=== PATIENT | male | born 2000 | race Caucasian/White ===

== ENCOUNTER 2024-02-08 17:18 | Emergency (ER) | payer OTHER, SELFPAY ==
[2024-02-08 17:24] VITALS: BP 93/47; PULSE 52; RESP 16; TEMP 36.3; O2SAT 98; BMI 22.2
--- NOTE | 2024-02-08 17:28 | ED_ITS ---
HPI - General Adult General Chief complaint: Laceration/Wound Stated complaint: cut on head Time Seen by Provider: 02/08/24 17:19 History of Present Illness HPI narrative: Patient has small bleeding laceration on crown of scalp. He reports standing up and cutting it on a bin at work around 12:30. Did rinse out area at this time. No LOC 23-year-old man presenting to the emergency department after sustaining a cut to his head. He stood up in a doorway of a grain bin and cut it. He is not having any neck or back pain. There was no loss of conscious. He has not been nauseated. Laceration at the top of the head. Did bleed. Related Data Home Medications ?Medication ?Instructions ?Recorded ?Confirmed dextroamphetamine-amphetamine 20 20 mg PO BID 01/02/24 01/02/24 mg tablet (Adderall) dextroamphetamine-amphetamine 5 mg 5 mg PO BID 01/02/24 01/02/24 tablet (Adderall) Allergies Allergy/AdvReac Type Severity Reaction Status Date / Time maria esther Allergy Severe Sinus Uncoded 01/02/24 15:46 issues. Review of Systems Status of ROS: Reports: 6 or more systems reviewed and unremarkable except as noted in History and below [facility] Medical History Asthma ?J45.909 - Unspecified asthma, uncomplicated (ICD-10) Pilonidal cyst ?L05.91 - Pilonidal cyst without abscess (ICD-10) Social History What is your current living situation?: I presently have a place to live Problems where you live: no known problems In the past 12 months, utilities in danger of being shut off: no In past 12 months, lack of transportation kept you from medical appts, meetings, work, or getting things needed for daily living: no In the past 12 mos, have been you worried that your food would run out before you had money to buy more?: never true In the past 12 mos, the food you bought just didn't last and you didn't have money to buy more?: never true How often does anyone, including family, friends and others, physically hurt you : never How often does anyone, including family, friends and others, insult or talk down to you: never How often does anyone, including family, friends and others, threaten you with harm: never How often does anyone, including family, friends and others, scream or curse at you: never Little interest or pleasure in doing things: not at all Feeling down, depressed, or hopeless: more than half the days Exam Narrative: Exam Narrative: Quiet. NAD. Says little. Neck is supple nontender. Back nontender. Cranial nerves 2-12 intact. No Lowery sign. Top of the scalp is a 2 cm laceration. Full dermal. Bleeds a little bit with manipulation. No cranial defect appreciated. Const: Vital Signs, click to edit/add: Vital Signs - 24 hr 02/08/24 17:24 Temperature 97.4 F L Pulse Rate [Pulse Oximeter] 52 L Respiratory Rate 16 Blood Pressure [Ri ght Upper Arm] 93/47 L Pulse Oximetry 98 Oxygen Delivery Me thod Room Air Documenting provider has reviewed patient's vital signs: yes Course Vital Signs Vital signs: Initial Vital Signs Temperature 97.4 F L 02/08/24 17:24 Temperature Source Temporal Artery Scan 02/08/24 17:24 Pulse Rate 52 L 02/08/24 17:24 Respiratory Rate 16 02/08/24 17:24 Blood Pressure 93/47 L 02/08/24 17:24 Blood Pressure Mean 62 L 02/08/24 17:24 Pulse Oximetry 98 02/08/24 17:24 Oxygen Delivery Method Room Air 02/08/24 17:24 Vital Signs Temperature 97.4 F L 02/08/24 17:24 Pulse Rate 52 L 02/08/24 17:24 Respiratory Rate 16 02/08/24 17:24 Blood Pressure 93/47 L 02/08/24 17:24 Pulse Oximetry 98 02/08/24 17:24 Oxygen Delivery Method Room Air 02/08/24 17:24 Temperature 97.4 F L 02/08/24 17:24 Pulse Rate 52 L 02/08/24 17:24 Respiratory Rate 16 02/08/24 17:24 Blood Pressure 93/47 L 02/08/24 17:24 Pulse Oximetry 98 02/08/24 17:24 Oxygen Delivery Method Room Air 02/08/24 17:24 Medical Decision Making MDM Narrative Medical decision making narrative: Discussed methods of treatment. I would suture or staple just to have less trouble. No other evidence of injury apparent He would prefer richie as quick I think. Return to cleansed with Shur-Clens solution. Place richie with good wound approximation and controlled bleeding. Tolerated well. See patient discharge plan for further discussion Medical Records Medical records reviewed: Yes I reviewed the patient's medical records Discharge Plan Discharge Clinical Impression: Laceration of scalp, Closed head injury Patient Disposition: Home w/ Parent or Adult Condition: Improved Additional Instructions: richie out in 6-7 days. ok to get wet but try not to soak while richie are in. Watch for spreading redness after 2 days accompanied by heat, swelling, marked increase in pain, purulent drainage. Signs or symptoms of a concussion might be nausea or headache upon exertion which can also be an indication to back off that level of activity and reassess in a week.? Concussion can also be represented by smoldering nausea or smoldering headache, difficulty with concentration, mood lability, general somnolence, sense of persistent fog or dizziness/lightheadedness.? If these symptoms are becoming apparent and continuing beyond 7-10 days, be re-evaluated for further recommendations. Prescriptions: No Action dextroamphetamine-amphetamine [Adderall] 20 mg tablet 20 mg PO BID Rx Instructions: administer doses at least 4-6 hours apart dextroamphetamine-amphetamine [Adderall] 5 mg tablet 5 mg PO BID Rx Instructions: administer doses at least 4-6 hours apart Follow Up/Referrals: Grayson Bee MD [Primary Care Provider] - Stand Alone Forms: [employer] Info Instructions
== END 2024-02-08 18:14 | disposition home or self-care (01) ==
PROVIDERS: Emergency Provider Family Medicine; PCP Family Medicine
DX: S01.01XA Laceration without foreign body of scalp, initial encounter (principal); S09.90XA Unspecified injury of head, initial encounter; W22.8XXA Striking against or struck by other objects, initial encounter
CPT/HCPCS: 12001; 99283; 99284

== ENCOUNTER 2024-10-08 14:56 | Emergency (ER) | payer OTHER, SELFPAY ==
--- OUTSIDE RECORDS SUMMARY | 2024-10-08 14:58 | XMS_ITS | Clinical Summary ---
Author Organization [employer] [facility] Address [address] [place] [address] Care Team Providers Care Manager Emergency Department Name Role Phone Pcp, No Primary Care Provider Unavailabl e Allergies No known active allergies Medications dextroamphetamin e-amphetamine (ADDERALL) 20 mg tablet Take 20 mg by mouth. 3 Active dextroamphetamin e-amphetamine (ADDERALL) 5 mg tablet Take 5 mg by mouth. 3 Active ibuprofen (IBU-200 ORAL) Take by mouth. Active menthol-zinc oxide topical (Calmoseptine) ointmentIndicati ons:Skin irritation Apply topically to affected area(s) each time if needed for Irritation. 70 g 3 Active omeprazole 20 mg tabletIndication s:Gastritis, presence of bleeding unspecified, unspecified chronicity, unspecified gastritis type Take 1 Tablet (20 mg) by mouth once daily before a meal. 60 Tablet 5 Active clarithromycin 500 mg tabletIndication s:H. pylori infection Take 1 Tablet (500 mg) by mouth two times daily for 14 days. 28 Tablet 5 10/17/19 25 Active amoxicillin 500 mg tabletIndication s:H. pylori infection Take 2 Tablets (1,000 mg) by mouth two times daily for 14 days. 56 Tablet 5 10/17/19 25 Active Active Problems No known active problems Encounters Date Type Department Care Team Description 10/04/2024 Telephone [facility] [place] [address] [place] [address] Aye Browning NP Results 10/03/2024 1:30 PM CDT Orders Only [facility] [address] [place] [address] Lab, Farm Lab 10/02/2024 7:30 PM CDT Office Visit [facility] [place] [address] [place] [phone] Jessica Connors MD Abdominal Pain 10/02/2024 Travel from Last 3 Months Social History Tobacco Use Types Packs/Day Years Used Date Smoking Tobacco: Former Cigarettes Smokeless Tobacco: Never Tobacco Cessation:Counseling Given: Not Answered Social Connections Answer Date Recorded Do you often feel lonely or isolated from those around you? 0 10/02/2024 Financial Resource Strain Answer Date R ecorded Difficulty of Paying Living Expenses 3 10/02/2024 Difficulty of Paying Living Expenses Not on file 10/02/2024 Food Insecurity Answer Date Recorded Do you worry your food will run out before you are able to buy more? 1 10/02/2024 Transportation Needs Answer Date Record ed Does lack of transportation keep you from medica l appointments? 1 10/02/2024 Does lack of transportation keep you from work, meetings or getting things that you need? 1 10/02/2024 Housing Stability Answer Date Recorded What is your housing situation today? 1 10/02/2024 Utilities Answer Date Recorded Do you have trouble paying f or utilities (for example, heat, electricity, water, phone)? 1 10/02/2024 Sex and Gender Information Value Date Recorded Sex Assigned at Not on file Legal Sex Male 11:45 AM CDT Gender Identity Not on file Sexual Orientation Not on file Obstetrics History Last Filed Vital Signs Vital Sign Reading Time Taken Comments Blood Pressure 119/67 10/02/2024 7:28 PM CDT Pulse 66 10/02/2024 7:28 PM CDT Temperature 36.7 C (98.1 F) 10/02/2024 7:28 PM CDT Respiratory Rate 20 10/02/2024 7:28 PM CDT Oxygen Saturation 99% 10/02/2024 7:28 PM CDT Inhaled Oxygen Concentration - - Weight 72.6 kg (160 lb) 10/02/2024 7:28 PM CDT Height 177.8 cm (5' 10) 10/02/2024 7:28 PM CDT Body Mass Index 22.96 10/02/2024 7:28 PM CDT Plan of Treatment Health Maintenance Due Date Last Done Comments Tdap 2013 Depression screening for age 12+ 2014 HIV for age 15-65 2017 HPV series for age 9-26 (1 - Male 3-dose series) 2017 Hepatitis C screening for age 18-79 2020 Tetanus booster 2022 COVID-19 vaccine series ( - season) 2024 05/19/2022, 06/25/2021, 10/28/2020, Additional history exists Influenza Vaccine (Season Ended) 2025 BMI (ht and wt on same day) for age 18+ 10/02/2025 10/02/2024 Pneumococcal series for age 6-49 Aged Out No longer eligible based on patient's age to complete this topic Procedures Procedure Name Priority Date/Time Associated Diagnosis Comments H PYLORI ANTIGEN,STOOL Routine 10/03/2024 1:47 PM CDT Gastritis, presence of bleeding unspecified, unspecified chronicity, unspecified gastritis type from Last 3 Months Results * H PYLORI ANTIGEN,STOOL (10/03/2024 1:47 PM CDT) HELICOBACTER PYLORI AG, EIA, STOOL SEE NOTE [facility] Comment: HELICOBACTER PYLORI AG, EIA, STOOL Micro Number: [id number] Test Status: Final Specimen Source: Stool/feces Specimen Quality: Adequate H.pylori Ag: Not Detected Antimicrobials, proton pump inhibitors, and bismuth preparations inhibit H. pylori and ingestion up to two weeks prior to testing may cause false negative results. If clinically indicated the test should be repeated on a new specimen obtained two weeks after discontinuing treatment. Reference Range: Not Detected Stool STOOL SPECIMEN / Unknown 10/03/2024 1:47 PM CDT 10/03/2024 1:48 PM CDT us Jessica Connors MD MICROBIOLOGY Final Result [facility] [address] [place] [address], [facility] [address] [place] [address] from Last 3 Months Insurance [facility] Care Teams Manager Emergency Department Relationship Specialty Start Date End Date Pcp, No . PCP - General 04/08/23
--- OUTSIDE RECORDS SUMMARY | 2024-10-08 14:58 | XMS_ITS | Clinical Summary ---
Author Organization [facility] Address [address] [place] [address] Care Team Providers Care Principal Software Engineer Name Role Phone No Ref-Primary, Physician Primary Care Provider Marlene Foster PA-C Unavailable Allergies No known active allergies Medications amphetamine-dex troamphetamine (ADDERALL) 5 MG tablet Take 5 mg by mouth 2 times daily 3 Active amphetamine-dex troamphetamine (ADDERALL) 20 MG tablet Take 20 mg by mouth 2 times daily 3 Active oxyCODONE (ROXICODONE) 5 MG tabletIndicatio ns:Pilonidal sinus Take 1 tablet (5 mg) by mouth every 4 hours as needed for moderate to severe pain 6 tablet 4 Active Additional Information Patient not taking.Reported on 10/04/2024 omeprazole 20 MG tablet Take 20 mg by mouth. 5 Active sucralfate (CARAFATE) 1 GM tablet Take 1 tablet (1 g) by mouth 4 times daily for 14 days. 56 tablet 5 10/19/19 25 Active ondansetron (ZOFRAN ODT) 4 MG ODT tab Take 1 tablet (4 mg) by mouth every 8 hours as needed for nausea or vomiting. 10 tablet 5 10/10/19 25 Active Active Problems No known active problems Encounters Date Type Department Care Team Description 10/06/2024 3:24 PM CDT - 10/06/2024 6:22 PM CDT [facility] Emergency Dept [address] [place] [address] Piper Alvarez MD Acute gastritis without hemorrhage, unspecified gastritis type; Abdominal pain, epigastric Discharge Disposition: Home or Self Care 10/06/2024 Travel 10/04/2024 3:32 PM CDT - 10/04/2024 5:37 PM CDT Emergency [facility] Emergency Dept [address] [place] [address] Jony Melo MD Epigastric pain; Hepatomegaly Discharge Disposition: Home or Self Care 10/04/2024 3:00 PM CDT Office Visit [facility] [address] [place] [address] Shima Valdivia APRN CNP Epigastric pain (Primary Dx); RUQ abdominal pain; LUQ abdominal pain 10/04/2024 Travel from Last 3 Months Social History Tobacco Use Types Packs/Day Years Used Date Smoking Tobacco: Never Smokeless Tobacco: Current Tobacco Cessation:Ready to Q uit: Not Asked; Counseling Given: Not Answered Comments:Current vaper Alcohol Use Standard Drinks/Week Comments [...] on file 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 Gender Identity Not on file Sexual Orientation Not on file Travel History Travel Start Travel End [place] 09/01/2024 09/08/2024 [place] 09/01/2024 09/07/2024 Last Filed Vital Signs Vital Sign Reading [...] Mass Index 22.71 10/06/2024 3:20 PM CDT Plan of Treatment Upcoming Encounters Date Type Department Care Team (Late st Contact Info) Description 11/07/2024 7:00 AM CDT Office Visit [facility] [place] [address] [facility] 4th [place] [address] Jony Melo MD [facility] [address] [place], [place] [address] Marlene Foster PA-C [address] [place] [address] Health Maintenance Due Date Last Done Comments ADVANCE CARE PLANNING 2002 ANNUAL REVIEW OF HM ORDERS 2002 YEARLY PREVENTIVE VISIT 2005 HIV SCREENING 2017 HEPATITIS C SCREENING 2020 COVID-19 Vaccine ( season) 2024 05/19/2022, 06/25/2021, 10/28/2020, Additional history exists INFLUENZA VACCINE (#1) 2024 , 05/18/2022, 07/01/2021, Additional history exists DTAP/TDAP/TD IMMUNIZATION (7 - Td or Tdap) 09/13/2024 09/13/2014, 09/21/2007, 12/23/2003, Additional history exists ZOSTER IMMUNIZATION (1 of 2) 2052 Pneumococcal Vaccine: Pediatrics (0 to 5 Years) and At-Risk Patients (6 to 49 Years) Aged Out 03/25/2003, 01/22/2003, 2002 No longer eligible based on patient's age to complete this topic HEPATITIS B IMMUNIZATION Completed 003, 01/22/2003, 2002 MENINGITIS IMMUNIZATION Completed 02/02/2019, 09/13 HPV IMMUNIZATION Completed 07/01/2021, 02/2019, 01/20/2018 MENINGITIS B IMMUNIZATION Completed 07/01/2021, 08/2019 PHQ-2 (once per calendar year) Completed 10/04/2024 Procedures Procedure Name Priority Date/Time Associated Diagnosis Comments ROUTINE UA WITH MICROSCOPIC REFLEX TO CULTURE STAT 10/06/2024 5:[address] ABDOMEN PELVIS W CONTRAST STAT 10/06/2024 5:00 PM CDT CBC WITH PLATELETS & DIFFERENTIAL STAT 10/06/2024 3:44 PM CDT EXTRA RED TOP TUBE STAT 10/06/2024 3: 44 PM CDT EXTRA BLUE TOP TUBE STAT 10/06/2024 3 :44 PM CDT CBC WITH PLATELETS AND DIFFERENTIAL STAT 10/06/2024 3:44 PM CDT LIPASE STAT 10/06/2024 3:44 PM CDT EXTRA TUBE STAT 10/06/2024 3:44 PM CDT COMPREHENSIVE METABOLIC PANEL STAT 10/06/2024 3:44 PM CDT US ABDOMEN LIMITED STAT 10/04/2024 4: 33 PM CDT CBC WITH PLATELETS & DIFFERENTIAL STAT 10/04/2024 3:27 PM CDT CBC WITH PLATELETS AND DIFFERENTIAL STAT 10/04/2024 3:27 PM CDT EXTRA RED TOP TUBE STAT 10/04/2024 3: 27 PM CDT EXTRA BLUE TOP TUBE STAT 10/04/2024 3 :27 PM CDT LIPASE STAT 10/04/2024 3:27 PM CDT COMPREHENSIVE METABOLIC PANEL STAT 10/04/2024 3:27 PM CDT EXTRA TUBE STAT 10/04/2024 3:27 PM CDT from Last 3 Months Results * (ABNORMAL) UA with Microscopic reflex to Culture (10/06/2024 5:24 PM CDT) Color Urine Light Yellow Colorless, Straw, Light Yellow, Yellow 10/06/2024 6:15 PM CDT [facility] Appearance Urine Clear Clear 10/07/19 6:15 PM CDT [facility] Glucose Urine Negative Negative mg/dL 10/06/2024 6:15 PM CDT [facility] Bilirubin Urine Negative Negative 6:15 PM CDT [facility] Ketones Urine Negative Negative mg/dL 10/06/2024 6:15 PM CDT [facility] Specific Agness Urine 1.010 1.003 - 1.035 BOB 10/06/2024 6:15 PM CDT [facility] Blood Urine Negative Negative 10/06/2024 6:15 PM CDT [facility] pH Urine 6.5 5.0 - 7.0 10/06/2024 6:15 PM CDT [facility] Protein Albumin Urine 20(A) Negative mg/dL [...] LAB - URINE ORDERABLES Final Res ult [facility] Lab [address] Lab (1st floor, no room number) [place] [address] * CT Abdomen Pelvis w [...] EXAM: CT ABDOMEN PELVIS W CONTRAST LOCATION: [facility] DATE: 10/06/2024 INDICATION: severe abd pain COMPARISON: [...] EXAM: CT ABDOMEN PELVIS W CONTRAST LOCATION: [facility] DATE: 10/06/2024 INDICATION: severe abd pain COMPARISON: [...] Red Top Tube (10/06/2024 3:44 PM CDT) Only the most recent of2 resultswithin the time period is included. Hold Specimen [facility] 10/06/2024 5:01 PM CDT LABORATORY Blood VENOUS LINE / Unknown Venipuncture / Unknown 10/06/2024 3:44 PM CDT 10/06/2024 3:52 PM CDT Piper Alvarez MD LAB - BLOOD ORDERABLES Final Res ult [facility] Care Lab [address] [facility] Lab (1st floor, no room number) [place] [id number] [place] [address] * Extra Blue Top Tube (10/06/2024 3:44 PM CDT) Only the most recent of2 resultswithin the time period is included. Hold Specimen [facility] 10/06/2024 5:01 PM CDT [facility] Blood VENOUS LINE / Unknown Venipuncture / Unknown 10/06/2024 3:44 PM CDT 10/06/2024 3:53 PM CDT Piper Alvarez MD LAB - BLOOD ORDERABLES Final Res ult Performing Organization Address City/[facility]/ZIP Co de Phone Number [facility] Lab [address] [facility] Lab (1st floor, no room number) [place] [phone] * CBC with platelets and differential (10/06/2024 3:44 PM CDT) Only the most recent of2 resultswithin the time period is included. WBC Count 9.8 4.0 - 11.0 10e3/uL [...] LAB - BLOOD ORDERABLES Final Res ult [facility] [address] Lab (1st floor, no room number) [place] [id number] * Lipase (10/06/2024 3:44 PM CDT) Only the most recent of2 resultswithin the time period is included. Lipase 26 13 - 60 U/L 10/06/2024 4:22 PM CDT LABORATORY Blood BLOOD SPECIMEN / Unknown Venipuncture / Unknown 10/06/2024 3:44 PM CDT 10/06/2024 3:53 PM CDT us Piper Alvarez MD LAB - BLOOD ORDERABLES Final Res ult LABORATORY [facility] Lab [address] Lab (1st floor, no room number) [address] [place] [address] * (ABNORMAL) Comprehensive metabolic panel (10/06/2024 3:44 PM CDT) Only the most recent of2 resultswithin the time period is included. Sodium 138 135 - 145 mmol/L 10/06/2024 4:22 PM CDT LABORATORY Potassium 3.8 3.4 - 5.3 mmol/L 10/06/2024 4:22 PM CDT LABORATORY Carbon Dioxide (CO2) 26 22 - 29 mmol/L 10/06/2024 4:22 PM CDT LABORATORY Anion Gap 13 7 - 15 mmol/L 10/06/2024 4:22 PM CDT LABORATORY Urea Nitrogen 10.7 6.0 - 20.0 mg/dL 10/06/2024 4:22 PM CDT LABORATORY Creatinine 0.69 0.67 - 1.17 mg/dL 10/06/2024 4:22 PM CDT LABORATORY GFR Estimate >90 >60 mL/min/1.7 3m2 10/06/2024 4:22 PM CDT LABORATORY Comment:eGFR calculated us2020 CKD-EPI equation. Calcium 9.3 8.8 - 10.4 mg/dL 10/06/2024 4:22 PM CDT LABORATORY Chloride 99 98 - 107 mmol/L 10/06/2024 4:22 PM CDT LABORATORY Glucose 117(H) 70 - 99 mg/dL 10/06/2024 4:22 PM CDT LABORATORY Alkaline Phosphatase 100 40 - 150 U/L 10/06/2024 4:22 PM CDT LABORATORY AST 35 0 - 45 U/L 10/06/2024 4:22 PM CDT [facility] ALT 58 0 - 70 U/L 10/06/2024 4:22 PM CDT [facility] Protein Total 7.7 6.4 - 8.3 g/dL 10/06/2024 4:22 PM CDT [facility] Albumin 4.4 3.5 - 5.2 g/dL 10/06/2024 4:22 PM CDT LABORATORY Bilirubin Total 0.7 <=1.2 mg/dL 10/06/2024 4:22 PM CDT LABORATORY Blood BLOOD SPECIMEN / Unknown Venipuncture / Unknown 10/06/2024 3:44 PM CDT 10/06/2024 3:53 PM CDT us Piper Alvarez MD LAB - BLOOD ORDERABLES Final Res ult [facility] [address] Lab (1st floor, no room number) [place] [address] * US Abdomen Limited (10/04/2024 4:33 PM CDT) Anatomical Region Laterality Modality Abdomen/Pelvis Ultrasound 10/04/2024 4:33 PM CDT Impressions 10/04/2024 4:49 PM CDT IMPRESSION: 1. Mild hepatomegaly. Narrative 10/04/2024 4:49 PM CDT EXAM: US ABDOMEN LIMITED LOCATION: [facility] DATE: 10/04/2024 INDICATION: upper abdominal pain [...] - 10/04/2024 EXAM: US ABDOMEN LIMITED LOCATION: [facility] DATE: 10/04/2024 INDICATION: upper abdominal pain [...] normal. No ascites. IMPRESSION: 1. Mild hepatomegaly. Jony Melo MD [facility] ORDERABLES Final Resul t from Last 3 Months Insurance [employer] Care Teams Principal Software Engineer Relationship Specialty Start Date End Date No Ref-Primary, Physician PCP - General 10/04/24 Marlene Foster PA-C [address] [place] [address] Physician Dental Technologist Physician Dental Technologist - Medical 10/08/24
--- OUTSIDE RECORDS SUMMARY | 2024-10-08 14:59 | XMS_ITS | Encounter Summary ---
Author Organization [facility] Address [address] [place] [address]. 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 Gender Identity Not on file Sexual Orientation Not on file Travel History Travel Start Travel End [place] 09/01/2024 09/08/2024 [place] 09/01/2024 09/07/2024 documented as of this encounter Plan of Treatment Upcoming Encounters Date Type Department Care Team ( st Contact Info) Description 11/07/2024 7:00 AM CDT Office Visit [facility] [address] 4th [place] [phone] Jony Melo MD [facility] [address] [place], [place] [phone] Marlene Foster PA-C [address] [place], [place] [phone] documented as of this encounter Visit Diagnoses Not on filedocumented in this encounter Care Teams Warehouse Manager Relationship Specialty Start Date End Date No Ref-Primary, Physician PCP - General 10/04/24 documented as of this encounter
--- OUTSIDE RECORDS SUMMARY | 2024-10-08 14:59 | XMS_ITS | Encounter Summary ---
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 Help a little bit. Rates pain 03/06 or 04/05 ER F/U 10/04/2024 2:17 PM Additional Questions Roomed by Yeti Accompanied by Self HPI ED/UC Followup: Facility: [facility] Date of visit: 10/02/2024 Reason [...] documented in this encounter Plan of Treatment Upcoming Encounters Date Type Department Care Team (Late st Contact Info) Description 11/07/2024 7:00 AM CDT Office Visit [facility] [address] 4th [place] [address] Jony Melo MD [facility] [address] [place], [place] [phone] Marlene Foster PA-C [address] [place] [address] documented as of this encounter Visit Diagnoses Diagnosis Epigastric pain- Primary Abdominal pain, epigastric RUQ abdominal pain Abdominal pain, right upper quadrant LUQ abdominal pain Abdominal pain, left upper quadrant documented in this encounter Care Teams Blow Moulding Machine Operator Relationship Specialty Start Date End Date No Ref-Primary, Physician PCP - General 10/04/24 documented as of this encounter
--- OUTSIDE RECORDS SUMMARY | 2024-10-08 14:59 | XMS_ITS | Encounter Summary ---
Author Organization [facility] Address [address] [place] [address]. 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 Gender Identity Not on file Sexual Orientation Not on file Travel History Travel Start Travel End [place] 09/01/2024 09/08/2024 [place] 09/01/2024 09/07/2024 documented as of this encounter Plan of Treatment Upcoming Encounters Date Type Department Care Team ( st Contact Info) Description 11/07/2024 7:00 AM CDT Office Visit [facility] [address] 4th [place] [phone] Jony Melo MD [facility] [address] [place], [place] [address] Marlene Foster PA-C [address] [place], [place] [phone] documented as of this encounter Visit Diagnoses Not on filedocumented in this encounter Care Teams Medical Device Relationship Specialty Start Date End Date No Ref-Primary, Physician PCP - General 10/04/24 documented as of this encounter
--- OUTSIDE RECORDS SUMMARY | 2024-10-08 14:59 | XMS_ITS | Encounter Summary ---
Author Organization [place] Address [address] [place] [address] Care Team Providers Care Lime Supervisor Name Role Phone No Ref-Primary, Physician Primary Care Provider Reason for Referral * Consultation (Urgent) - Pending Review Specialty Diagnoses / Procedures Referred By Contkatarina t Referred To Contact Gastroenterology Diagnoses Epigastric pain Jony Melo MD [facility] [address] [place] [address] Phone: tel: fax: Referral ID Status Reason Start Date Expiration Date V isits Requested Visits Authorized [id number] Pending Review 10/04/2024 10/04/2025 1 1 Question Answer Reason for Referral: General GI Patient Scheduling Instructions: [facility] will call you to coordinate your care as prescribed by the provider. If you don t hear from a dairy supplies sales representative within 2 business days, please call . Comments Please be aware that coverage of these services is subject to the terms and limitations of your health insurance plan. Call member services at your health plan with any benefit or coverage questions. [facility] will call you to coordinate your care as prescribed by the provider. If you don t hear from a dairy supplies sales representative within 2 business days, please call . Reason for Visit * Reason Comments Abdominal Pain Encounter Details Date Type Department Care Team (Late st Contact Info) Description 10/04/2024 3:32 PM CDT - 10/04/2024 5:37 PM CDT Emergency [facility] Emergency Dept [address] [place] [address] Jony Melo MD [facility] [address] [facility] 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 09/01/2024 09/08/2024 [facility] 09/01/2024 09/07/2024 documented as of this [...] through Care Everywhere. * Peptic Ulcer Disease ([place]) documented in this encounter Medications at Time of Discharge sucralfate (CARAFATE) 1 GM tablet Take 1 tablet (1 g) by mouth 4 times daily for 14 days. 56 tablet 10/04/2024 10/18/2024 amphetamine-dext roamphetamine (ADDERALL) 20 MG tablet Take [...] moderate to severe pain 6 tablet 09/13/2023 documented as of this encounter ED Notes [...] History Past Surgical History: Procedure Laterality Date CYSTECTOMY PILONIDAL N/A 09/13/2023 Procedure: lay open cleft infection; Surgeon: Diann Damian MD; Location: [facility] OR EXAM UNDER ANESTHESIA RECTUM N/A 09/13/2023 Procedure: [...] 1,000 mg (1,000 mg Oral $Given 10/04/24 1613) alum & mag hydroxide-simethicone (MAALOX) suspension 15 mL (15 mLs Oral $Given 10/04/24 790) Procedures Procedures Discussion of Management None ED Course Additional Documentation None Medical Decision Making / Diagnosis [facility] Diagnoses: None MIPS None MDM Gretel Alaniz [...] ICD-10-CM 1. Epigastric pain R10.13 Adult GI Making Machine Catcher Referral - Consult Only 2. Hepatomegaly R16.0 Discharge Medications Discharge Medication List as of 10/04/2024 5:34 PM START taking these medications Details sucralfate (CARAFATE) 1 GM tablet Take 1 tablet (1 g) by mouth 4 times daily for 14 days., Disp-56 tablet, R-0, E-Prescribe Jony Melo MD 10/04/24 1965 * Shima Bolivar RN - 10/04/2024 3:10 [...] medical conditions, only takes adderall. [place] . documented in this encounter Plan of Treatment Upcoming Encounters Date Type Department Care Team (Late st Contact Info) Description 11/07/2024 7:00 AM CDT Office Visit [facility] Gastroenterology Clinic [address] 4th [place] [address] Jony Melo MD [facility] [address] [place], [place] [phone] Marlene Foster PA-C [address] [place], [place] [phone] Scheduled Referrals Name Type Priority Associated Diagnoses Orde r Schedule Adult GI Making Machine Catcher Referral - Consult Only Referral Urgent: 3-5 [...] PM CDT EXAM: US ABDOMEN LIMITED LOCATION: [facility] DATE: 10/04/2024 INDICATION: upper abdominal pain COMPARISON: [...] - 10/04/2024 EXAM: US ABDOMEN LIMITED LOCATION: [facility] DATE: 10/04/2024 INDICATION: upper abdominal pain COMPARISON: [...] 1. Mild hepatomegaly. us Jony Melo MD [facility] [place] ORDERABLES Final Resul t * CBC [...] MD LAB - BLOOD ORDERABLES Final Result [facility] Lab [address] Lab (1st floor, no room number) [place] [address] * Extra Red Top Tube (10/04/2024 3:27 PM CDT) Hold Specimen [facility] 10/04/2024 4:47 PM CDT [facility] LABORATORY Blood STRUCTURE OF RIGHT UPPER LIMB / Unknown Venipuncture / Unknown 10/04/2024 3:27 PM CDT 10/04/2024 3:39 PM CDT Jony Melo MD LAB - BLOOD ORDERABLES Final Result Performing Organization Address City/[facility]/ZIP Co de Phone Number [facility] Lab [address] Lab (1st floor, no room number) [place] [address] * Extra Blue Top Tube (10/04/2024 3:27 PM CDT) Hold Specimen [facility] 10/04/2024 4:47 PM CDT [facility] Blood STRUCTURE OF RIGHT UPPER LIMB / Unknown Venipuncture / Unknown 10/04/2024 3:27 PM CDT 10/04/2024 3:39 PM CDT Jony Melo MD LAB - BLOOD ORDERABLES Final Result [facility] Acute Care Lab [address] Lab (1st floor, no room number) [place] [address] * Lipase (10/04/2024 3:27 PM CDT) Lipase 24 13 - 60 U/L 10/04/2024 4:03 PM CDT LABORATORY Blood STRUCTURE OF RIGHT UPPER LIMB / Unknown Venipuncture / Unknown 10/04/2024 3:27 PM CDT 10/04/2024 3:39 PM CDT us Jony Melo MD LAB - BLOOD ORDERABLES Final Result LABORATORY [facility] Acute Care Lab [address] Lab (1st floor, no room number) [place] [address] * Comprehensive metabolic panel (10/04/2024 3:27 PM CDT) Sodium 139 135 - 145 mmol/L 10/04/2024 4:03 PM CDT LABORATORY Potassium 4.0 3.4 - 5.3 mmol/L 10/04/2024 4:03 PM CDT LABORATORY Carbon Dioxide (CO2) 27 22 - 29 mmol/L 10/04/2024 4:03 PM CDT LABORATORY Anion Gap 11 7 - 15 mmol/L 10/04/2024 4:03 PM CDT LABORATORY Urea Nitrogen 12.5 6.0 - 20.0 mg/dL 10/04/2024 4:03 PM CDT LABORATORY Creatinine 0.84 0.67 - 1.17 mg/dL 10/04/2024 4:03 PM CDT LABORATORY GFR Estimate >90 >60 mL/min/1.7 3m2 10/04/2024 4:03 PM CDT LABORATORY Comment:eGFR calculated 2020 CKD-EPI equation. Calcium 9.4 8.8 - 10.4 mg/dL 10/04/2024 4:03 PM CDT LABORATORY Chloride 101 98 - 107 mmol/L 10/04/2024 4:03 PM CDT LABORATORY Glucose 92 70 - 99 mg/dL 10/04/2024 4:03 PM CDT LABORATORY Alkaline Phosphatase 81 40 - 150 U/L 10/04/2024 4:03 PM CDT LABORATORY AST 34 0 - 45 U/L 10/04/2024 4:03 PM CDT LABORATORY ALT 57 0 - 70 U/L 10/04/2024 4:03 PM CDT [facility] Protein Total 7.7 6.4 - 8.3 g/dL 10/04/2024 4:03 PM CDT [facility] Albumin 4.6 3.5 - 5.2 g/dL 10/04/2024 4:03 PM CDT LABORATORY Bilirubin Total 0.5 <=1.2 mg/dL 10/04/2024 4:03 PM CDT LABORATORY Blood STRUCTURE OF RIGHT UPPER LIMB / Unknown Venipuncture / Unknown 10/04/2024 3:27 PM CDT 10/04/2024 3:39 PM CDT us Jony Melo MD LAB - BLOOD ORDERABLES Final Result LABORATORY [facility] Acute Care Lab [address] [facility] Lab (1st floor, no room number) [place] [address] documented in this encounter Visit Diagnoses Diagnosis [...] RN) documented in this encounter Care Teams Lime Supervisor Relationship Specialty Start Date End Date No Ref-Primary, Physician PCP - General 10/04/24 documented as of this encounter
--- OUTSIDE RECORDS SUMMARY | 2024-10-08 14:59 | XMS_ITS | Encounter Summary ---
Author Organization [place] Address [address] [place] [address] Care Team Providers Care Nut Orchardist Name Role Phone No Ref-Primary, Physician Primary Care Provider Reason for Visit * Reason Comments Abdominal Pain Encounter Details Date Type Department Care Team (Late st Contact Info) Description 10/06/2024 3:24 PM CDT - 10/06/2024 6:22 PM CDT Emergency [facility] Emergency Dept [address] [place] [address] [phone] Piper Alvarez MD [facility] [address] [place], [place] [phone] Acute gastritis without hemorrhage, unspecified gastritis type; [...] on file 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 [place] diet after that No greasy or fatty foods, no acidic foods, no caffeine, no alcohol See your doctor in next 3-4 days for recheck Maalox or mylanta before eating to coat your stomach Return if worsening symptoms or black stool or black vomit * Attachments The following attachments cannot be sent through Care Everywhere. * Acid-Reducing Medicines: General Info ([place]) * Gastritis ([place]) * Clear Liquid Diet: General Info ([place]) documented in this encounter [...] tablet Take 20 mg by mouth. 10/02/2024 ondansetron (ZOFRAN ODT) 4 MG ODT tab Take 1 tablet (4 mg) by mouth every 8 hours as needed for nausea or vomiting. 10 tablet 10/06/2024 10/09/2024 oxyCODONE (ROXICODONE) 5 MG tabletIndication s:Pilonidal sinus [...] Of note, mother endorses recent travel to [facility] and sister has been having nausea and [...] Bilirubin Urine Negative Ketones Urine Negative Specific [place] Urine 1.010 Blood Urine Negative pH Urine [...] ED Course ED Course as of 10/06/24 181 Sat Oct 06, 2024 1528 I obtained history and examined the patient as noted above. 175 I rechecked and updated the patient. Drinking water. States GI medication helped. 1808 We discussed plan for discharge and the patient is comfortable with this. Additional Documentation None Medical Decision Making / Diagnosis [facility] Diagnoses: None MIPS None MDM Gretel Alaniz [...] nausea or vomiting. Scribe Disclosure: I, Shine Myron, am serving as a scribe at 3:25 [...] hurts when he eats. Recent travel to [place] in early August documented in this encounter Plan of Treatment Upcoming Encounters Date Type Department Care Team (Late st Contact Info) Description 11/07/2024 7:00 AM CDT Office Visit [facility] Gastroenterology Clinic [place] [address] [facility] [address] 4th [place] [phone] Jony Melo MD [facility] [address] [place], [place] [address] Marlene Foster PA-C [address] [place] [address] documented as of this encounter Procedures Procedure [...] 10/06/2024 6:15 PM CDT [facility] LABORATORY Specific [place] Urine 1.010 1.003 - 1.035 BOB 10/06/2024 [...] LAB - URINE ORDERABLES Final Res ult LABORATORY [facility] Acute Care Lab [address] Lab (1st floor, no room number) [place] [address], [facility] * CT Abdomen Pelvis w Contrast (10/06/2024 [...] EXAM: CT ABDOMEN PELVIS W CONTRAST LOCATION: [facility] DATE: 10/06/2024 INDICATION: severe abd pain COMPARISON: [...] EXAM: CT ABDOMEN PELVIS W CONTRAST LOCATION: [facility] DATE: 10/06/2024 INDICATION: severe abd pain COMPARISON: [...] Tube (10/06/2024 3:44 PM CDT) Hold Specimen [facility] 10/06/2024 5:01 PM CDT LABORATORY Blood VENOUS LINE / Unknown Venipuncture / Unknown 10/06/2024 3:44 PM CDT 10/06/2024 3:52 PM CDT Piper Alvarez MD LAB - BLOOD ORDERABLES Final Res ult [facility] Acute Care Lab [address] Lab (1st floor, no room number) [place] [address], [facility] * Extra Blue Top Tube (10/06/2024 3:44 PM CDT) Hold Specimen [facility] 10/06/2024 5:01 PM CDT LABORATORY Blood VENOUS LINE / Unknown Venipuncture / Unknown 10/06/2024 3:44 PM CDT 10/06/2024 3:53 PM CDT us Piper Alvarez MD LAB - BLOOD ORDERABLES Final Res ult [facility] LABORATORY [facility] Acute Care Lab [address] Lab (1st floor, no room number) [place] [address], [facility] * CBC with platelets and differential (10/06/2024 3:44 PM CDT) [facility] WBC Count 9.8 4.0 - 11.0 10e3/uL [...] LAB - BLOOD ORDERABLES Final Res ult [facility] Lab [address] Lab (1st floor, no room number) [address] * Lipase (10/06/2024 3:44 PM CDT) Pathologist [facility] Lipase 26 13 - 60 U/L 10/06/2024 4:22 PM CDT LABORATORY Blood BLOOD SPECIMEN / Unknown Venipuncture / Unknown 10/06/2024 3:44 PM CDT 10/06/2024 3:53 PM CDT Piper Alvarez MD LAB - BLOOD ORDERABLES Final Res ult [facility] Lab [address] Lab (1st floor, no room number) [address] * (ABNORMAL) Comprehensive metabolic panel (10/06/2024 3:44 PM CDT) Pathologist [facility] Sodium 138 135 - 145 mmol/L 10/06/2024 [...] 4:22 PM CDT [facility] LAB[facility]ATORY Comment:eGFR calculated usin 2020 CKD-EPI equation. Calcium 9.3 8.8 - 10.4 mg/dL 10/06/2024 4:22 PM CDT [facility] LAB[facility] Chloride 99 98 - 107 mmol/L 10/06/2024 4:22 PM CDT [facility] LAB[facility] Glucose 117(H) 70 - 99 mg/dL 10/06/2024 4:22 PM CDT [facility] LAB[facility] Alkaline Phosphatase 100 40 - 150 U/L 10/06/2024 4:22 PM CDT [facility] AST 35 0 - 45 U/L 10/06/2024 4:22 PM CDT [facility] ALT 58 0 - 70 U/L 10/06/2024 4:22 PM CDT [facility] Protein Total 7.7 6.4 - 8.3 g/dL 10/06/2024 4:22 PM CDT [facility] Albumin 4.4 3.5 - 5.2 g/dL 10/06/2024 4:22 PM CDT [facility] LAB[facility] Bilirubin Total 0.7 <=1.2 mg/dL 10/06/2024 4:22 PM CDT [facility] LAB[facility] Blood BLOOD SPECIMEN / Unknown Venipuncture / Unknown 10/06/2024 3:44 PM CDT 10/06/2024 3:53 PM CDT Piper Alvarez MD LAB - BLOOD ORDERABLES Final Res ult [facility] Acute Care Lab [address] [facility] Lab (1st floor, no room number) [place] [address], [facility] documented in this encounter Visit Diagnoses [...] analgesic side effects. Hold while on IV WATER PLUMBER or with regular IV opioid dosing. sodium [...] analgesic side effects. Hold while on IV WATER PLUMBER or with regular IV opioid dosing. documented in this encounter Care Teams Nut Orchardist Relationship Specialty Start Date End Date No Ref-Primary, Physician PCP - General 10/04/24 documented as of this encounter
[2024-10-08 15:10] VITALS: BP 153/88; PULSE 85; RESP 18; TEMP 37.9; O2SAT 98; BMI 23.0
--- NOTE | 2024-10-08 16:06 | CRLHL7_ITS ---
For Patients: As a result of the Century Cures Act, medical imaging exams and procedure reports are released immediately into your electronic medical record. You may view this report before your referring provider. If you have questions, please contact your health care provider. INDICATION: Abdominal pain. TECHNIQUE: Multiplanar CT examination of the abdomen and pelvis was performed after the administration of 79 mL Isovue 370 intravenous contrast. COMPARISON: None. FINDINGS: Lower chest: No focal consolidation. Normal heart size. No pleural effusions or pneumothorax. Subsegmental and dependent atelectasis. 7 mm solid pulmonary nodule in the left lower lobe (2:14). Liver: Unremarkable. Gallbladder: Unremarkable. Biliary: Unremarkable. Pancreas: Within normal limits. Spleen: Unremarkable. Adrenal glands: Unremarkable. Renal/ureters/bladder: Normal in size and symmetrically enhancing. No obstructive uropathy. No hydronephrosis or obstructive urinary calculi. No suspicious renal masses. The ureters appear unremarkable. The bladder is within normal limits. Pelvis: Unremarkable prostate. Gastrointestinal: Moderate long segment of circumferential mural wall thickening involving the nondistended, fluid-filled loops of jejunum in the left upper quadrant. No bowel obstruction normal appendix. No significant colonic diverticulosis. Mild colonic stool burden. Vasculature: No aortic aneurysm. The portal vein remains patent. Lymph nodes: No pathologic lymphadenopathy by size criteria. There are several prominent small bowel mesenteric lymph nodes, likely reactive. Peritoneum: No free fluid or pneumoperitoneum. No drainable fluid collections. Abdominal wall/soft tissues: Unremarkable. Bones: No acute osseous abnormalities. IMPRESSION: 1. Moderate wall thickening involving a long segment of small bowel in the left upper quadrant, suggestive of a nonspecific infectious versus inflammatory enteritis. No bowel obstruction. 2. 7 mm solid pulmonary nodule in the left lower lobe, possibly infectious or inflammatory in etiology. Consider short interval follow-up CT chest in 3 months to assess stability or resolution. Please note that all CT scans at this facility use dose modulation, iterative reconstruction, and/or weight-based dosing when appropriate to reduce radiation dose to as low as reasonably achievable. Dictated by Segundo Bonilla MD @ 10/08/2024 5:11:14 PM (Electronically Signed)
--- OUTSIDE RECORDS SUMMARY | 2024-10-08 16:15 | XMS_ITS | Encounter Summary ---
Author Organization [place] Address [address] [place] [address]. 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 Gender Identity Not on file Sexual Orientation Not on file Travel History Travel Start Travel End [place] 09/01/2024 09/08/2024 [place] 09/01/2024 09/07/2024 documented as of this encounter Plan of Treatment Upcoming Encounters Date Type Department Care Team ( st Contact Info) Description 11/07/2024 7:00 AM CDT Office Visit [facility] Gastro[facility]ology Clinic [address] 4th [place] [phone] Jony Melo MD [facility] [address] [place], [place] [address] Marlene Foster PA-C [address] [place], [place] [phone] documented as of this encounter Visit Diagnoses Not on filedocumented in this encounter Care Teams Level Vial Grinder Relationship Specialty Start Date End Date No Ref-Primary, Physician PCP - General 10/04/24 documented as of this encounter
--- OUTSIDE RECORDS SUMMARY | 2024-10-08 16:15 | XMS_ITS | Encounter Summary ---
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 Gastroenterology Clinic [address] 4th [place] [address] Jony Melo MD [facility] [address] [place], [place] [address] Marlene Foster PA-C [address] [place] [address] documented as of this encounter Visit Diagnoses Diagnosis Epigastric pain- Primary Abdominal pain, epigastric RUQ abdominal pain Abdominal pain, right upper quadrant LUQ abdominal pain Abdominal pain, left upper quadrant documented in this encounter Care Teams Sample Selector Relationship Specialty Start Date End Date No Ref-Primary, Physician PCP - General 10/04/24 documented as of this encounter
--- OUTSIDE RECORDS SUMMARY | 2024-10-08 16:15 | XMS_ITS | Encounter Summary ---
Author Organization [place] Address [address] [place] [address] Care Team Providers Care Corrosion Control Specialist Name Role Phone No Ref-Primary, Physician Primary Care Provider Reason for Visit * Reason Comments Abdominal Pain Encounter Details Date Type Department Care Team (Late st Contact Info) Description 10/06/2024 3:24 PM CDT - 10/06/2024 6:22 PM CDT Emergency [facility] Emergency Dept [address] [place] [phone] Piper Alvarez MD [facility] [address] [place], [place] [phone] Acute gastritis without hemorrhage, unspecified gastritis type; [...] on file 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 [place] diet after that No greasy or fatty foods, no acidic foods, no caffeine, no alcohol See your doctor in next 3-4 days for recheck Maalox or mylanta before eating to coat your stomach Return if worsening symptoms or black stool or black vomit * Attachments The following attachments cannot be sent through Care Everywhere. * Acid-Reducing Medicines: General Info (Equatorial [place]) * Gastritis ([place]) * Clear Liquid Diet: General Info ([place]) documented in this encounter Medications at [...] Of note, mother endorses recent travel to [facility] and sister has been having [...] Bilirubin Urine Negative Ketones Urine Negative Specific [place] Urine 1.010 Blood Urine Negative pH Urine [...] Documentation None Medical Decision Making / Diagnosis [facility] Diagnoses: None MIPS None MDM Gretel [...] Description 11/07/2024 7:00 AM CDT Office Visit [facility] [place] [address] 4th [place] [phone] Jony Melo MD [facility] [address] [place], [place] [phone] Marlene Foster PA-C [address] [place] [address] documented as of this encounter [...] 10/06/2024 6:15 PM CDT RH LABORATORY Specific [place] Urine 1.010 1.003 - 1.035 BOB 10/06/2024 [...] - URINE ORDERABLES Final Res ult LABORATORY [facility] Acute Care Lab [address] Lab (1st floor, no room number) [place] [address], [facility] * CT Abdomen Pelvis w Contrast (10/06/2024 [...] EXAM: CT ABDOMEN PELVIS W CONTRAST LOCATION: [facility] DATE: 10/06/2024 INDICATION: severe abd pain [...] EXAM: CT ABDOMEN PELVIS W CONTRAST LOCATION: [facility] DATE: 10/06/2024 INDICATION: severe abd pain [...] Tube (10/06/2024 3:44 PM CDT) Hold Specimen [facility] 10/06/2024 5:01 PM CDT LABORATORY Blood VENOUS LINE / Unknown Venipuncture / Unknown 10/06/2024 3:44 PM CDT 10/06/2024 3:52 PM CDT Piper Alvarez MD LAB - BLOOD ORDERABLES Final Res ult [facility] Acute Care Lab [address] Lab (1st floor, no room number) [place] [address], [facility] * Extra Blue Top Tube (10/06/2024 3:44 PM CDT) Hold Specimen [facility] 10/06/2024 5:01 PM CDT LABORATORY Blood VENOUS LINE / Unknown Venipuncture / Unknown 10/06/2024 3:44 PM CDT 10/06/2024 3:53 PM CDT us Piper Alvarez MD LAB - BLOOD ORDERABLES Final Res ult RH LABORATORY [facility] Acute Care Lab [address] Lab (1st floor, no room number) [place] [address], [facility] * CBC with platelets and differential (10/06/2024 3:44 PM CDT) [facility] WBC Count 9.8 4.0 - 11.0 [...] LAB - BLOOD ORDERABLES Final Res ult [facility] Lab [address] Lab (1st floor, no room number) [address] * Lipase (10/06/2024 3:44 PM CDT) Pathologist [facility] Lipase 26 13 - 60 U/L 10/06/2024 4:22 PM CDT LABORATORY Blood BLOOD SPECIMEN / Unknown Venipuncture / Unknown 10/06/2024 3:44 PM CDT 10/06/2024 3:53 PM CDT Piper Alvarez MD LAB - BLOOD ORDERABLES Final Res ult [facility] Lab [address] Lab (1st floor, no room number) [address] * (ABNORMAL) Comprehensive metabolic panel (10/06/2024 3:44 PM CDT) Pathologist [facility] Sodium 138 135 - 145 mmol/L 10/06/2024 [...] LAB - BLOOD ORDERABLES Final Res ult [facility] Acute Care Lab [address] [facility] Lab (1st floor, no room number) [place] [address], [facility] documented in this encounter Visit Diagnoses Diagnosis [...] analgesic side effects. Hold while on IV TRAILER TANK TRUCK DRIVER or with regular IV opioid dosing. sodium [...] analgesic side effects. Hold while on IV TRAILER TANK TRUCK DRIVER or with regular IV opioid dosing. documented in this encounter Care Teams Corrosion Control Specialist Relationship Specialty Start Date End Date No Ref-Primary, Physician PCP - General 10/04/24 documented as of this encounter
--- OUTSIDE RECORDS SUMMARY | 2024-10-08 16:15 | XMS_ITS | Encounter Summary ---
Author Organization [place] Address [address] [place] [address] Care Team Providers Care Engraver Optical Frames Name Role Phone No Ref-Primary, Physician Primary Care Provider Reason for Referral * Consultation (Urgent) - Pending Review Specialty Diagnoses / Procedures Referred By Contkatarina t Referred To Contact Gastroenterology Diagnoses Epigastric pain Jony Melo MD [facility] [address] [place] [address] Phone: tel: fax: Referral ID Status Reason Start Date Expiration Date V isits Requested Visits Authorized [id number] Pending Review 10/04/2024 10/04/2025 1 1 Question Answer Reason for Referral: General GI Patient Scheduling Instructions: [facility] will call you to coordinate your care as prescribed by the provider. If you don t hear from a patient accounting representative within 2 business days, please call . Comments Please be aware that coverage of these services is subject to the terms and limitations of your health insurance plan. Call member services at your health plan with any benefit or coverage questions. [facility] will call you to coordinate your care as prescribed by the provider. If you don t hear from a patient accounting representative within 2 business days, please call . 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 * Peptic Ulcer Disease (Citizen Of [place]) documented in this encounter Medications at Time [...] 15 mL (15 mLs Oral $Given 10/04/24 050) Procedures Procedures Discussion of Management None ED Course Additional Documentation None Medical Decision Making / Diagnosis [facility] Diagnoses: None MIPS None MDM Gretel [...] ICD-10-CM 1. Epigastric pain R10.13 Adult GI Director Of Pupil Personnel Program Referral - Consult Only 2. Hepatomegaly R16.0 Discharge Medications Discharge Medication List as of 10/04/2024 5:34 PM START taking these medications Details sucralfate (CARAFATE) 1 GM tablet Take 1 tablet (1 g) by mouth 4 times daily for 14 days., Disp-56 tablet, R-0, E-Prescribe Jony Melo MD 10/04/24 1186 * Shima Bolivar RN - 10/04/2024 3:10 [...] medical conditions, only takes adderall. [place] documented in this encounter Plan of Treatment Upcoming Encounters Date Type Department Care Team (Late st Contact Info) Description 11/07/2024 7:00 AM CDT Office Visit [facility] [address] 4th [place] [address] Jony Melo MD [facility] [address] [place], [place] [address] Marlene Foster PA-C [address] [place], [place] [phone] Scheduled Referrals Name Type Priority Associated Diagnoses Orde r Schedule Adult GI Director Of Pupil Personnel Program Referral - Consult Only Referral Urgent: 3-5 [...] PM CDT EXAM: US ABDOMEN LIMITED LOCATION: [facility] DATE: 10/04/2024 INDICATION: upper abdominal pain COMPARISON: [...] - 10/04/2024 EXAM: US ABDOMEN LIMITED LOCATION: [facility] DATE: 10/04/2024 INDICATION: upper abdominal pain COMPARISON: [...] 1. Mild hepatomegaly. us Jony Melo MD [facility] [place] ORDERABLES Final Resul t * CBC [...] MD LAB - BLOOD ORDERABLES Final Result [facility] Lab [address] Lab (1st floor, no room number) [place] [address] * Extra Red Top Tube (10/04/2024 3:27 PM CDT) Hold Specimen [facility] 10/04/2024 4:47 PM CDT RH LABORATORY Blood STRUCTURE OF RIGHT UPPER LIMB / Unknown Venipuncture / Unknown 10/04/2024 3:27 PM CDT 10/04/2024 3:39 PM CDT Jony Melo MD LAB - BLOOD ORDERABLES Final Result Performing Organization Address City/[facility]/ZIP Co de Phone Number [facility] Lab [address] Lab (1st floor, no room number) [place] [address] * Extra Blue Top Tube (10/04/2024 3:27 PM CDT) Hold Specimen [facility] 10/04/2024 4:47 PM CDT RH LABORATORY Blood STRUCTURE OF RIGHT UPPER LIMB / Unknown Venipuncture / Unknown 10/04/2024 3:27 PM CDT 10/04/2024 3:39 PM CDT Jony Melo MD LAB - BLOOD ORDERABLES Final Result [facility] Acute Care Lab [address] Lab (1st floor, no room number) [place] [address] * Lipase (10/04/2024 3:27 PM CDT) Lipase 24 13 - 60 U/L 10/04/2024 4:03 PM CDT LABORATORY Blood STRUCTURE OF RIGHT UPPER LIMB / Unknown Venipuncture / Unknown 10/04/2024 3:27 PM CDT 10/04/2024 3:39 PM CDT us Jony Melo MD LAB - BLOOD ORDERABLES Final Result LABORATORY [facility] Acute Care Lab [address] Lab (1st floor, no room number) [place] [address] * Comprehensive metabolic panel (10/04/2024 [...] LAB - BLOOD ORDERABLES Final Result LABORATORY [facility] Acute Care Lab [address] [facility] Lab (1st floor, no room number) [place] [address] documented in this encounter Visit [...] RN) documented in this encounter Care Teams Engraver Optical Frames Relationship Specialty Start Date End Date No Ref-Primary, Physician PCP - General 10/04/24 documented as of this encounter
--- OUTSIDE RECORDS SUMMARY | 2024-10-08 16:15 | XMS_ITS | Clinical Summary ---
Author Organization [place] Address [address] [place] [address] Care Team Providers Care Therapeutic Program Worker Name Role Phone No Ref-Primary, Physician Primary [...] PM CDT - 10/06/2024 6:22 PM CDT [facility] Emergency Dept [address] [place] [address] Piper Alvarez MD Acute gastritis without hemorrhage, unspecified gastritis type; Abdominal pain, epigastric Discharge Disposition: Home or Self Care 10/06/2024 Travel 10/04/2024 3:32 PM CDT - 10/04/2024 5:37 PM CDT Emergency [facility] Emergency Dept [address] [place] [address] Jony Melo MD Epigastric pain; Hepatomegaly Discharge Disposition: Home or Self Care 10/04/2024 3:00 PM CDT Office Visit [facility] [address] [place] [address] Shima Valdivia APRN CNP Epigastric pain (Primary [...] on file 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 Gender Identity Not on file Sexual Orientation [...] Description 11/07/2024 7:00 AM CDT Office Visit [facility] Gastroenterology Clinic [place] [address] [facility] [address] 4th [place] [address] Jony Melo MD [facility] [address] [place], [place] [phone] Marlene Foster PA-C [address] [place] [address] Health Maintenance Due Date Last [...] 10/06/2024 6:15 PM CDT RH LABORATORY Specific [place] Urine 1.010 1.003 - 1.035 BOB 10/06/2024 [...] LAB - URINE ORDERABLES Final Res ult [facility] Acute Care Lab [address] Lab (1st floor, no room number) [place] [address] * CT Abdomen Pelvis w Contrast [...] EXAM: CT ABDOMEN PELVIS W CONTRAST LOCATION: [facility] DATE: 10/06/2024 INDICATION: severe abd pain COMPARISON: [...] EXAM: CT ABDOMEN PELVIS W CONTRAST LOCATION: [facility] DATE: 10/06/2024 INDICATION: severe abd pain COMPARISON: [...] the time period is included. Hold Specimen [facility] 10/06/2024 5:01 PM CDT LABORATORY Blood VENOUS LINE / Unknown Venipuncture / Unknown 10/06/2024 3:44 PM CDT 10/06/2024 3:52 PM CDT Piper Alvarez MD LAB - BLOOD ORDERABLES Final Res ult [facility] Care Lab [address] [place] Lab (1st floor, no room number) [place] [phone] [place] [address] * Extra Blue Top Tube (10/06/2024 3:44 PM CDT) Only the most recent of2 resultswithin the time period is included. Hold Specimen [facility] 10/06/2024 5:01 PM CDT RH LABORATORY Blood VENOUS LINE / Unknown Venipuncture / Unknown 10/06/2024 3:44 PM CDT 10/06/2024 3:53 PM CDT Piper Alvarez MD LAB - BLOOD ORDERABLES Final Res ult Performing Organization Address City/[facility]/ZIP Co de Phone Number [facility] Lab [address] [facility] Lab (1st floor, no room number) [place] [phone] * CBC with platelets and differential [...] CDT 10/06/2024 3:53 PM CDT us Piper Alvaerz MD LAB - BLOOD ORDERABLES Final Res ult RH LABORATORY [facility] Acute Care Lab [address] Lab (1st floor, no room number) [place] [phone] * Lipase (10/06/2024 3:44 PM CDT) Only the most recent of2 resultswithin the time period is included. Lipase 26 13 - 60 U/L 10/06/2024 4:22 PM CDT LABORATORY Blood BLOOD SPECIMEN / Unknown Venipuncture / Unknown 10/06/2024 3:44 PM CDT 10/06/2024 3:53 PM CDT us Piper Alvarez MD LAB - BLOOD ORDERABLES Final Res ult LABORATORY [facility] Acute Care Lab [address] Lab (1st floor, no room number) [address] [place] [address] * (ABNORMAL) Comprehensive metabolic panel (10/06/2024 3:44 [...] LAB - BLOOD ORDERABLES Final Res ult [facility] Acute Care Lab [address] Lab (1st floor, no room number) [place] [address] * US Abdomen Limited (10/04/2024 4:33 PM CDT) Anatomical Region Laterality Modality Abdomen/Pelvis Ultrasound 10/04/2024 4:33 PM CDT Impressions 10/04/2024 4:49 PM CDT IMPRESSION: 1. Mild hepatomegaly. Narrative 10/04/2024 4:49 PM CDT EXAM: US ABDOMEN LIMITED LOCATION: [facility] DATE: 10/04/2024 INDICATION: upper abdominal pain COMPARISON: [...] - 10/04/2024 EXAM: US ABDOMEN LIMITED LOCATION: [facility] DATE: 10/04/2024 INDICATION: upper abdominal pain COMPARISON: [...] IMPRESSION: 1. Mild hepatomegaly. Jony Melo MD [facility] ORDERABLES Final Resul t from Last 3 Months Insurance [employer] Care Teams Therapeutic Program Worker Relationship Specialty Start Date End Date No Ref-Primary, Physician PCP - General 10/04/24 Marlene Foster PA-C [address] [place] [address] Physician Physically Impaired Teacher Physician Physically Impaired Teacher - Medical 10/08/24
--- OUTSIDE RECORDS SUMMARY | 2024-10-08 16:15 | XMS_ITS | Encounter Summary ---
Author Organization [place] Address [address] [place] [address]. 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 Gender Identity Not on file Sexual Orientation Not on file Travel History Travel Start Travel End [place] 09/01/2024 09/08/2024 [place] 09/01/2024 09/07/2024 documented as of this encounter Plan of Treatment Upcoming Encounters Date Type Department Care Team ( st Contact Info) Description 11/07/2024 7:00 AM CDT Office Visit [facility] Gastroenterology Clinic [address] 4th [place] [phone] Jony Melo MD [facility] [address] [place], [place] [address] Marlene Foster PA-C [address] [place], [place] [phone] documented as of this encounter Visit Diagnoses Not on filedocumented in this encounter Care Teams Middle School Director Relationship Specialty Start Date End Date No Ref-Primary, Physician PCP - General 10/04/24 documented as of this encounter
--- OUTSIDE RECORDS SUMMARY | 2024-10-08 16:15 | XMS_ITS | Clinical Summary ---
Author Organization [employer] [facility] Address [address] [place] [address] Care Team Providers Care Para Operator Name Role Phone Pcp, No Primary Care [...] Type Department Care Team Description 10/04/2024 Telephone [facility] [address] [place] [address] Aye Browning NP Results 10/03/2024 1:30 PM CDT Orders Only [facility] [address] [place] [address] Lab, Farm Lab 10/02/2024 7:30 PM CDT Office Visit [facility] [address] [place] [phone] Jessica Connors MD Abdominal Pain 10/02/2024 Travel [...] [employer], EIA, STOOL SEE NOTE [employer] [facility] Comment: [employer], EIA, STOOL Micro Number: [id number] Test Status: Final Specimen Source: Stool/feces Specimen [...] us Jessica Connors MD MICROBIOLOGY Final Result [employer] [facility] [address] [place] [address], [facility] [address] [place] [address] from Last 3 Months Insurance [facility] Care Teams Para Operator Relationship Specialty Start Date End Date Pcp, No . PCP - General 04/08/23
[2024-10-08] MEDS: MORPHINE 4 MG/ML INJ IVP (16:27)
[2024-10-08] MEDS: METOCLOPRAMIDE HCL 5 MG/ML INJ 10 MG IVP (16:27)
[2024-10-08] MEDS: GI COCKTAIL (VISC LIDO/ANTACID) 30 ML PO (16:41)
[2024-10-08 16:54] LABS: Lactate* 1.2 mmol/L (0.5-1.9)
[2024-10-08 16:59] LABS: Basophils Percent Auto 0.2 % (0.0-3.0); Eosinophils Percent Auto 0.2 % (0.0-7.0); Hematocrit 46.2 % (37.0-53.0); Hemoglobin* 15.9 gm/dL (13.5-17.5); Immature Granulocytes Pct Auto 0.1 %; Mean Corpuscular HGB Conc 34 gm/dL (32-36); Mean Corpuscular Hemoglobin 29 pg (26-34); Mean Corpuscular Volume 85 fL (80-100); Monocytes Percent Auto 10.4 % (0.0-11.0); Neutrophils Percent Auto 80.1 % (42.0-72.0); Platelet Count* 383 K/uL (140-440); RDW Coefficient of Variation % 11.7 % (11.5-15.5); Red Blood Count 5.41 m/uL (4.30-5.90); White Blood Count* 12.16 K/uL (4.50-11.00)
[2024-10-08 17:02] LABS: Slide Review Reflex No
--- NOTE | 2024-10-08 17:23 | ED.ABDPAIN ---
HPI - Abdominal Pain General Date Seen: 10/08/24 Chief Complaint: Abdominal Pain Stated Complaint: Severe Abdominal Pain Time Seen by Provider: 10/08/24 15:18 Source: patient Mode of arrival: ambulatory Limitations: no limitations History of Present Illness HPI narrative: Patient is a 24-year-old male presenting to the emergency department for epigastric pain. He states the pain has been going on for the past week and he has seen Urgent Care, the clinic and 2 ED visits. These were all through [facility]. Has had ultrasound, lab test, CT scan in the belief is that this is a peptic ulcer. States symptoms seem to be getting gradually worse. He states most mornings he is able to tolerate the pain after Tylenol for few hours and then pain gets worse again. Today states Tylenol did not seem to help at all any could not even sit up to eat the Jell-O. Has not had any fevers or chills but does feel like the pain is going up into his chest. Has had nausea and been using Zofran with minimal improvement in his symptoms. Is currently on multiple antacids and sucralfate with minimal improvement. Has been trying to get in with a GI referral but cannot get endoscopy for 12 days. Is concerned because symptoms seem to be worsening. Denies constipation, diarrhea, headache, vision changes, weakness, numbness. Does state the pain sometimes makes him lightheaded. Denies any shortness of breath. Related Data Home Medications ?Medication ?Instructions ?Recorded ?Confirmed omeprazole 20 mg tablet,delayed 20 mg PO DAILY 10/08/24 10/08/24 release ondansetron 4 mg disintegrating 4 mg PO Q8H PRN 10/08/24 10/08/24 tablet sucralfate 1 gram tablet 1 g PO QID 10/08/24 10/08/24 Previous Rx's ?Medication ?Instructions ?Recorded metoclopramide HCl 10 mg tablet 10 mg PO Q6H PRN nausea and 10/08/24 vomiting #20 tabs oxycodone 5 mg tablet 5 mg PO Q6H PRN pain #12 tabs 10/08/24 Allergies Allergy/AdvReac Type Severity Reaction Status Date / Time maria esther Allergy Severe Sinus Uncoded 10/08/24 16:43 issues. Review of Systems Status of ROS Reports: 10 or more systems reviewed and unremarkable except as noted in History and below [facility] Medical History Asthma ?J45.909 - Unspecified asthma, uncomplicated (ICD-10) Surgical History Pilonidal cyst ?L05.91 - Pilonidal cyst without abscess (ICD-10) Family History Mother Asthma Thyroid disease Maternal Grandmother Diabetes Heart disease High blood pressure High cholesterol Paternal Grandfather Heart disease Maternal Grandfather High blood pressure High cholesterol Social History What is your current living situation?: I presently have a place to live Problems where you live: no known problems In the past 12 months, utilities in danger of being shut off: no In past 12 months, lack of transportation kept you from medical appts, meetings, work, or getting things needed for daily living: no In the past 12 mos, have been you worried that your food would run out before you had money to buy more?: never true In the past 12 mos, the food you bought just didn't last and you didn't have money to buy more?: never true How often does anyone, including family, friends and others, physically hurt you: never How often does anyone, including family, friends and others, insult or talk down to you: never How often does anyone, including family, friends and others, threaten you with harm: never How often does anyone, including family, friends and others, scream or curse at you: never Exam Narrative: Exam Narrative: Const: Well-nourished, Well-developed, in moderate distress Eyes: PERRL, no conjunctival injection, and symmetrical lids HENT: Atraumatic external nose and ears. Moist mucous membranes. Neck: Symmetric, trachea midline, No thyromegaly. CVS: RRR, No murmurs or gallops. Peripheral pulses 2+ and equal in all extremities RESP: Unlabored respiratory effort. Clear to auscultation bilaterally. GI: Epigastric tenderness and some mild RUQ tenderness, rest of abdomen is nontender. Nondistended, No rebound or guarding. MSK:Extremities w/o deformity, Normal Active ROM Skin: Warm, Dry. No rashes or lesions. Neuro: Normal Muscle tone, No focal neurological deficits. Psych: Awake, Alert, & Oriented x3. Appropriate mood and affect. Const: Vital Signs, click to edit/add: Vital Signs - 24 hr 10/08/24 15:10 Temperature 100.3 F H Pulse Rate [Right Pulse Oximeter] 85 Respiratory Rate 18 Blood Pressure [Ri ght Upper Arm] 153/88 H Pulse Oximetry 98 Oxygen Delivery Me thod Room Air Course Vital Signs Vital signs: Initial Vital Signs Temperature 100.3 F H 10/08/24 15:10 Temperature Source Temporal Artery Scan 10/08/24 15:10 Pulse Rate 85 10/08/24 15:10 Pulse Rhythm Regular 10/08/24 15:10 Pulse Strength 3+ Normal 10/08/24 15:10 Respiratory Rate 18 10/08/24 15:10 Blood Pressure 153/88 H 10/08/24 15:10 Blood Pressure Mean 109 H 10/08/24 15:10 Blood Pressure Position Sitting 10/08/24 15:10 Pulse Oximetry 98 10/08/24 15:10 Oxygen Delivery Method Room Air 10/08/24 15:10 Vital Signs Temperature 100.3 F H 10/08/24 15:10 Pulse Rate 85 10/08/24 15:10 Respiratory Rate 18 10/08/24 15:10 Blood Pressure 153/88 H 10/08/24 15:10 Pulse Oximetry 98 10/08/24 15:10 Oxygen Delivery Method Room Air 10/08/24 15:10 Temperature 100.3 F H 10/08/24 15:10 Pulse Rate 85 10/08/24 15:10 Respiratory Rate 18 10/08/24 15:10 Blood Pressure 153/88 H 10/08/24 15:10 Pulse Oximetry 98 10/08/24 15:10 Oxygen Delivery Method Room Air 10/08/24 15:10 Medications Administered Medications: Discontinued Medications Generic Name Dose Route Start Last Admin Trade Name Freq PRN Reason Stop Dose Admin Lidocaine/Aluminum/Magnesium/Simeth 30 ml 10/08/24 16:07 10/08/24 16:41 Gi Cocktail (Visc Lido/Antacid) 30 Ml PO 10/08/24 16:08 30 ml ONCE ONE Administration Metoclopramide HCl 10 mg 10/08/24 16:07 04/14/25 16:27 Metoclopramide Hcl 5 Mg/Ml Inj IVP 10/08/24 16:08 10 mg ONCE ONE Administration Morphine Sulfate 4 mg 10/08/24 16:07 10/08/24 16:27 Morphine 4 Mg/Ml Inj IVP 10/08/24 16:08 4 mg ONCE ONE Administration MDM - Abdominal Pain MDM Narrative Medical decision making narrative: Patient is a 24-year-old male presenting to the emergency department for abdominal pain. Differential includes peptic ulcer, gastroenteritis, gallbladder and liver disease, pancreatitis. Based on location appendicitis diverticulitis along with UTI seem less likely. He did to step CT scan 2 days ago I spoke to family about the repeated radiation and how it is unlikely to show any new abnormalities in 2 days but with his worsening pain there is some concern he could have a perforation. Does not appear peritonitic though. At this time the comfortable doing the CT scan. Also given some morphine for pain and a GI cocktail. Reglan given for nausea. CBC, CMP, lipase, lactate all ordered. The pain does seem to be going up into his chest was likely reflux related and he states he feels like reflux but I will do an EKG and troponin also. EKG and troponin shows no concerning abnormalities. Rest of his lab work shows no concerning findings. He does have a very mildly elevated white blood cell count 12.16 but does not meet any other SIRS criteria. Lactate within normal limits. Urinalysis shows no signs of UTI. Viral swab negative. He was feeling better for a little while after the medications but is starting of pain again but does not appear as uncomfortable. CT scan reviewed by myself and the radiologist shows some moderate wall thickening involving a log single the small bowel in left upper quadrant this is suggestive of a nonspecific infectious versus inflammatory enteritis. More of his pain is in his the epigastric and right upper quadrant so this seems unlikely to be causing his symptoms. There is also a 7 mm solid pulmonary nodule in the left lower lobe. Recommended follow-up CT chest in 3 months to assess stability. This time I believe he is safe for discharge. He does have endoscopy scheduled through [facility] at 13:30 tomorrow. Will prescribe him Reglan and oxycodone for pain management until then. He is agreeable to this plan. Lab Data Labs: Lab Results 10/08/24 10/08/24 10/08/24 Range/Units 16:06 16:45 17:35 WBC 12.16 H (4.50-11.00) K/uL RBC 5.41 (4.30-5.90) m/uL Hgb 15.9 (13.5-17.5) gm/dL Hct 46.2 (37.0-53.0) % MCV 85 (80-100) fL MCH 29 (26-34) pg MCHC 34 (32-36) gm/dL RDW Coeff of Mallory 11.7 (11.5-15.5) % Plt Count 383 (140-440) K/uL Neut % (Auto) 80.1 H (42.0-72.0) % Lymph % (Auto) 9.0 L (20-44) % Josephine % (Auto) 10.4 (0.0-11.0) % Eos % (Auto) 0.2 (0.0-7.0) % Baso % (Auto) 0.2 (0.0-3.0) % Neut # (Auto) 9.70 H (1.7-7.0) K/uL Lymph # (Auto) 1.10 (0.90-2.90) K/uL Josephine # (Auto) 1.30 H (0.00-0.90) K/UL Eos # (Auto) 0.00 (0.00-0.50) K/uL Baso # (Auto) 0.00 (0.00-0.30) K/uL Abs Immat Gran (auto) 0.00 (0.00-0.30) K/uL Imm/Tot Granulo (auto) 0.1 % Sodium 136 (135-149) mmol/L Potassium 3.9 (3.6-5.1) mmol/L Chloride 100 (96-114) mmol/L Carbon Dioxide 25 (20-32) mmol/L Anion Gap 11 (7-15) mEq/L BUN 13 (5-24) mg/dL Creatinine 0.7 (0.5-1.5) mg/dL Estimated Creat Clear 169.92 Estimated GFR 134 ml/min Glucose 106 (60-115) mg/dL Lactate 1.2 (0.5-1.9) mmol/L Calcium 9.4 (8.4-10.6) mg/dL Total Bilirubin 0.8 (0.1-1.5) mg/dL AST 35 (12-35) U/L ALT 44 (4-50) U/L Alkaline Phosphatase 112 (40-150) U/L Total Protein 7.8 (6.0-8.3) g/dL Albumin 4.4 (3.3-5.0) g/dL Lipase 66 (23-300) U/L Urine Color (Yellow) Urine Appearance (Clear) Urine pH (5.0-8.5) Ur Specific [place] (1.000-1.030) Urine Protein (Negative) Urine Glucose (UA) (Negative) Urine Ketones (Negative) Urine Blood (Negative) Urine Nitrite (Negative) Urine Bilirubin (Negative) Urine Urobilinogen (0.2-1.0) Ur Leukocyte Esterase (Negative) Urine RBC (0-2) Urine WBC (0-5) Ur Squamous Epith Cells (None-Few) Urine Bacteria (None) SARS-CoV-2 (PCR) Negative SARS-CoV-2 (Negative) Influenza Type A (PCR) Negative PCR FLU A (Negative) Influenza Type B (PCR) Negative PCR FLU B (Negative) RSV (PCR) Negative PCR RSV (Negative) POC Troponin I 0.00 L (0.01-0.04) ng/ml 10/08/24 Range/Units 17:39 WBC (4.50-11.00) K/uL RBC (4.30-5.90) m/uL Hgb (13.5-17.5) gm/dL Hct (37.0-53.0) % MCV (80-100) fL MCH (26-34) pg MCHC (32-36) gm/dL RDW Coeff of Mallory (11.5-15.5) % Plt Count (140-440) K/uL Neut % (Auto) (42.0-72.0) % Lymph % (Auto) (20-44) % Josephine % (Auto) (0.0-11.0) % Eos % (Auto) (0.0-7.0) % Baso % (Auto) (0.0-3.0) % Neut # (Auto) (1.7-7.0) K/uL Lymph # (Auto) (0.90-2.90) K/uL Josephine # (Auto) (0.00-0.90) K/UL Eos # (Auto) (0.00-0.50) K/uL Baso # (Auto) (0.00-0.30) K/uL Abs Immat Gran (auto) (0.00-0.30) K/uL Imm/Tot Granulo (auto) % Sodium (135-149) mmol/L Potassium (3.6-5.1) mmol/L Chloride (96-114) mmol/L Carbon Dioxide (20-32) mmol/L Anion Gap (7-15) mEq/L BUN (5-24) mg/dL Creatinine (0.5-1.5) mg/dL Estimated Creat Clear Estimated GFR ml/min Glucose (60-115) mg/dL Lactate (0.5-1.9) mmol/L Calcium (8.4-10.6) mg/dL Total Bilirubin (0.1-1.5) mg/dL AST (12-35) U/L ALT (4-50) U/L Alkaline Phosphatase (40-150) U/L Total Protein (6.0-8.3) g/dL Albumin (3.3-5.0) g/dL Lipase (23-300) U/L Urine Color Yellow (Yellow) Urine Appearance Clear (Clear) Urine pH 6.5 (5.0-8.5) Ur Specific [place] 1.010 (1.000-1.030) Urine Protein Negative (Negative) Urine Glucose (UA) Negative (Negative) Urine Ketones 2+ A (Negative) Urine Blood Trace-intact A (Negative) Urine Nitrite Negative (Negative) Urine Bilirubin Negative (Negative) Urine Urobilinogen 4.0 A (0.2-1.0) Ur Leukocyte Esterase Negative (Negative) Urine RBC 0-2 (0-2) Urine WBC 0-2 (0-5) Ur Squamous Epith Cells None (None-Few) Urine Bacteria None (None) SARS-CoV-2 (PCR) (Negative) Influenza Type A (PCR) (Negative) Influenza Type B (PCR) (Negative) RSV (PCR) (Negative) POC Troponin I (0.01-0.04) ng/ml Imaging Data CT scan abdomen pelvis: Attestation: I have reviewed the pertinent imaging results. Radiologist's impression: 1. Moderate wall thickening involving a long segment of small bowel in the left upper quadrant, suggestive of a nonspecific infectious versus inflammatory enteritis. No bowel obstruction. 2. 7 mm solid pulmonary nodule in the left lower lobe, possibly infectious or inflammatory in etiology. Consider short interval follow-up CT chest in 3 months to assess stability or resolution. Please note that all CT scans at this facility use dose modulation, iterative reconstruction, and/or weight-based dosing when appropriate to reduce radiation dose to as low as reasonably achievable. Dictated by Segundo Bonilla MD @ 10/08/2024 5:11:14 PM ECG Data Attestation: I personally reviewed and interpreted this ECG as follows: Prior ECG tracings: not available for review Interpretation: Normal sinus rhythm with a rate 68 beats per minute, normal intervals, normal axis, no ST or T-wave abnormalities Discharge Plan Discharge Clinical Impression: Abdominal pain Qualifiers: Abdominal location: epigastric Qualified Code(s): R10.13 - Epigastric pain Patient Disposition: Home, Self-Care Condition: Stable Instructions: Abdominal Pain (ED) Additional Instructions: You have a colonoscopy scheduled here in [place] tomorrow October 09 at 1:30 pm. Continue your home antacid medicine but also take the Reglan in oxycodone for nausea and vomiting respectively. Stop taking the Zofran for the time being. Return to emergency department for new or worsening symptoms. Prescriptions: New metoclopramide HCl 10 mg tablet 10 mg PO Q6H PRN (Reason: nausea and vomiting) Qty: 20 0RF oxycodone 5 mg tablet 5 mg PO Q6H PRN (Reason: pain) Qty: 12 0RF No Action sucralfate 1 gram tablet 1 g PO QID ondansetron 4 mg tablet,disintegrating 4 mg PO Q8H PRN omeprazole 20 mg tablet,delayed release (DR/EC) 20 mg PO DAILY Follow Up/Referrals: Grayson Bee MD [Primary Care Provider] - Stand Alone Forms: [employer] Info Instructions
[2024-10-08 17:30] LABS: Albumin* 4.4 g/dL (3.3-5.0); Chloride* 100 mmol/L (96-114); Potassium* 3.9 mmol/L (3.6-5.1); Sodium* 136 mmol/L (135-149)
[2024-10-08 17:51] LABS: Appearance Urine Clear (Clear); Bilirubin Urine Negative (Negative); Blood Urine Trace-intact (Negative); Color Urine Yellow (Yellow); Glucose Urine Negative (Negative); Ketones Urine 2+ (Negative); Leukocyte Esterase Urine Negative (Negative); Nitrite Urine Negative (Negative); Protein Urine Negative (Negative); pH Urine 6.5 (5.0-8.5)
[2024-10-08 17:58] LABS: RBC Urine 0-2 (0-2); WBC Urine 0-2 (0-5)
[2024-10-08 18:00] VITALS: BP 124/79; PULSE 79; RESP 18; O2SAT 96
[2024-10-08 18:19] LABS: Blood Urea Nitrogen* 13 mg/dL (5-24); Creatinine* 0.7 mg/dL (0.5-1.5); Est. Creatinine Clearance* 169.92; Estimated Glomerular Filt Rate 134 ml/min
[2024-10-08 18:20] LABS: Alanine Aminotransferase* 44 U/L (4-50); Alkaline Phosphatase* 112 U/L (40-150); Anion Gap 11 mEq/L (7-15); Aspartate Amino Transferase* 35 U/L (12-35); Bilirubin Total* 0.8 mg/dL (0.1-1.5); Calcium* 9.4 mg/dL (8.4-10.6); Carbon Dioxide* 25 mmol/L (20-32); Glucose* 106 mg/dL (60-115); Lipase* 66 U/L (23-300); Total Protein* 7.8 g/dL (6.0-8.3)
[2024-10-08 18:23] LABS: PCR FLU A Negative PCR FLU A (Negative); PCR FLU B Negative PCR FLU B (Negative); PCR RSV Negative PCR RSV (Negative); SARS PCR* Negative SARS-CoV-2 (Negative)
== END 2024-10-08 18:48 | disposition home or self-care (01) ==
PROVIDERS: Emergency Provider Student in an Organized Health Care Education/Training Program; PCP Family Medicine
DX: R10.9 Unspecified abdominal pain (principal)
CPT/HCPCS: 36415; 74177; 80053; 81001; 83605; 83690; 84484; 85025; 87631; 93005; 96374; 96375; 99284; 99285; A9270; J2270; J2765; Q9967

== ENCOUNTER 2024-10-09 10:27 | Outpatient (CLI) | payer OTHER, SELFPAY ==
--- NOTE | 2024-10-09 12:49 | P.ANES_ITS ---
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
--- NOTE | 2024-10-09 12:49 | W.ANESCHARGE ---
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
== END 2024-10-09 10:28 | disposition home or self-care (01) ==
LOC: OP CLINIC 10:28
PROVIDERS: PCP Family Medicine; Visit Provider Surgery
DX: R10.13 Epigastric pain (principal); K31.89 Other diseases of stomach and duodenum
CPT/HCPCS: 00731; 43239; 88305; J2704; J3490

== ENCOUNTER 2024-10-10 11:46 | Outpatient (CLI) | payer OTHER, SELFPAY ==
--- NOTE | 2024-10-10 12:15 | CRLHL7_ITS ---
For Patients: As a result of the Century Cures Act, medical imaging exams and procedure reports are released immediately into your electronic medical record. You may view this report before your referring provider. If you have questions, please contact your health care provider. Technique: Double-contrast upper GI performed after the uneventful administration of thin barium. Fluoroscopy time 2.4 minutes. Indication: Epigastric pain Comparison: CT 10/08/2024 Findings: Swallowing mechanism: Normal. Esophageal motility: Normal. Gastroesophageal reflux: None. Hernia: None. Esophagus, stomach and duodenal bulb mucosa: Normal mucosa. No stricture or mass. Small bowel: No mechanical obstruction. Wall thickening of jejunal loops noted in the left upper quadrant. Impression: Jejunitis. Remainder unremarkable. Dictated by Juan Lepe MD @ 10/15/2024 4:09:10 PM (Electronically Signed)
== END 2024-10-10 11:47 | disposition home or self-care (01) ==
LOC: RAD 11:46
PROVIDERS: PCP Family Medicine; Visit Provider Surgery
DX: R10.13 Epigastric pain (principal)
CPT/HCPCS: 74246; 74248

== ENCOUNTER 2024-10-12 10:00 | Outpatient (CLI) | payer OTHER, SELFPAY | END 2024-10-12 10:01 | disposition home or self-care (01) | LOC: NFLDREF 10-16 17:50 | PROVIDERS: PCP Family Medicine; Referring Provider Family Medicine; Visit Provider Family Medicine | DX: R10.13 Epigastric pain (principal) | CPT/HCPCS: 87045; 87046; 87427 ==

== ENCOUNTER 2024-11-15 06:46 | Emergency (ER) | payer OTHER, SELFPAY ==
--- OUTSIDE RECORDS SUMMARY | 2024-10-04 15:00 | XMS_ITS | Encounter Summary ---
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 Tender Name Role Phone No Ref-Primary, Physician Primary Care Provider Reason for Visit * Reason Comments ER F/U Encounter Details Date Type Department Care Team (Late st Contact Info) Description 10/04/2024 3:00 PM CDT Office Visit [place] [id number] [place] [address] Shima Valdivia APRN [employer] [address] [place] [address] Epigastric pain (Primary Dx); RUQ abdominal pain; LUQ abdominal pain Social History Tobacco Use Types Packs/Day Years Used Date Smoking Tobacco: Never Smokeless Tobacco: Current Comments:Current vaper Alcohol Use Standard Drinks/Week Comments Not Currently 0 (1 standard drink = 0.6 oz pur e alcohol) PHQ-2 Answer Date Recorded PHQ-2 Score 0 10/04/2024 Adolescent Education Answer Date Record ed Getting School Help Needed Not on file 06/14 Interpersonal Safety Answer Date Record ed Do you feel physically and e motionally safe where you currently live? Yes 10/04/2024 Within the past 12 months, h ave you been hit, slapped, kicked or otherwise physically hurt by someone? No 10/04/2024 Within the past 12 months, h ave you been humiliated or emotionally abused in other ways by your partner or ex-partner? 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 Gender Identity Not on file Sexual Orientation Not on file documented as of this encounter Last Filed Vital Signs Vital Sign Reading Time Taken Comments Blood Pressure 124/72 10/04/2024 2:25 PM CDT Pulse 85 10/04/2024 2:25 PM CDT Temperature 36.3 C (97.4 F) 10/04/2024 2:25 PM CDT Respiratory Rate 16 10/04/2024 2:25 PM CDT Oxygen Saturation 98% 10/04/2024 2:25 PM CDT Inhaled Oxygen Concentration - - Weight 72.2 kg (159 lb 1.6 oz) 10/04/2024 2:25 P M CDT Height 177.8 cm (5' 10) 10/04/2024 2:25 PM CDT Body Mass Index 22.83 10/04/2024 2:25 PM CDT documented in this encounter Patient Instructions * Patient Instructions* Shima Valdivia APRN CNP - 10/04/2024 3:00 PM CDT [address] in [place], [place] [address] documented in this encounter Progress Notes * Shima Valdivia APRN CNP - 10/04/2024 3:00 PM CDT Assessment & Plan Epigastric pain 03/06-04/05 worsening abdominal pain. Cannot rule out coleocystitis or pancreatitis or gallstones. With the serve pain, recommend going to the ER. Patient agrees with the plan. RUQ abdominal pain Please see above LUQ abdominal pain Please see above MED REC REQUIRED Post Medication Reconciliation Status: discharge medications reconciled, continue medications without change Subjective Gretel is a 24 year old, presenting for the following health issues: Patient is here today for a complaint of left upper abdominal pain. He said last night it was so bad it was hard for him to breathe. Work: [employer]- nothing unusual. Workout: no injury with that. The pain: feels like a horse kicked him right in the left upper quadrant Not a big drinker. Once a year maybe. Drug: none Bowel movements: normal. No nausea or vomiting. No diarrhea Tylenol- took it at 6 am this AM. Help a little bit. Rates pain 10 or 04/05 ER F/U 10/04/2024 2:17 PM Additional Questions Roomed by Leroy Accompanied by Self HPI ED/UC Followup: Facility: [facility] Date of visit: 10/02/2024 Reason for visit: Abdominal Pain Current Status: worsening Review of Systems Constitutional, HEENT, cardiovascular, pulmonary, gi and gu systems are negative, except as otherwise noted. Objective BP 124/72 (BP Location: Right arm, Patient Position: Sitting, Cuff Size: Adult Large) Pulse 85 Temp 97.4 ??F (36.3 ??C) (Tympanic) Resp 16 Ht 1.778 m (5' 10) Wt 72.2 kg (159 lb 1.6 oz) SpO2 98% BMI 22.83 kg/m?? Body mass index is 22.83 kg/m??. Physical Exam GENERAL: alert and no distress NECK: no adenopathy, no asymmetry, masses, or scars RESP: lungs clear to auscultation - no rales, rhonchi or wheezes CV: regular rate and rhythm, normal S1 S2, no S3 or S4, no murmur, click or rub, no peripheral edema ABDOMEN: soft, nontender, without hepatosplenomegaly or masses and tenderness epigastric, RUQ, and LUQ MS: no gross musculoskeletal defects noted, no edema Signed Electronically by: Shima Valdivia APRN CNP documented in this encounter Plan of Treatment Not on file documented as of this encounter Visit Diagnoses Diagnosis Epigastric pain- Primary Abdominal pain, epigastric RUQ abdominal pain Abdominal pain, right upper quadrant LUQ abdominal pain Abdominal pain, left upper quadrant documented in this encounter Care Teams Spray Machine Tender Relationship Specialty Start Date End Date No Ref-Primary, Physician PCP - General 10/04/24 documented as of this encounter
--- OUTSIDE RECORDS SUMMARY | 2024-10-04 15:32 | XMS_ITS | Encounter Summary ---
Author Organization [facility] Address [address] [place] [id number] Care Team Providers Care Sales Administration Specialist Name Role Phone No Ref-Primary, Physician Primary Care Provider Reason for Referral * Consultation (Urgent) - Pending Review Specialty Diagnoses / Procedures Referred By Contkatarina t Referred To Contact Gastroenterology Diagnoses Epigastric pain Jony Melo MD [facility] [address] [place] [address] Phone: tel: fax: Referral ID Status Reason Start Date Expiration Date V isits Requested Visits Authorized [id number] Pending Review 10/04/2024 10/04/2025 1 1 Question Answer Reason for Referral: General GI Patient Scheduling Instructions: [facility] will call you to coordinate your care as prescribed by the provider. If you don t hear from a outbound telemarketing representative within 2 business days, please call . Comments Please be aware that coverage of these services is subject to the terms and limitations of your health insurance plan. Call member services at your health plan with any benefit or coverage questions. [facility] will call you to coordinate your care as prescribed by the provider. If you don t hear from a outbound telemarketing representative within 2 business days, please call . 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 Gender Identity Not on file Sexual Orientation Not on file documented as of this encounter Last Filed Vital Signs Vital Sign Reading Time Taken Comments Blood Pressure 135/76 10/04/2024 3:12 PM CDT Pulse 78 10/04/2024 3:12 PM CDT Temperature 36.7 C (98 F) 10/04/2024 3:12 PM CDT Respiratory Rate 18 10/04/2024 3:12 PM CDT Oxygen Saturation 98% 10/04/2024 3:12 PM CDT Inhaled Oxygen Concentration - - Weight - - Height 180.3 cm (5' 11) 10/04/2024 3:09 PM CDT Body Mass Index - - documented in this encounter Discharge Instructions * Discharge Instructions* Jony Melo MD - 10/04/2024 5:19 PM CDT Return for fevers, worsening pain or new concerns. Avoid alcohol, advil, aleve or spicy/high protein/fatty foods while you are still having symptoms. Take the omeprazole and carafate as prescribed. You should do the stool test and follow up with gastroenterology. * Attachments The following attachments cannot be sent through Care Everywhere. * Peptic Ulcer Disease (Liberian) documented in this encounter Medications at Time of Discharge amphetamine-dext roamphetamine (ADDERALL) 20 MG tablet Take 20 mg by mouth 2 times daily 12/20/2022 amphetamine-dext roamphetamine (ADDERALL) 5 MG tablet Take 5 mg by mouth 2 times daily 12/20/2022 omeprazole 20 MG tablet Take 20 mg by mouth. 10/02/2024 oxyCODONE (ROXICODONE) 5 MG tabletIndication s:Pilonidal sinus Take 1 tablet (5 mg) by mouth every 4 hours as needed for moderate to severe pain 6 tablet 09/13/2023 sucralfate (CARAFATE) 1 GM tablet Take 1 tablet (1 g) by mouth 4 times daily for 14 days. 56 tablet 10/04/2024 10/18/2024 documented as of this encounter ED Notes * Jony Melo MD - 10/04/2024 4:04 PM CDT Emergency Department Note History of Present Illness Chief Complaint Abdominal Pain HPI Gretel Alaniz is a 24 year old male who presents with a few days of epigastric pain that is constant, worse with eating (but ya gotta eat) and not associated with N/V/D or fever. No prior abdominal surgeries. No etoh or NSAID use. APAP helped slightly this AM. UC prescribed omeprazole 20mgBID and ordered an unspecified stool sample. Pt thinks it was for H pylori. Independent Historian None Review of External Notes UC visit from today Past Medical History Medical History and Problem List History reviewed. No pertinent past medical history. Medications sucralfate (CARAFATE) 1 GM tablet amphetamine-dextroamphetamine (ADDERALL) 20 MG tablet amphetamine-dextroamphetamine (ADDERALL) 5 MG tablet omeprazole 20 MG tablet oxyCODONE (ROXICODONE) 5 MG tablet Surgical History Past Surgical History: Procedure Laterality Date ??? CYSTECTOMY PILONIDAL N/A 09/13/2023 Procedure: lay open cleft infection; Surgeon: Diann Damian MD; Location: [facility] OR ??? EXAM UNDER ANESTHESIA RECTUM N/A 09/13/2023 Procedure: Exam under anesthesia in the open a pilonidal tract; Surgeon: Diann Damian MD; Location: [facility] OR Physical Exam Patient Vitals for the past 24 hrs: BP Temp Temp src Pulse Resp SpO2 Height 10/04/24 1512 135/76 98 ??F (36.7 ??C) Temporal 78 18 98 % -- 10/04/24 1509 -- -- -- -- -- -- 1.803 m (5' 11) Physical Exam VS: Reviewed per above HENT: Mucous membranes moist EYES: sclera anicteric CV: Rate as noted, regular rhythm. RESP: Effort normal. Breath sounds are normal bilaterally. GI: mild epigastric tenderness without rebound/guarding, not distended. NEURO: Alert, moving all extremities MSK: No deformity of the extremities SKIN: Warm and dry Diagnostics Lab Results Labs Ordered and Resulted from Time of ED Arrival to Time of ED Departure COMPREHENSIVE METABOLIC PANEL - Normal Result Value Sodium 139 Potassium 4.0 Carbon Dioxide (CO2) 27 Anion Gap 11 Urea Nitrogen 12.5 Creatinine 0.84 GFR Estimate >90 Calcium 9.4 Chloride 101 Glucose 92 Alkaline Phosphatase 81 AST 34 ALT 57 Protein Total 7.7 Albumin 4.6 Bilirubin Total 0.5 LIPASE - Normal Lipase 24 CBC WITH PLATELETS AND DIFFERENTIAL WBC Count 8.1 RBC Count 5.16 Hemoglobin 14.9 Hematocrit 44.7 MCV 87 MCH 28.9 MCHC 33.3 RDW 12.1 Platelet Count 282 % Neutrophils 69 % Lymphocytes 19 % Monocytes 11 % Eosinophils 1 % Basophils 1 % Immature Granulocytes 0 NRBCs per 100 WBC 0 Absolute Neutrophils 5.6 Absolute Lymphocytes 1.5 Absolute Monocytes 0.9 Absolute Eosinophils 0.1 Absolute Basophils 0.0 Absolute Immature Granulocytes 0.0 Absolute NRBCs 0.0 Imaging US Abdomen Limited Final Result IMPRESSION: 1. Mild hepatomegaly. ED Course Medications Administered Medications acetaminophen (TYLENOL) tablet 1,000 mg (1,000 mg Oral $Given 10/04/24 3820) alum & mag hydroxide-simethicone (MAALOX) suspension 15 mL (15 mLs Oral $Given 10/04/24 1953) Procedures Procedures Discussion of Management None ED Course Additional Documentation None Medical Decision Making / Diagnosis [facility] Diagnoses: None MIPS None [facility] Gretel Alaniz is a 24 year old male who presents to the ER with epigastric tenderness over the past few days. Vital signs reassuring. Abdominal exam with minimal epigastric tenderness. No rebound or guarding. Low suspicion for sinister or surgical intra-abdominal pathology. Labs are reassuring as well without evidence of pancreatitis or hepatitis or obstructive LFT pattern or concerning leukocytosis. Right upper quadrant ultrasound negative for biliary pathology aside from mild hepatomegaly. Higher suspicion for peptic ulcer disease or gastritis. Plan to continue PPI, add Carafate, follow-up with gastroenterology. Return precautions discussed prior to discharge. Disposition The patient was discharged. Diagnosis ICD-10-CM 1. 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 Hepatomegaly R16.0 Discharge Medications Discharge Medication List as of 10/04/2024 5:34 PM START taking these medications Details sucralfate (CARAFATE) 1 GM tablet Take 1 tablet (1 g) by mouth 4 times daily for 14 days., Disp-56 tablet, R-0, E-Prescribe Jony Melo MD 10/04/24 2188 * Shima Bolivar RN - 10/04/2024 3:10 PM CDT Pt. Presents to ED for epigastric pain that started about 3 days ago. Sent here from PCP for imaging. Seen at on Tuesday where he gave a stool sample and was prescribed omeprazole which he reportsdid not help his symptoms. Reports tylenol helps some of his pain. Denies nausea, vomiting, diarrhea, constipation. Reports his pain worsens after he eats but reports he is able to keep food and drink down. Denies fevers. Denies surgical hx, medical conditions, only takes adderall. [place] . documented in this encounter Plan of Treatment Scheduled Referrals Name Type Priority Associated Diagnoses Orde r Schedule Adult GI Janitor Caretaker Referral - Consult Only Referral Urgent: 3-5 Days Epigastric pain Expected: 10/04/2024 (Approximate), Expires: 10/04/2025 documented as of this encounter Procedures Procedure Name Priority Date/Time Associated Diagnosis Comments US ABDOMEN LIMITED STAT 10/04/2024 4: 33 PM CDT EXTRA TUBE STAT 10/04/2024 3:27 PM CDT EXTRA RED TOP TUBE STAT 10/04/2024 3: 27 PM CDT EXTRA BLUE TOP TUBE STAT 10/04/2024 3 :27 PM CDT CBC WITH PLATELETS AND DIFFERENTIAL STAT 10/04/2024 3:27 PM CDT CBC WITH PLATELETS & DIFFERENTIAL STAT 10/04/2024 3:27 PM CDT LIPASE STAT 10/04/2024 3:27 PM CDT COMPREHENSIVE METABOLIC PANEL STAT 10/04/2024 3:27 PM CDT documented in this encounter Results * US Abdomen Limited (10/04/2024 4:33 PM CDT) Anatomical Region Laterality Modality Abdomen/Pelvis Ultrasound 10/04/2024 4:33 PM CDT Impressions 10/04/2024 4:49 PM CDT IMPRESSION: 1. Mild hepatomegaly. Narrative 10/04/2024 4:49 PM CDT EXAM: US ABDOMEN LIMITED LOCATION: [facility] DATE: 10/04/2024 INDICATION: upper abdominal pain COMPARISON: None. TECHNIQUE: Limited abdominal ultrasound. FINDINGS: GALLBLADDER: Normal. No gallstones, wall thickening, or pericholecystic fluid. Negative sonographic Bolivar's sign. BILE DUCTS: No biliary dilatation. The common duct measures 4 mm. LIVER: Normal parenchyma with smooth contour. Liver is mildly enlarged measuring 18.1 cm in length. No focal mass. The portal vein is patent with flow in the normal direction. RIGHT KIDNEY: No hydronephrosis. PANCREAS: The visualized portions are normal. No ascites. Procedure Note Marcy Desai MD - 10/04/2024 EXAM: US ABDOMEN LIMITED LOCATION: [facility] DATE: 10/04/2024 INDICATION: upper abdominal pain COMPARISON: None. TECHNIQUE: Limited abdominal ultrasound. FINDINGS: GALLBLADDER: Normal. No gallstones, wall thickening, or pericholecysticfluid. Negative sonographic Bolivar's sign. BILE DUCTS: No biliary dilatation. The common duct measures 4 mm. LIVER: Normal parenchyma with smooth contour. Liver is mildly enlargedmeasuring 18.1 cm in length. No focal mass. The portal vein is patent withflow in the normal direction. RIGHT KIDNEY: No hydronephrosis. PANCREAS: The visualized portions are normal. No ascites. IMPRESSION: 1. Mild hepatomegaly. us Jony Melo [place] [facility] [place] Final Resul t * CBC with platelets and differential (10/04/2024 3:27 PM CDT) WBC Count 8.1 4.0 - 11.0 10e3/uL 10/04/2024 3:41 PM CDT [facility] RBC Count 5.16 4.40 - 5.90 10e6/uL 10/04/2024 3:41 PM CDT [facility] Hemoglobin 14.9 13.3 - 17.7 g/dL 10/04/2024 3:41 PM CDT [facility] Hematocrit 44.7 40.0 - 53.0 % 10/04/2024 3:41 PM CDT [facility] MCV 87 78 - 100 fL 10/04/2024 3:41 PM CDT [facility] MCH 28.9 26.5 - 33.0 pg 10/04/2024 3:41 PM CDT [facility] MCHC 33.3 31.5 - 36.5 g/dL 10/04/2024 3:41 PM CDT [facility] RDW 12.1 10.0 - 15.0 % 10/04/2024 3:41 PM CDT [facility] Platelet Count 282 150 - 450 10e3/uL 10/04/2024 3:41 PM CDT [facility] % Neutrophils 69 % 10/04/2024 3:41 PM CDT [facility] % Lymphocytes 19 % 10/04/2024 3:41 PM CDT [facility] % Monocytes 11 % 10/04/2024 3:41 PM CDT [facility] % Eosinophils 1 % 10/04/2024 3:41 PM CDT [facility] % Basophils 1 % 10/04/2024 3:41 PM CDT [facility] % Immature Granulocytes 0 % 10/04/2024 3:41 PM CDT [facility] NRBCs per 100 WBC 0 <1 /100 025 3:41 PM CDT [facility] Absolute Neutrophils 5.6 1.6 - 8.3 10e3/uL 10/04/2024 3:41 PM CDT [facility] Absolute Lymphocytes 1.5 0.8 - 5.3 10e3/uL 10/04/2024 3:41 PM CDT [facility] Absolute Monocytes 0.9 0.0 - 1.3 10e3/uL 10/04/2024 3:41 PM CDT [facility] Absolute Eosinophils 0.1 0.0 - 0.7 10e3/uL 10/04/2024 3:41 PM CDT [facility] Absolute Basophils 0.0 0.0 - 0.2 10e3/uL 10/04/2024 3:41 PM CDT [facility] Absolute Immature Granulocytes 0.0 <=0.4 10e3/uL 10/04/2024 3:41 PM CDT [facility] Absolute NRBCs 0.0 10e3/uL 10/04/2024 3:41 PM CDT [facility] Blood STRUCTURE OF RIGHT UPPER LIMB / Unknown Venipuncture / Unknown 10/04/2024 3:27 PM CDT 10/04/2024 3:39 PM CDT us Jony Melo MD LAB - BLOOD ORDERABLES Final Result [facility] [address] Lab (1st floor, no room number) [place] [address], [facility] * Extra Red Top Tube (10/04/2024 3:27 PM CDT) Hold Specimen [facility] 10/04/2024 4:47 PM CDT [facility] Blood STRUCTURE OF RIGHT UPPER LIMB / Unknown Venipuncture / Unknown 10/04/2024 3:27 PM CDT 10/04/2024 3:39 PM CDT Jony Melo MD LAB - BLOOD ORDERABLES Final Result [facility] [address] Lab (1st floor, no room number) [place] [address], [facility] * Extra Blue Top Tube (10/04/2024 3:27 PM CDT) Hold Specimen [facility] 10/04/2024 4:47 PM CDT [facility] Blood STRUCTURE OF RIGHT UPPER LIMB / Unknown Venipuncture / Unknown 10/04/2024 3:27 PM CDT 10/04/2024 3:39 PM CDT Jony Melo MD LAB - BLOOD ORDERABLES Final Result Performing Organization Address City/[facility]/ZIP Co de Phone Number [facility] [address] Lab (1st floor, no room number) [place] [address], [facility] * Lipase (10/04/2024 3:27 PM CDT) [facility] Lipase 24 13 - 60 U/L 10/04/2024 4:03 PM CDT [facility] Blood STRUCTURE OF RIGHT UPPER LIMB / Unknown Venipuncture / Unknown 10/04/2024 3:27 PM CDT 10/04/2024 3:39 PM CDT us Jony Melo MD LAB - BLOOD ORDERABLES Final Result [facility] [address] Lab (1st floor, no room number) [place] [address], [facility] * Comprehensive metabolic panel (10/04/2024 3:27 PM CDT) [facility] Signature Sodium 139 135 - 145 mmol/L 10/04/2024 4:03 PM CDT [facility] Potassium 4.0 3.4 - 5.3 mmol/L 10/04/2024 4:03 PM CDT [facility] Carbon Dioxide (CO2) 27 22 - 29 mmol/L 10/04/2024 4:03 PM CDT [facility] Anion Gap 11 7 - 15 mmol/L 10/04/2024 4:03 PM CDT [facility] Urea Nitrogen 12.5 6.0 - 20.0 mg/dL 10/04/2024 4:03 PM CDT [facility] Creatinine 0.84 0.67 - 1.17 mg/dL 10/04/2024 4:03 PM CDT [facility] GFR Estimate >90 >60 mL/min/1.7 3m2 10/04/2024 4:03 PM CDT [facility] Comment:eGFR calculated us2020 CKD-EPI equation. Calcium 9.4 8.8 - 10.4 mg/dL 10/04/2024 4:03 PM CDT [facility] Chloride 101 98 - 107 mmol/L 10/04/2024 4:03 PM CDT [facility] Glucose 92 70 - 99 mg/dL 10/04/2024 4:03 PM CDT [facility] Alkaline Phosphatase 81 40 - 150 U/L 10/04/2024 4:03 PM CDT [facility] AST 34 0 - 45 U/L 10/04/2024 4:03 PM CDT [facility] ALT 57 0 - 70 U/L 10/04/2024 4:03 PM CDT [facility] Protein Total 7.7 6.4 - 8.3 g/dL 10/04/2024 4:03 PM CDT [facility] Albumin 4.6 3.5 - 5.2 g/dL 10/04/2024 4:03 PM CDT [facility] Bilirubin Total 0.5 <=1.2 mg/dL 10/04/2024 4:03 PM CDT [facility] Blood STRUCTURE OF RIGHT UPPER LIMB / Unknown Venipuncture / Unknown 10/04/2024 3:27 PM CDT 10/04/2024 3:39 PM CDT us Jony Melo MD LAB - BLOOD ORDERABLES Final Result [facility] [address] Lab (1st floor, no room number) [place] [address], [facility] documented in this encounter Visit Diagnoses Diagnosis Epigastric pain Abdominal pain, epigastric Hepatomegaly documented in this encounter Administered Medications Inactive Administered Medications - up to 3 most recent administrations Medication Order MAR Action Action Date Dose Rate Site acetaminophen (TYLENOL) tablet 1,000 mg 1,000 mg, Oral, ONCE, On Miguelina 10/04/24 at 1615, For 1 dose, Maximum acetaminophen dose from all sources = 75 mg/kg/day not to exceed 4 gram $Given 10/04/2024 4:13 PM CDT 1,000 mg alum & mag hydroxide-simethicone (MAALOX) suspension 15 mL 15 mL, Oral, ONCE, On Miguelina 10/04/24 at 1615, For 1 dose, Use for 'GI cocktail'. $Given 10/04/2024 4:13 PM CDT 15 mLs documented in this encounter Active and Recently Administered Medications Times are shown in CDT. Scheduled Medication Order 10/02/2024 10/03/2024 10/04/2024 acetaminophen (TYLENOL) tablet 1,000 mg (COMPLETED) 1,000 mg, Oral, ONCE, On Miguelina 10/04/24 at 1615, For 1 dose, Maximum acetaminophen dose from all sources = 75 mg/kg/day not to exceed 4 gram 1613 ($Given - Provi pancho: Delores Stallings RN) alum & mag hydroxide-simethicone (MAALOX) suspension 15 mL (COMPLETED) 15 mL, Oral, ONCE, On Miguelina 10/04/24 at 1615, For 1 dose, Use for 'GI cocktail'. 1613 ($Given - Provi pancho: Delores Stallings RN) documented in this encounter Care Teams Sales Administration Specialist Relationship Specialty Start Date End Date No Ref-Primary, Physician PCP - General 10/04/24 documented as of this encounter
--- OUTSIDE RECORDS SUMMARY | 2024-10-06 15:24 | XMS_ITS | Encounter Summary ---
Author Organization [facility] Address [address] [place] [id number] Care Team Providers Care Acid Washer Operator Name Role Phone No Ref-Primary, Physician Primary Care Provider Reason for Visit * Reason Comments Abdominal Pain Encounter Details Date Type Department Care Team (Late st Contact Info) Description 10/06/2024 3:24 PM CDT - 10/06/2024 6:22 PM CDT Emergency [facility] Emergency Dept [address] [place] [id number] [phone] Piper Alvarez MD [facility] [address] [place], [place] [id number] Acute gastritis without hemorrhage, unspecified gastritis type; Abdominal pain, epigastric Discharge Disposition: Home or Self Care Social [...] on file 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 Gender Identity Not on file Sexual Orientation Not on file documented as of this encounter Last Filed Vital Signs Vital Sign Reading Time Taken Comments Blood Pressure 126/78 10/06/2024 6:21 PM CDT Pulse 68 10/06/2024 6:21 PM CDT Temperature 37.2 C (98.9 F) 10/06/2024 6:21 PM CDT Respiratory Rate 18 10/06/2024 6:21 PM CDT Oxygen Saturation 99% 10/06/2024 6:21 PM CDT Inhaled Oxygen Concentration - - Weight 71.8 kg (158 lb 4.6 oz) 10/06/2024 3:20 P M CDT Height 177.8 cm (5' 10) 10/06/2024 3:20 PM CDT Body Mass Index 22.71 10/06/2024 3:20 PM CDT documented in this encounter Discharge Instructions * Discharge Instructions* Piper Alvarez MD - 10/06/2024 6:08 PM CDT Omeprazole 20mg twice daily Clear liquid diet until symptoms are better. Monette diet after that No greasy or fatty foods, no acidic foods, no caffeine, no alcohol See your doctor in next 3-4 days for recheck Maalox or mylanta before eating to coat your stomach Return if worsening symptoms or black stool or black vomit * Attachments The following attachments cannot be sent through Care Everywhere. * Acid-Reducing Medicines: General Info (Bahraini) * Gastritis (Bahraini) * Clear Liquid Diet: General Info (Bahraini) documented in this encounter Medications at Time [...] moderate to severe pain 6 tablet 09/13/2023 ondansetron (ZOFRAN ODT) 4 MG ODT tab Take 1 tablet (4 mg) by mouth every 8 hours as needed for nausea or vomiting. 10 tablet 10/06/2024 10/09/2024 sucralfate (CARAFATE) 1 GM tablet Take 1 tablet (1 g) by mouth 4 times daily for 14 days. 56 tablet 10/04/2024 10/18/2024 documented as of this encounter ED Notes * Piper Alvarez MD - 10/06/2024 3:25 PM CDT Emergency Department Note History of Present Illness Chief Complaint Abdominal Pain HPI Gretel Alaniz is a 24 year old male who presents for evaluation of abdominal pain. Pain started 5 days ago (10/01/24) and is constant, worsening with eating and drinking. Endorses associated back pain that is due to laying down. No associated nausea, vomiting, or diarrhea. Regular bowel movements and stool when compared to baseline. He states he has been eating potatoes and other vegetables since onset of the pain. Today (10/06/24) he ate a crepe with only egg, flower, and sugar. No known food allergies. He presented to the ED on 10/04/2024 and had an ultrasound and test for H. Pylori, both were negative for any findings. He was given sucralfate and told to stop taking omeprazole. He was also seen at the 10/02/2024. Of note, mother endorses recent travel to [facility] and sister has been having nausea and vomiting. No urinary symptoms. Denies alcohol or recreational drug use. No history of abdominal surgery. Independent Historian Mother as detailed above. Review of External Notes I reviewed the ED provider note from 10/04/2024. Dr. Melo performed an ultrasound and patientwas given Carafate. Past Medical History Medical History and Problem List The patient does not have any pertinent past medical history. Medications Amphetamine-dextroamphetamine Omeprazole Oxycodone Sucralfate Surgical History Cystectomy Pilonidal Physical Exam Patient Vitals for the past 24 hrs: BP Temp Temp src Pulse Resp SpO2 Height Weight 10/06/24 1520 (!) 141/82 99.2 ??F (37.3 ??C) Temporal 78 20 99 % 1.778 m (5' 10) 71.8 kg (158 lb 4.6 oz) Physical Exam Constitutional: Appearance: He is well-developed. HENT: Right Ear: External ear normal. Left Ear: External ear normal. Mouth/Throat: Mouth: Mucous membranes are moist. Pharynx: Oropharynx is clear. No oropharyngeal exudate or posterior oropharyngeal erythema. Eyes: General: No scleral icterus. Conjunctiva/sclera: Conjunctivae normal. Pupils: Pupils are equal, round, and reactive to light. Cardiovascular: Rate and Rhythm: Normal rate and regular rhythm. Heart sounds: Normal heart sounds. No murmur heard. No friction rub. No gallop. Pulmonary: Effort: Pulmonary effort is normal. No respiratory distress. Breath sounds: Normal breath sounds. No wheezing or rales. Abdominal: General: Bowel sounds are normal. There is no distension. Palpations: Abdomen is soft. There is no mass. Tenderness: There is abdominal tenderness. There is no right CVA tenderness or left CVA tenderness. Comments: Epigastric TTP Musculoskeletal: General: Normal range of motion. Right lower leg: No edema. Left lower leg: No edema. Skin: General: Skin is warm and dry. Capillary Refill: Capillary refill takes less than 2 seconds. Findings: No rash. Neurological: Mental Status: He is alert. Diagnostics Lab Results Labs Ordered and Resulted from Time of ED Arrival to Time of ED Departure COMPREHENSIVE METABOLIC PANEL - Abnormal Result Value Sodium 138 Potassium 3.8 Carbon Dioxide (CO2) 26 Anion Gap 13 Urea Nitrogen 10.7 Creatinine 0.69 GFR Estimate >90 Calcium 9.3 Chloride 99 Glucose 117 (*) Alkaline Phosphatase 100 AST 35 ALT 58 Protein Total 7.7 Albumin 4.4 Bilirubin Total 0.7 ROUTINE UA WITH MICROSCOPIC REFLEX TO CULTURE - Abnormal Color Urine Light Yellow Appearance Urine Clear Glucose Urine Negative Bilirubin Urine Negative Ketones Urine Negative Specific Bethune Urine 1.010 Blood Urine Negative pH Urine 6.5 Protein Albumin Urine 20 (*) Urobilinogen Urine Normal Nitrite Urine Negative Leukocyte Esterase Urine Negative Mucus Urine Present (*) RBC Urine 2 WBC Urine 1 Squamous Epithelials Urine <1 LIPASE - Normal Lipase 26 CBC WITH PLATELETS AND DIFFERENTIAL WBC Count 9.8 RBC Count 5.12 Hemoglobin 15.1 Hematocrit 43.3 MCV 85 MCH 29.5 MCHC 34.9 RDW 12.0 Platelet Count 312 % Neutrophils 69 % Lymphocytes 17 % Monocytes 13 % Eosinophils 1 % Basophils 0 % Immature Granulocytes 0 NRBCs per 100 WBC 0 Absolute Neutrophils 6.8 Absolute Lymphocytes 1.6 Absolute Monocytes 1.2 Absolute Eosinophils 0.1 Absolute Basophils 0.0 Absolute Immature Granulocytes 0.0 Absolute NRBCs 0.[address] Abdomen Pelvis w Contrast Final Result IMPRESSION: 1. No acute findings in the abdomen or pelvis. 2. Incidental 0.5 cm left lower lobe pulmonary nodule. Follow-up recommendations below: REFERENCE: Guidelines for Management of Incidental Pulmonary Nodules Detected on CT Images: From the Fleischner Society 2017. Guidelines apply to incidental nodules in patients who are 35 years or older. Guidelines do not apply to lung cancer screening, patients with immunosuppression, or patients withknown primary cancer. SINGLE NODULE Nodule size <6 mm Low-risk patients: No follow-up needed. High-risk patients: Optional follow-up at 12 months. Independent Interpretation None ED Course Medications Administered Medications morphine (PF) injection 4 mg (has no administration in time range) sodium chloride 0.9% BOLUS 1,000 mL (0 mLs Intravenous Stopped 10/06/24 1721) alum & mag hydroxide-simethicone (MAALOX) suspension 15 mL (15 mLs Oral $Given 10/06/24 1549) lidocaine (viscous) (XYLOCAINE) 2 % solution 5 mL (5 mLs Mouth/Throat $Given 10/06/24 1549) famotidine (PEPCID) injection 20 mg (20 mg Intravenous $Given 10/06/24 1550) iopamidol (ISOVUE-370) solution 500 mL (80 mLs Intravenous $Given 10/06/24 1641) sodium chloride (PF) 0.9% PF flush 100 mL (60 mLs Intravenous $Given 10/06/24 1641) Procedures Procedures Discussion of Management None ED Course ED Course as of 10/06/24 1810 Sat Oct 06, 2024 1528 I obtained history and examined the patient as noted above. 175 I rechecked and updated the patient. Drinking water. States GI medication helped. 1808 We discussed plan for discharge and the patient is comfortable with this. Additional Documentation None Medical Decision Making / Diagnosis [facility] Diagnoses: None MIPS None MDM Gretel Alaniz is a 24 year old male who represents for abdominal pain. Patient was sitting earlier and was found to have likely peptic ulcer disease or gastritis. He is on super fate for now. He is not taking omeprazole. CT did not show any acute findings. Labs are reassuring. GI cocktail-given pretty good relief although it did seem to return after it wore off. We discussed dietary changes and starting with clear liquids for now. He is to take twice daily omeprazole along with the superfate. I also recommended Maalox or Mylanta to take before he eats a meal. He is to start slow and do smaller size meals. He is referred to GI already. I have asked him to follow-up with a primary doctor until he can get into see his GI physician. He states that he does not want narcotics therefore I will only recommend Tylenol and the GI medication as discussed. Return precaution provided. Zofranwas also prescribed for nausea at home. Disposition The patient was discharged. Diagnosis ICD-10-CM 1. Acute gastritis without hemorrhage, unspecified gastritis type K29.00 2. Abdominal pain, epigastric R10.13 Discharge Medications New Prescriptions ONDANSETRON (ZOFRAN ODT) 4 MG ODT TAB Take 1 tablet (4 mg) by mouth every 8 hours as needed for nausea or vomiting. Scribe Disclosure: I, Shine Sanches, am serving as a scribe at 3:25 PM on 10/06/2024 to document services personally performed by Piper Alvarez MD based on my observations and the provider's statements to me. Piper Alvarez MD 10/06/242131 * Mary Lindquist, RN - 10/06/2024 3:19 PM CDT Has been having stomach pain for a week, getting increasingly worse. Has been seen at urgent care, primary care, and ED. Denies N/V/D. Hurts less when laying down. Feels like my stomach is falling out hurts when he eats. Recent travel to [facility] in early August documented in this encounter Plan of Treatment Not on file documented as of this encounter Procedures Procedure Name Priority Date/Time Associated Diagnosis Comments ROUTINE UA WITH MICROSCOPIC REFLEX TO CULTURE STAT 10/06/2024 5:[address] ABDOMEN PELVIS W CONTRAST STAT 10/06/2024 5:00 PM CDT EXTRA TUBE STAT 10/06/2024 3:44 PM CDT EXTRA RED TOP TUBE STAT 10/06/2024 3: 44 PM CDT EXTRA BLUE TOP TUBE STAT 10/06/2024 3 :44 PM CDT CBC WITH PLATELETS AND DIFFERENTIAL STAT 10/06/2024 3:44 PM CDT CBC WITH PLATELETS & DIFFERENTIAL STAT 10/06/2024 3:44 PM CDT LIPASE STAT 10/06/2024 3:44 PM CDT COMPREHENSIVE METABOLIC PANEL STAT 10/06/2024 3:44 PM CDT documented in this encounter Results * (ABNORMAL) UA with Microscopic reflex to Culture (10/06/2024 5:24 PM CDT) Color Urine Light Yellow Colorless, Straw, Light Yellow, Yellow 10/06/2024 6:15 PM CDT LABORATORY Appearance Urine Clear Clear 10/07/19 25 6:15 PM CDT LABORATORY Glucose Urine Negative Negative mg/dL 10/06/2024 6:15 PM CDT [facility] Bilirubin Urine Negative Negative 6:15 PM CDT [facility] Ketones Urine Negative Negative mg/dL 10/06/2024 6:15 PM CDT [facility] Specific Bethune Urine 1.010 1.003 - 1.035 BOB 10/06/2024 6:15 PM CDT [facility] Blood Urine Negative Negative 10/06/2024 6:15 PM CDT LABORATORY pH Urine 6.5 5.0 - 7.0 10/06/2024 6:15 PM CDT LABORATORY Protein Albumin Urine 20(A) Negative mg/dL 10/06/2024 6:15 PM CDT [facility] Urobilinogen Urine Normal Normal mg/dL 10/06/2024 6:15 PM CDT [facility] Nitrite Urine Negative Negative 10/06/2024 6:15 PM CDT [facility] Leukocyte Esterase Urine Negative Negative 10/06/2024 6:15 PM CDT [facility] Mucus Urine Present(A) None Seen /LPF 10/06/2024 6:15 PM CDT [facility] RBC Urine 2 <=2 /HPF 10/06/2024 6:15 PM CDT [facility] WBC Urine 1 <=5 /HPF 10/06/2024 6:15 PM CDT [facility] Squamous Epithelials Urine <1 <=1 /HPF 10/06/2024 6:15 PM CDT [facility] Urine MID-STREAM URINE SPECIMEN / Unknown Non-blood Collection / Unknown 10/06/2024 5:24 PM CDT 10/06/2024 5:33 PM CDT Narrative [facility] - 10/06/2024 6:15 PM CDT Urine Culture not indicated us Piper Alvarez MD LAB - URINE ORDERABLES Final Res ult [facility] [address] Lab (1st floor, no room number) [place] [address], [facility] * CT Abdomen Pelvis w Contrast (10/06/2024 5:00 PM CDT) Anatomical Region Laterality Modality Abdomen/Pelvis, SUBRAD CT JOSE DY, UMP CT ABDOMEN PELVIS, RAD CT Computed Tomography 10/06/2024 5:00 PM CDT Impressions 10/06/2024 5:21 PM CDT IMPRESSION: 1. No acute findings in the abdomen or pelvis. 2. Incidental 0.5 cm left lower lobe pulmonary nodule. Follow-up recommendations below: REFERENCE: Guidelines for Management of Incidental Pulmonary Nodules Detected on CT Images: From the Fleischner Society 2017. Guidelines apply to incidental nodules in patients who are 35 years or older. Guidelines do not apply to lung cancer screening, patients with immunosuppression, or patients with known primary cancer. SINGLE NODULE Nodule size <6 mm Low-risk patients: No follow-up needed. High-risk patients: Optional follow-up at 12 months. Narrative 10/06/2024 5:21 PM CDT EXAM: CT ABDOMEN PELVIS W CONTRAST LOCATION: [facility] DATE: 10/06/2024 INDICATION: severe abd pain COMPARISON: None. TECHNIQUE: CT scan of the abdomen and pelvis was performed following injection of IV contrast. Multiplanar reformats were obtained. Dose reduction techniques were used. CONTRAST: 80mL Isovue 370 FINDINGS: LOWER CHEST: 0.5 x 0.5 cm nodule in the left lower lobe (3/10). HEPATOBILIARY: Normal. PANCREAS: Normal. SPLEEN: Normal. ADRENAL GLANDS: Normal. KIDNEYS/BLADDER: No significant mass, stone, or hydronephrosis. The bladder is completely collapsed and suboptimally evaluated. BOWEL: Normal. LYMPH NODES: Normal. VASCULATURE: Normal. PELVIC ORGANS: Normal. MUSCULOSKELETAL: Normal. Procedure Note Anastacio Brar MD - 10/06/2024 EXAM: CT ABDOMEN PELVIS W CONTRAST LOCATION: [facility] DATE: 10/06/2024 INDICATION: severe abd pain COMPARISON: None. TECHNIQUE: CT scan of the abdomen and pelvis was performed followinginjection of IV contrast. Multiplanar reformats were obtained. Dosereduction techniques were used. CONTRAST: 80mL Isovue 370 FINDINGS: LOWER CHEST: 0.5 x 0.5 cm nodule in the left lower lobe (3/10). HEPATOBILIARY: Normal. PANCREAS: Normal. SPLEEN: Normal. ADRENAL GLANDS: Normal. KIDNEYS/BLADDER: No significant mass, stone, or hydronephrosis. Thebladder is completely collapsed and suboptimally evaluated. BOWEL: Normal. LYMPH NODES: Normal. VASCULATURE: Normal. PELVIC ORGANS: Normal. MUSCULOSKELETAL: Normal. IMPRESSION: 1. No acute findings in the abdomen or pelvis. 2. Incidental 0.5 cm left lower lobe pulmonary nodule. Follow-uprecommendations below: REFERENCE: Guidelines for Management of Incidental Pulmonary Nodules Detected on CTImages: From the Fleischner Society 2017. Guidelines apply to incidental nodules in patients who are 35 years orolder. Guidelines do not apply to lung cancer screening, patients withimmunosuppression, or patients with known primary cancer. SINGLE NODULE Nodule size <6 mm Low-risk patients: No follow-up needed. High-risk patients: Optional follow-up at 12 months. Piper Alvarez MD IMG CT ORDERABLES Final Result * Extra Red Top Tube (10/06/2024 3:44 PM CDT) Hold Specimen [facility] 10/06/2024 5:01 PM CDT [facility] Blood VENOUS LINE / Unknown Venipuncture / Unknown 10/06/2024 3:44 PM CDT 10/06/2024 3:52 PM CDT Piper Alvarez MD LAB - BLOOD ORDERABLES Final Res ult [facility] Lab [address] [place] Lab (1st floor, no room number) [address] * Extra Blue Top Tube (10/06/2024 3:44 PM CDT) Hold Specimen [facility] 10/06/2024 5:01 PM CDT [facility] Blood VENOUS LINE / Unknown Venipuncture / Unknown 10/06/2024 3:44 PM CDT 10/06/2024 3:53 PM CDT Piper Alvarez MD LAB - BLOOD ORDERABLES Final Res ult [facility] Lab [address] Lab (1st floor, no room number) [address] * CBC with platelets and differential (10/06/2024 3:44 PM CDT) WBC Count 9.8 4.0 - 11.0 10e3/uL 10/06/2024 3:56 PM CDT [facility] RBC Count 5.12 4.40 - 5.90 10e6/uL 10/06/2024 3:56 PM CDT [facility] Hemoglobin 15.1 13.3 - 17.7 g/dL 10/06/2024 3:56 PM CDT [facility] Hematocrit 43.3 40.0 - 53.0 % 10/06/2024 3:56 PM CDT [facility] MCV 85 78 - 100 fL 10/06/2024 3:56 PM CDT [facility] MCH 29.5 26.5 - 33.0 pg 10/06/2024 3:56 PM CDT [facility] MCHC 34.9 31.5 - 36.5 g/dL 10/06/2024 3:56 PM CDT [facility] RDW 12.0 10.0 - 15.0 % 10/06/2024 3:56 PM CDT [facility] Platelet Count 312 150 - 450 10e3/uL 10/06/2024 3:56 PM CDT [facility] % Neutrophils 69 % 10/06/2024 3:56 PM CDT [facility] % Lymphocytes 17 % 10/06/2024 3:56 PM CDT [facility] % Monocytes 13 % 10/06/2024 3:56 PM CDT [facility] % Eosinophils 1 % 10/06/2024 3:56 PM CDT [facility] % Basophils 0 % 10/06/2024 3:56 PM CDT [facility] % Immature Granulocytes 0 % 10/06/2024 3:56 PM CDT [facility] NRBCs per 100 WBC 0 <1 /100 025 3:56 PM CDT [facility] Absolute Neutrophils 6.8 1.6 - 8.3 10e3/uL 10/06/2024 3:56 PM CDT [facility] Absolute Lymphocytes 1.6 0.8 - 5.3 10e3/uL 10/06/2024 3:56 PM CDT [facility] Absolute Monocytes 1.2 0.0 - 1.3 10e3/uL 10/06/2024 3:56 PM CDT [facility] Absolute Eosinophils 0.1 0.0 - 0.7 10e3/uL 10/06/2024 3:56 PM CDT [facility] Absolute Basophils 0.0 0.0 - 0.2 10e3/uL 10/06/2024 3:56 PM CDT [facility] Absolute Immature Granulocytes 0.0 <=0.4 10e3/uL 10/06/2024 3:56 PM CDT [facility] Absolute NRBCs 0.0 10e3/uL 10/06/2024 3:56 PM CDT [facility] Blood BLOOD SPECIMEN / Unknown Venipuncture / Unknown 10/06/2024 3:44 PM CDT 10/06/2024 3:53 PM CDT Piper Alvarez MD LAB - BLOOD ORDERABLES Final Res ult [facility] [address] Lab (1st floor, no room number) [place] [id number] * Lipase (10/06/2024 3:44 PM CDT) Lipase 26 13 - 60 U/L 10/06/2024 4:22 PM CDT [facility] Blood BLOOD SPECIMEN / Unknown Venipuncture / Unknown 10/06/2024 3:44 PM CDT 10/06/2024 3:53 PM CDT Piper Alvarez MD LAB - BLOOD ORDERABLES Final Res ult Performing Organization Address City/[facility]/ZIP Co de Phone Number LABORATORY [facility] [address] Lab (1st floor, no room number) [place] [phone] * (ABNORMAL) Comprehensive metabolic panel (10/06/2024 3:44 PM CDT) Sodium 138 135 - 145 mmol/L 10/06/2024 4:22 PM CDT [facility] Potassium 3.8 3.4 - 5.3 mmol/L 10/06/2024 4:22 PM CDT [facility] Carbon Dioxide (CO2) 26 22 - 29 mmol/L 10/06/2024 4:22 PM CDT [facility] Anion Gap 13 7 - 15 mmol/L 10/06/2024 4:22 PM CDT [facility] Urea Nitrogen 10.7 6.0 - 20.0 mg/dL 10/06/2024 4:22 PM CDT [facility] Creatinine 0.69 0.67 - 1.17 mg/dL 10/06/2024 4:22 PM CDT [facility] GFR Estimate >90 >60 mL/min/1.7 3m2 10/06/2024 4:22 PM CDT [facility] Comment:eGFR calculated us2020 CKD-EPI equation. Calcium 9.3 8.8 - 10.4 mg/dL 10/06/2024 4:22 PM CDT LABORATORY Chloride 99 98 - 107 mmol/L 10/06/2024 4:22 PM CDT LABORATORY Glucose 117(H) 70 - 99 mg/dL 10/06/2024 4:22 PM CDT LABORATORY Alkaline Phosphatase 100 40 - 150 U/L 10/06/2024 4:22 PM CDT LABORATORY AST 35 0 - 45 U/L 10/06/2024 4:22 PM CDT LABORATORY ALT 58 0 - 70 U/L 10/06/2024 4:22 PM CDT LABORATORY Protein Total 7.7 6.4 - 8.3 g/dL 10/06/2024 4:22 PM CDT LABORATORY Albumin 4.4 3.5 - 5.2 g/dL 10/06/2024 4:22 PM CDT LABORATORY Bilirubin Total 0.7 <=1.2 mg/dL 10/06/2024 4:22 PM CDT LABORATORY Blood BLOOD SPECIMEN / Unknown Venipuncture / Unknown 10/06/2024 3:44 PM CDT 10/06/2024 3:53 PM CDT us Piper Alvarez MD LAB - BLOOD ORDERABLES Final Res ult LABORATORY [facility] Lab [address] Lab (1st floor, no room number) [place] [address], [facility] documented in this encounter Visit Diagnoses Diagnosis Acute gastritis without hemorrhage, unspecified gastritis type Abdominal pain, epigastric documented in this encounter Administered Medications Inactive Administered Medications - up to 3 most recent administrations Medication Order MAR Action Action Date Dose Rate Site alum & mag hydroxide-simethicone (MAALOX) suspension 15 mL 15 mL, Oral, ONCE, On 10/06/24 at 1530, For 1 dose, Use for GI cocktail $Given 10/06/2024 3:49 PM CDT 15 mLs famotidine (PEPCID) injection 20 mg 20 mg, Intravenous, Administer over 2 Minutes, ONCE, On 10/06/24 at 1530, For 1 dose, For ordered IV doses 1-20 mg, give IV Push diluted with 5-10 mL NS over a minimum of 2 minutes. $Given 10/06/2024 3:50 PM CDT 20 mg iopamidol (ISOVUE-370) solution 500 mL 500 mL, Intravenous, ONCE, On 10/06/24 at 1640, For 1 dose $Given 10/06/2024 4:41 PM CDT 80 mLs lidocaine (viscous) (XYLOCAINE) 2 % solution 5 mL 5 mL, Mouth/Throat, ONCE, On 10/06/24 at 1530, For 1 dose $Given 10/06/2024 3:49 PM CDT 5 mLs morphine (PF) injection 4 mg 4 mg, Intravenous, EVERY 15 MIN PRN, moderate pain, severe pain, Starting on 10/06/24 at 1538, For 3 doses, Notify the provider to assess for uncontrolled pain or analgesic side effects. Hold while on IV MACHINIST MECHANIC or with regular IV opioid dosing. sodium chloride (PF) 0.9% PF flush 100 mL 100 mL, Intravenous, ONCE, On 10/06/24 at 1640, For 1 dose $Given 10/06/2024 4:41 PM CDT 60 mLs sodium chloride 0.9% BOLUS 1,000 mL Intravenous, 1,000 mL, ONCE, at 1,000 mL/hr, Administer over 1 Hours, On 10/06/24 at 1530, For 1 dose $New Bag 10/06/2024 4:46 PM CDT 1,000 mLs 1000 mL/hr documented in this encounter Active and Recently Administered Medications Times are shown in CDT. Scheduled Medication Order 10/04/2024 10/05/2024 10/06/2024 alum & mag hydroxide-simethicone (MAALOX) suspension 15 mL (COMPLETED) 15 mL, Oral, ONCE, On 10/06/24 at 1530, For 1 dose, Use for GI cocktail 1549 ($Given - Provi pancho: Maryann Felder RN) famotidine (PEPCID) injection 20 mg (COMPLETED) 20 mg, Intravenous, Administer over 2 Minutes, ONCE, On 10/06/24 at 1530, For 1 dose, For ordered IV doses 1-20 mg, give IV Push diluted with 5-10 mL NS over a minimum of 2 minutes. 1550 ($Given - Provi pancho: Maryann Felder RN) iopamidol (ISOVUE-370) solution 500 mL (COMPLETED) 500 mL, Intravenous, ONCE, On 10/06/24 at 1640, For 1 dose 1641 ($Given - Provi pancho: DAYANARA Alcantar) lidocaine (viscous) (XYLOCAINE) 2 % solution 5 mL (COMPLETED) 5 mL, Mouth/Throat, ONCE, On 10/06/24 at 1530, For 1 dose 1549 ($Given - Provi pancho: Maryann Felder RN) sodium chloride (PF) 0.9% PF flush 100 mL (COMPLETED) 100 mL, Intravenous, ONCE, On 10/06/24 at 1640, For 1 dose 1641 ($Given - Provi pancho: DAYANARA Alcantar) sodium chloride 0.9% BOLUS 1,000 mL (COMPLETED) Intravenous, 1,000 mL, ONCE, at 1,000 mL/hr, Administer over 1 Hours, On 10/06/24 at 1530, For 1 dose 1646 ($New Bag - Pro vider: Nithya Alfaro RN)[id number] (Stopped - Provider: Nithya Alfaro RN) PRN Medication Order 10/04/2024 10/05/2024 10/06/2024 morphine (PF) injection 4 mg 4 mg, Intravenous, EVERY 15 MIN PRN, moderate pain, severe pain, Starting on 10/06/24 at 1538, For 3 doses, Notify the provider to assess for uncontrolled pain or analgesic side effects. Hold while on IV MACHINIST MECHANIC or with regular IV opioid dosing. documented in this encounter Care Teams Acid Washer Operator Relationship Specialty Start Date End Date No Ref-Primary, Physician PCP - General 10/04/24 documented as of this encounter
--- OUTSIDE RECORDS SUMMARY | 2024-10-15 05:42 | XMS_ITS | Encounter Summary ---
Author Organization [facility] Address [address] [place] [id number] Care Team Providers Care Show Worker Name Role Phone None Reported, Pcp Primary Care Provider Unavail able Reason for Visit * Reason Comments Abdominal Pain * Auth/Cert (Routine) Specialty Diagnoses / Procedures Referred By Contac t Referred To Contact Diagnoses Abdominal Pain Procedures OBS Referral ID Status Reason Start Date Expiration Date Visits Re quested Visits Authorized [id number] 1 1 Encounter Details Date Type Department Care Team (Latest Contact Info) Description 10/15/2024 5:42 AM CDT - 10/18/2024 1:16 PM CDT Hospital Encounter [facility], [facility], Third Floor [address] [place] [phone] Fabiano Taylor, PSusanneASusanne-CSusanne [address] [place] [phone] Jett Rojas M.D. [address] [place] [phone] Abdominal Pain (Primary Dx); Leukocytosis; Abnormal C Reactive Protein; Elevated Sedimentation Rate; Abnormal Liver Function Test; Abnormal Pancreatic Enzyme; Thrombocytosis Unspecified; Rash Leg; Myalgia; Arthralgia; Loss Weight Abnormal; Anorexia; Vasculitis Discharge Disposition: Home or Self Care Social History Tobacco Use Types Packs/Day Years Used Date Smoking Tobacco: Never Passive Smoke Exposure: Never Smokeless Tobacco: Never Alcohol Use Standard Drinks/Week Comments Yes 0 (1 standard drink = 0.6 oz pur e alcohol) few times a year [facility] Utilities Answer Date Recorded In the past 12 months has e Contrib, gas, oil, or water company threatened to shut off services in your home? Patient unable to answer 10/15/2024 Humiliation, Afraid, Rape, a nd Kick questionnaire Answer Date Recorded Within the last year, have y ou been afraid of your partner or ex-partner? Patient unable to answer 10/15/2024 Within the last year, have y ou been humiliated or emotionally abused in other ways by your partner or ex-partner? Patient unable to answer 10/15/2024 Within the last year, have y ou been kicked, hit, slapped, or otherwise physically hurt by your partner or ex-partner? Patient unable to answer 10/15/2024 Within the last year, have y ou been raped or forced to have any kind of sexual activity by your partner or ex-partner? Patient unable to answer 10/15/2024 Hunger Vital Sign Answer Date Recorded Within the past 12 months, y ou worried that your food would run out before you got the money to buy more. Patient unable to answer 10/15/2024 Within the past 12 months, t he food you bought just didn't last and you didn't have money to get more. Patient unable to answer 10/15/2024 PRAPARE - Transportation Answer Date Re corded In the past 12 months, has l ack of transportation kept you from medical appointments or from getting medications? Patient unable to answer 10/15/2024 In the past 12 months, has l ack of transportation kept you from meetings, work, or from getting things needed for daily living? Patient unable to answer 10/15/2024 Dental Answer Date Recorded Dental: Regular Dentist Unknown 10/16/19 Housing Stability Answer Date Recorded What is your living situation today? Patient jimena ble to answer 10/15/2024 Sex and Gender Information Value Date Recorded Sex Assigned at Not on file Legal Sex Male 5:37 AM CDT Gender Identity Not on file Sexual Orientation Not on file Occupation Industry Job Start Date Job End Date Not on file Not on file Not on file Not on file Not on file Not on file Not on file Not on file documented as of this encounter Last Filed Vital Signs Vital Sign Reading Time Taken Comments Blood Pressure 108/57 10/18/2024 7:50 AM CDT Pulse 57 10/18/2024 7:50 AM CDT Temperature 36.4 C (97.5 F) 10/18/2024 7:50 AM CDT Respiratory Rate 17 10/18/2024 7:50 AM CDT Oxygen Saturation 98% 10/18/2024 7:50 AM CDT Inhaled Oxygen Concentration - - Weight 67 kg (147 lb 11.3 oz) 10/15/2024 11:51 A M CDT Height 177.8 cm (5' 10) 10/15/2024 12:36 PM CDT Body Mass Index 21.19 10/15/2024 11:51 AM CDT documented in this encounter Discharge Summaries * Susan Camejo M.D. - 10/18/2024 11:31 AM CDT DISCHARGE SUMMARY BRIEF OVERVIEW Hospital: [facility] Discharge Provider: Jett Rojas M.D. Primary Team: [facility] Medicine 1 ([facility]) Primary Care Providers: None Reported, Pcp (General) No address on file Primary Care Provider Phone Number: None Primary Care Provider Fax Number: None Other Providers: Susan Camejo M.D. Admission Date: 10/15/2024 Discharge Date: 10/18/24 PRINCIPAL DIAGNOSIS Abdominal Pain SECONDARY DIAGNOSES Principal Problem: Abdominal Pain Active Problems: Vasculitis Resolved Problems: * No resolved hospital problems. * DISCHARGE DISPOSITION Home or Self Care [1] ACTIVE ISSUES REQUIRING FOLLOW UP You came to the hospital because of abdominal pain, joint pain, and a leg rash. 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 You were started on steroids (Prednisone) for this condition and will follow up in Rheumatology clinic for further management. You were incidentally found to havea narrowing of one of the abdominal blood vessels, the celiac artery, for which you may follow up with your primary care physician for further management. Please see below for details on our recommendations for when you leave the hospital. Medications Changed Started: - Tylenol 650 mg every 6 hours as needed for pain - Start prednisone taper: 60 mg daily ?? 5 days 40 mg daily ?? 5 days 30 mg daily ?? 5 days 25 mg daily ?? 5 days 20 mg daily ?? 5 days 15 mg daily ?? 5 days 10 mg daily ?? 5 days 5 mg daily ?? 5 days - Pantoprazole 40 mg daily while on Prednisone - Sulfamethoxazole-trimethoprim (Bactrim DS) daily while on Prednisone Stopped: - Prilosec - Oxycodone - Sucralfate Primary care physician follow-up items: - Consider workup of median arcuate ligament syndrome including celiac plexus block and celiac artery ultrasonography with inspiration/expiration, along with referral to the MALS pathway at [place] if desired. 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 Rheumatology 01/11/2025 4:20 PM Dior Sanchez M.D. Dermatology For appointment details refer to your Patient Appointment Guide. TEST RESULTS PENDING AT DISCHARGE Pending Labs Order Current Status Bacteria / Marylou Culture, Blood # 2 Preliminary result Bacteria / Marylou Culture, Blood #1 Preliminary result DETAILS OF HOSPITAL STAY REASON FOR ADMISSION Leukocytosis Thrombocytosis Unspecified Arthralgia Myalgia Rash Leg Loss Weight Abnormal Elevated Sedimentation Rate Abnormal Liver Function Test Abnormal Pancreatic Enzyme Abnormal C Reactive Protein Abdominal Pain Anorexia HOSPITAL COURSE Overview Mr. Gretel Ochoa is a 24 y.o. male who presented on 10/15/24 with abdominal pain. Medical comorbidities notable for pilonidal cysts and remote history of asthma in childhood. Prior to Admission He presented with a 2-week history of abdominal pain that was severe in onset and progressively worsened, especially with standing/sitting down and was relieved by lying flat. The pain was constant and was so severe it led to vomiting. The pain was also worse moments after eating and sometimes withliquids but not with the pills. He was seen at urgent care and local ER without any clear explanation, therefore, he came to [place] for a second opinion. He presented to the ED with concerns for abdominal pain, subjective fevers and a 14lb weight loss over the past 2 weeks. ED Course In the ED, he was afebrile and vitals were stable. CBC notable for thrombocytosis to 567, leukocytosis to 14.2 with left shift, ESR elevated to 38, and CRP elevated to 117.9. Creatinine and electrolytes within normal limits. He was found to have elevated LFTs with alkaline phosphatase 280, AST 58, and ALT [address] abd/pelvis 10/15 showed marked narrowing at the origin of the celiac axis with associated soft tissue thickening and splenic infarcts. He received pain medicationswith improvement and PPIs. Dermatology consulted in the ED and a skin biopsy was performed. He was admitted to Medicine for further evaluation. Hospital Course Given the presence of abdominal pain, arthralgias, and petechiae/purpura, there was concern for a systemic vasculitis. Autoimmune and infectious labs negative aside from prior EBV infection. 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 Rheumatology was consulted who recommended pulse dose steroids with IV methylprednisolone for 3 days, which he completed. He had significant improvement in his abdominal pain after starting steroids. He had minimal relief of abdominal pain from oral Dilaudid and Tylenol. CTA abdomen/pelvis was obtained on 10/16 which showed redemonstration of celiac axis stenosis, but no mural thickening or enhancement. Despite absence of obvious vasculitis on imaging, skin biopsy immunofluorescence confirmed IgA vasculitis. After receiving pulse steroids and controlling pain, he was discharged in stable condition for further outpatient management. Regarding celiac axis compression with collateralization on imaging, this represented an incidentalfinding. Vascular surgery consulted and thought there was less concern that median arcuate ligamentcompression was contributing to his pain. He can follow up with his PCP for further workup of median arcuate ligament syndrome including celiac plexus block and celiac artery ultrasonography with inspiration/expiration, along with referral to the MALS pathway at [place] if desired. Disposition The patient was discharged to home on 10/17/24 in stable condition. They should follow up with Rheumatology on 10/30 and Dermatology (TBD). CONSULTS ORDERED DURING THIS ADMISSION IP CONSULT TO DIETITIAN IP CONSULT TO DERMATOLOGY IP CONSULT TO RHEUMATOLOGY IP CONSULT TO RHEUMATOLOGY IP CONSULT TO VASCULAR SURGERY CONDITION AT DISCHARGE good Discharge instructions were provided to the patient and caregiver(s). Total time spent in discharge services today: 30 minutes. Susan Camejo MD PGY-1, Internal Medicine Pager: [phone] documented in this encounter Discharge Instructions * Discharge Instructions* Lia Gillette - 10/15/2024 2:52 PM CDT You were discharged from the [facility] Medicine 1 ([facility]) Service. Please identify this service name if youcall with questions after hospitalization. * Attachments The following attachments cannot be sent through Care Everywhere. * Pantoprazole (By mouth) (Montenegrin) * Prednisone (By mouth) (Montenegrin) * Sulfamethoxazole/Trimethoprim (By mouth) (Montenegrin) documented in this encounter Medications at Time of Discharge pantoprazole (Protonix) 40 mg EC tablet Take 1 tablet (40 mg total) by mouth daily before morning meal. 30 tablet 10/18/2024 12:56 PM CDT 10/18/2024 predniSONE (Deltasone) 10 mg tablet Take 6 tablets (60 mg) by mouth daily for 5 days, THEN 4 tablets (40 mg) daily for 5 days, THEN 3 tablets (30 mg) daily for 5 days, THEN 2.5 tablets (25 mg) daily for 5 days, THEN 2 tablets (20 mg) daily for 5 days, THEN 1.5 tablets (15 mg) daily for 5 days, THEN 1 tablet (10 mg) daily for 5 days, THEN 0.5 tablets (5 mg) daily for 5 days. 103 tablet 10/18/2024 12:56 PM CDT 10/19/2024 sulfamethoxazole-tri methoprim (Bactrim DS) 800-160 mg per tabletIndications:Pr ophylaxis, medical Take 1 tablet by mouth daily Indications: Prophylaxis, medical. 30 tablet 10/18/2024 12:56 PM CDT 10/18/2024 acetaminophen (TylenoL) 325 mg tablet Take 2 tablets (650 mg total) by mouth 4 (four) times a day as needed for pain. 60 tablet 10/18/2024 5 ondansetron ODT (Zofran-ODT) 4 mg disintegrating tablet Dissolve 4 mg in the mouth every 8 (eight) hours as needed for nausea or vomiting. 5 documented as of this encounter Progress Notes * Jett Rojas M.D. - 10/18/2024 1:16 PM CDT RST Medicine 1 ([facility]) Supervisory Progress Note I saw and evaluated Gretel Ochoa on Medicine rounds today and agree with the findings and plan as documented in today's documentation by Dr. 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 We will plan to dismiss him on a steroid taper and he will follow-up in rheumatology Reviewed with patient and his father who is at bedside. Please refer to my resident physician colleague's documentation dated today for additional details about our team's plan of care. * Sacha Vidal M.D. - 10/18/2024 9:00 AM CDT Rheumatology Sign-Off Note Patient: 24-year-old male with a past medical history of pilonidal cyst Date of Admission: 10/15 Chief Complaint: Presented with a 2-week history of abdominal pain and a 2-day history of palpable purpura around the ankles. The patient also reported arthralgias. Imaging and Diagnostics: CT abdomen and pelvis with IV contrast demonstrated marked narrowing at the origin of the celiac axis along with suspected splenic infarcts. CT angiogram of the abdomen and pelvis confirmed focal severe stenosis of the celiac artery origin and evolving splenic infarcts. Punch biopsy showed findings consistent with IgA vasculitis. Consults: Rheumatology was consulted for suspected vasculitic process. Dermatology was also involved. Laboratory Findings: CRP: significantly elevated at 117.9 mg/L Serologies: negative Treatment: Mr. Ochoa received IV Solu-Medrol 100 mg daily for 3 days. He will transition to a prednisone taper as outlined below. Final Rheumatologic Diagnosis: Primary: IgA vasculitis Recommendations for Today: Start prednisone taper: 60 mg daily ?? 5 days 40 mg daily ?? 5 days 30 mg daily ?? 5 days 25 mg daily ?? 5 days 20 mg daily ?? 5 days 15 mg daily ?? 5 days 10 mg daily ?? 5 days 5 mg daily ?? 5 days Continue PCP prophylaxis with Bactrim until prednisone dose is <20 mg/day. Recommendations for Dismissal: Glucocorticoids: Yes Continue prednisone taper as outlined above DMARDs: No Follow-Up Appointments: October 30 at 4:00 p.m. with myself at OP Rheumatology Patient Education: Reviewed adverse effects of glucocorticoids with the patient and/or family members. The case of Mr. Ochoa was discussed with Dr. Alfa Blanchard. Sacha Mccarty Rheumatology Fellow Cosigned by Alfa Blanchard M.D. at 10/18/2024 2:53 PM CDT Associated attestation - Alfa Blanchard M.D. - 10/18/2024 2:53 PM CDT I have seen, discussed, and examined Mr. Gretel Ochoa with the Fellow and reviewed the pertinent history , examination, laboratory parameters, assessment , and plan. I have reviewed the assessment and plan as documented by Dr. Sacha Mccarty and am in agreement. Gretel has improved significantly, and the vasculitic rash is resolving. He is being discharged today on an oral prednisone taper. We discussed risk of relapse, and importance of follow-up in the outpatient Rheumatology Clinic. We answered questions, and we will be glad to see him back in follow-up. * Toña Chin M.D. - 10/17/2024 2:10 PM CDT DERMATOLOGY MISCELLANEOUS NOTE PRIMARY TEAM RST Medicine 1 ([facility]) SUBJECTIVE The patient was not seen. This is a miscellaneous note to communicate biopsy results. OBJECTIVE Skin Biopsy (obtained 10/15/2024): FINAL DIAGNOSIS A. Left lower leg, anterior, Skin punch biopsy: Leukocytoclastic vasculitis A. Left lower anterior leg, Skin punch biopsy, Immunofluorescence: IgG: Negative IgG4: Negative IgM: Discontinuous granular basement membrane zone IgA: Few superficial blood vessels C3: Rare weak superficial blood vessels Fibrinogen: Patchy staining of connective tissue fibers Impression: Consistent with IgA vasculitis (see comment) Comment: The granular deposition of IgA within the plata of superficial dermal vessels is compatible with IgA vasculitis in the appropriate clinical setting. IgA vasculitis may be seen in leukocytoclastic vasculitis associated with Henoch [id number] purpura, inflammatory bowel disease, autoimmune connective tissue disorders (Df7inpl syndrome, rheumatoid arthritis, lupus erythematosus and spondyloarthropathies), malignancy (including lymphoma and multiple myeloma), urticarial vasculitis, or as a reaction to medications (Dirk CM et al. Am J Dermatopathol, 1999; m21(3); 234-240); as well as in the context of a lymphocytic vasculopathy in the setting of a pigmented purpuric dermatosis, Degos disease and lupus panniculitis (Cassandra AN et al. J Cutan Pathol, 2002: 29: 596-601). Rarely granular deposition of IgA within cutaneous vascular plata may be seen in nonlesional skin biopsies of patients with IgA nephropathy, alcohol use disorder, or dermatitis herpetiformis. A final definitive diagnosis should therefore be based on correlation of the direct immunofluorescence findings with the clinical presentation, histopathological findings on examination of sections from formalin-fixed, paraffin-embedded tissue and other diagnostic tests. 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 Leukocytoclastic vasculitis often starts on the ankles/lower extremities and progresses proximally.Therefore, we saw the rash in earlier stages and this rash is clinically consistent with IgA vasculitis. Small bowel thickening noted on imaging can be seen with IgA vasculitis. The etiology of the splenic infarcts is unclear, appreciate primary team workup. Dermatology will follow up on an outpatient setting (order placed) Agree with prednisone taper per Rheumatology. The patient has been discussed with hospital attending, Dior Shipman M.D., who agrees with thisassessment and plan. Thank you for involving us in the patient's care. We will sign off at this point. Please page the Dermatology Service at [phone] with questions. If there are changes to the skin or mucous membranes, please upload pictures for documentation and expediting evaluation. Toña Chin M.D. Dermatology Resident, PGY-3 Cosigned by Dior Sanchez M.D. at 10/17/2024 3:04 PM CDT * Jett Rojas M.D. - 10/17/2024 1:54 PM CDT R[facility] Medicine 1 ([facility]) Supervisory Progress Note I saw and evaluated Gretel Ochoa on Medicine rounds today and agree with the findings and plan as documented in today's documentation by Dr. 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 Surprisingly the CT angiogram showed celiac stenosis but without inflammation and also with the development of collaterals, indicative of some level of chronicity. This is thought to potentially be related to compression by the arcuate ligament and may well end up being a red menchaca coincidentalfinding unrelated to his abdominal pain and other findings. Rheumatology help is much appreciated, and I have reviewed the case in detail with Dr. Blanchard. We are suspecting at this point that this is an atypical presentation of IgA vasculitis (which can certainly cause abdominal pain but does not usually result in splenic infarcts). The initial responseto steroids is very encouraging and we will plan to give the last dose of IV Solu-Medrol tomorrow and then likely discharge on a prednisone taper. Reviewed with patient and his mother who is at bedside. We will give Dilaudid 2 mg q.4 hours PRN for pain and also have IV Dilaudid available for breakthrough Please refer to my resident physician colleague's documentation dated today for additional details about our team's plan of care. I spent 37 minutes face to face and non-face to face caring for the patient today. * Zain Toth M.D., M.P.H. - 10/17/2024 11:20 AM CDT RHEUMATOLOGY PROGRESS NOTE SUBJECTIVE HISTORY OF PRESENT ILLNESS: Gretel Ochoa is a 24-year-old male with a past medical history pilonidal cyst and remote history of asthma during his childhood who is now presenting with a 2 week onset of abdominal pain associated with arthralgias and a rash. The patient reports an epigastric abdominal pain that began about 2 weeks ago. He reports the pain is constant and progressive and now rated at a 10/10. He reports his pain being worse after eating ameal. He reports a 14 lb weight loss and a subjective fever in the past few days. He also reports joint pain and stiffness that has occurred for about 10 days now. His affected joints include bilateral shoulders, elbows, wrists and knees. He reports one day of hip pain. He also reports noticing some swelling in the MCP & PIP joints of the right hand. He also reports muscle pain in his shoulder blades bilateral. He also reports developing an itchy rash described as red bumpy spots on both of his ankles. He denies having a rash anywhere else in the body. He reports subjective fevers, but denies chills, sore throat, shortness of breath, current medication use, recent antibiotic use, alcohol, tobacco or drug use. He denies ever experiencing any similar symptoms in the past. INTERVAL EVENTS: Gretel reports feeling much better today after 2 days of steroids. He denies any arthralgias and currently rates his abdominal pain 2/10. He is able to sit up and get around and walk with no pain. Hereports no progression or worsening of his rash. He denies any new symptoms or concern. OBJECTIVE PHYSICAL EXAMINATION Constitutional General: He is not in acute distress. Appearance: Normal appearance. He is normal weight. He is not ill-appearing or toxic-appearing. HENT Head: Normocephalic and atraumatic. Eyes Conjunctiva/sclera: Conjunctivae normal. Cardiovascular Comments: All Extremities appear well perfused. Pulmonary Effort: Pulmonary effort is normal. No respiratory distress. Abdominal Palpations: Abdomen is soft. Tenderness: There is no abdominal tenderness. There is no guarding or rebound. Musculoskeletal General: No swelling or tenderness. Normal range of motion. Cervical back: Neck supple. Skin General: Skin is warm. Findings: Rash present. Comments: Multiple small scattered violaceous papules in the ankles bilaterally. No visible skin involvement anywhere else. Neurological General: No focal deficit present. Mental Status: He is alert. Mental status is at baseline. Psychiatric Mood and Affect: Mood normal. Behavior: Behavior normal. Thought Content: Thought content normal. RELEVANT DATA Labs (10/15/2024): - WBC: 11.0 - PLT: 558 - ALT: 77 - AST: 45 - AP: 238 10/15/2024: - ESR: 38 - CRP: 117 Serologies: - HANY, RF, CCP, SS-A, SS-B, Vega, REPORT PROGRAMMER, Scl 70, ANCA panel, complement levels, Jessa, and phospholipidantibodies were negative. UA: negative Imaging: - CT abdomen & pelvis (10/15/2024): 1. 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 Appearance is nonspecific. Differential includes short segment dissection although an intraluminal flap is not visualized, IgG4 although no involvement is seen of the aorta, or possibly median arcuate ligament compression however, the classic findingsare not seen on the sagittal imaging. Recommend vascular consultation. 2. Several peripheral irregular hypodensities within the liver are indeterminate but suspicious forsplenic infarcts. - CT Abdomen Pelvis Angiogram (10/16/2024): 1. 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 No mural thickening or enhancement. 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 2. No arterial stenosis or wall thickening in the abdomen and pelvis. 3. Evolving splenic infarct. ASSESSMENT / PLAN Mr. Ochoa is a 24 y.o. male hospitalized on [place] [id number] ([facility]) for abdominal pain, arthralgias, and a rash. # Query IgA vasculitis # Palpable skin purpura in the lower extremities bilaterally # Abdominal pain # Arthralgias # Leukocytosis # Elevated inflammatory markers # Elevated LFTs The patient is a pretty healthy 24-year-old male presenting with a 2 week onset of abdominal pain with later developing arthralgias and palpable purpura in his ankles bilaterally. Even though he has the classic triad of symptoms associated with IgA vasculitis, it is unusual that he 1st developed abdominal pain followed by the rash. We would expect for him to have developed a rash and arthralgias p rior to the abdominal pain. In addition, his purpura distribution is limited to the ankles which ispretty unusual as the classic presentation is in his posterior thighs and buttock area. He does have evidence of leukocytosis and elevated inflammatory markers suggesting a possible autoimmune condition, especially given negative infectious work-up. He tested negative for strep. UA does not show evidence of blood or proteinuria, which is reassuring. In addition, all rheumatological serologies tested including HANY, RF, CCP, SS-A, SS-B, Vega, REPORT PROGRAMMER, Scl 70, ANCA panel, complement levels, Jessa, and phospholipid antibodies were negative. On admission, his CT abdomen and pelvis did not show small-bowel thickening indicative of edema expected with IgA vasculitis. A new CT angio abdomen and pelvis was ordered but did not show any arterial stenosis or wall thickening in the abdomen consistent with vasculitis. The CT did show evidence of a splenic infarcts which may be a very unusual presentation of vasculitis. However, we are not fully sure about the etiology of these splenic infarcts. Another potential etiology might be due to significant stenosis of the celiac trunk given median arcuate ligament compression. However, it seems like the surgery team thinks his abdominal pain may be more related to vasculitis given his improvement on steroids and they will hold any surgical interventions for now and instead follow him up in the outpatient setting. Dermatology has obtained a skin biopsy of the palpable purpura lesions. 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 Immunofluorescence assay results ofthe biopsy are still pending to confirm IgA vasculitis vs NOS vasculitis. In the meanwhile, the patient has responded very well to treatment. Today is day 2 of his 3 day course of IV methylprednisolone. His symptoms have significantly improved as expected for a diagnosis of vasculitis. We will recommend to to finish his 3 day course and we will plan to discharge the patient on a prednisone taper and have him follow-up with the Rheumatology in the outpatient setting. Recommendations: Follow-up immunofluorescence assay results from skin biopsy to confirm type of vasculitis Continue IV methylprednisolone 100 mg daily for 3 days (day 2 of 3 today) - last dose tomorrow Will plan to discharge on a prednisone taper Will be scheduled to follow-up with rheumatology in the outpatient setting Thank you for the consult. We will continue to follow the patient. This patient was staffed with Dr. Blanchard. Zain Diaz M.D., M.P.H. Internal Medicine PGY-1 Service Pager [phone] Cosigned by Alfa Blanchard M.D. at 10/17/2024 12:46 PM CDT Associated attestation - Alfa Blanchard M.D. - 10/17/2024 12:46 PM CDT I have seen, discussed, and examined Mr. Gretel Ochoa with the Resident and reviewed the pertinent history , examination, laboratory parameters, imaging studies, assessment , and plan. I havereviewed the assessment and plan as documented by Dr. Che and am in agreement. * Zoran Blanco - 10/17/2024 11:05 AM CDT T Medicine 1 ([facility]) PROGRESS NOTE SUBJECTIVE HISTORY OF PRESENT ILLNESS Mr. Gretel Ochoa is a 24 y.o. male who presents to the [place] ED for a 2nd opinion regarding his 9/10 abdominal pain present for 2 weeks. He is also receiving management for bilateral lower extremity palpable petechial rash extending from his midfoot to his ankle, bilateral flank pain, bilateral upper and lower extremity arthralgias, generalized myalgia and weight loss of 14 lb in 1 1/2 weeks. The patient has no notable medical comorbidities. INTERVAL EVENTS: When I saw Mr. Ochao this morning, he was sleeping in bed with mild abdominal pain. He reports having no pain yesterday evening, and sleeping comfortable until 5:00 a.m. when he was awoken for vitals. After his vitals were taken, his abdominal pain began again had a moderate intensity. He avoided pain exacerbation using p.r.n. medication. At this time the patient's abdomen was exquisitely tender to palpation, especially in the LUQ. A new papular rash was noted on the patient's chest, which the appearance of acne. When we returned for morning rounds, the patient had received his dose of methylprednisolone, and reported much improved pain. His abdomen was no longer tender to palpation. OBJECTIVE PHYSICAL EXAMINATION General: Alert, interactive, not acutely ill. General: Appetite change with 14 lbs weight loss in 1-1/2 weeks, chills and fever. Skin: Non-blanching purpuric rash in bilateral LE, most severe from midfoot to ankle with some new small petechiae in the mid rodriguez. Eyes: Pupils equal and round. Sclera anicteric. ENT: Hearing grossly intact. Dentition intact. No oral or pharyngeal erythema or lesions noted. Lymph: No cervical or subclavicular adenopathy. Lungs: Clear to auscultation. No wheezes or crackles. Heart: Regular rate and rhythm. No murmurs appreciated. No lower extremity edema. Abdomen: Soft, flat, bowel sounds normoactive, exquisitely tender, nondistended, no palpable massesor organomegaly. Joints: Symmetrical bilateral arthralgia, of upper and lower extremities. No active synovitis. Neuro: Cranial nerves II-XII intact. Strength 5/5 in all extremities. Mental: Mood and affect congruent. Alert and oriented. Attention intact. No evidence of disorganized thinking. Reliable history screw down. Musculoskeletal: diffuse myalgia ASSESSMENT / PLAN Mr. Ochoa is hospitalized on [facility] Medicine 1 ([facility]) for evaluation and management of severe, epigastric abdominal pain for 2 weeks, with positional, and postprandial worsening. Additionally, he presents with pruritic, palpable, nonblanching petechial rash of the ankles bilaterally, bilateral flank pain, bilateral upper and lower extremity arthralgia, generalized myalgia, microscopic hematuria, elevated inflammatory markers, leukocytosis, thrombocytosis, abnormal LFTs, elevated prothrombin time (13.5), and ketonuria on urine dipstick. CT contrast of abdomen and pelvis shows narrowing of the celiac axis with mild soft tissue thickening, and splenic infarcts. The patients symptoms remain inconsistent with a classic presentation for any particular vasculitis. Suspicion is highest for IgA vasculitis given history and physical. 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 Rheumatology workup within normal limits. HANY-hep 2 negative lowering suspicion but not ruling out IgA vasculitis. Skin biopsy IFA, pending. Microbiology results negative. Bacterial blood and urine cultures show no growth to date. EBV VCA, IgG, positive, IgM negative indicating past infection. Cryoglobulin, pending. Beta-2 glycoprotein pending. Repeat CTA abdomen pelvis showed worsening of splenic infarcts, CBC celiac artery stenosis, without inflammation, and collateralization between the celiac axis in thesuperior mesenteric artery. These results are not consistent with a classic presentation of vasculitis. There is the possibility that the patient's celiac artery stenosis is an incidental finding given the patient's responsiveness to treatment with corticosteroids. We will consult with vascular surgery for evaluation of imaging findings. Patient will continue treatment with high-dose steroids inpatient, with transition to prednisone taper in the outpatient setting. We will focus on symptomatic management. Vascular surgery consulted for evaluation of imaging findings. With the patient's condition continues to improve, we will consider discharge by the end of the week. 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 GI pathogen panel, pending Antistreptolysin-O titer, Negative Appreciate Rheumatology recommendations Suspicion remains highest for IgA vasculitis Skin biopsy IFA, pending. Celiac artery stenosis may be an incidental finding. Continue inpatient high dose steroids, with prednisone taper in the outpatient setting. Rheumatology workup Cryoglobulin, Pending Phospholipid antibodies, IgG and IgM, Negative Lupus anticoagulant, Negative Beta 2 glycoprotein 1 antibodies IgG and IgM, Pending Antinuclear antibodies, HEp-2 substrate, IgG, serum, Negative BUILDING COORDINATOR, Negative Proteinase 3 antibodies, IgG, WNL Complement C3, C4, WNL Antibody to extractable nuclear antigen evaluation, WNL Rheumatoid factor next item cyclic citrullinated peptide antibodies, IgG, WNL Consult CV Imaging confirmation of potential median arcuate ligament compression syndrome Appreciate dermatology recommendation Further rheumatologic workup Skin biopsy Positive for leukocytoclastic vasculitis Skin biopsy IFA pending Hepatitis B/C serologies HBs antibody, serum, Negative Hbc total antibodies, serum, Negative HCV ab with reflex to HCV PCR, serum, Negative HBs antigen Scrn, serum, Negative Hepatitis B core IgM antibody, Negative Hepatitis A IgM antibody, serum, Negative HIV 1/2 Ag and ab screen, plasma, Negative Severe/IgG with reflex, EIA, S Pain management Acetaminophen tablet 650 mg PO. q.6 hours, for pain Hydromorphone, 2 mg, PO, q.4 hours, prn, for severe pain Lidocaine patch Triple cream Consider maintenance fluids with D5W if patient remains intolerant of PO intake. Home meds: Ondansetron 4 mg, IV, q.6 hours, prn, for nausea, vomiting VTE prophylaxis: Enoxaparin Code status: Full code Surrogate Decision Maker: Parents, Сергей (father), Nicole (mother) Living Situation Before Admission: On home, with parents, and sister Discharge Plan (equipment, therapy, and facility): TBD, home likely Plan discussed with [facility] Medicine 1 ([facility]) Industrial Robotics Mechanic, Dr. Rojas, who was present during fernandes portions of the evaluation today. Please page the [facility] Medicine 1 ([facility]) service pager at [phone] with any questions. Electronically signed by: Zoran Cheng 10/17/24 11:23 AM CDT Cosigned by Susan Camejo M.D. at 10/17/2024 9:37 PM CDT * Susan Camejo M.D. - 10/17/2024 5:58 AM CDT [facility] Medicine 1 ([facility]) PROGRESS NOTE SUBJECTIVE HISTORY OF PRESENT ILLNESS Mr. Gretel Ochoa is a 24 y.o. male who presented 10/15/24 with abdominal pain. Medical comorbidities notable for pilonidal cysts and remote history of asthma in childhood. INTERVAL EVENTS: NAEO. He was able to eat meals yesterday and reports significantly improved pain after starting pulse steroids. OBJECTIVE PHYSICAL EXAMINATION General: Alert, interactive, not acutely ill. Skin: Palpable, non blanchable petechiae/purpura in bilateral ankles, no other skin rashes Eyes: Pupils equal and round. Sclera anicteric. Lungs: Clear to auscultation. No wheezes or crackles. Heart: Regular rate and rhythm. No murmurs appreciated. No lower extremity edema. Abdomen: No abdominal bruits with expiration, pain to palpation in the upper epigastric region Neuro: Alert, appropriately conversant Mental: Mood and affect congruent. Alert and oriented. Attention intact. No evidence of disorganized thinking. Reliable history screw down. CTA Abd/Pelvis 10/16 IMPRESSION: 1. 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 No mural thickening or enhancement. 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 2. No arterial stenosis or wall thickening in the abdomen and pelvis. 3. Evolving splenic infarct. ASSESSMENT / PLAN Mr. Ochoa is a 24 y.o. male hospitalized on [place] [address] ([facility]) for evaluation and management of a2 week history of abdominal pain, found to have well palpable purpura, elevated inflammatory markers, and celiac axis occlusion on imaging his low concerning for a small to medium vessel vasculitis. We are concerned for a systemic vasculitis causing his presenting abdominal pain, purpura, and elevated inflammatory markers. CTA abdomen and pelvis obtained 10/16 showed concern for median arcuate ligament-associated extrinsic compression with collateralization, which may be an incidental finding for which we are consulting vascular surgery. After speaking with Rheumatology, his abdominal pain may still be related to vasculitis affecting the splenic and mesenteric vessels. His pain has improvedwith high-dose steroids. Pending skin biopsy immunofluorescence for final diagnosis. Autoimmune labs negative. Infectious workup revealed prior EBV infection. If he continues to tolerate PO intake and pain is controlled, then we can plan for discharge tomorrow after the 3rd dose of IV Methylprednisolone. 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 Dilaudid 2 mg q.4 hours PRN, IV Dilaudid 0.2mg q4h PRN, GI cocktail 3 times daily p.r.n., IV Zofran 4 mg q.6 hours p.r.n. - Regular diet as tolerated # Thrombocytosis - Likely reactive VTE Prophylaxis: lovenox. Surrogate Decision Maker: parents. Living Situation Before Admission: home. Discharge Plan (equipment, therapy, and facility): likely home Plan discussed with [facility] Medicine 1 ([facility]) Industrial Robotics Mechanic, Dr. Rojas, who was present during fernandes portions of the evaluation today. Please page the [facility] Medicine 1 ([facility]) service pager at [phone] with any questions. Susan Camejo MD PGY-1, Internal Medicine Pager: [phone] * Jett Rojas M.D. - 10/16/2024 1:41 PM CDT [facility] Medicine 1 ([facility]) Supervisory Progress Note I saw and evaluated Gretel Ochoa on Medicine rounds today and agree with the findings and plan as documented in today's documentation by Dr. Camejo with the following comments: # acute inflammatory process with celiac artery narrowing and inflammation, splenic infarcts and palpable purpura, clinical suspicion for vasculitis, IgA vs PEREZ # elevated liver enzymes, cholestatic pattern Continues to have upper abdominal pain today especially when he eats a small amount and also has anadditional component of superficial abdominal wall muscle pain. Rheumatology help is much appreciated. We have started Solu-Medrol 100 mg per day x3 and we will also get CT angiogram (photon counting as recommended by Dr. Blanchard) period. We will give Dilaudid 2 mg q.4 hours PRN for pain and also have IV Dilaudid available for breakthrough Please refer to my resident physician colleague's documentation dated today for additional details about our team's plan of care. * Zoran Blanco - 10/16/2024 1:23 PM CDT T Medicine 1 ([facility]) PROGRESS NOTE SUBJECTIVE HISTORY OF PRESENT ILLNESS Mr. Gretel Ochoa is a 24 y.o. male who presents to the [place] ED for a 2nd opinion regarding his 9/10 abdominal pain present for 2 weeks. He is also receiving management for bilateral lower extremity palpable petechial rash extending from his midfoot to his ankle, bilateral flank pain, bilateral upper and lower extremity arthralgias, generalized myalgia and weight loss of 14 lb in 1 1/2 weeks. The patient has no notable medical comorbidities. INTERVAL EVENTS: When I saw Mr. Ochoa this morning, I found him in acute pain in his bed. He reported worsening abdominal pain starting at around 2 AM. He had not received PRN pain medication. His had an episode of pain induced emesis. He also endorsed myalgia and arthralgia which kept him largely bed-bound overnight. He endorses amelioration of his pain with a combination of acetaminophen and PO dilaudid but reports quick worsening of pain with either medication when taken alone. His pain increased with solid foods overnight so he resumed liquid diet in the morning, by morning rounds he was tolerating small,bland solid food like cheerios. His bilateral lower extremity petechial rash progressed, with a fewnew petechiae in the mid rodriguez. We talked with the patient OBJECTIVE PHYSICAL EXAMINATION General: Alert, interactive, not acutely ill. General: Appetite change with 14 lbs weight loss in 1-1/2 weeks, chills and fever. Skin: Non-blanching purpuric rash in bilateral LE, most severe from midfoot to ankle with some new small petechiae in the mid rodriguez. Eyes: Pupils equal and round. Sclera anicteric. ENT: Hearing grossly intact. Dentition intact. No oral or pharyngeal erythema or lesions noted. Lymph: No cervical or subclavicular adenopathy. Lungs: Clear to auscultation. No wheezes or crackles. Heart: Regular rate and rhythm. No murmurs appreciated. No lower extremity edema. Abdomen: Soft, flat, bowel sounds normoactive, nontender, nondistended, no palpable masses or organomegaly. Abdomen: abdominal pain, vomiting, severe epigastric tenderness to palpation, no rebound or guarding, no nausea. Patient reports worse pain in RUQ following meals. Joints: No joint deformities or active synovitis noted. Joints: Symmetrical bilateral arthralgia, of upper and lower extremities. Neuro: Cranial nerves II-XII intact. Strength 5/5 in all extremities. Mental: Mood and affect congruent. Alert and oriented. Attention intact. No evidence of disorganized thinking. Reliable history screw down. Musculoskeletal: diffuse myalgia ASSESSMENT / PLAN Mr. Ochoa is hospitalized on [place] [id number] ([facility]) for evaluation and management of severe, epigastric abdominal pain for 2 weeks, with positional, and postprandial worsening. Additionally, he presents with pruritic, palpable, nonblanching petechial rash of the ankles bilaterally, bilateral flank pain, bilateral upper and lower extremity arthralgia, generalized myalgia, microscopic hematuria, elevated inflammatory markers, leukocytosis, thrombocytosis, abnormal LFTs, elevated prothrombin time (13.5), and ketonuria on urine dipstick. CT contrast of abdomen and pelvis shows narrowing of the celiac axis with mild soft tissue thickening, and splenic infarcts. The patients symptoms remain inconsistent with a classic presentation for any particular vasculitis. Suspicion is highest for IgA vasculitis and PEREZ given history and physical. Dermatology obtained askin biopsy and confirmed leukocytoclastic vasculitis which confirms small-vessel vasculitis. Rheumatology workup within normal limits. HANY-hep 2 negative lowering suspicion but not ruling out IgA vasculitis. Microbiology results negative. Bacterial blood and urine cultures show no growth to date. EBV VCA, IgG, positive, IgM negative indicating past infection. Cryoglobulin, pending. Beta-2 glycoprotein pending. Repeat CTA abdomen pelvis ordered. Patient will continue treatment with steroids. We will focus on symptomatic management. We will consider IV maintenance fluids with D5W if patient remains intolerant of PO intake. 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, # Small-vessel vasculitis # Peptic ulcer disease # Bilateral upper and lower extremity arthralgia # Generalized myalgia # Autoimmune disorder # Nonblanching, palpable, petechial rash, bilateral ankle LR, 125 mL/hr, IV, continuous Adult liquid diet, advance as tolerated Trend BUN, Creatinine Troponin labs, WNL ECG 12 lead, WNL CTA, photon sensitive ordered GI pathogen panel, pending Antistreptolysin-O titer, Negative Appreciate Rheumatology recommendations Rheumatology workup Cryoglobulin, Pending Phospholipid antibodies, IgG and IgM, Negative Lupus anticoagulant, Negative Beta 2 glycoprotein 1 antibodies IgG and IgM, Pending Antinuclear antibodies, HEp-2 substrate, IgG, serum, Negative BUILDING COORDINATOR, Negative Proteinase 3 antibodies, IgG, WNL Complement C3, C4, WNL Antibody to extractable nuclear antigen evaluation, WNL Rheumatoid factor next item cyclic citrullinated peptide antibodies, IgG, WNL Consult CV Imaging confirmation of potential median arcuate ligament compression syndrome Appreciate dermatology recommendation Further rheumatologic workup Skin biopsy Positive for leukocytoclastic vasculitis Hepatitis B/C serologies HBs antibody, serum, Negative Hbc total antibodies, serum, Negative HCV ab with reflex to HCV PCR, serum, Negative HBs antigen Scrn, serum, Negative Hepatitis B core IgM antibody, Negative Hepatitis A IgM antibody, serum, Negative HIV 1/2 Ag and ab screen, plasma, Negative Severe/IgG with reflex, EIA, S Pain management Acetaminophen tablet 650 mg PO. q.6 hours, for pain Hydromorphone, 2 mg, PO, q.4 hours, prn, for severe pain Lidocaine patch Triple cream Consider maintenance fluids with D5W if patient remains intolerant of PO intake. Home meds: Ondansetron 4 mg, IV, q.6 hours, prn, for nausea, vomiting VTE prophylaxis: Enoxaparin Code status: Full code Surrogate Decision Maker: Parents, Сергей (father), Nicole (mother) Living Situation Before Admission: On home, with parents, and sister Discharge Plan (equipment, therapy, and facility): TBD, home likely Plan discussed with [facility] Medicine 1 ([facility]) Industrial Robotics Mechanic, Dr. Rojas, who was present during fernandes portions of the evaluation today. Please page the T Medicine 1 ([facility]) service pager at [phone] with any questions. * Jett Christensen PharmDanny, R.Ph., BCPS - 10/16/2024 8:58 AM CDT Pharmacist Progress Note Reason for admission: 24 y.o. male admitted with 2 week hx of abdominal pain with 14 lb weight loss, ankle rash and myalgias PMH: pilonidal cysts and remote history of asthma in childhood. OBJECTIVE Neuro: abdom pain scores 0-9 Resp: RA CV: hemodynamically stable Neph: Estimated Creatinine Clearance: 154.7 mL/min (A) (by C-G formula based on SCr of 0.71 mg/dL (L)). Endo: bg 93 VTE PPX: enoxaparin 40 mg SQ once daily Medication Reconciliation: Held: omeprazole, sucralfate Changed: oxycodone -> hydromorphone prn New: methylprednisolone, lidoderm patch daily, AGK cream ASSESSMENT / PLAN ?Leukocytoclastic vasculitis - Derm & Rheum consults following, work-up ongoing, lesion biopsy results pending, day 1/3 methylprednisolone 1000 mg IV q24hr. Abdominal Pain- likely r/t #1, multimodal approach lidoderm patch daily AGK cream bid acetaminophen 650 mg po q6hr prn mild/moderate pain hydromorphone 2 mg po q4hr prn severe pain (5 doses since admission) bowel regimen: holding due to GI cramping GI cocktail 45 mL tid prn (no use yet) Jett Best Pharm.D., R.Ph., BCPS * Susan Camejo M.D. - 10/16/2024 7:07 AM CDT [facility] ([facility]) PROGRESS NOTE SUBJECTIVE HISTORY OF PRESENT ILLNESS Mr. Gretel Ochoa is a 24 y.o. male who presented 10/15/24 with abdominal pain. Medical comorbidities notable for pilonidal cysts and remote history of asthma in childhood. INTERVAL EVENTS: NAEO. He had significant abdominal pain overnight at became so severe this morning the and resultedin emesis. He denies nausea. He has been able to tolerate small bits of food such as Cheerios. He has not been able to tolerate liquids. OBJECTIVE PHYSICAL EXAMINATION General: Alert, interactive, not acutely ill. Skin: Palpable, non blanchable petechiae/purpura in bilateral ankles, no other skin rashes Eyes: Pupils equal and round. Sclera anicteric. ENT: Hearing grossly intact. Dentition intact. No oral or pharyngeal erythema or lesions noted. Lymph: No cervical or subclavicular adenopathy. Lungs: Clear to auscultation. No wheezes or crackles. Heart: Regular rate and rhythm. No murmurs appreciated. No lower extremity edema. Abdomen: No abdominal bruits, pain to palpation in the upper epigastric region Neuro: Alert, appropriately conversant Mental: Mood and affect congruent. Alert and oriented. Attention intact. No evidence of disorganized thinking. Reliable history screw down. ASSESSMENT / PLAN Mr. Ochoa is a 24 y.o. male hospitalized on [facility] Medicine 1 ([facility]) for evaluation and management of a2 week history of abdominal pain, found to have well palpable purpura, elevated inflammatory markers, and celiac axis occlusion on imaging his low concerning for a small to medium vessel vasculitis.. Given the acute onset abdominal pain and palpable purpura, found to have elevated inflammatory markers and imaging findings of celiac axis narrowing and splenic infarcts, we are concerned for a smallto medium vessel vasculitis. Rheumatology is following for further recommendations. Differential includes IgA vasculitis, however, per Rheumatology, IgA vasculitis will typically present with rash preceding abdominal pain or simultaneous presentation with rash involving the entire lower extremitiesas opposed to bilateral ankles. Polyarteritis nodosa was also discussed, however, these patients are typically ill and have significant hypertension with darker, more necrotic appearing skin lesions.We will start IV methylprednisolone 100 mg daily for 3 days. Autoimmune and infectious labs unremarkable so far. His pain appears to be consistent with vasculitis and mesenteric ischemia pain, in that small amounts of food and liquids can exacerbate his pain. We are hoping steroids will help. We will also treatwith scheduled Tylenol, and as needed oral and IV Dilaudid. We will maintain an adult regular diet and have discussed with the patient that he should only eat what he is able to tolerate. He receivedIV fluids yesterday Dermatology is also following, biopsy results showed leukocytoclastic vasculitis and we will await their recommendations. Lower suspicion for infectious etiology given normal lactate, stable vitals, and absence of infectious symptoms. Blood and urine cultures 10/15 NGTD. PLAN: - IV Methylprednisolone 100mg daily for 3 days - Rheumatology recommendations - Can eat as tolerated -CT angiogram of the abdomen and pelvis today (photon counting CT recommended by Rheumatology is unable to be performed inpatient) # Abdominal pain # Neutrophilia, downtrending # Elevated inflammatory markers # Palpable purpura # Celiac axis narrowing # Elevated LFTs, downtrending # Splenic infarcts - EGD at OSH 10/09/24 - Initial ESR 38, CRP 117, autoimmune labs including HANY hep2 negative, negative infectious workup PLAN: - Rheumatology following - IV Methylprednisolone 100mg for 3 days - Pending CTA abd/pelvis # Pain control - Lidocaine patch, triple cream, Tylenol 650 mg q.6 hours scheduled, p.o. Dilaudid 2 mg q.4 hours PRN, IV Dilaudid 0.2mg q4h PRN, GI cocktail 3 times daily p.r.n., IV Zofran 4 mg q.6 hours p.r.n. - Regular diet as tolerated # Thrombocytosis - Likely reactive VTE Prophylaxis: lovenox. Surrogate Decision Maker: parents. Living Situation Before Admission: home. Discharge Plan (equipment, therapy, and facility): likely home Plan discussed with [facility] 1 ([facility]) Industrial Robotics Mechanic, Dr. Rojas, who was present during fernandes portions of the evaluation today. Please page the [facility] 1 ([facility]) service pager at [phone] with any questions. Susan Camejo MD PGY-1, Internal Medicine Pager: [phone] documented in this encounter H&P Notes * Jett Rojas M.D. - 10/15/2024 5:10 PM CDT [facility] Medicine 1 ([facility]) Admission Supervisory Note I saw and evaluated Gretel Ochoa on admission today, and I agree with the findings and plan as documented in the admission note by Dr. Susan Camejo (and student doctor Yovani MS3) with the following comments: The patient is a 24-year-old man who presents with 2 weeks of upper abdominal pain worse postprandial and 2 days of palpable purpura around the ankles. He has also had myalgia and arthralgia and labsshow markedly elevated inflammatory markers. CT shows splenic infarcts and inflammation around the celiac artery. Creatinine is normal and UA is negative for any hematuria General: Alert generally well-appearing young man JVP: Not elevated Heart: Regular rhythm, rate normal. No murmur, S3, or S4. Abdomen: No bruit. He is tender over the upper abdomen, even in the muscles with positive Carnett, and especially over the spleen. 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 Although HSP could certainly cause abdominal pain and palpable purpura, this would not account for the celiac artery inflammation and associated splenic infarcts. The lack of microscopic hematuria or other renal involvement is a bit unusual but does not exclude the diagnosis. We will check hepatitis B and other serologies and consult rheumatology for further guidance. Suspect that we will need a CT mesenteric angio or other vascular imaging to get better definition on theceliac artery abnormality. The elevated liver enzymes are likely related, especially with celiac artery involvement. Please refer to the aforementioned notes for additional details about our team's plan of care. Reviewed with patient and his mother at bedside I spent 58 minutes face to face and non-face to face caring for the patient today. * Zoran Blanco D - 10/15/2024 1:15 PM CDT [facility] Medicine 1 ([facility]) Admission Note SUBJECTIVE CHIEF COMPLAINT/REASON FOR VISIT Abdominal pain HISTORY OF PRESENT ILLNESS Mr. Gretel Ochoa is a 24 y.o. male who presents with severe abdominal pain. The patient hasno notable medical comorbidities. The patient presents to the [place] ED for a 2nd opinion regarding his 9/10 abdominal pain present for2 weeks. He describes his pain as a stabbing pain in the epigastric region that also affects the right upper and left upper quadrants. The pain came on suddenly and was 9/10 in severity at onset and c ontinued worsening. He does not identify any provoking factors. He also endorses worsening of the pain postprandially, at night, and when he is standing or sitting upright with mild improvement when lying down. Additionally, the patient reports a new bilateral lower extremity palpable petechial rash extending from his midfoot to his ankle that first began on October 13. At onset, the patient describes pruritus at the site of the rash, a subsequent scratching. Since onset, the rash has progressively worsened, and today the patient presents with bilateral, nonblanching purpuric rash of the lower extremities bilaterally. He endorses walking barefoot in his backyard. He also endorses bilateral flank pain, bilateral upper and lower extremity arthralgias, generalized myalgia and weight loss of 14 lb in 1 1/2 weeks. He denies gardenia hematuria, nausea, change in his vision, respiratory symptoms,sinusitis, chest pain, shortness of breath, or cough. The patient has recent travel history to [facility] and [facility] from September 01 to . During his vacation, the patient reports swimming in [place] and in the ocean and eating local foods. The patient's sister, had similar but milder symptoms of abdominal pain and vomiting following vacation to [facility]. She tested positive for Shiga toxin positive E coli and received treatment resulting in symptomatic improvement. On October 10, the patient went to the [facility], [facility] in the [facility], with hisgirlfriend. During this trip the patient endorses exposure to cows, kangaroos, goats, sheep, and bull/alpacas, but no exposure to rodents including rats, mice, or rabbits. The patient's girlfriend reports no illness to date. He saw his primary care provider on October 04. Who recommended they go to the ED locally for further workup. In the ED at that time they ruled out surgical intra-abdominal pathology, found leukocytosis, and increased LFTs, and microscopic hematuria. There were suspicious for peptic ulcer disease or gastritis and began treatment with a PPI, and sucralfate which provided minimal symptomatic improvement. During his repeat ED visit on October 06, they found no acute abdominal findings, so he was given a GI cocktail. The recommended dietary modifications including smaller meals, and addition of Maalox or Mylanta postprandially. He was also given Zofran for nausea. This did not improve his symptoms. Baseline Functional Status and Mobility: Patient is fully independent at baseline performing all ADLs and IADLs. Family history Mother: Autoimmune thyroid disease Grandfather: Autoimmune arthritis Surgical History[1] Social History[2] OBJECTIVE PHYSICAL EXAMINATION General: Alert, interactive, not acutely ill. General: Appetite change with 14 lbs weight loss in 1-1/2 weeks, chills and fever. Skin: No rashes or lesions. Skin: Non-blanching purpuric rash in bilateral feet. Eyes: Pupils equal and round. Sclera anicteric. ENT: Hearing grossly intact. Dentition intact. No oral or pharyngeal erythema or lesions noted. Lymph: No cervical or subclavicular adenopathy. Lungs: Clear to auscultation. No wheezes or crackles. Heart: Regular rate and rhythm. No murmurs appreciated. No lower extremity edema. Abdomen: Soft, flat, bowel sounds normoactive, nontender, nondistended, no palpable masses or organomegaly. Abdomen: abdominal pain, vomiting, minimal epigastric tenderness, no rebound or guarding, no nausea. Joints: No joint deformities or active synovitis noted. Joints: Symmetrical bilateral arthralgia, of upper and lower extremities. Neuro: Cranial nerves II-XII intact. Strength 5/5 in all extremities. Mental: Mood and affect congruent. Alert and oriented. Attention intact. No evidence of disorganized thinking. Reliable history screw down. Musculoskeletal: diffuse myalgia ED Course: Temperature: 37 ??C (10/15/2024 11:51 AM) Pulse Rate: 70 (10/15/2024 11:51 AM) Resp Rate: 16 (10/15/2024 11:51 AM) Blood Pressure: 106/55 (10/15/2024 11:51 AM) SpO2: 96 % (10/15/2024 11:51 AM) Abnormal Labs Reviewed CBC WITH DIFFERENTIAL, B - Abnormal; Notable for the following components: Result Value Platelet Count 567 (*) Leukocytes 14.2 (*) Neutrophils 11.52 (*) Monocytes 1.38 (*) All other components within normal limits BASIC METABOLIC PANEL, S/P - Abnormal; Notable for the following components: Creatinine 0.69 (*) All other components within normal limits HEPATIC FUNCTION PANEL, S - Abnormal; Notable for the following components: Aspartate Aminotransferase (AST), S 58 (*) Alanine Aminotransferase (ALT), S 107 (*) Alkaline Phosphatase, S 280 (*) All other components within normal limits LIPASE, S/P - Abnormal; Notable for the following components: Lipase, S 88 (*) All other components within normal limits C-REACTIVE PROTEIN (CRP), S/P - Abnormal; Notable for the following components: C-Reactive Protein (CRP), S 117.9 (*) All other components within normal limits SEDIMENTATION RATE, B - Abnormal; Notable for the following components: Sedimentation Rate, B 38 (*) All other components within normal limits PROTHROMBIN TIME (PT), P - Abnormal; Notable for the following components: Prothrombin Time, P 13.5 (*) All other components within normal limits DIPSTICK, U - Abnormal; Notable for the following components: Ketone, U 10 (*) All other components within normal limits Interpretation of Outside FL GI Final Result No fluoroscopic abnormality involving the esophagus, stomach, duodenum, jejunum, or ileum is identified. Note is made that this exam is interpreted without the benefit of real-time fluoroscopy. CT Abdomen Pelvis with IV Contrast Final Result 1. 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 Appearance is nonspecific. Differential includes short segment dissection although an intraluminal flap is not visualized, IgG4 although no involvement is seen of the aorta, or possibly median arcuate ligament compression however, the classic findingsare not seen on the sagittal imaging. Recommend vascular consultation. 2. Several peripheral irregular hypodensities within the liver are indeterminate but suspicious forsplenic infarcts. ASSESSMENT / PLAN Mr. Ochoa is hospitalized on [facility] Medicine 1 ([facility]) for evaluation and management of severe, epigastric abdominal pain for 2 weeks, with positional, and postprandial worsening. Additionally, he presents with pruritic, palpable, nonblanching petechial rash of the ankles bilaterally, bilateral flank pain, bilateral upper and lower extremity arthralgia, generalized myalgia, microscopic hematuria, elevated inflammatory markers, leukocytosis, thrombocytosis, abnormal LFTs, elevated prothrombin time (13.5), and ketonuria on urine dipstick. CT contrast of abdomen and pelvis shows narrowing of the celiac axis with mild soft tissue thickening, and splenic infarcts. Of the patient's symptoms began within the last 2 weeks, and had continued worsening. We are considering various etiologies for the patient's abdominal pain including rheumatologic disease, Infectious diseases, and anatomical causes. A differential includes polyarteritis nodosa, Henoch Schonlein purpura, hepatitis, and median arcuate ligament compression syndrome (MAL). The patient's presentation of severe abdominal pain, with left flank pain, microhematuria, narrowing and inflammation of the celiac artery, probable petechial rash of the bilateral lower extremities are consistent with the players nodosa. At this time we can not rule out other vasculitides such as Henoch-Schoenlein purpura given the patient's recent travel history, fever, emesis, and bilateral petechial rash. This would usually present secondary to an infection or drug use but can be idiopathic. The patient has recent travel history and contact with animals puts him at higher risk of infectious diseases, but his symptoms are not usual presentations forrespiratory infections, Strep A infections, Mononucleosis, or Hep B/C viruses which may explain part of his clinical pictures. We also consider anatomical causes like MAL given his symptoms of abdominal pain with postprandial worsening, weight loss, and stenosed celiac artery on CT. This is lower on the differential because it would not explain all of the patients symptoms, so we need to exclude other more probable causes. We will obtain a full rheumatologic workup, and will obtain Hep B/C panels. We will consult with, Rheumatology for recommendations regarding vasculitis work up, with Nutrition for the patients weightloss, with vascular medicine for imaging interpretation suspicious for MAL, with Dermatology for biopsy of the patient's petechial rash. Given that our most likely diagnosis is PEREZ, we will obtain a ECG, and troponins to rule out cardiac involvement and will consider CTA for diagnosis pending Rheumatology Consult. 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, # Small-vessel vasculitis # Peptic ulcer disease # Bilateral upper and lower extremity arthralgia # Generalized myalgia # Autoimmune disorder # Nonblanching, palpable, petechial rash, bilateral ankle LR, 125 mL/hr, IV, continuous Adult liquid diet Trend BUN, Creatinine Troponin labs ECG 12 lead Consider CTA GI pathogen panel, pending Antistreptolysin-O titer Rheumatology consult Rheumatology workup Cryoglobulin Phospholipid antibodies, IgG and IgM Lupus anticoagulant Beta 2 glycoprotein 1 antibodies IgG and IgM Antinuclear antibodies, HEp-2 substrate, IgG, serum BUILDING COORDINATOR Proteinase 3 antibodies, IgG Complement C3, C4 Antibody to extractable nuclear antigen evaluation Rheumatoid factor next item cyclic citrullinated peptide antibodies, IgG and Consult CV Imaging confirmation of potential median arcuate ligament compression syndrome Appreciate dermatology recommendation Further rheumatologic workup Skin biopsy, pending Hepatitis B/C serologies HBs antibody, serum Hbc total antibodies, serum HCV ab with reflex to HCV PCR, serum HBs antigen Scrn, serum Hepatitis B core IgM antibody Hepatitis A IgM antibody, serum HIV 1/2 Ag and ab screen, plasma Severe/IgG with reflex, EIA, S Pain management Acetaminophen tablet 650 mg PO. q.6 hours p.r.n., for pain Hydromorphone, 2 mg, PO, q.4 hours, prn, for severe pain Lidocaine patch Triple cream Home meds: GI-cocktail 45 mL, PO, 3 times daily, prn, for abdominal pain and nausea Ondansetron 4 mg, IBS, q.6 hours, prn, for nausea, vomiting VTE prophylaxis: Enoxaparin Code status: Full code Surrogate Decision Maker: Parents, Сергей (father), Nicole (mother) Living Situation Before Admission: On home, with parents, and sister Discharge Plan (equipment, therapy, and facility): TBD, home likely Plan discussed with [facility] Medicine 1 ([facility]) Industrial Robotics Mechanic, Dr. Rojas, who was present during fernandes portions of the evaluation today. Please page the [facility] Medicine 1 ([facility]) service pager at [phone] with any questions. Zoran Cheng [1] History reviewed. No pertinent surgical history. [2] Social History Socioeconomic History Marital status: Single Tobacco Use Smoking status: Never Passive exposure: Never Smokeless tobacco: Never Vaping Use Vaping status: former use Substance and Sexual Activity Alcohol use: Yes Comment: few times a year Drug use: Not Currently Sexual activity: Defer Cosigned by Susan Camejo M.D. at 10/17/2024 9:37 PM CDT * Susan Camejo M.D. - 10/15/2024 1:14 PM CDT [facility] 1 ([facility]) Admission Note SUBJECTIVE CHIEF COMPLAINT/REASON FOR VISIT Abdominal pain HISTORY OF PRESENT ILLNESS Mr. Gretel Ochoa is a 24 y.o. male who presents with abdominal pain. Medical comorbidities notable for pilonidal cysts and remote history of asthma in childhood. He reports a 2-week history of abdominal pain that was severe in onset and has progressively becomeworse, p.r.n. Dilaudid worse with standing/sitting down and relieved by lying down. The pain is constant and was so severe it led to vomiting. The pain is worse moments after eating and sometimes with liquids but not with the pills. He was seen at urgent care and local ER without any clear explanation, therefore, he came to [place] for a second opinion. He presented to the ED with concerns for abdominal pain, subjective fevers and a 14lb weight loss over the past 2 weeks. In the ED, he was afebrile and vitals were stable. CBC notable for thrombocytosis to 567, leukocytosis to 14.2 with left shift, ESR elevated to 38, and CRP elevated to 117.9. Creatinine and electrolytes within normal limits. He was found to have elevated LFTs with alkaline phosphatase 280, AST 58, and ALT [address] abd/pelvis 10/15. He received pain medications with improvementand PPI. Dermatology consulted in the ED. He was admitted to Medicine for further evaluation. He has a rash that began in his ankle 2 days ago as a few spots that were palpable, itchy, then progressively worsened. He endorses whole body pain that started 2 weeks ago around the onset of abdominal pain, worse in the bilateral shoulders, elbows, and 4th PIPs, knees, and ankles migratory. Also endorses myalgias. Denies sinusitis, dyspnea, cough, sore throat, additional rashes. He reportedly traveled to [facility] from [place] 01-, at which [place]. His sister had abdominal and joint pain after their trip to [facility], found to have positive Shiga toxin. Other family members were not sick. He endorses vaping tobacco but has not used in 2 weeks. Denies alcohol and illicit drug use. He has had 2 female sexual partners in the past. He endorses prior occupational exposure to fungicides. FH: - Mother with autoimmune thyroid disorder - Paternal grandfather with rheumatoid arthritis Baseline Functional Status and Mobility: Independent OBJECTIVE PHYSICAL EXAMINATION General: Alert, interactive, not acutely ill. Skin: Palpable, non blanchable petechiae/purpura in bilateral ankles, no other skin rashes Eyes: Pupils equal and round. Sclera anicteric. ENT: Hearing grossly intact. Dentition intact. No oral or pharyngeal erythema or lesions noted. Lymph: No cervical or subclavicular adenopathy. Lungs: Clear to auscultation. No wheezes or crackles. Heart: Regular rate and rhythm. No murmurs appreciated. No lower extremity edema. Abdomen: No abdominal bruits, pain to palpation in the upper epigastric region Neuro: Alert, appropriately conversant Mental: Mood and affect congruent. Alert and oriented. Attention intact. No evidence of disorganized thinking. Reliable history screw down. ASSESSMENT / PLAN Mr. Ochoa is hospitalized on [facility] 1 ([facility]) for evaluation and management of a 2 week historyof abdominal pain, found to have well palpable purpura, elevated inflammatory markers, and celiac axis occlusion on imaging his low concerning for a small to medium vessel vasculitis. Given the acute onset abdominal pain and palpable purpura, found to have elevated inflammatory markers and imaging findings of celiac axis narrowing and splenic infarcts, we are concerned for a smallto medium vessel vasculitis. We will consult Rheumatology for further recommendations. Dermatology is also following and we will obtain a biopsy. We will obtain further labs to evaluate for autoimmune and infectious causes. Concern for infectious etiology is lower at this time. # Abdominal pain # Elevated inflammatory markers # Palpable purpura # Celiac axis narrowing # Elevated LFTs # Splenic infarcts - EGD at OSH 10/09/24 - Initial ESR 38, CRP 117 PLAN: - Consulted rheumatology - Obtain autoimmune and infectious labs # Pain control - Lidocaine patch, triple cream, Tylenol 650 mg q.6 hours p.r.n., p.o. Dilaudid 2 mg q.4 hours PRN,GI cocktail 3 times daily p.r.n., IV Zofran 4 mg q.6 hours p.r.n. - Full liquid diet, can escalate to solids as tolerated # Thrombocytosis - Likely reactive VTE prophylaxis: enoxaparin Code status: full Surrogate Decision Maker: parents Living Situation Before Admission: home Discharge Plan (equipment, therapy, and facility): likely home Plan discussed with [facility] Medicine 1 ([facility]) Industrial Robotics Mechanic, Dr. Rojas, who was present during fernandes portions of the evaluation today. Please page the [facility] Medicine 1 ([facility]) service pager at [phone] with any questions. Susan Camejo M.D. documented in this encounter Consult Notes * Sacha Vidal M.D. - 10/18/2024 10:06 AM CDTAssociated Order(s): IP CONSULT TO RHEUMATOLOGY Please refer to consult note from 10/15. * Isiah Marshall, KRISTIAN, INDIO - 10/17/2024 12:39 PM CDTAssociated Order(s): IP CONSULT TO DIETITIAN Clinical Nutrition: Initial Assessment Clinical Nutrition was requested to evaluate patient for positive nursing baseline nutrition screenwith a MST score of 2 or greater SUBJECTIVE Mr. Ochoa is a 24 y.o. male admitted for Abdominal Pain Pertinent History: Medical History[1] Surgical History[2] Current Nutrition: Per documentation intake is improving as his abdominal pain is decreasing. Percentage of Meals Eaten for the past 72 hrs: Percent Meals Eaten (%) 10/16/24 1900 100 10/15/24 1936 100 Nutrition Prior to Admission: Per chart review patient experiencing abdominal pain since 10/01. Reported 12 pound weight loss within this time frame. Reported pain was worse after eating and with fluids. He received previous diet education for small frequent meals. Nutrition Education/Counseling: RD will continue to follow and provide education as appropriate. Food Allergies/Intolerances: Allergies[3] OBJECTIVE Current nutrition orders: Dietary Orders (From admission, onward) Start Ordered 10/16/24 0558 Adult Diet Regular (Adult Diet) Diet effective now Question: Diet texture: Answer: Regular 10/16/24 0557 Pertinent Labs: Last 3 results Lab Units 10/16/24 0509 10/15/24 0603 SODIUM P mmol/L -- 136 SODIUM mmol/L 136 -- POTASSIUM mmol/L 4.8 -- POTASSIUM P mmol/L -- 4.1 CHLORIDE P mmol/L -- 99 CHLORIDE mmol/L 100 -- BUN P mg/dL -- 12 BUN mg/dL 10 -- CREATININE mg/dL 0.71* 0.69* CALCIUM P mg/dL -- 9.4 CALCIUM mg/dL 8.7 -- MAGNESIUM mg/dL 1.9 -- Chewing and Swallowing: no documented concerns GI Function:Last BM Date: 10/14/24, , Edema: , , , , , , Integumentary/Wounds: Lines/Drains/Airways None Medications: Current Medications[4] Anthropometrics: Height: 177.8 cm Admission Weight: 68.4 kg (10/15/2024) Current Weight: 67 kg BMI (Calculated): 21.2 kg/m?? Weight change since admission: -1.4 kg Net IO Since Admission: 275 mL [10/17/24 1241] Weight history: Per outside records: 71.8kg 1.5 week ago - 6.7% loss 69.1kg 1 month ago - 3% loss in 1 month Wt Readings from Last 12 Encounters: 10/15/24 67 kg ASSESSMENT / PLAN Nutrition Diagnosis: Inadequate oral intake related to current illness as evidenced by Patient reported decrease prior to admission. Initiated Malnutrition Assessment: Needs further assessment. Estimated Needs: Total Calorie Needs: 2123-6300+ calories/day Method to Estimate Energy Needs: kcal/kg (25-30 kcal/kg) Weight Used for Equation Calculations: 67 kg Total Protein Needs: 67 - 101 grams/day (Method to Estimate Protein Needs (g/kg): 1 - 1.5 gm/kg) Weight Used to Calculate Protein Needs (Kg): 67 kg Nutrition Intervention: Interventions: Increase nutrient intake with small, frequent meals and/or snacks, Medical food supplement, Provide counseling strategies to apply nutrition knowledge, Provide education to increase nutrition knowledge Monitoring/Evaluation: Nutrition parameter to monitor: Meals/Supplement Intake, Weight Status, Pertinent Labs, and Nausea/Vomiting Desired Outcome: Consume adequate nutrition orally. Recommendations: Encourage small frequent meals and snacks as tolerated Due to risk for refeeding syndrome, recommend: Supplement 100 mg thiamine daily for 5-7 days. Supplement with daily multivitamin. Check serum potassium, magnesium, and phosphorus before initiation of nutrition. Recommend check potassium, magnesium, and phosphorus every 12 hours and replace electrolytes as needed. Clinical Nutrition will continue to follow. For questions about patient's nutritional care please contact pager [phone] on weekdays 07:30-16:00 or [phone] on weekends/holidays ([facility]) [phone]. [1] History reviewed. No pertinent past medical history. [2] History reviewed. No pertinent surgical history. [3] No Known Allergies [4] Current Facility-Administered Medications: acetaminophen tablet 650 mg (TylenoL), 650 mg, oral, Q6H, Susan Camejo M.D., 650 mg at 10/17/24 1007 gxhlglnhmylsr-aoilcrhdxo-gcfmzcsg in Lipoderm 2%-5%-5% cream 1 g, 1 g, topical, BID, Susan Camejo M.D., 1 g at 10/17/24 0909 enoxaparin injection 40 mg (Lovenox), 40 mg, subcutaneous, Q24H [facility], Sia Saucedo M.D., 40 mg at 10/17/24 0908 HYDROmorphone (PF) injection 0.2 mg (Dilaudid), 0.2 mg, intravenous, Q4H PRN, Susan Camejo M.D. HYDROmorphone tablet 2 mg (Dilaudid), 2 mg, oral, Q4H PRN, Susan Camejo M.D., 2 mg at 10/17/24 0522 lidocaine 5 % 1 patch (Lidoderm), 1 patch, transdermal, Daily, Susan Camejo M.D., 1 patch at 10/17/24 0909 lidocaine viscous 2 % 15 mL, alum-mag hydroxide-simeth 30 mL suspension, 45 mL, oral, TID PRN, Susan Camejo M.D. methylPREDNISolone sod succinate (PF) injection 100 mg (SOLU-MedroL), 100 mg, intravenous, Q24H, Susan Camejo M.D., 100 mg at 10/17/24 0909 ondansetron (PF) injection 4 mg (Zofran), 4 mg, intravenous, Q6H PRN, Sia Saucedo M.D.,4 mg at 10/16/24 0552 polyethylene glycol powder packet 17 g (Miralax), 17 g, oral, Daily PRN, Sia Saucedo M.D. sodium chloride 0.9 % injection 10 mL, 10 mL, intravenous, PRN, Sia Saucedo M.D. sodium chloride 0.9 % injection 3 mL, 3 mL, intravenous, PRN, Sia Saucedo M.D. sodium chloride 0.9 % injection 3 mL, 3 mL, intravenous, Q12H RAJESH, Sia Saucedo M.D., 3 mL at 10/17/24 0909 * Roger House M.D. - 10/17/2024 9:38 AM CDTAssociated Order(s): IP CONSULT TO VASCULAR SURGERY VASCULAR SURGERY CONSULT NOTE CHIEF COMPLAINT/REASON FOR CONSULT: Abdominal pain, concern for median arcuate ligament syndrome SUBJECTIVE HISTORY OF PRESENT ILLNESS: Mr. Ochoa is a 24-year-old previously healthy man admitted since 10/15 with severe abdominal pain for the past 1-2 weeks in the setting also of new onset bilateral lower extremity purpuric rash, myalgia and arthralgia. 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 Rheumatology was consulted and recommended glucocorticoids. 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 The patient reports that the abdominal pain which caused him to come to hospital is now almost completely resolved after 2 days of steroids. At this point he is tolerating diet and overall has no complaints. Interestingly, upon further questioning he does relate a longstanding history of postprandial abdominal pain. Since childhood, for as long as he can remember, he has suffered from pain after eating, crampy in nature and starting 20-30 minutes after eating. It is typically mild, around 3-4/10 in severity. Spicy foods seem to make the pain worse but otherwise he has difficulty remembering his symptoms exactly. He had assumed that was just how his body worked, and was never bothered enough by the symptoms enough to pursue further workup for it. His mother notes he has always had trouble eating enough and never gained weight well, but the patient reports he can eat just fine and the reason he doesn't gain weight is his physically active lifestyle. CURRENT MEDICATIONS: Current Medications[1] ALLERGIES: No Known Allergies REVIEW OF SYSTEMS: A complete review of systems was performed, all of which were negative except as noted in the HPI. PAST MEDICAL HISTORY: Medical History[2] PAST SURGICAL HISTORY: Surgical History[3] FAMILY HISTORY: Family History[4] SOCIAL HISTORY: Social History[5] OBJECTIVE PHYSICAL EXAMINATION: GENERAL: No acute distress. Resting comfortably at time of exam. RESP: No use of accessory muscles for respiration. No cough. GI: Soft, mildly tender mainly in the upper quadrants, non-distended. Non-peritonitic. EXTREMITIES: Full ROM in all 4 extremities. VASCULAR: Bilateral palpable radial, femoral, DP pulses. IMAGING CTA 10/16/24 demonstrates focal stenosis of the celiac just beyond its origin consistent in morphology with compression by the median arcuate ligament. There is brisk filling of all major celiac branches including the common hepatic, splenic and left gastric arteries. The superior mesenteric and inferior mesenteric arteries are widely patent and there is low concern for bowel ischemia. 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 The patient is fortunately feeling much better with steroids and at this point has no complaints. There is virtually no chance that his median arcuate ligament compression contributed to his current presentation. That said, he does endorse symptoms which sound reminiscent of median arcuate ligament syndrome which have been present since as early in his life as he can remember. It could well be that he has median arcuate ligament syndrome to some extent but it has never bothered him enough to seek care for it. Plan: No urgent vascular surgery intervention Management of vasculitis per rheumatology recommendations Low concern that median arcuate ligament compression of the celiac axis is contributing to current presentation Patient may warrant outpatient workup of median arcuate ligament syndrome including celiac plexus block and celiac artery ultrasonography with inspiration/expiration, on an outpatient basis Patient can follow up with his PCP in the future if [facility] will plan to sign off today but please do not hesitate to reach out if issues should arise. No further follow up or imaging and no medications required from our perspective Patient was discussed with Dr. Higgins, who expressed agreement with the assessment and plan as documented above. Please contact the Dr. Higgins service pager at [phone] with questions or concerns. [1] Current Facility-Administered Medications: acetaminophen tablet 650 mg (TylenoL), 650 mg, oral, Q6H, Susan Camejo M.D., 650 mg at 10/17/24 0514 muvkklopmbujs-orkfbvjnnf-emcklbps in Lipoderm 2%-5%-5% cream 1 g, 1 g, topical, BID, Susan Camejo M.D., 1 g at 10/17/24 0909 enoxaparin injection 40 mg (Lovenox), 40 mg, subcutaneous, Q24H RAJESH, Sia Saucedo M.D., 40 mg at 10/17/24 0908 HYDROmorphone (PF) injection 0.2 mg (Dilaudid), 0.2 mg, intravenous, Q4H PRN, Susan Camejo M.D. HYDROmorphone tablet 2 mg (Dilaudid), 2 mg, oral, Q4H PRN, Susan Camejo M.D., 2 mg at 10/17/24 0522 lidocaine 5 % 1 patch (Lidoderm), 1 patch, transdermal, Daily, Susan Camejo M.D., 1 patch at 10/17/24 0909 lidocaine viscous 2 % 15 mL, alum-mag hydroxide-simeth 30 mL suspension, 45 mL, oral, TID PRN, Susan Camejo M.D. methylPREDNISolone sod succinate (PF) injection 100 mg (SOLU-MedroL), 100 mg, intravenous, Q24H, Susan Camejo M.D., 100 mg at 10/17/24 0909 ondansetron (PF) injection 4 mg (Zofran), 4 mg, intravenous, Q6H PRN, Sia Saucedo M.D.,4 mg at 10/16/24 0552 polyethylene glycol powder packet 17 g (Miralax), 17 g, oral, Daily PRN, Sia Saucedo M.D. sodium chloride 0.9 % injection 10 mL, 10 mL, intravenous, PRNSheryl Ashley D, M.D. sodium chloride 0.9 % injection 3 mL, 3 mL, intravenous, PRNSheryl Ashley D, M.D. sodium chloride 0.9 % injection 3 mL, 3 mL, intravenous, Q12H RAJESHSheryl Ashley D, M.D., 3 mL at 10/17/24 0909 [2] History reviewed. No pertinent past medical history. [3] History reviewed. No pertinent surgical history. [4] No family history on file. [5] Social History Tobacco Use Smoking status: Never Passive exposure: Never Smokeless tobacco: Never Vaping Use Vaping status: former use Substance Use Topics Alcohol use: Yes Comment: few times a year Drug use: Not Currently * Zain Toth M.D., M.P.H. - 10/15/2024 4:17 PM CDTAssociated Order(s): IP CONSULT TO RHEUMATOLOGY REFERRING PROVIDER: [facility] 1 CONSULT QUESTION: Concern for IgA vasculitis/Henoch Schonlein purpura HISTORY OF PRESENT ILLNESS Gretel Ochoa is a 24-year-old male with a past medical history pilonidal cyst and remote history of asthma during his childhood who is now presenting with a 2 week onset of abdominal pain associated with arthralgias and a rash. The patient reports an epigastric abdominal pain that began about 2 weeks ago. He reports the pain is constant and progressive and now rated at a 10/10. He reports his pain being worse after eating ameal. He reports a 14 lb weight loss and a subjective fever in the past few days. He also reports joint pain and stiffness that has occurred for about 10 days now. His affected joints include bilateral shoulders, elbows, wrists and knees. He reports one day of hip pain. He also reports noticing some swelling in the MCP & PIP joints of the right hand. He also reports muscle pain in his shoulder blades bilateral. He also reports developing an itchy rash described as red bumpy spots on both of his ankles. He denies having a rash anywhere else in the body. He reports subjective fevers, but denies chills, sore throat, shortness of breath, current medication use, recent antibiotic use, alcohol, tobacco or drug use. He denies ever experiencing any similar symptoms in the past. RHEUMATOLOGIC MEDICATIONS ACTIVE MEDICATIONS None TRIALED MEDICATIONS None REVIEW OF SYSTEMS Pertinent positives and negatives as documented in the above history of present illness. MEDICAL HISTORY Medical History[1] SURGICAL HISTORY Surgical History[2] FAMILY HISTORY family history is not on file. SOCIAL HISTORY Social History[3] PHYSICAL EXAMINATION Vitals: 10/15/24 1500 BP: 123/67 Pulse: 70 Resp: 16 Temp: 37.1 ??C SpO2: 98% Constitutional General: He is not in acute distress. Appearance: Normal appearance. He is normal weight. He is not ill-appearing or toxic-appearing. HENT Head: Normocephalic and atraumatic. Eyes Conjunctiva/sclera: Conjunctivae normal. Cardiovascular Rate and Rhythm: Normal rate and regular rhythm. Pulses: Normal pulses. Heart sounds: Normal heart sounds. No murmur heard. Pulmonary Effort: Pulmonary effort is normal. No respiratory distress. Breath sounds: Normal breath sounds. Abdominal General: Abdomen is flat. Tenderness: There is generalized abdominal tenderness and tenderness in the epigastric area. There is guarding. There is no rebound. Musculoskeletal Cervical back: Neck supple. Comments: Right elbow with a slight bony tenderness to palpation. Mild limited range of motion in the shoulders bilaterally due to pain. Otherwise, range of motion, strength, and sensation were intact. No evidence of joint effusion or swelling. Skin General: Skin is warm. Comments: Multiple small scattered violaceous papules in the ankles bilaterally. No visible skin involvement anywhere else. Genital and buttock area deferred due to patient actively having abdominal pain. Neurological General: No focal deficit present. Mental Status: He is alert. Mental status is at baseline. Psychiatric Mood and Affect: Mood normal. Behavior: Behavior normal. Thought Content: Thought content normal. RELEVANT DATA Labs (10/15/2024): - WBC: 14.2 - PLT: 567 - ESR: 38 - CRP: 117 - ALT: 107 - AST: 58 - AP: 280 Serologies: pending UA: negative Imaging: - CT abdomen & pelvis (10/15/2024): 1. 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 Appearance is nonspecific. Differential includes short segment dissection although an intraluminal flap is not visualized, IgG4 although no involvement is seen of the aorta, or possibly median arcuate ligament compression however, the classic findingsare not seen on the sagittal imaging. Recommend vascular consultation. 2. Several peripheral irregular hypodensities within the liver are indeterminate but suspicious forsplenic infarcts. ASSESSMENT / PLAN # Query IgA vasculitis # Palpable skin purpura in the lower extremities bilaterally # Abdominal pain # Arthralgias # Leukocytosis # Elevated inflammatory markers # Elevated LFTs The patient is a pretty healthy 24-year-old male presenting with a 2 week onset of abdominal pain with later developing arthralgias and palpable purpura in his ankles bilaterally. Even though he has the classic triad of symptoms associated with IgA vasculitis, it is unusual that he 1st developed abdominal pain followed by the rash. We would expect for him to have developed a rash and arthralgias p rior to the abdominal pain. In addition, his purpura distribution is limited to the ankles which ispretty unusual as the classic presentation is in his posterior thighs and buttock area. He does have evidence of leukocytosis and elevated inflammatory markers suggesting a possible autoimmune condition, but infectious work-up is pending. UA does not show evidence of blood or proteinuria, which is reassuring. Dermatology has obtained a skin biopsy in order to confirm the diagnosis of IgA vasculitis. In the meanwhile we wait for the biopsy results, we will recommend treating with a 3 day course of IV methylprednisolone. In addition, his CT abdomen and pelvis did not show small-bowel thickening indicative of edema expected with IgA vasculitis. We recommend getting a reread or obtaining CT angio abdomen and pelvis forfurther evaluation. The primary team ordered rheumatological serologies and broad infections and hepatitis workup which we agree with and we will follow-up the results for. We recommend consider adding Streptococcus antibodies as this may be a potential trigger for IgA vasculitis. Recommendations: IV methylprednisolone 100 mg daily for 3 days Consider obtaining a reread of CT abdomen and pelvis to assess for small bowel edema or obtain new CT angiogram of abdomen & pelvis Obtain streptococcus antibodies Thank you for the consult. We will continue to follow the patient. This patient was staffed with Dr. Blanchard. Zain Diaz M.D., M.P.H. PGY-1 Internal Medicine Service Pager [phone] [1] History reviewed. No pertinent past medical history. [2] History reviewed. No pertinent surgical history. [3] Social History Tobacco Use Smoking status: Never Passive exposure: Never Smokeless tobacco: Never Vaping Use Vaping status: former use Substance Use Topics Alcohol use: Yes Comment: few times a year Drug use: Not Currently Cosigned by Alfa Blanchard M.D. at 10/15/2024 7:57 PM CDT Associated attestation - Alfa Blanchard M.D. - 10/15/2024 7:57 PM CDT I have seen, discussed, and examined Mr. Gretel Ochoa with the Resident and reviewed the pertinent history , examination, laboratory parameters, imaging studies, assessment , and plan. I havereviewed the assessment and plan as documented by Dr. Yane Diaz and am in agreement. Briefly, we were asked to evaluate Mr. Ochoa by the Medicine service for probable vasculitis. He has had abdominal pain and weight loss, but no gastrointestinal bleeding. Also reports arthralgias, and recent onset of a petechial rash on the lower legs/ankles. No preceding illness or new medication. On examination, he has a petechial/purpuric rash on both lower legs/ankles. Right elbow is tender, no swollen joints. His abdomen is diffusely tender, no bruits. Reviewed his laboratory studies and abdominal CT (question of inflammatory changes along the celiac, and hypodensities in the liver) Vasculitis (likely small-vessel) is certainly high on the differential diagnosis. Clinical presentation is somewhat atypical for IgA vasculitis. Polyarteritis nodosa is on the differential, but the patient has not had other features such as necrotic skin ulcers, testicular pain, mononeuritis multiplex as expected in a medium vessel vasculitis. We have recommended starting glucocorticoids while awaiting results of the skin biopsy. Agree with CT angiogram of the abdomen and pelvis, preferably a photon counting CT to maximize sensitivity for micro aneurysms. Additional details are as documented by Dr. Mikie Diaz * Toña Chin M.D. - 10/15/2024 1:57 PM CDTAssociated Order(s): IP CONSULT TO DERMATOLOGY DERMATOLOGY CONSULT PRIMARY SERVICE: [facility] ([facility]) SUBJECTIVE REASON FOR CONSULT Patient presenting with non-blanching rash, concern for purpura HISTORY OF PRESENT ILLNESS Mr. Ochoa is a 24 y.o. 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 He is currently hospitalized [facility] for abdominal pain. Dermatology is consulted to evaluate a rash on his lower extremity. Per discussion with the patient: Patient notes abdominal pain for the past 2 weeks. He developed a rash on his lower legs/feet over the course of the past 2 days. Review of systems positive for arthralgias. REVIEW OF SYSTEMS 10 point review of systems negative except as per HPI. MEDICATIONS Reviewed Current anti-microbial medications: Current immunosuppressant medications: PAST MEDICAL/SURGICAL HISTORY Reviewed FAMILY HISTORY Reviewed SOCIAL HISTORY Reviewed ALLERGIES No Known Allergies OBJECTIVE VITAL SIGNS Vitals: 10/15/24 1151 BP: 106/55 Pulse: 70 Resp: 16 Temp: 37 ??C SpO2: 96% PHYSICAL EXAMINATION General: Alert and in no acute distress. Skin: Limited examination lower extremities was performed Involving the lower legs/dorsal feet there are scattered erythematous to violaceous papules consistent with leukocytoclastic vasculitis ASSESSMENT / PLAN # Leukocytoclastic vasculitis, bilateral lower extremities #Abdominal Pain Clinical presentation consistent with leukocytoclastic vasculitis. A biopsy was obtained from a newer lesion on the left lower leg as detailed below. It will be sent for dermatopathology and DIF (toevaluate if this is IgA mediated). It is possible that his abdominal pain is in the setting of Henoch-Schoenlein purpura (HSP), which would be consistent with IgA vasculitis vs other systemic vasculit is (given findings on imaging below). Labs: -Urine studies has been unremarkable. -Elevated CRP to 117 and ESR to 38. AST, ALT, alk phos, lipase all elevated. Imaging: -Narrowing of celiac axis with some mild associated soft tissue thickening. Appearance is nonspecific. -Several peripheral irregular hypodensities within the liver indeterminate but suspicious for splenic infarcts Work-up: Please order cryoglobulins, antiphospholipid antibodies, ASO titer, HANY, ANCAs, complement levels, and Hepatitis B/C serologies Can consider ordering coags if concerned for hypercoagulable state given ?splenic infarcts Please continue to trend BUN/Cr Consider rheum workup. Imaging findings above in conjunction with cutaneous findings are concerningfor systemic disease #Rash, Left lower leg (split for H&E and DIF) Biopsy site cares (site: Left lower leg, medial) (10/15/2024) (communicated to patient, patient's nurse, and order placed as courtesy for primary service): Leave pressure bandage on for 24 hours and keep the area dry until 10/16/24 at 3pm. Thereafter, gently clean site with warm soapy water daily, then cover with petroleum jelly and band-aid (or leave open to air, per patient preference). Sutures should be removed between 10/26/2024 - 10/29/2024 by nursing, if inpatient. If dismissed prior to those dates, a suture removal kit can be sent home with the patient on dismissal, or sutures removed by any outpatient provider. If biopsy site begins to bleed, apply firm pressure (without peeking) for 30 minutes. If bleeding continues despite 30 minutes of firm pressure, please page the Dermatology service. PROCEDURE DETAILS Punch biopsy. PROCEDURAL PAUSE Procedural pause conducted to verify: correct patient identity, procedure to be performed, and as applicable, correct side and site, correct patient position, and availability of implants, special equipment, or special requirements. We explained the potential diagnosis and recommended that we obtain a biopsy. The risks and benefits of the procedure were discussed, and the patient consented to these procedures. The anesthesia used was 1% lidocaine with epinephrine 1:100,000. The skin was prepped in a sterile fashion with alcohol. A specimen was excised in a circular fashion through the full thickness of the dermis into the fat using a disposable punch. The skin was approximated with 4-0 nylon skin sutures, to be removed in approximately 10-14 days. Dressing was applied, and wound care instructions were explained. Biopsy results and any further recommendations will be communicated to the patient and primary service. The patient has been discussed with hospital attending, Dior Shipman M.D., who agrees with thisassessment and plan. Thank you for involving us in the patient's care. We will continue to follow. Please page the Dermatology Service at [phone] with questions. Please reserve after hour pages between 10PM - 7AM for emergent consults or urgent ER requests. If there are changes to the skin or mucous membranes, please upload pictures for documentation and expediting evaluation. Toña Chin M.D. Dermatology Resident, PGY-3 Cosigned by Dior Sanchez M.D. at 10/16/2024 2:25 PM CDT Associated attestation - Dior Sanchez M.D. - 10/16/2024 2:25 PM CDT I saw and evaluated the patient, participating in the fernandes elements of the service. I discussed the findings, assessment and plan with the resident/fellow and agree with resident/fellow???s findings and plan as documented in the resident/fellow's note. I was immediately available for the entirety ofthe procedure(s) and present for the fernandes and critical portions. Mr Katty ochoa is a 24 yo male p/w abdominal pain and palpable purpura. 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 Worlk up including ANCA and CT Angiogram pending. 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 Rheum is on board and patient is on Solumedrol. Continues to have abdominal pain. We will continue to follow documented in this encounter Nursing Notes * Maryann Christensen R.N. - 10/17/2024 1:32 AM CDT Shift Goals: Identify possible barriers to meeting goals/advancing plan of care: End of Shift Summary: Problem: PAIN - ADULT Goal: PT VERBALIZES/DEMONSTRATES ADEQUATE COMFORT LEVEL OR BASELINE Outcome: Progressing Problem: KNOWLEDGE DEFICIT Goal: Patient/family/caregiver demonstrates understanding of disease process, treatment plan, medications, and discharge instructions Outcome: Progressing Problem: INFECTION - ADULT Goal: Absence of infection during hospitalization Outcome: Progressing Problem: SKIN/TISSUE INTEGRITY Goal: Skin/Tissue integrity maintained or improved Outcome: Progressing Goal: Oral and Nasal mucous membranes remain intact Outcome: Progressing Problem: SAFETY ADULT Goal: Maintain a safe environment Outcome: Progressing Problem: DISCHARGE PLANNING Goal: Patient discharge needs identified Outcome: Progressing documented in this encounter ED Notes * Fabiano Taylor P.A.-C. - 10/15/2024 7:06 AM CDT Images from the original note were not included. SUBJECTIVE CHIEF COMPLAINT/REASON FOR VISIT Abdominal Pain HISTORY OF PRESENT ILLNESS History provided by: Patient science interpreter needed/used: donnie Catalan Katty is a 24 y.o. male with no pertinent medical history presents today for abdominal pain with the rash. Patient reported that he had developed acute onset of abdominal pain x2 weeks that has becoming progressively worse. Patient has been seen x1 at urgent care and x3 at the local ER with no any findings. Patient had an EGD completed on 10/10/2023 at [facility] which findings was noted for the Z-line was Reglan was found 41 cm from the incisors. Localized moderately erythematous mucosa without bleeding was found in the cardia. Biopsy was taken with a cold forceps for histology. Localized mild erythematous mucosa without bleeding was found in the gastric antrum. Biopsy were taken with a cold forceps for histology. Diffuse moderate relief erythematous mucosa without active bleeding withno stigmata of bleeding was found in the entire duodenum. Biopsy were taken with a cold forceps forhistology. Erythematous duodenopathy. [facility] but results are pending. Patient came to the ED due to worsening abdominal pain, anorexia and 14 lb weight loss within the past 2 weeks Patient complained of abdominal pain located in the upper quadrant bilaterally but greater in the epigastric area, pain is sharp in nature, constant, increased in intensity with standing or sitting upright, nonradiating and rated a 10/10 on pain scale. Patient denies any injury or trauma to his abdomen. Patient complained of nausea and vomiting x2 and rated his nausea a 6/10 on scale. Patient complained of loss of appetite with a 14 lb weight loss. Patient last bowel movement was yesterday which he stated it was solid in nature with no concerns of bleeding or melena. Patient complained of diffuse myalgia and arthralgia. Patient also stated he had fever and chills this week but can not recall what they or temperature. Patient denies any other complaints. Patient denies sore throat, loss oftaste or smell, headache, neck pain, back pain, diarrhea, dizziness, lightheadedness, blurred vision double vision or syncopal episode. Patient last visit REVIEW OF SYSTEMS Constitutional: Positive for appetite change, chills and fever. Negative for activity change, diaphoresis and fatigue. HENT: Negative for congestion, drooling, ear discharge, facial swelling, hearing loss, mouth sores,nosebleeds, sinus pressure, sore throat, trouble swallowing and voice change. Eyes: Negative for photophobia, pain and visual disturbance. Respiratory: Negative for cough, hemoptysis, chest tightness, shortness of breath, wheezing and stridor. Cardiovascular: Negative for chest pain and palpitations. Gastrointestinal: Positive for abdominal pain, nausea and vomiting. Negative for anal bleeding, constipation, diarrhea and hematemesis. Genitourinary: Negative for inability to urinate, discharge, dysuria, flank pain, frequency, genital sores, hematuria, penile pain, scrotal swelling, testicular pain and urgency. Musculoskeletal: Positive for arthralgias and myalgias. Negative for back pain, gait problem, jointswelling, neck pain, neck stiffness and extremity pain. Skin: Positive for rash. Negative for color change, itching, lesions, pallor and wound. Neurological: Negative for dizziness, seizures, syncope, light-headedness, headaches and loss of balance. Psychiatric/Behavioral: Negative for agitation, behavioral problems, confusion, hallucinations, self-injury, substance abuse and suicidal ideas. The patient is not nervous/anxious. All other systems reviewed and are negative. OBJECTIVE Initial Vitals Temperature 10/15/24 0600 36.6 ??C Pulse Rate 10/15/24 0545 76 Heart Rate -- Resp -- Blood Pressure 10/15/24 0545 134/86 SpO2 10/15/24 0545 96 % Pain Score -- PHYSICAL EXAMINATION Constitutional: Nursing note reviewed. Vital signs are normal. He appears not listless and not lethargic. He appears not cachectic. He is active and cooperative. He is easily aroused. Non-toxic appearance. He does not have a sickly appearance. He does not appear ill. No distress. HENT: Head: Normocephalic and atraumatic. No signs of injury. There is normal jaw occlusion. Right Ear: Hearing, tympanic membrane, external ear and ear canal normal. Left Ear: Hearing, tympanic membrane, external ear and ear canal normal. Nose: Nose normal. No nasal discharge. Mouth/Throat: Oropharynx is clear and moist. Mucous membranes are moist. No tonsillar exudate. Dental: Good dentition. No obvious dental caries Eyes: Conjunctivae, EOM and lids are normal. Pupils are equal, round, and reactive to light. Right eye exhibits no discharge. Left eye exhibits no discharge. Pupils are equal. Periorbital area normal appearing. Neck: Trachea normal and phonation normal. Neck supple. No JVD present. No Brudzinski's sign and noKernig's sign noted. No thyroid mass and no thyroid tenderness present. Cardiovascular: Normal rate, regular rhythm, S1 normal, S2 normal, normal heart sounds, intact distal pulses, normal pulses and normal peripheral perfusion. Exam reveals no gallop, no S3, no S4, no distant heart sounds, no friction rub, no decreased pulses and no clicks. Pulses are palpable. Pulsesare no weak pulses. No murmur heard. Pulses: Dorsalis pedis pulses are 2+ on the right side, and 2+ on the left side. Posterior tibial pulses are 2+ on the right side, and 2+ on the left side. Radial pulses are 2+ on the right side, and 2+ on the left side. Capillary refill: takes less than 3 secondsEdema: no edema noted Pulmonary/Chest: Effort normal and breath sounds normal. There is normal air entry. No accessory muscle usage or stridor. No tachypnea. No respiratory distress. Expiration is no prolonged expiration.Air movement is not decreased. He has no decreased breath sounds. He has no wheezes. He has no rhonchi. He has no rales. He exhibits no retraction. Abdominal: Soft and abdomen not firm. Normal appearance, bowel sounds are normal and non-distended.exhibits no distension, no ascites, no pulsatile midline mass, no mass, no Watters-Paz's sign and no Anthony's sign. There is abdominal tenderness in the right upper quadrant, epigastric area and leftupper quadrant. There is no rigidity, no rebound, no guarding, no CVA tenderness, no tenderness at McBurney's point, negative Bolivar's sign, no Sloughhouse sign and no Rovsing's sign. No hernia. Musculoskeletal: General: No tenderness, deformity or edema. Normal range of motion. Cervical back: Normal, full passive range of motion without pain, normal range of motion and neck supple. Thoracic back: Normal. Lumbar back: Normal. Right upper leg: Normal. Left upper leg: Normal. Right lower leg: Normal. Left lower leg: Normal. Lymphadenopathy: He has no cervical adenopathy. Neurological: Alert, oriented to person, place, and time and easily aroused. He has normal sensation, normal strength and cranial nerves II through XII intact. He is not disoriented and responsive. No cranial nerve deficit. Normal speech. He exhibits normal muscle tone. Coordination and gait normal. Skin: Skin is warm, dry, intact and normal color. No bruising, no lesion, no petechiae, no rash, noabscess, no ulceration and no blister noted. He is not diaphoretic. No cyanosis. Nails show no clubbing. Psychiatric: He has a normal mood and affect. Speech pattern is normal and behavior is normal. Judgment and thought content normal. Cognition and memory are normal. Today in the ED: Patient imaging of progression of rash initially started on Tuesday ASSESSMENT/PLAN IMPRESSION AND PLAN This is a 24-year-old male presents to the emergency department for evaluation of abdominal pain and a rash. Patient is nontoxic appearing, hemodynamically stable. Patient is afebrile. Patient has had several ED visits for the same. I am concerned about the rash, it appears to be petechial however it is raised, and consistent with likely vasculitis. Other differential diagnoses considered a thrombocytopenia, viral illness, intra-abdominal pathology among others. Will obtain screening labs including inflammatory markers, CT abdomen and pelvis. Plan to discussedthe case with dermatology for recommendations regarding rash Disposition pending ED course and and reassessment. I anticipate admission I personally reviewed the lab result(s) and my interpretation is documented in ED Course. I reviewed the radiology report(s) and personally reviewed the radiology image(s). Case reviewed with other health healthcare recruiter, including Admitting Provider. CPR: No CPR performed. ED Course as of 10/15/24 0930 TueOct 15, 2024 0623 CBC with Differential, Blood(!): Hemoglobin 16.3 Hematocrit 46.4 Erythrocytes 5.53 MCV 83.9 RBC Distrib Width 12.0 Platelet Count 567(!) Leukocytes 14.2(!) Neutrophils 11.52(!) Lymphocytes 1.19 Monocytes 1.38(!) Eosinophils 0.06 Basophils 0.04 Remarkable for leukocytosis with left shift and thrombocytosis which appears to be new when compared to previous outpatient labs. 0708 Lipase(!): Lipase, S 88(!) Remarkable for elevated lipase however value is not greater than 3 x a value 0708 Hepatic Function Panel(!): Bilirubin, Total, S 0.4 Bilirubin, Direct, S <0.2 Aspartate Aminotransferase (AST), S 58(!) Alkaline Phosphatase, S 280(!) Albumin, S 3.7 Protein, Total, S 6.7 Remarkable for elevated LFTs which is new 0743 CRP (C-Reactive Protein)(!): C-Reactive Protein (CRP), S 117.9(!) Remarkable for elevated C-reactive protein which appears to be new 0755 Spoke with dermatology in regards to the rash noted on the lower extremities. 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 She recommend getting urinalysis, protein creatinine ratio and ASO. Once admitted they required ada accommodation consultant dermatology so they can do a biopsy of the rash. 0805 Sedimentation Rate(!): Sedimentation Rate, B 38(!) Remarkable for elevated sed rate which appears to be new. Final Diagnoses: as of 10/15/24 0930 Abdominal Pain Leukocytosis Abnormal C Reactive Protein Elevated Sedimentation Rate Abnormal Liver Function Test Abnormal Pancreatic Enzyme Thrombocytosis Unspecified Rash Leg Myalgia Arthralgia Loss Weight Abnormal Anorexia Fabiano Taylor P.A.-C. 10/18/242208 * Lynda Simon R.N. - 10/15/2024 6:01 AM CDT Patient is coming in this morning with his dad after experiencing abdominal pain since 10/01. He is describing it as being in the midepigastric area and moving down the left side of his abdomen. He wasseen at 3 different hospitals prior to this one where they did an endoscopy, took biopsies, CTs andwas suggested that he receives an MRI and to go to [facility]. He has no history of any abdominal surgeries, no history of SBOs. His intake has been good and is having normal bowel movements. He is endorsing a 12 lb weight loss since this started. His sister has also been sick with the same symptoms but less pain and was diagnosed with a Shiga toxin in her stool. He provided a stool sample at another hospital on 10/12 with no results yet at this time. Lynda Simon RSusanneN. 10/15/24 0608 documented in this encounter Miscellaneous Notes * Hospital Course - Susan Camejo M.D. - 10/17/2024 11:35 AM CDT Overview Mr. Gretel Ochoa is a 24 y.o. male who presented on 10/15/24 with abdominal pain. Medical comorbidities notable for pilonidal cysts and remote history of asthma in childhood. Prior to Admission He presented with a 2-week history of abdominal pain that was severe in onset and progressively worsened, especially with standing/sitting down and was relieved by lying flat. The pain was constant and was so severe it led to vomiting. The pain was also worse moments after eating and sometimes withliquids but not with the pills. He was seen at urgent care and local ER without any clear explanation, therefore, he came to [place] for a second opinion. He presented to the ED with concerns for abdominal pain, subjective fevers and a 14lb weight loss over the past 2 weeks. ED Course In the ED, he was afebrile and vitals were stable. CBC notable for thrombocytosis to 567, leukocytosis to 14.2 with left shift, ESR elevated to 38, and CRP elevated to 117.9. Creatinine and electrolytes within normal limits. He was found to have elevated LFTs with alkaline phosphatase 280, AST 58, and ALT [address] abd/pelvis 10/15 showed marked narrowing at the origin of the celiac axis with associated soft tissue thickening and splenic infarcts. He received pain medicationswith improvement and PPIs. Dermatology consulted in the ED and a skin biopsy was performed. He was admitted to Medicine for further evaluation. Hospital Course Given the presence of abdominal pain, arthralgias, and petechiae/purpura, there was concern for a systemic vasculitis. Autoimmune and infectious labs negative aside from prior EBV infection. 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 Rheumatology was consulted who recommended pulse dose steroids with IV methylprednisolone for 3 days, which he completed. He had significant improvement in his abdominal pain after starting steroids. He had minimal relief of abdominal pain from oral Dilaudid and Tylenol. CTA abdomen/pelvis was obtained on 10/16 which showed redemonstration of celiac axis stenosis, but no mural thickening or enhancement. Despite absence of obvious vasculitis on imaging, skin biopsy immunofluorescence confirmed IgA vasculitis. After receiving pulse steroids and controlling pain, he was discharged in stable condition for further outpatient management. Regarding celiac axis compression with collateralization on imaging, this represented an incidentalfinding. Vascular surgery consulted and thought there was less concern that median arcuate ligamentcompression was contributing to his pain. He can follow up with his PCP for further workup of median arcuate ligament syndrome including celiac plexus block and celiac artery ultrasonography with inspiration/expiration, along with referral to the MALS pathway at [place] if desired. Disposition The patient was discharged to home on 10/17/24 in stable condition. They should follow up with Rheumatology on 10/30 and Dermatology (TBD). documented in this encounter Plan of Treatment Upcoming Encounters Date Type Department Care Team (Late st Contact Info) Description 11/16/2024 11:00 AM CDT Office Visit Department of Dermatology in [place], [place] [address] [place] [phone] Reece Ross M.D. [address] [place] [phone] 11/30/2024 4:00 PM CDT Appointment Department of Laboratory Medicine in [address] [phone] Sacha Vidal M.D. [address] [place] [phone] 11/30/2024 4:10 PM CDT Appointment Department of Laboratory Medicine in [address] [phone] Sacha Vidal M.D. [address] [place] [phone] 01/04/2025 4:00 PM CDT Appointment Department of Laboratory Medicine in [address] [phone] Sacha Vidal M.D. [address] [place] [phone] 01/04/2025 4:10 PM CDT Appointment Department of Laboratory Medicine in [address] [phone] Sacha Vidal M.D. [address] [place] [phone] 02/01/2025 4:00 PM CDT Appointment Department of Laboratory Medicine in [address] [phone] Sacha Vidal M.D. [address] [place] [phone] 02/01/2025 4:10 PM CDT Appointment Department of Laboratory Medicine in [address] [phone] Sacha Vidal M.D. [address] [place] [phone] 03/01/2025 3:40 PM CDT Appointment Department of Laboratory Medicine in [address] [phone] Sacha Vidal M.D. [address] [place] [phone] 03/01/2025 3:50 PM CDT Appointment Department of Laboratory Medicine in [address] [phone] Sacha Vidal M.D. [address] [place] [phone] 04/05/2025 4:00 PM CDT Appointment Department of Laboratory Medicine in [address] [phone] Sacha Vidal M.D. [address] [place] [phone] 04/05/2025 4:10 PM CDT Appointment Department of Laboratory Medicine in [address] [phone] Sacha Vidal M.D. [address] [place] [phone] documented as of this encounter Procedures Procedure Name Priority Date/Time Associated Diagnosis Comments CBC WITHOUT DIFFERENTIAL, B Routine 10/18/2024 7:41 AM CDT BASIC METABOLIC PANEL, S/P Routine 10/18/2024 7:41 AM CDT CBC WITHOUT DIFFERENTIAL, B Routine 10/17/2024 9:27 AM CDT COMPREHENSIVE METABOLIC PANEL, S/P Routine 10/17/2024 9:[address] ABDOMEN PELVIS ANGIOGRAM WITH IV CONTRAST RAD - Routine (most inpatients and all outpatients) 10/16/2024 6:07 PM CDT ANTISTREP-O TITER, S STAT 10/16/2024 5:09 AM CDT CBC WITH DIFFERENTIAL, B Routine 10/16/2024 5:09 AM CDT MAGNESIUM, S Routine 10/16/2024 5:09 AM CDT COMPREHENSIVE METABOLIC PANEL, S/P Routine 10/16/2024 5:09 AM CDT ECG Routine 10/15/2024 4:50 PM CDT SYPHILIS IGG W/ REFLEX, EIA, S Timed 10/15/2024 3:53 PM CDT HBS ANTIGEN SCRN, S Timed 10/15/2024 3 :53 PM CDT HIV-1/-2 AG AND AB SCREEN, PLASMA Timed 10/15/2024 3:53 PM CDT ANTINUCLEAR AB, HEP-2, SUBSTRATE, S Timed 10/15/2024 3:53 PM CDT PROTEINASE 3 ABS, IGG, S Timed 10/15/2024 3:53 PM CDT BETA-2 GLYCOPROTEIN 1 ABS, IGG AND IGM, S Timed 10/15/2024 3:53 PM CDT AB TO EXTRACTABLE NUCLEAR AG EVAL, S Timed 10/15/2024 3:53 PM CDT HCV AB W/REFLEX TO HCV PCR, S Timed 10/15/2024 3:53 PM CDT CYCLIC CITRULLINATED PEPTIDE ABS, IGG, S Timed 10/15/2024 3:53 PM CDT HEPATITIS A IGM AB Timed 10/15/2024 3: 53 PM CDT CRYOGLOBULIN, S Timed 10/15/2024 3:53 PM CDT HEP B CORE AB, IGM Timed 10/15/2024 3: 53 PM CDT HBC TOTAL AB, SERUM Timed 10/15/2024 3 :53 PM CDT LUPUS ANTICOAGULANT PROFILE Timed 10/15/2024 3:53 PM CDT HBS ANTIBODY, SERUM Timed 10/15/2024 3 :53 PM CDT PHOSPHOLIPID (CARDIOLIPIN) ABS, IGG AND IGM, S Timed 10/15/2024 3:53 PM CDT CYTOPLASMIC NEUTROPHIL ABS, S Timed 10/15/2024 3:53 PM CDT RHEUMATOID FACTOR, S/P Timed 3:53 PM CDT COMPL C3, S Timed 10/15/2024 3:53 PM CDT COMPLEMENT C4, S Timed 10/15/2024 3:53 PM CDT CUTANEOUS DIRECT IFA, BIOPSY Routine 10/15/2024 1:56 PM CDT DERMATOPATHOLOGY Routine 10/15/2024 1:56 PM CDT BACTERIA / MARYLOU CULTURE, BLOOD STAT 10/15/2024 9:34 AM CDT EBV AB PROFILE STAT 10/15/2024 9:24 AM CDT INFECTIOUS MONONUCLEOSIS, RAPID TEST, S/B STAT 10/15/2024 9:24 AM CDT BACTERIA / MARYLOU CULTURE, BLOOD STAT 10/15/2024 9:24 AM CDT ACTIVATED PARTIAL THROMBOPLASTIN TIME (APTT), P STAT 10/15/2024 9:24 AM CDT PROTHROMBIN TIME (PT), P STAT 10/15/2024 9:24 AM CDT TROPONIN T, 5TH GEN, P Routine 9:24 AM CDT LACTATE DEHYDROGENASE (LD), S STAT 10/15/2024 9:24 AM CDT DIPSTICK, U STAT 10/15/2024 9:08 AM CDT MICROSCOPIC MANUAL STAT 10/15/2024 9: 08 AM CDT BACTERIAL CULTURE, AEROBIC + SUSC, URINE STAT 10/15/2024 9:08 AM CDT PH, U STAT 10/15/2024 9:08 AM CDT PROTEIN/CREATININE RATIO, RANDOM, URINE STAT 10/15/2024 9:08 AM CDT OSMOLALITY, U STAT 10/15/2024 9:08 AM CDT URINALYSIS WITH MICROSCOPIC STAT 10/15/2024 9:08 AM CDT INTERPRETATION OF OUTSIDE FL GI RAD - Semiurgent (Fast; most ED patients; some inpatients) 10/15/2024 8:[address] ABDOMEN PELVIS WITH IV CONTRAST RAD - Semiurgent (Fast; most ED patients; some inpatients) 10/15/2024 8:01 AM CDT LACTATE, B STAT 10/15/2024 6:03 AM CDT HEPATIC FUNCTION PANEL, S STAT 10/15/2024 6:03 AM CDT CBC WITH DIFFERENTIAL, B STAT 10/15/2024 6:03 AM CDT C-REACTIVE PROTEIN (CRP), S/P STAT 10/15/2024 6:03 AM CDT LIPASE, S/P STAT 10/15/2024 6:03 AM CDT BASIC METABOLIC PANEL, S/P STAT 10/15/2024 6:03 AM CDT SEDIMENTATION RATE, B STAT 10/15/2024 6:02 AM CDT documented in this encounter Results * (ABNORMAL) Basic Metabolic Panel (10/18/2024 7:41 AM CDT) Pathologist [facility] Potassium, S 4.7 3.6 - 5.2 mmol/L 10/18/2024 10:29 AM CDT DTL Sodium, S 141 135 - 145 mmol/L 10/18/2024 10:46 AM CDT DTL Chloride, S 106 98 - 107 mmol/L 10/18/2024 10:29 AM CDT DTL Bicarbonate, S 25 22 - 29 mmol/L 10/18/2024 8:40 AM CDT DTL Anion Gap 10 7 - 15 10/18/2024 10:46 AM CDT DTL BUN (Blood Urea Nitrogen), S 12 8 - 24 mg/dL 10/18/2024 8:40 AM CDT DTL Creatinine 0.64(L) 0.74 - 1.35 mg/dL 10/18/2024 8:40 AM CDT DTL Estimated GFR (eGFR) >90 >=60 mL/min/BSA 10/18/2024 8:40 AM CDT DTL Comment: Estimated GFR calculated using the 2020 CKD_EPI creatinine equation. Calcium, Total, S 8.8 8.6 - 10.0 mg/dL 10/18/2024 8:40 AM CDT DTL Glucose, S 85 70 - 140 mg/dL 10/18/2024 8:40 AM CDT DTL Blood (Blood, Venous) 10/18/2024 7:41 AM CDT 10/18/2024 8:20 AM CDT us Susan Camejo M.D. LAB BLOOD ADD-ON Final Result [facility] [address] [place] [address], [facility] [address] [place] [address] * (ABNORMAL) CBC without Differential (10/18/2024 7:41 AM CDT) Hemoglobin 13.2 13.2 - 16.6 g/dL 10/18/2024 8:27 AM CDT DTL Hematocrit 39.3 38.3 - 48.6 % 10/18/2024 8:27 AM CDT DTL Erythrocytes 4.53 4.35 - 5.65 x10(12)/L 10/18/2024 8:27 AM CDT DTL MCV 86.8 78.2 - 97.9 fL 10/18/2024 8:27 AM CDT DTL RBC Distrib Width 12.2 11.8 - 14.5 % 10/18/2024 8:27 AM CDT DTL Platelet Count 556(H) 135 - 317 x10(9)/L 10/18/2024 8:27 AM CDT DTL Leukocytes 11.2(H) 3.4 - 9.6 x10(9)/L 10/18/2024 8:27 AM CDT DTL Blood (Blood, Venous) 10/18/2024 7:41 AM CDT 10/18/2024 8:07 AM CDT Susan Camejo M.D. LAB BLOOD ADD-ON Final Result [address] [address], [facility] [address] [address] * (ABNORMAL) Comprehensive Metabolic Panel (10/17/2024 9:27 AM CDT) Potassium, S 4.6 3.6 - 5.2 mmol/L 10/17/2024 12:49 PM CDT DTL Sodium, S 139 135 - 145 mmol/L 10/17/2024 12:49 PM CDT DTL Chloride, S 101 98 - 107 mmol/L 10/17/2024 12:49 PM CDT DTL Bicarbonate, S 24 22 - 29 mmol/L 10/17/2024 12:49 PM CDT DTL Anion Gap 14 7 - 15 10/17/2024 12:49 PM CDT DTL BUN (Blood Urea Nitrogen), S 12 8 - 24 mg/dL 10/17/2024 12:49 PM CDT DTL Creatinine 0.64(L) 0.74 - 1.35 mg/dL 10/17/2024 12:49 PM CDT DTL Estimated GFR (eGFR) >90 >=60 mL/min/BS A 10/17/2024 12:49 PM CDT DTL Comment: Estimated GFR calculated using the 2020 CKD_EPI creatinine equation. Calcium, Total, S 8.7 8.6 - 10.0 mg/dL 10/17/2024 12:49 PM CDT DTL Glucose, S 111 70 - 140 mg/dL 10/17/2024 12:49 PM CDT DTL Protein, Total, S 6.0(L) 6.3 - 7.9 g/dL 10/17/2024 12:49 PM CDT DTL Albumin, S 3.3(L) 3.5 - 5.0 g/dL 10/17/2024 12:49 PM CDT DTL Aspartate Aminotransferase (AST), S 35 8 - 48 U/L 10/17/2024 12:49 PM CDT DTL Alkaline Phosphatase, S 212(H) 40 - 129 U/L 10/17/2024 12:49 PM CDT DTL Alanine Aminotransferase (ALT), S 70(H) 7 - 55 U/L 10/17/2024 12:49 PM CDT DTL Bilirubin, Total, S 0.2 0.0 - 1.2 mg/dL 10/17/2024 12:49 PM CDT DTL Blood (Blood, Venous) 10/17/2024 9:27 AM CDT 10/17/2024 10:26 AM CDT us Susan Camejo M.D. LAB BLOOD ADD-ON Final Result [facility] [address] [place] [address], [facility] DTL [facility] [address] [place] [address] * (ABNORMAL) CBC without Differential (10/17/2024 9:27 AM CDT) Hemoglobin 13.4 13.2 - 16.6 g/dL 10/17/2024 10:46 AM CDT DTL Hematocrit 39.5 38.3 - 48.6 % 10/17/2024 10:46 AM CDT DTL Erythrocytes 4.64 4.35 - 5.65 x10(12)/L 10/17/2024 10:46 AM CDT DTL MCV 85.1 78.2 - 97.9 fL 10/17/2024 10:46 AM CDT DTL RBC Distrib Width 11.9 11.8 - 14.5 % 10/17/2024 10:46 AM CDT DTL Platelet Count 558(H) 135 - 317 x10(9)/L 10/17/2024 10:46 AM CDT DTL Leukocytes 11.0(H) 3.4 - 9.6 x10(9)/L 10/17/2024 10:46 AM CDT DTL Blood (Blood, Venous) 10/17/2024 9:27 AM CDT 10/17/2024 10:08 AM CDT Susan Camejo M.D. LAB BLOOD ADD-ON Final Result [facility] [address] [place] [address], [facility] [address] [place] [address] * CT Abdomen Pelvis Angiogram with IV Contrast (10/16/2024 6:07 PM CDT) Anatomical Region Laterality Modality Abdomen, Pelvis, Cardiovascu lar RST LOS, Abdominal ARZ LOS, Vascular Interventional ARZ LOS, Abdominal FLA LOS, Vascular Interventional FLA LOS, Procedural, Vascular Interventional NWWI LOS N/A Computed Tomography, Compute d Tomography 10/16/2024 5:59 PM CDT Impressions 10/16/2024 7:30 PM CDT 1. 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 No mural thickening or enhancement. 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 2. No arterial stenosis or wall thickening in the abdomen and pelvis. 3. Evolving splenic infarct. Narrative 10/16/2024 7:30 PM CDT EXAM: CT ABDOMEN PELVIS ANGIOGRAM WITH IV CONTRAST Including 3D image post-processing with or without AI assistance. COMPARISON: CT abdomen and pelvis 10/15/2024 FINDINGS: VASCULAR FINDINGS: ABDOMINAL AORTA: Normal caliber abdominal aorta. No aortic wall thickening or stenosis. RENAL ARTERIES: 3 right renal arteries and 2 left renal arteries are widely patent without stenosis or wall thickening. VISCERAL ARTERIES: Celiac artery: Redemonstration of severe stenosis at the origin without mural thickening or enhancement. The level of narrowing is typical for extrinsic compression from the median arcuate ligament given inspiratory phase of imaging. Typical celiac axis branching anatomy with wide patency of the splenic artery, left gastric artery, and common hepatic artery. Hypertrophy of the gastroduodenal artery and pancreaticoduodenal duodenal arteries consistent with collateralization from the SMA to the celiac territory. Superior mesenteric artery: Widely patent without stenosis or wall thickening. Inferior mesenteric artery: Widely patent without stenosis or wall thickening. ILIAC ARTERIES: The bilateral iliac arteries are widely patent without stenosis or wall thickening. ADDITIONAL FINDINGS: Similar appearance of the splenic infarcts. Enteric contrast in the distal colon and rectum. Minimal bibasilar atelectasis. Procedure Note Lucian Farah M.D. - 10/16/2024 EXAM: CT ABDOMEN PELVIS ANGIOGRAM WITH IV CONTRAST Including 3D image post-processing with or without AI assistance. COMPARISON: CT abdomen and pelvis 10/15/2024 FINDINGS: VASCULAR FINDINGS: ABDOMINAL AORTA: Normal caliber abdominal aorta. No aortic wall thickeningor stenosis. RENAL ARTERIES: 3 right renal arteries and 2 left renal arteries are widely patent withoutstenosis or wall thickening. VISCERAL ARTERIES: Celiac artery: Redemonstration of severe stenosis at the origin withoutmural thickening or enhancement. The level of narrowing is typical forextrinsic compression from the median arcuate ligament given inspiratoryphase of imaging. Typical celiac axis branching anatomy with wide patency of the splenic artery, left gastricartery, and common hepatic artery. Hypertrophy of the gastroduodenalartery and pancreaticoduodenal duodenal arteries consistent withcollateralization from the SMA to the celiac territory. Superior mesenteric artery: Widely patent without stenosis or wallthickening. Inferior mesenteric artery: Widely patent without stenosis or wallthickening. ILIAC ARTERIES: The bilateral iliac arteries are widely patent without stenosis or wallthickening. ADDITIONAL FINDINGS: Similar appearance of the splenic infarcts. Enteric contrast in the distalcolon and rectum. Minimal bibasilar atelectasis. IMPRESSION: 1. Redemonstration of focal severe stenosis of the celiac artery originwith with discrete stenosis. No mural thickening or enhancement. Givenhistory phase of imaging, findings are consistent with median arcuateligament associated extrinsic compression with collateralization to the celiac axis territory from theSMA. 2. No arterial stenosis or wall thickening in the abdomen and pelvis. 3. Evolving splenic infarct. Susan Camejo M.D. IMG CT PROCEDURES Final Result * Magnesium (10/16/2024 5:09 AM CDT) Pathologist [facility] Magnesium, S 1.9 1.7 - 2.3 mg/dL 10/16/2024 6:48 AM CDT DTL Blood (Blood, Venous) 10/16/2024 5:09 AM CDT 10/16/2024 5:47 AM CDT Sia Saucedo M.D. LAB BLOOD ADD[place] [address], [facility] [place] [address] * (ABNORMAL) Comprehensive Metabolic Panel (10/16/2024 5:09 AM CDT) Pathologist [facility] Potassium, S 4.8 3.6 - 5.2 mmol/L 10/16/2024 6:42 AM CDT DTL Sodium, S 136 135 - 145 mmol/L 10/16/2024 6:42 AM CDT DTL Chloride, S 100 98 - 107 mmol/L 10/16/2024 6:42 AM CDT DTL Bicarbonate, S 25 22 - 29 mmol/L 10/16/2024 6:42 AM CDT DTL Anion Gap 11 7 - 15 10/16/2024 6:42 AM CDT DTL BUN (Blood Urea Nitrogen), S 10 8 - 24 mg/dL 10/16/2024 6:42 AM CDT DTL Creatinine 0.71(L) 0.74 - 1.35 mg/dL 10/16/2024 6:42 AM CDT DTL Estimated GFR (eGFR) >90 >=60 mL/min/BS A 10/16/2024 6:42 AM CDT DTL Comment: Estimated GFR calculated using the 2020 CKD_EPI creatinine equation. Calcium, Total, S 8.7 8.6 - 10.0 mg/dL 10/16/2024 6:42 AM CDT DTL Glucose, S 93 70 - 140 mg/dL 10/16/2024 6:42 AM CDT DTL Protein, Total, S 5.7(L) 6.3 - 7.9 g/dL 10/16/2024 6:42 AM CDT DTL Albumin, S 3.2(L) 3.5 - 5.0 g/dL 10/16/2024 6:42 AM CDT DTL Aspartate Aminotransferase (AST), S 45 8 - 48 U/L 10/16/2024 6:42 AM CDT DTL Alkaline Phosphatase, S 238(H) 40 - 129 U/L 10/16/2024 6:42 AM CDT DTL Alanine Aminotransferase (ALT), S 77(H) 7 - 55 U/L 10/16/2024 6:42 AM CDT DTL Bilirubin, Total, S 0.4 0.0 - 1.2 mg/dL 10/16/2024 6:42 AM CDT DTL Blood (Blood, Venous) 10/16/2024 5:09 AM CDT 10/16/2024 5:47 AM CDT us Sai Saucedo M.D. LAB BLOOD ADD-ON Hilda novoa Result [facility] [address] [place] [address], [facility] [address] [place] [address] * (ABNORMAL) CBC with Differential, Blood (10/16/2024 5:09 AM CDT) Hemoglobin 13.5 13.2 - 16.6 g/dL 10/16/2024 5:39 AM CDT DTL Hematocrit 40.7 38.3 - 48.6 % 10/16/2024 5:39 AM CDT DTL Erythrocytes 4.74 4.35 - 5.65 x10(12)/L 10/16/2024 5:39 AM CDT DTL MCV 85.9 78.2 - 97.9 fL 10/16/2024 5:39 AM CDT DTL RBC Distrib Width 11.7(L) 11.8 - 14.5 % 10/16/2024 5:39 AM CDT DTL Platelet Count 528(H) 135 - 317 x10(9)/L 10/16/2024 5:39 AM CDT DTL Leukocytes 10.7(H) 3.4 - 9.6 x10(9)/L 10/16/2024 5:39 AM CDT DTL Neutrophils 7.66(H) 1.56 - 6.45 x10(9)/L 10/16/2024 5:39 AM CDT DHPM Lymphocytes 1.73 0.95 - 3.07 x10(9)/L 10/16/2024 5:39 AM CDT DTL Monocytes 1.13(H) 0.26 - 0.81 x10(9)/L 10/16/2024 5:39 AM CDT DTL Eosinophils 0.11 0.03 - 0.48 x10(9)/L 10/16/2024 5:39 AM CDT DTL Basophils 0.06 0.01 - 0.08 x10(9)/L 10/16/2024 5:39 AM CDT DTL Blood (Blood, Venous) 10/16/2024 5:09 AM CDT 10/16/2024 5:31 AM CDT Sia Saucedo M.D. LAB BLOOD ADD-ON Hilda l Result [facility] [address] [place] [address], [facility] [address] [place] [address] [facility] [address] [place] [address] * Antistrep-O Titer (10/16/2024 5:09 AM CDT) [facility] Antistrep-O Titer, S 47 0 - 530 IU/mL 10/16/2024 10:33 AM CDT [facility] Blood (Blood, Venous) 10/16/2024 5:09 AM CDT 10/16/2024 9:08 AM CDT us Fabiano Taylor P.A.-C. LAB BLOOD ADD-ON Final R esult [facility] [address] [place] [address] [facility] [address] [place] [address] * ECG 12 Lead (10/15/2024 4:50 PM CDT) [facility] Ventricular Rate ECG/Min 71 BPM MUSE UT Interval 168 ms MUSE QRSD Interval 100 ms MUSE QT Interval 392 ms MUSE QTC Interval 425 ms MUSE P Mayflower 56 degrees MUSE R Mayflower 57 degrees MUSE T Wave Mayflower 22 degrees MUSE 10/15/2024 4:50 PM CDT 10/15/2024 4:55 PM CDT Impressions MUSE - 10/15/2024 4:55 PM CDT Normal sinus rhythm Normal ECG No previous ECGs available Reviewed by CIARA Nicholson Narrative Procedure Note Dorian Nolen M.D. - 10/15/2024 IMPRESSION: Normal sinus rhythm Normal ECG No previous ECGs available Reviewed by CIARA Nicholson us Susan Camejo M.D. ECG ORDERABLES Final Result MUSE NA * Cyclic Citrullinated Peptide Antibodies, IgG (10/15/2024 3:53 PM CDT) Cyclic Citrullinated Peptide Ab, S <15.6 <20.0 (Negative) U 10/16/2024 1:46 PM CDT [facility] Comment: Interpretation: Antibodies to CCP not detected. If clinical symptoms are strongly indicative for rheumatoid arthritis, suggest testing for Rheumatoid Factor, S (RHUT) and, if positive, Rheumatoid Factor Panel, S (RFPN), which includes differentiation of rheumatoid factor IgM and IgA isotypes. Blood (Blood, Venous) 10/15/2024 3:53 PM CDT 10/16/2024 6:49 AM CDT Susan Camejo M.D. LAB BLOOD ADD-ON Final Result Performing Organization Address City/[facility]/ZIP Co de Phone Number [facility] [address] [place] [address] [facility] [address] [place] [address] * Rheumatoid Factor (10/15/2024 3:53 PM CDT) Pathologist [facility] Rheumatoid Factor, S <15 <15 IU/mL 10/15/2024 8:04 PM CDT [facility] Blood (Blood, Venous) 10/15/2024 3:53 PM CDT 10/15/2024 7:33 PM CDT Susan Camejo M.D. LAB BLOOD ADD-ON Final Result Performing Organization Address City/[facility]/ZIP Co de Phone Number [facility] [address] [place] [address] [place] [address] [place] [address] * Antibody to Extractable Nuclear Antigen Evaluation (10/15/2024 3:53 PM CDT) Pathologist [facility] SS-A/Ro Ab, IgG, S <0.2 <1.0 (Negative) U 10/16/2024 11:25 AM CDT [facility] SS-B/La Ab, IgG, S <0.2 <1.0 (Negative) U 10/16/2024 11:25 AM CDT SDS Sm Ab, IgG, S <0.2 <1.0 (Negative) U 10/16/2024 11:25 AM CDT [facility] REPORT PROGRAMMER Ab, IgG, S <0.2 <1.0 (Negative) U 10/16/2024 11:25 AM CDT [facility] Scl 70 Ab, IgG, S <0.2 <1.0 (Negative) U 10/16/2024 11:25 AM CDT [facility] Jessa 1 Ab, IgG, S <0.2 <1.0 (Negative) U 10/16/2024 11:25 AM CDT [facility] Blood (Blood, Venous) 10/15/2024 3:53 PM CDT 10/16/2024 6:51 AM CDT Susan Camejo M.D. LAB BLOOD ADD-ON Final Result Performing Organization Address [facility] Co de Phone Number [facility] [address] [place] [address] [facility] [address] [place] [address] [place] [address] * Syphilis IgG w/ Reflex, EIA, S (RST/FLA) (10/15/2024 3:53 PM CDT) [facility] Syphilis IgG w/ Reflex, EIA, S Nonreactive Nonreactive 10/16/2024 6:48 PM CDT [facility] Comment: No serologic evidence of infection with T. pallidum (syphilis). Repeat testing may be considered in patients with suspected acute or primary syphilis in 2-4 weeks. For additional information on interpretation of the syphilis reverse algorithm and results, see: [email or web address] Blood (Blood, Venous) 10/15/2024 3:53 PM CDT 10/15/2024 7:56 PM CDT us Susan Camejo M.D. LAB MICROBIOLOGY - BLOOD ORDERA BLES Final Result Performing Organization Address [facility]/ZIP Co de Phone Number [facility] [address] [place] [address] [facility] [address] [place] [address] * HIV-1/-2 Ag and Ab Screen, Plasma (10/15/2024 3:53 PM CDT) Pathologist [facility] HIV-1/-2 Ag and Ab Screen, P Negative Negative 10/16/2024 8:44 AM CDT [facility] Comment: Negative result does not rule out HIV infection. If exposure to HIV infection occurred <14 days ago, contact the laboratory to request addition of HIV-1/HIV-2 RNA detection, Plasma (HIP12). Blood (Blood, Venous) 10/15/2024 3:53 PM CDT 10/16/2024 7:26 AM CDT Susan Camejo M.D. LAB MICROBIOLOGY - BLOOD ORDERA BLES Final Result Performing Organization Address City/[facility]/ZIP Co de Phone Number [facility] [address] [place] [address] [facility] [address] [place] [address] * Hepatitis A IgM Ab, Serum (10/15/2024 3:53 PM CDT) [facility] Hepatitis A IgM Ab, S Negative Negative 10/16/2024 9:03 AM CDT [facility] Comment: This result does not exclude the possibility of recent exposure to hepatitis A virus. Antibody level during early infection stage may be below the limit of detection of the assay. Consumption of high-dose biotin supplement within 12 hours of blood collection for this test can cause false-negative results. Blood (Blood, Peripheral Draw) 10/15/2024 3:53 PM CDT 10/16/2024 7:26 AM CDT us Susan Camejo M.D. LAB MICROBIOLOGY - BLOOD ORDERA BLES Final Result [facility] [address] [place] [address] [facility] [address] [place] [address] * Hepatitis B Core IgM Ab (10/15/2024 3:53 PM CDT) [facility] HBc IgM Ab, S Negative Negative 10/16/2024 9:03 AM CDT [facility] Comment: Consumption of high-dose biotin supplement within 12 hours of blood collection for this test can cause false-negative results. Blood (Blood, Peripheral Draw) 10/15/2024 3:53 PM CDT 10/16/2024 7:26 AM CDT Susan Camejo M.D. LAB MICROBIOLOGY - BLOOD ORDERA BLES Final Result Performing Organization Address City/[facility]/ZIP Co de Phone Number [facility] [address] [place] [address] [facility] [address] [place] [address] * HBs Antigen Scrn, Serum (10/15/2024 3:53 PM CDT) [facility] HBs Antigen Scrn, S Negative Negative 10/16/2024 9:03 AM CDT [facility] Blood (Blood, Peripheral Draw) 10/15/2024 3:53 PM CDT 10/16/2024 7:26 AM CDT Susan Camejo M.D. LAB MICROBIOLOGY - BLOOD ORDERA BLES Final Result Performing Organization Address City/[facility]/ZIP Co de Phone Number [facility] [address] [place] [address] [facility] [address] [place] [address] * HCV Ab w/Reflex to HCV PCR, Serum (10/15/2024 3:53 PM CDT) Pathologist [facility] HCV Ab, S Negative Negative 10/16/2024 8:48 AM CDT [facility] Comment: Consumption of high-dose biotin supplement within 12 hours of blood collection for this test can cause false-negative results. Blood (Blood, Peripheral Draw) 10/15/2024 3:53 PM CDT 10/16/2024 7:26 AM CDT us Susan Camejo M.D. LAB MICROBIOLOGY - BLOOD ORDERA BLES Final Result Performing Organization Address City/[facility]/ZIP Co de Phone Number [facility] [address] [place] [address] [facility] [address] [place] [address] * HBc Total Ab, Serum (10/15/2024 3:53 PM CDT) HBc Total Ab, S Negative Negative 10/16/2024 9:03 AM CDT [facility] Blood (Blood, Peripheral Draw) 10/15/2024 3:53 PM CDT 10/16/2024 7:26 AM CDT Susan Camejo M.D. LAB MICROBIOLOGY - BLOOD ORDERA BLES Final Result Performing Organization Address [facility] Co de Phone Number [facility] [address] [place] [address] [facility] [address] [place] [address] * HBs Antibody, Serum (10/15/2024 3:53 PM CDT) Pathologist [facility] HBs Antibody, S Negative 8:48 AM CDT [facility] Comment: Patient is NOT immune to HBV infection. Consumption of high-dose biotin supplement within 12 hours of blood collection for this test can cause false-negative results. ----REFERENCE VALUE---- Unvaccinated: Negative Vaccinated: Positive HBs Antibody, Quantitative, S <3.5 mIU/mL 10/16/2024 8:48 AM CDT [facility] Comment: ----REFERENCE VALUE---- Unvaccinated: <8.5 mIU/mL Vaccinated: >=11.5 mIU/mL Blood (Blood, Peripheral Draw) 10/15/2024 3:53 PM CDT 10/16/2024 7:26 AM CDT Susan Camejo M.D. LAB MICROBIOLOGY - BLOOD ORDERA BLES Final Result Performing Organization Address City/[facility]/ZIP Co de Phone Number [facility] [address] [place] [address] [facility] [address] [place] [address] * Complement C4 (10/15/2024 3:53 PM CDT) Complement C4, S 40 14 - 40 mg/dL 10/16/2024 1:56 PM CDT [facility] Blood (Blood, Venous) 10/15/2024 3:53 PM CDT 10/16/2024 6:29 AM CDT Susan Camejo M.D. LAB BLOOD ADD-ON Final Result [facility] [address] [place] [address] [facility] [address] [place] [address] * Complement C3 (10/15/2024 3:53 PM CDT) [facility] Complement C3, S 152 75 - 175 mg/dL 10/16/2024 1:56 PM CDT [facility] Blood (Blood, Venous) 10/15/2024 3:53 PM CDT 10/16/2024 6:29 AM CDT Susan Camejo M.D. LAB BLOOD ADD-ON Final Result [facility] [address] [place] [address] [facility] [address] [place] [address] * Proteinase 3 Antibodies, IgG (10/15/2024 3:53 PM CDT) Pathologist [facility] Proteinase 3 Ab (PR3), S <0.2 <0.4 (Negative) U 10/16/2024 11:25 AM CDT [facility] Blood (Blood, Venous) 10/15/2024 3:53 PM CDT 10/16/2024 6:51 AM CDT Susan Nell M.D. LAB BLOOD ADD-ON Final Result Performing Organization Address [facility] Co de Phone Number [facility] [address] [place] [address] [facility] [address] [place] [address] * Cytoplasmic Neutrophil Antibodies (10/15/2024 3:53 PM CDT) c-ANCA Negative Negative 10/16/2024 9:57 AM CDT [facility] Perinuclear (P-ANCA) Negative Negative 10/16/2024 9:57 AM CDT [facility] Comment: Negative for cANCA and pANCA patterns by immunofluorescence. ----ADDITIONAL INFORMATION---- This test was developed and its performance characteristics determined by [facility] in a manner consistent with CLIA requirements. This test has not been cleared or approved by the U.S. Food and Drug Administration. Blood (Blood, Venous) 10/15/2024 3:53 PM CDT 10/16/2024 6:51 AM CDT Susan Camejo M.D. LAB BLOOD ADD-ON Final Result Performing Organization Address [facility] Co de Phone Number [facility] [address] [place] [address] [facility] [address] [place] [address] [place] [address] * Antinuclear Antibodies, HEp-2 Substrate, IgG, Serum (10/15/2024 3:53 PM CDT) Antinuclear Ab, HEp-2 Substrate, S <1:80 (Negative ) <1:80 (Negativ e) 10/15/2024 8:53 PM CDT [facility] Comment: ----ADDITIONAL INFORMATION---- Method: Immunofluorescence using HEp-2 cellular substrate. Blood (Blood, Venous) 10/15/2024 3:53 PM CDT 10/15/2024 6:00 PM CDT Susan Camejo M.D. LAB BLOOD ADD-ON Final Result Performing Organization Address [facility] Co de Phone Number [facility] [address] [place] [address] [facility] [address] [place] [address] * Beta-2 Glycoprotein 1 Antibodies, IgG and IgM (10/15/2024 3:53 PM CDT) [facility] Beta 2 GP1 Ab IgG, S <9.4 <15.0 (Negative) SGU 10/16/2024 9:08 PM CDT [facility] Beta 2 GP1 Ab IgM, S <9.4 <15.0 (Negative) U 10/16/2024 9:08 PM CDT [facility] Blood (Blood, Venous) 10/15/2024 3:53 PM CDT 10/16/2024 6:49 AM CDT us Susan Camejo M.D. LAB BLOOD ADD-ON Final Result [facility] [address] [address] [facility] [address] [place] [address] * (ABNORMAL) Lupus Anticoag Prof (10/15/2024 3:53 PM CDT) [facility] Lupus Anticoagulant Tech Interp SEE COMMENT 10/16/2024 10:31 AM CDT DTL Comment: No evidence of a lupus anticoagulant based on results of Prothrombin Time (PT), Activated Partial Thromboplastin Time (APTT), and Dilute Russells Viper Venom Time (DRVVT). NOTE: Interpretation not reviewed by physician. Prothrombin Time (PT), P 13.1(H) 9.4 - 12.5 sec 10/16/2024 10:31 AM CDT DTL INR 1.2 0.9 - 1.1 10/16/2024 10:31 AM CDT DTL Comment: ----ADDITIONAL INFORMATION---- Standard intensity warfarin therapeutic range: 2.0 to 3.0 High intensity warfarin therapeutic range: 2.5 to 3.5 Activated Partial Thrombopl Time, P 33 25 - 37 sec 10/16/2024 9:51 AM CDT DTL DRVVT Screen Ratio 0.90 <1.20 ratio 10/16/2024 9:49 AM CDT DTL Blood (Blood, Venous) 10/15/2024 3:53 PM CDT 10/16/2024 7:19 AM CDT Narrative [facility] - 10/16/2024 10:31 AM CDT Specimen Information: Specimen ID: [id number] Specimen Type: Blood Specimen Collection Start Date: 10/15/2024 3:53 PM Specimen Received Date: 10/16/2024 7:19 AM Specimen ID: [id number] Specimen Type: Blood Specimen Collection Start Date: 10/15/2024 3:53 PM Specimen Received Date: 10/16/2024 7:19 AM Specimen ID: [id number] Specimen Type: Blood Specimen Collection Start Date: 10/15/2024 3:53 PM Specimen Received Date: 10/16/2024 7:19 AM Specimen ID: [id number] Specimen Type: Blood Specimen Collection Start Date: 10/15/2024 3:53 PM Specimen Received Date: 10/16/2024 7:19 AM us Susan Camejo M.D. LAB BLOOD NON ADD-ON Final Resu lt [facility] [address] [place] [address], [facility] [address] [place] [address] * Phospholipid (Cardiolipin) Antibodies, IgG and IgM (10/15/2024 3:53 PM CDT) Phospholipid Ab IgM, S <9.4 <15.0 (Negative) MPL 10/16/2024 12:15 PM CDT [facility] Phospholipid Ab IgG, S <9.4 <15.0 (Negative) GPL 10/16/2024 3:53 PM CDT [facility] Blood (Blood, Venous) 10/15/2024 3:53 PM CDT 10/16/2024 6:49 AM CDT us Susan Camejo M.D. LAB BLOOD ADD-ON Final Result Performing Organization Address City/[facility]/ZIP Co de Phone Number [facility] [address] [place] [address] [facility] [address] [place] [address] * Cryoglobulin (10/15/2024 3:53 PM CDT) Cryoglobulin , S Negative. This test is negative at 24 hours. All samples are held and reviewed again at 7 days. If delayed precipitation occurs after 7 days, Immunofixation will be performed and an additional report will follow. Negative %ppt 10/17/2024 2:01 PM CDT [facility] Blood (Blood, Venous) 10/15/2024 3:53 PM CDT 10/16/2024 7:10 AM CDT Susan Camejo M.D. LAB BLOOD NON ADD-ON Final Resu lt Performing Organization Address [facility] Co de Phone Number [facility] [address] [place] [address] [facility] [address] [place] [address] [place] [address] * Cutaneous Direct IFA, Biopsy (10/15/2024 1:56 PM CDT) Pathologist [facility] Report electronically signed by Frandy Salcedo M.D. 10/17/2024 1:30 PM CDT PDR 10/17/2024 1:30 PM CDT PDRM Interpretation A. Left lower anterior leg, Skin punch biopsy, Immunofluorescence: IgG: Negative IgG4: Negative IgM: Discontinuous granular basement membrane zone IgA: Few superficial blood vessels C3: Rare weak superficial blood vessels Fibrinogen: Patchy staining of connective tissue fibers Impression: Consistent with IgA vasculitis (see comment) Comment: The granular deposition of IgA within the plata of superficial dermal vessels is compatible with IgA vasculitis in the appropriate clinical setting. IgA vasculitis may be seen in leukocytoclastic vasculitis associated with Henoch Luu3deonh purpura, inflammatory bowel disease, autoimmune connective tissue disorders ([id number] syndrome, rheumatoid arthritis, lupus erythematosus and spondyloarthropathie s), malignancy (including lymphoma and multiple myeloma), urticarial vasculitis, or as a reaction to medications (Dirk CM et al. Am J Dermatopathol, 1999; m21(3); 234-240); as well as in the context of a lymphocytic vasculopathy in the setting of a pigmented purpuric dermatosis, Degos disease and lupus panniculitis (Cassandra CLANCY et al. J Cutan Pathol, 2002: 29: 596-601). Rarely granular deposition of IgA within cutaneous vascular plata may be seen in nonlesional skin biopsies of patients with IgA nephropathy, alcohol use disorder, or dermatitis herpetiformis. A final definitive diagnosis should therefore be based on correlation of the direct immunofluorescence findings with the clinical presentation, histopathological findings on examination of sections from formalin-fixed, paraffin-embedded tissue and other diagnostic tests. 10/17/2024 1:30 PM CDT PDRM Comment: ----ADDITIONAL INFORMATION---- This test was developed using an analyte specific reagent. Its performance characteristics were determined by [facility] in a manner consistent with CLIA requirements. This test has not been cleared or approved by the U.S. Food and Drug Administration. Skin 10/15/2024 1:56 PM CDT 10/15/2024 3:31 PM CDT Toña Chin M.D. LAB PATH DERM ORDERABLES Fi nal Result Performing Organization Address City/State/[facility] Co de Phone Number [id number] [place] [address] * Dermatopathology (10/15/2024 1:56 PM CDT) 10/16/2024 11:11 AM CDT PDRM Report electronically signed by Marjan Rust M.D. 10/16/2024 11:11 AM CDT PDRM Gross Description Received in formalin labeled with patient's name, medical record number, and left lower leg, anterior is a 0.5 x 0.3 cm pale eid, portionof a skin punch biopsy excised to a depth of 0.2 cm. Is a 0.2 x 0.2 cm eid-red, smooth, erythromatous lesion with irregular bordersadjacent to the previously cut edge. The specimen is submitted en toto in cassette A1. Grossed by LMB. 10/16/2024 11:11 AM CDT PDRM Interpretation FINAL DIAGNOSIS A. Left lower leg, anterior, Skin punch biopsy: Leukocytoclastic vasculitis COMMENT Clinical notes and clinical photos were reviewed. Digital imaging was used in the diagnostic assessment of this case. 10/16/2024 11:11 AM CDT PDRM Skin 10/15/2024 1:56 PM CDT 10/15/2024 3:40 PM CDT Toña Chin M.D. LAB PATH DERM ORDERABLES Fi nal Result Performing Organization Address [facility]/ZIP Co de Phone Number [address] [place] [address] * Bacteria / Marylou Culture, Blood # 2 (10/15/2024 9:34 AM CDT) Pathologist [facility] Bacteria/Tiki da Culture, Blood No growth after 5 days of incubation. 10/20/2024 11:02 AM CDT DT Blood (Blood, Peripheral Draw) 10/15/2024 9:34 AM CDT 10/15/2024 10:31 AM CDT Comment:Specimen Source Site : Blood us Fabiano Taylor P.A.-C. LAB MICROBIOLOGY - GENER AL ORDERABLES Final Result Performing Organization Address [facility] Co de Phone Number [address] [address] * Troponin T, 5th Generation (10/15/2024 9:24 AM CDT) Pathologist [facility] Troponin T, 5th gen <6 <=15 ng/L 10/15/2024 5:20 PM CDT DTL Blood (Blood, Venous) 10/15/2024 9:24 AM CDT 10/15/2024 4:19 PM CDT Susan Camejo M.D. LAB BLOOD ADD-ON Final Result Performing Organization Address [facility] de Phone Number [facility] [address] [place] [address], [facility] [address] [place] [address] * (ABNORMAL) EBV Ab Profile (10/15/2024 9:24 AM CDT) Pathologist [facility] EBV VCA IgM, S Negative Negative 10/16/2024 12:54 PM CDT [facility] EBV VCA IgG, S Positive(A) Negative 12:31 PM CDT [facility] EBV NA IgG, S Negative Negative 10/16/2024 12:31 PM CDT [facility] Interpretation SEE COMMENT 12:54 PM CDT [facility] Comment: Results suggest recent EBV infection. The detection of only anti-VCA IgG should be interpreted with caution in immunocompromised patients, as this population may demonstrate diminishing or undetectable levels of anti-EBNA IgG antibodies. ----ADDITIONAL INFORMATION---- Over 90% of the adult population will have been infected with EBV sometime in the past and therefore, will be positive for IgG against the viral capsid antigen (VCA) and the EBV Nuclear Antigen (EBNA). Antibodies to EBNA develop 6-8 weeks after primary infection and remain present for life. Presence of IgM against VCA indicates recent infection with EBV. Blood (Blood, Venous) 10/15/2024 9:24 AM CDT 10/15/2024 12:20 PM CDT us Fabiano Taylor P.A.-C. LAB MICROBIOLOGY - BLOOD ORDERABLES Final Result Performing Organization Address [facility]/ZIP Co de Phone Number [facility] [address] [place] [address] [facility] [address] [place] [address] * Infectious Mononucleosis, Rapid Test (10/15/2024 9:24 AM CDT) Pathologist [facility] Infectious [place] Test, S Negative Negative 10/15/2024 3:28 PM CDT [facility] Blood (Blood, Venous) 10/15/2024 9:24 AM CDT 10/15/2024 12:02 PM CDT Fabiano Taylor P.A.-C. LAB MICROBIOLOGY - BLOOD ORDERABLES Final Result Performing Organization Address City/[facility] Co de Phone Number [facility] [address] [place] [address] [facility] [address] [place] [address] * APTT (Activated Partial Thromboplastin Time) (10/15/2024 9:24 AM CDT) Pathologist [facility] Activated Partial Thrombopl Time, P 30 25 - 37 sec 10/15/2024 9:54 AM CDT [facility] Blood (Blood, Venous) 10/15/2024 9:24 AM CDT 10/15/2024 9:44 AM CDT us Fabiano Taylor P.A.-C. LAB BLOOD ADD-ON Final R esult Performing Organization Address [facility] Co de Phone Number [facility] [address] [place] [address], [facility] [address] [place] [address] * (ABNORMAL) Prothrombin Time (PT) (10/15/2024 9:24 AM CDT) Pathologist [facility] Prothrombin Time, P 13.5(H) 9.4 - 12.5 sec 10/15/2024 9:51 AM CDT [facility] 1.2 0.9 - 1.1 10/15/2024 9:51 AM CDT [facility] Comment: ----ADDITIONAL INFORMATION---- Standard intensity warfarin therapeutic range: 2.0 to 3.0 High intensity warfarin therapeutic range: 2.5 to 3.5 Blood (Blood, Venous) 10/15/2024 9:24 AM CDT 10/15/2024 9:44 AM CDT us Fabiano Taylor P.A.-C. LAB BLOOD ADD-ON Final R esult Performing Organization Address City/[facility]/ZIP Co de Phone Number [facility] [address] [place] [address], [facility] [address] [place] [address] * Bacteria / Marylou Culture, Blood #1 (10/15/2024 9:24 AM CDT) [facility] Bacteria/Tiki da Culture, Blood No growth after 5 days of incubation. 10/20/2024 10:50 AM CDT DT Blood (Blood, Peripheral Draw) 10/15/2024 9:24 AM CDT 10/15/2024 10:32 AM CDT Comment:Specimen Source Site : Blood us Fabiano Taylor P.A.-C. LAB MICROBIOLOGY - GENER AL ORDERABLES Final Result Performing Organization Address [facility] Co de Phone Number [facility] [address] [place] [address] * LD (Lactate Dehydrogenase) (10/15/2024 9:24 AM CDT) [facility] LD 148 122 - 222 U/L 10/15/2024 10:52 AM CDT DTL Blood (Blood, Venous) 10/15/2024 9:24 AM CDT 10/15/2024 10:24 AM CDT us Fabiano Taylor P.A.-C. LAB BLOOD NON ADD-ON Fin al Result Performing Organization Address City/[facility]/ZIP Co de Phone Number [facility] [address] [place] [address], [facility] [address] [place] [address] * Microscopic Manual (10/15/2024 9:08 AM CDT) Microscopy Normal 10/15/2024 10:28 AM CDT DTL RBC <3 <3 /hpf 10/15/2024 10:28 AM CDT DTL WBC None Seen /hpf 10/15/2024 10:28 AM CDT DTL Comment: ----REFERENCE VALUE---- <4 (Males) <11 (Females) Urine 10/15/2024 9:08 AM CDT 10/15/2024 9:45 AM CDT Fabiano Taylor P.A.-C. LAB URINE ORDERABLES Fin al Result Performing Organization Address City/[facility]/ZIP Co de Phone Number [address] [place] [address] * pH, Urine (10/15/2024 9:08 AM CDT) pH, U 6.2 4.5 - 8.0 10/15/2024 9:4 5 AM CDT DTL Urine 10/15/2024 9:08 AM CDT 10/15/2024 9:26 AM CDT Fabiano HartC. LAB URINE ORDERABLES Fin al Result Performing Organization Address City/[facility]/ZIP Co de Phone Number [facility] [address] [place] [address] * (ABNORMAL) Dipstick, Urine (10/15/2024 9:08 AM CDT) Hemoglobin, QL, U Negative Negative 10/15/2024 9:45 AM CDT DTL Leukocyte Esterase, U Negative Negative 10/15/2024 9:45 AM CDT DTL Nitrite, U Negative Negative 10/15/2024 9:45 AM CDT DTL Ketone, U 10(A) Negative mg/dL 10/15/2024 9:45 AM CDT DTL Glucose, U Negative Negative mg/dL 10/15/2024 9:45 AM CDT DTL Urine 10/15/2024 9:08 AM CDT 10/15/2024 9:26 AM CDT us Fabiano Taylor P.A.-C. LAB URINE ORDERABLES Fin al Result Performing Organization Address City/[facility]/ZIP Co de Phone Number [facility] [address] [place] [address], [facility] [address] [place] [address] * Osmolality, Urine (10/15/2024 9:08 AM CDT) Osmolality, U 627 150 - 1150 mOsm/kg 10/15/2024 9:45 AM CDT DTL Urine 10/15/2024 9:08 AM CDT 10/15/2024 9:26 AM CDT us Fabiano Taylor P.A.-C. LAB URINE ORDERABLES Fin al Result Performing Organization Address [facility] Co de Phone Number [facility] [address] [place] [address], [facility] [address] [place] [address] * Protein/Creatinine Ratio, Random, Urine (10/15/2024 9:08 AM CDT) Protein, Total, Random, U 7 mg/dL 10/15/2024 10:30 AM CDT DTL Creatinine, Random, U 55 16 - 326 mg/dL 10/15/2024 10:30 AM CDT DTL Protein/Creatin ine Ratio 0.13 <0.18 mg/mg 10/15/2024 10:30 AM CDT DTL Urine (Urine, Midstream) 10/15/2024 9:08 AM CDT 10/15/2024 9:26 AM CDT us Fabiano Taylor P.A.-C. LAB URINE ORDERABLES Fin al Result Performing Organization Address [facility] Co de Phone Number [facility] [address] [place] [address], [facility] [address] [place] [address] * Bacterial Culture, Aerobic + Susceptibility, Urine (10/15/2024 9:08 AM CDT) Urine Culture Organism present <10,000 cfu/mL, susceptibilities not performed per laboratory criteria. 10/16/2024 4:31 AM CDT DTL Urine (Urine, Midstream) 10/15/2024 9:08 AM CDT 10/15/2024 10:13 AM CDT Comment:Specimen Source Site : Urine Fabiano Taylor P.A.-C. LAB MICROBIOLOGY - GENER AL ORDERABLES Final Result Performing Organization Address [facility] Co de Phone Number [facility] [address] [place] [address], [facility] [address] [place] [address] * Urinalysis, with Microscopic: Urine, Midstream (10/15/2024 9:08 AM CDT) Source Urine, Urine, Midstream 10/15/2024 9:26 AM CDT DTL Color, U Yellow 10/15/2024 9:26 AM CDT DTL Clarity, U Clear 10/15/2024 9:26 AM CDT DTL Protein, U 7 <26 mg/dL 10/15/2024 10:30 AM CDT DTL Protein/Osmol ality 0.11 <0.42 ratio 10/15/2024 10:30 AM CDT DTL Predicted 24 HR Protein, U 117 <229 mg/24 h 10/15/2024 10:30 AM CDT DTL Predicted Range 37-367 mg/24 h 10/15/2024 10:30 AM CDT DTL Urine (Urine, Midstream) 10/15/2024 9:08 AM CDT 10/15/2024 9:26 AM CDT Fabiano Taylor P.A.-C. LAB URINE ORDERABLES Fin al Result [facility] [address] [place] [address], [facility] [address] [place] [address] * Interpretation of Outside FL GI (10/15/2024 8:53 AM CDT) Anatomical Region Laterality Modality Abdominal RST LOS, Abdominal ARZ LOS, Abdominal FLA LOS, Abdomen, Other N/A Digital Radiography Impressions 10/15/2024 2:27 PM CDT No fluoroscopic abnormality involving the esophagus, stomach, duodenum, jejunum, or ileum is identified. Note is made that this exam is interpreted without the benefit of real-time fluoroscopy. Narrative 10/15/2024 2:27 PM CDT EXAM: INTERPRETATION OF OUTSIDE FL GI Outside fluoroscopic upper GI with small bowel follow-through study performed 10/10/2024. 163 images in 13 series are submitted for review. FINDINGS: Exam is interpreted without the benefit of real-time fluoroscopy or the outside radiologist's report. No esophageal abnormality is identified. No abnormality seen involving the stomach or duodenum. No abnormal dilation of the small bowel. No small bowel abnormality is identified. Procedure Note Freddy Medellin M.D., Ph.D. - 10/15/2024 EXAM: INTERPRETATION OF OUTSIDE FL GI Outside fluoroscopic upper GI with small bowel follow-through studyperformed 10/10/2024. 163 images in 13 series are submitted for review. FINDINGS: Exam is interpreted without the benefit of real-time fluoroscopyor the outside radiologist's report. No esophageal abnormality is identified. No abnormality seen involving thestomach or duodenum. No abnormal dilation of the small bowel. No smallbowel abnormality is identified. IMPRESSION: No fluoroscopic abnormality involving the esophagus, stomach, duodenum,jejunum, or ileum is identified. Note is made that this exam isinterpreted without the benefit of real-time fluoroscopy. Fabiano Taylor P.A.-C. IMG FLUOROSCOPY PROCEDUR ES Final Result * CT Abdomen Pelvis with IV Contrast (10/15/2024 8:01 AM CDT) Anatomical Region Laterality Modality Abdomen, Pelvis, Abdominal R ST LOS, Abdominal ARZ LOS, Abdominal FLA LOS N/A Computed Tomograp hy, Computed Tomography 10/15/2024 7:59 AM CDT Impressions 10/15/2024 8:16 AM CDT 1. 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 Appearance is nonspecific. Differential includes short segment dissection although an intraluminal flap is not visualized, IgG4 although no involvement is seen of the aorta, or possibly median arcuate ligament compression however, the classic findings are not seen on the sagittal imaging. Recommend vascular consultation. 2. Several peripheral irregular hypodensities within the liver are indeterminate but suspicious for splenic infarcts. Narrative 10/15/2024 8:16 AM CDT EXAM: CT ABDOMEN PELVIS WITH IV CONTRAST COMPARISON: None available FINDINGS: There is marked narrowing at the origin of the celiac axis as (series 3 image 43 and series 5 image 73) with some mild associated soft tissue thickening. No specific intraluminal flap is visualized. Several peripheral irregular hypodensities within the liver are suspicious for splenic infarcts. The splenic artery and splenic vein are patent. No evidence of infarct involving the other solid organs. Abdomen and pelvis otherwise negative. Procedure Note Jael Kyle M.D. - 10/15/2024 EXAM: CT ABDOMEN PELVIS WITH IV CONTRAST COMPARISON: None available FINDINGS: There is marked narrowing at the origin of the celiac axis as(series 3 image 43 and series 5 image 73) with some mild associated softtissue thickening. No specific intraluminal flap is visualized. Several peripheral irregular hypodensities within the liver are suspiciousfor splenic infarcts. The splenic artery and splenic vein are patent. No evidence of infarct involving the other solid organs. Abdomen andpelvis otherwise negative. IMPRESSION: 1. Marked narrowing at the origin of the celiac axis with some mildassociated soft tissue thickening. Appearance is nonspecific. Differentialincludes short segment dissection although an intraluminal flap is notvisualized, IgG4 although no involvement is seen of the aorta, or possibly median arcuate ligament compressionhowever, the classic findings are not seen on the sagittal imaging.Recommend vascular consultation. 2. Several peripheral irregular hypodensities within the liver areindeterminate but suspicious for splenic infarcts. Fabiano Taylor P.A.-C. IMG CT PROCEDURES Final Result * (ABNORMAL) CRP (C-Reactive Protein) (10/15/2024 6:03 AM CDT) Pathologist [facility] C-Reactive Protein (CRP), S 117.9(H) <5.0 mg/L 10/15/2024 7:43 AM CDT DTL Blood (Blood, Venous) 10/15/2024 6:03 AM CDT 10/15/2024 7:24 AM CDT Michael Wells P.A.-C. LAB BLOOD ADD-ON Final Re sult Performing Organization Address City/[facility]/ZIP Co de Phone Number [facility] [address] DTL [facility] [address] [place] [address] * Lactate, B (10/15/2024 6:03 AM CDT) [facility] Lactate, B 0.9 0.5 - 2.2 mmol/L 10/15/2024 6:23 AM CDT [facility] Blood (Blood, Venous) 10/15/2024 6:03 AM CDT 10/15/2024 6:21 AM CDT Martir Deleon APRN, C.N.P. LAB BLOOD NON ADD -ON Final Result [facility] [address] STMA [facility] [address] [place] [address] * (ABNORMAL) Lipase (10/15/2024 6:03 AM CDT) Lipase, S 88(H) 13 - 60 U/L 10/15/2024 7: 08 AM CDT DTL Blood (Blood, Venous) 10/15/2024 6:03 AM CDT 10/15/2024 6:50 AM CDT Martir Deleon APRN, C.N.P. LAB BLOOD ADD-ON Final Result Performing Organization Address City/State/[facility] Co de Phone Number [facility] [address] [place] [address], [facility] DTL [facility] [address] [place] [address] * (ABNORMAL) Hepatic Function Panel (10/15/2024 6:03 AM CDT) Bilirubin, Total, S 0.4 0.0 - 1.2 mg/dL 10/15/2024 7:08 AM CDT DTL Bilirubin, Direct, S <0.2 0.0 - 0.3 mg/dL 10/15/2024 7:08 AM CDT DTL Aspartate Aminotransferase (AST), S 58(H) 8 - 48 U/L 10/15/2024 7:08 AM CDT DTL Alanine Aminotransferase (ALT), S 107(H) 7 - 55 U/L 10/15/2024 11:16 AM CDT DTL Alkaline Phosphatase, S 280(H) 40 - 129 U/L 10/15/2024 7:08 AM CDT DTL Albumin, S 3.7 3.5 - 5.0 g/dL 10/15/2024 7:08 AM CDT DTL Protein, Total, S 6.7 6.3 - 7.9 g/dL 10/15/2024 7:08 AM CDT DTL Blood (Blood, Venous) 10/15/2024 6:03 AM CDT 10/15/2024 6:50 AM CDT Martir Deleon APRN, C.N.P. LAB BLOOD ADD-ON Final Result [facility] [address] [place] [address], [facility] DTL [facility] [address] [place] [address] * (ABNORMAL) Basic Metabolic Panel (10/15/2024 6:03 AM CDT) Potassium, P 4.1 3.6 - 5.2 mmol/L 10/15/2024 6:41 AM CDT ST[facility] Sodium, P 136 135 - 145 mmol/L 10/15/2024 6:41 AM CDT STMA Chloride, P 99 98 - 107 mmol/L 10/15/2024 6:41 AM CDT STMA Bicarbonate, P 23 22 - 29 mmol/L 10/15/2024 6:41 AM CDT STMA Anion Gap, P 14 7 - 15 10/15/2024 6:41 AM CDT [facility] BUN (Blood Urea Nitrogen), P 12 8 - 24 mg/dL 10/15/2024 6:41 AM CDT ST[facility] Creatinine 0.69(L) 0.74 - 1.35 mg/dL 10/15/2024 6:41 AM CDT [facility] Estimated GFR (eGFR) >90 >=60 mL/min/BSA 10/15/2024 6:41 AM CDT STMA Comment: Estimated GFR calculated using the 2020 CKD_EPI creatinine equation. Calcium, Total, P 9.4 8.6 - 10.0 mg/dL 10/15/2024 6:41 AM CDT STMA Glucose, P 113 70 - 140 mg/dL 10/15/2024 6:41 AM CDT [facility] Blood (Blood, Venous) 10/15/2024 6:03 AM CDT 10/15/2024 6:21 AM CDT us Martir Deleon APRN, C.N.P. LAB BLOOD ADD-ON Final Result [facility] [address] [place] [address], [place] STMA [facility] [address] [place] [address] * (ABNORMAL) CBC with Differential, Blood (10/15/2024 6:03 AM CDT) [facility] Hemoglobin 16.3 13.2 - 16.6 g/dL 10/15/2024 6:23 AM CDT [facility] Hematocrit 46.4 38.3 - 48.6 % 10/15/2024 6:23 AM CDT [facility] Erythrocytes 5.53 4.35 - 5.65 x10(12)/L 10/15/2024 6:23 AM CDT [facility] MCV 83.9 78.2 - 97.9 fL 10/15/2024 6:23 AM CDT [facility] RBC Distrib Width 12.0 11.8 - 14.5 % 10/15/2024 6:23 AM CDT [facility] Platelet Count 567(H) 135 - 317 x10(9)/L 10/15/2024 6:23 AM CDT [facility] Leukocytes 14.2(H) 3.4 - 9.6 x10(9)/L 10/15/2024 6:23 AM CDT [facility] Neutrophils 11.52(H) 1.56 - 6.45 x10(9)/L 10/15/2024 6:23 AM CDT [facility] Lymphocytes 1.19 0.95 - 3.07 x10(9)/L 10/15/2024 6:23 AM CDT [facility] Monocytes 1.38(H) 0.26 - 0.81 x10(9)/L 10/15/2024 6:23 AM CDT [facility] Eosinophils 0.06 0.03 - 0.48 x10(9)/L 10/15/2024 6:23 AM CDT [facility] Basophils 0.04 0.01 - 0.08 x10(9)/L 10/15/2024 6:23 AM CDT [facility] Blood (Blood, Venous) 10/15/2024 6:03 AM CDT 10/15/2024 6:21 AM CDT us Martir Deleon APRN, C.N.P. LAB BLOOD ADD-ON Final Result [facility] [address] [place] [address], [facility] STMA [facility] [address] [place] [address] DHPM [facility] [address] [place] [address] * (ABNORMAL) Sedimentation Rate (10/15/2024 6:02 AM CDT) Sedimentation Rate, B 38(H) 2 - 12 mm/h 10/15/2024 8:05 AM CDT DTL Blood (Blood, Venous) 10/15/2024 6:02 AM CDT 10/15/2024 7:22 AM CDT Michael Wells P.A.-C. LAB BLOOD ADD-ON Final Re sult [address] [address], [facility] DTL [facility] [address] [place] [address] documented in this encounter Visit Diagnoses Diagnosis Abdominal Pain- Primary Abdominal Pain Leukocytosis Abnormal C Reactive Protein Elevated Sedimentation Rate Abnormal Liver Function Test Abnormal Pancreatic Enzyme Thrombocytosis Unspecified Rash Leg Myalgia Arthralgia Loss Weight Abnormal Anorexia Vasculitis Vasculitis documented in this encounter Admitting Diagnoses Diagnosis Abdominal Pain documented in this encounter Administered Medications Inactive Administered Medications - up to 3 most recent administrations Medication Order MAR Action Action Date Dose Rate Site acetaminophen tablet 650 mg (TylenoL) 650 mg, oral, Every 6 hours PRN, mild pain or score 1-3 of 10, moderate pain or score 4-6 of 10, Starting on 10/15/24 at 1535 Given 10/16/2024 10:38 AM CDT 650 mg Given 10/15/2024 4:45 PM CDT 650 mg acetaminophen tablet 650 mg (TylenoL) 650 mg, oral, Every 6 hours, First dose (after last modification) on Tu10/16/24 at 1630 Given 10/17/2024 10:20 PM CDT 650 mg Given 10/17/2024 4:49 PM CDT 650 mg Given 10/17/2024 10:07 AM CDT 650 mg lufndnwsrbycl-iyuqocmlkj-yyoviajc in Lipoderm 2%-5%-5% cream 1 g 1 g, topical, 2 times daily, First dose on Tue10/15/24 at 1600, Apply to abdomen Given 10/17/2024 10:20 PM CDT 1 g Given 10/17/2024 9:09 AM CDT 1 g Given 10/16/2024 9:53 PM CDT 1 g enoxaparin injection 40 mg (Lovenox) 40 mg, subcutaneous, Every 24 hours scheduled, First dose on Tue10/15/24 at 1315 Given 10/17/2024 9:08 AM CDT 40 mg Left Upper Arm (Back ) Given 10/16/2024 9:21 AM CDT 40 mg Le ft Upper Arm (Back) Given 10/15/2024 2:37 PM CDT 40 mg Le ft Lower Abdomen famotidine tablet 20 mg (Pepcid) 20 mg, oral, Once, On Tue10/15/24 at 0900, For 1 dose, Drug Monitoring Program: Pharmacist to adjust medication dosing based on indication and drug clearance factors. Given 10/15/2024 9:20 AM CDT 20 mg fentaNYL injection 75 mcg (Sublimaze) 75 mcg, intravenous, Once, On Tue10/15/24 at 0706, For 1 dose Given 10/15/2024 7:32 AM CDT 75 mcg HYDROmorphone (PF) injection 0.2 mg (Dilaudid) 0.2 mg, intravenous, Every 4 hours PRN, severe pain or score 7-10 of 10, Starting on Tue10/16/24 at 1157 HYDROmorphone tablet 2 mg (Dilaudid) 2 mg, oral, Every 4 hours PRN, severe pain or score 7-10 of 10, Starting on Tue10/15/24 at 1648, Does patient have renal impairment, frailty, or advanced age (avoid morphine) and unable to take oxycodone? No, Did the patient fail other oral opioids during hospitalization? Yes, Does the patient have documented allergies to oxycodone and/or morphine? No, Is the patient on hydromorphone chronically for pain? No Given 10/16/2024 10:38 AM CDT 2 mg Given 10/16/2024 5:54 AM CDT 2 mg Given 10/16/2024 1:40 AM CDT 2 mg HYDROmorphone tablet 2 mg (Dilaudid) 2 mg, oral, Every 4 hours PRN, severe pain or score 7-10 of 10, moderate pain or score 4-6 of 10, Starting on Tue10/16/24 at 1152, Does patient have renal impairment, frailty, or advanced age (avoid morphine) and unable to take oxycodone? No, Did the patient fail other oral opioids during hospitalization? Yes, Does the patient have documented allergies to oxycodone and/or morphine? No, Is the patient on hydromorphone chronically for pain? No Given 10/17/2024 5:22 AM CDT 2 mg iohexoL 300 mg iodine/mL solution 1-200 mL (Omnipaque) 1-200 mL, intravenous, Once in imaging, contrast, Starting on Tue10/15/24 at 0752, For 1 dose, Imaging Protocol Orders, Dose per [facility] Medication Guidelines Given 10/15/2024 7:54 AM CDT 140 mL iopromide 370 mg iodine/mL injection 1-162 mL (Ultravist) 1-162 mL, intravenous, Once in imaging, contrast, Starting on Tue10/16/24 at 1746, For 1 dose, Imaging Protocol Orders, Dose per [facility] Medication Guidelines Given 10/16/2024 5:47 PM CDT 100 mL ketorolac injection 15 mg (ToradoL) 15 mg, intravenous, Once, On Tue10/15/24 at 0900, For 1 dose, Adult IV push rate: Over 15 seconds. Peds IV push rate: Over 1 minute. Doses > 15 mg IV/IM are discouraged due to lack of additional analgesic benefit. Given 10/15/2024 9:22 AM CDT 15 mg Lactated Ringers Fixed Rate 125 mL/hr, intravenous, Continuous, Starting on Tue10/15/24 at 0907 New Bag 10/16/2024 1:40 AM CDT 125 mL/hr 125 mL/hr New Bag 10/15/2024 9:14 AM CDT 125 mL/hr 125 mL/hr lidocaine 5 % 1 patch (Lidoderm) 1 patch, transdermal, Administer over 12 Hours, Daily, First dose on Tue10/15/24 at 1600, Apply to abdomen for pain Apply to intact skin for a maximum of 12 hours in a 24-hour period. Medication Applied 10/17/2024 9:09 AM CDT 1 patch Left Upper Abdomen Medication Applied 10/16/2024 9:21 AM CDT 1 patch Right Lower Abdomen Medication Applied 10/15/2024 4:45 PM CDT 1 patch Left Lower Abdomen lidocaine viscous 2 % 15 mL, alum-mag hydroxide-simeth 30 mL suspension 45 mL, oral, 3 times daily PRN, For abdominal pain and nausea, Starting on Tue10/15/24 at 1626, Mix ingredients prior to administration methylPREDNISolone sod succinate (PF) injection 100 mg (SOLU-MedroL) 100 mg, intravenous, Every 24 hours, First dose on Tue10/16/24 at 0900, For 3 doses, Activate vial to a final concentration of 62.5 mg/mL Given 10/18/2024 8:37 AM CDT 100 mg Given 10/17/2024 9:09 AM CDT 100 mg Given 10/16/2024 9:21 AM CDT 100 mg metoclopramide injection 10 mg (Reglan) 10 mg, intravenous, Once, On Tue10/15/24 at 0706, For 1 dose Given 10/15/2024 7:30 AM CDT 10 mg NaCl 0.9 % bolus 1,000 mL 1,000 mL, intravenous, at 1,000 mL/hr, Administer over 1 Hours, Once, On Tue10/15/24 at 0714, For 1 dose New Bag 10/15/2024 7:39 AM CDT 1,000 mL 1000 mL/hr ondansetron (PF) injection 4 mg (Zofran) 4 mg, intravenous, Every 6 hours PRN, nausea, vomiting, Starting on Tue10/15/24 at 1251 Given 10/16/2024 5:52 AM CDT [address] tablet 40 mg (Protonix) 40 mg, oral, Once, On Tue10/15/24 at 0900, For 1 dose, pantoprazole 40 mg oral once was interchanged for omeprazole 20 or 40 mg oral once Swallow whole. Do NOT crush, chew, or split tablet. Given 10/15/2024 9:20 AM CDT [address] tablet 40 mg (Protonix) 40 mg, oral, Daily before morning meal, First dose on Tue10/18/24 at 0700, Swallow whole. Do NOT crush, chew, or split tablet. Given 10/18/2024 6:49 AM CDT 40 mg predniSONE tablet 10 mg (Deltasone) 10 mg, oral, Daily, First dose on Tue11/18/24 at 0900, For 5 days predniSONE tablet 15 mg (Deltasone) 15 mg, oral, Daily, First dose on Tue11/13/24 at 0900, For 5 days predniSONE tablet 20 mg (Deltasone) 20 mg, oral, Daily, First dose on Tue11/08/24 at 0900, For 5 days predniSONE tablet 25 mg (Deltasone) 25 mg, oral, Daily, First dose on Tue11/03/24 at 0900, For 5 days predniSONE tablet 30 mg (Deltasone) 30 mg, oral, Daily, First dose on Tue10/29/24 at 0900, For 5 days predniSONE tablet 40 mg (Deltasone) 40 mg, oral, Daily, First dose on Tue10/24/24 at 0900, For 5 days predniSONE tablet 5 mg (Deltasone) 5 mg, oral, Daily, First dose on Tue11/23/24 at 0900, For 5 days predniSONE tablet 60 mg (Deltasone) 60 mg, oral, Daily, First dose on Tue10/19/24 at 0900, For 5 days sodium chloride (PF) 0.9 % injection 1-100 mL 1-100 mL, intravenous, Once, On Tue10/15/24 at 0753, For 1 dose, Imaging Protocol Orders, Dose per [facility] Medication Guidelines Given 10/15/2024 7:54 AM CDT 48 mL sodium chloride (PF) 0.9 % injection 1-100 mL 1-100 mL, intravenous, Once, On Tue10/16/24 at 1815, For 1 dose, Imaging Protocol Orders, Dose per [facility]iant Medication Guidelines Given 10/16/2024 5:47 PM CDT 50 mL sodium chloride 0.9 % injection 3 mL 3 mL, intravenous, Every 12 hours scheduled, First dose on Tue10/15/24 at 2100, Peripheral Intravenous Catheter and Rapid Infusion Catheter, when no infusion to maintain patency Given 10/18/2024 8:38 AM CDT 3 mL Given 10/17/2024 9:09 AM CDT 3 mL Given 10/16/2024 9:53 PM CDT 3 mL sulfamethoxazole-trimethoprim 800-160 mg per tablet 1 tablet (Bactrim DS) 1 tablet, oral, Daily, First dose on Tue10/18/24 at 0900, Drug Monitoring Program: Pharmacist to adjust medication dosing based on indication and drug clearance factors., Indications: Prophylaxis, medicalIndications:Prophylaxis, medical Given 10/18/2024 8:37 AM CDT 1 ta blet documented in this encounter Active and Recently Administered Medications Times are shown in CDT. Scheduled Medication Order 10/16/2024 10/17/2024 10/18/2024 acetaminophen tablet 650 mg (TylenoL) 650 mg, oral, Every 6 hours, First dose (after last modification) on Tue10/16/24 at 1630 1617 (Given - Provider: Jessa Boyer RAndi)2152 (Given - Provider: Julissa Valdez RSusanneNSusanne) 0514 (Given - Provider: Maryann Christensen R.N.)1007 (Given - Provider: Melody Park R.N.)1649 (Given - Provider: Melody Park R.N.)2220 (Given - Provider: Maryann Christensen R.N.) 0511 (Not Given - Provider: Maryann Christensen R.N. - Reason: Patient/family refused)1051 (Not Given - Provider: Marvin Majano RSusanneNSusanne - Reason: Patient/family refused) amitriptyline-gabapenti n-ketamine in Lipoderm 2%-5%-5% cream 1 g 1 g, topical, 2 times daily, First dose on Tue10/15/24 at 1600, Apply to abdomen 0921 (Given - Provider: Jessa Boyer RAndi)2153 (Given - Provider: Julissa Valdez RSusanneNSusanne) 0909 (Given - Provider: Melody Park R.N.)2220 (Given - Provider: Maryann Christensen R.N.) 0839 (Not Given - Provider: Josefa Larson - Reason: Patient/family refused) enoxaparin injection 40 mg (Lovenox) 40 mg, subcutaneous, Every 24 hours scheduled, First dose on Tue10/15/24 at 1315 0921 (Given - Provider: Jessa Boyer R.N.) 0908 (Given - Provider: Melody Park R.N.) 0838 (Not Given - Provider: Josefa Larson - Reason: Patient/family refused) lidocaine 5 % 1 patch (Lidoderm) 1 patch, transdermal, Administer over 12 Hours, Daily, First dose on Tue10/15/24 at 1600, Apply to abdomen for pain Apply to intact skin for a maximum of 12 hours in a 24-hour period. 0410 (Medication Removed - Provider: Rupinder Sanders R.N.)0921 (Medication Applied - Provider: Jessa Boyer R.N.)2219 (Medication Removed - Provider: Julissa Valdez R.N.) 0909 (Medication Applied - Provider: Melody Park R.N.)2224 (Medication Removed - Provider: Maryann Christensen R.N.) 0839 (Return to Cabinet - Provider: Josefa Larson) methylPREDNISolone sod succinate (PF) injection 100 mg (SOLU-MedroL) (COMPLETED) 100 mg, intravenous, Every 24 hours, First dose on Tue10/16/24 at 0900, For 3 doses, Activate vial to a final concentration of 62.5 mg/mL 0921 (Given - Provider: Jessa Boyer R.N.) 09 (Given - Provider: Melody Park R.N.) 0837 (Given - Provider: Josefa Larson) pantoprazole DR tablet 40 mg (Protonix) 40 mg, oral, Daily before morning meal, First dose on Tue10/18/24 at 0700, Swallow whole. Do NOT crush, chew, or split tablet. 0649 (Given - Provid er: Maryann Christensen R.N.) predniSONE tablet 10 mg (Deltasone)(Linked Group 1) 10 mg, oral, Daily, First dose on Tue11/18/24 at 0900, For 5 days predniSONE tablet 15 mg (Deltasone)(Linked Group 1) 15 mg, oral, Daily, First dose on Tue11/13/24 at 0900, For 5 days predniSONE tablet 20 mg (Deltasone)(Linked Group 1) 20 mg, oral, Daily, First dose on Miguelina 11/08/24 at 0900, For 5 days predniSONE tablet 25 mg (Deltasone)(Linked Group 1) 25 mg, oral, Daily, First dose on Tue11/03/24 at 0900, For 5 days predniSONE tablet 30 mg (Deltasone)(Linked Group 1) 30 mg, oral, Daily, First dose on 10/29/24 at 0900, For 5 days predniSONE tablet 40 mg (Deltasone)(Linked Group 1) 40 mg, oral, Daily, First dose on Tue10/24/24 at 0900, For 5 days predniSONE tablet 5 mg (Deltasone)(Linked Group 1) 5 mg, oral, Daily, First dose on Tue11/23/24 at 0900, For 5 days predniSONE tablet 60 mg (Deltasone)(Linked Group 1) 60 mg, oral, Daily, First dose on Tue10/19/24 at 0900, For 5 days sodium chloride (PF) 0.9 % injection 1-100 mL (COMPLETED) 1-100 mL, intravenous, Once, On Tue10/16/24 at 1815, For 1 dose, Imaging Protocol Orders, Dose per [place] Medication Guidelines 1747 (Given - Provider: Eneida Riley, R.N.) sodium chloride 0.9 % injection 3 mL 3 mL, intravenous, Every 12 hours scheduled, First dose on Tue10/15/24 at 2100, Peripheral Intravenous Catheter and Rapid Infusion Catheter, when no infusion to maintain patency 0922 (Given - Provider: Jessa Boyer R.N.)2153 (Given - Provider: Julissa Valdez, R.N.) 0909 (Given - Provider: Melody Park R.N.)2227 (Canceled Entry - Provider: Maryann Christensen R.N.) 0838 (Given - Provider: Josefa Larson) sulfamethoxazole-trimet hoprim 800-160 mg per tablet 1 tablet (Bactrim DS) 1 tablet, oral, Daily, First dose on Tue10/18/24 at 0900, Drug Monitoring Program: Pharmacist to adjust medication dosing based on indication and drug clearance factors., Indications: Prophylaxis, medical 0837 (Given - Provid er: Josefa Larson) Continuous Medication Order 10/16/2024 10/17/2024 10/18/2024 Lactated Ringers Fixed Rate (CANCELED) 125 mL/hr, intravenous, Continuous, Starting on Tue10/15/24 at 0907 0140 (New Bag - Provider: Rupinder Sanders R.N.)0528 (Stopped - Provider: Rupinder Sanders R.N.) PRN Medication Order 10/16/2024 10/17/2024 10/18/2024 acetaminophen tablet 650 mg (TylenoL) (CANCELED) 650 mg, oral, Every 6 hours PRN, mild pain or score 1-3 of 10, moderate pain or score 4-6 of 10, Starting on Tue10/15/24 at 1535 1038 (Given - Provider: Jessa Boyer R.N.) HYDROmorphone (PF) injection 0.2 mg (Dilaudid) 0.2 mg, intravenous, Every 4 hours PRN, severe pain or score 7-10 of 10, Starting on Tue10/16/24 at 1157 HYDROmorphone tablet 2 mg (Dilaudid) (CANCELED) 2 mg, oral, Every 4 hours PRN, severe pain or score 7-10 of 10, Starting on Tue10/15/24 at 1648, Does patient have renal impairment, frailty, or advanced age (avoid morphine) and unable to take oxycodone? No, Did the patient fail other oral opioids during hospitalization? Yes, Does the patient have documented allergies to oxycodone and/or morphine? No, Is the patient on hydromorphone chronically for pain? No 0140 (Given - Provider: Rupinder Sanders R.N.)0554 (Given - Provider: Rupinder Sanders R.N.)1038 (Given - Provider: Jessa Boyer R.N.) HYDROmorphone tablet 2 mg (Dilaudid) 2 mg, oral, Every 4 hours PRN, severe pain or score 7-10 of 10, moderate pain or score 4-6 of 10, Starting on Tue10/16/24 at 1152, Does patient have renal impairment, frailty, or advanced age (avoid morphine) and unable to take oxycodone? No, Did the patient fail other oral opioids during hospitalization? Yes, Does the patient have documented allergies to oxycodone and/or morphine? No, Is the patient on hydromorphone chronically for pain? No 1631 (Return to Cabinet - Provider: Melody Park RSusanneN.) 0522 (Given - Provider: Maryann Christensen RSusanneN.) iopromide 370 mg iodine/mL injection 1-162 mL (Ultravist) (COMPLETED) 1-162 mL, intravenous, Once in imaging, contrast, Starting on Tue10/16/24 at 1746, For 1 dose, Imaging Protocol Orders, Dose per [facility] Medication Guidelines 1747 (Given - Provider: Eneida Riley RSusanneN.) lidocaine viscous 2 % 15 mL, alum-mag hydroxide-simeth 30 mL suspension 45 mL, oral, 3 times daily PRN, For abdominal pain and nausea, Starting on Tue10/15/24 at 1626, Mix ingredients prior to administration ondansetron (PF) injection 4 mg (Zofran) 4 mg, intravenous, Every 6 hours PRN, nausea, vomiting, Starting on Tue10/15/24 at 1251 0552 (Given - Provider: Rupinder Sanders RSusanneNSusanne) polyethylene glycol powder packet 17 g (Miralax) 17 g, oral, Daily PRN, constipation, Starting on Tue10/15/24 at 1250, Ordered sequence of administration: polyethylene glycol, then bisacodyl until BM achieved. Avoid mixing with starch-based thickened liquids. sodium chloride 0.9 % injection 10 mL 10 mL, intravenous, As needed, line care, Starting on Tue10/15/24 at 1250, Peripheral Intravenous Catheter and Rapid Infusion Catheter, prior to blood sampling, post blood transfusion or post blood sampling sodium chloride 0.9 % injection 3 mL 3 mL, intravenous, As needed, line care, Starting on Tue10/15/24 at 1250, Prior to and following infusion and between multiple consecutive infusions: sodium chloride 0.9 % injection Linked Groups Order Group 1: predniSONE tablet 60 mg (Deltasone)Jump to med 60 mg, oral, Daily, First dose on Tue10/19/24 at 0900, For 5 days Followed by predniSONE tablet 40 mg (Deltasone)Jump to med 40 mg, oral, Daily, First dose on Tue10/24/24 at 0900, For 5 days Followed by predniSONE tablet 30 mg (Deltasone)Jump to med 30 mg, oral, Daily, First dose on 10/29/24 at 0900, For 5 days Followed by predniSONE tablet 25 mg (Deltasone)Jump to med 25 mg, oral, Daily, First dose on 11/03/24 at 0900, For 5 days Followed by predniSONE tablet 20 mg (Deltasone)Jump to med 20 mg, oral, Daily, First dose on Miguelina 11/08/24 at 0900, For 5 days Followed by predniSONE tablet 15 mg (Deltasone)Jump to med 15 mg, oral, Daily, First dose on Tu11/13/24 at 0900, For 5 days Followed by predniSONE tablet 10 mg (Deltasone)Jump to med 10 mg, oral, Daily, First dose on Tue11/18/24 at 0900, For 5 days Followed by predniSONE tablet 5 mg (Deltasone)Jump to med 5 mg, oral, Daily, First dose on Tue11/23/24 at 0900, For 5 days documented in this encounter Care Teams Show Worker Relationship Specialty Start Date End Date None Reported, Pcp PCP - General Family Medicine 10/15/24 documented as of this encounter
--- OUTSIDE RECORDS SUMMARY | 2024-10-15 06:50 | XMS_ITS | Encounter Summary ---
Author Organization [facility] Address [address] [place] [address] Care Team Providers Care E Commerce Project Manager Name Role Phone None Reported, Pcp Primary Care Provider Unavail able Encounter Details Date Type Department Care Team (Late st Contact Info) Description 10/15/2024 6:50 AM CDT Ancillary Procedure Department of Emergency Medicine Social History Tobacco Use Types Packs/Day Years Used Date Smoking Tobacco: Never Passive Smoke Exposure: Never Smokeless Tobacco: Never Alcohol Use Standard Drinks/Week Comments Yes 0 (1 standard drink = 0.6 oz pur e alcohol) few times a year [facility] Utilities Answer Date Recorded In the past 12 months has [employer], gas, oil, or water [employer] threatened to shut off services in your [...] Date Recorded Dental: Regular Dentist Unknown 10/16/19 25 Housing Stability Answer Date Recorded What is [...] on file documented as of this encounter Plan of Treatment Upcoming Encounters Date Type Department Care Team (Late st Contact Info) Description 11/16/2024 11:00 AM CDT Office Visit Department of Dermatology in [place], [place] [address] [place] [address] Reece Ross M.D. [address] [place] [address] 11/30/2024 4:00 PM CDT Appointment Department of Laboratory Medicine in [address] [phone] Sacha Vidal M.D. 200 [place] [address] 11/30/2024 4:10 PM CDT Appointment Department of Laboratory Medicine in [address] [phone] Sacha Vidal M.D. [address] [place] [phone] 01/04/2025 4:00 PM CDT Appointment Department of Laboratory Medicine in [address] [phone] Sacha Vidal M.D. [address] [place] [phone] 01/04/2025 4:10 PM CDT Appointment Department of Laboratory Medicine in [address] [address] Sacha Vidal M.D. [address] [place] [phone] 02/01/2025 4:00 PM CDT Appointment Department of Laboratory Medicine in [address] [phone] Sacha Vidal M.D. [address] [place] [phone] 02/01/2025 4:10 PM CDT Appointment Department of Laboratory Medicine in [address] [address] Sacha Vidal M.D. [address] [place] [phone] 03/01/2025 3:40 PM CDT Appointment Department of Laboratory Medicine in [address] [phone] Sacha Vidal M.D. [address] [place] [phone] 03/01/2025 3:50 PM CDT Appointment Department of Laboratory Medicine in [address] [address] Sacha Vidal M.D. [address] [place] [phone] 04/05/2025 4:00 PM CDT Appointment Department of Laboratory Medicine in [address] [address] Sacha Vidal M.D. [address] [place] [phone] 04/05/2025 4:10 PM CDT Appointment Department of Laboratory Medicine in [address] [address] Sacha Viadl M.D. [address] [place] [phone] documented as of this encounter Procedures Procedure Name Priority Date/Time Associated Diagnosis Comments EMERGENCY MEDICINE IMAGE EXAM Routine 10/15/2024 6:50 AM CDT documented in this encounter Results * Unspecified-Emergency Medicine Image Exam (10/15/2024 6:50 AM CDT) 10/15/2024 6:48 AM CDT Narrative IIMS - 10/15/2024 6:50 AM CDT This order has been created and auto-finalized to support the import of images acquired without order. The clinical documentation to support these images can be found on the encounter that produced images. us Provider Not In System IMG NON RAD IMAGING PROCE DURES Final Result [facility]IMS NA documented in this encounter Visit Diagnoses Not on filedocumented in this encounter Care Teams E Commerce Project Manager Relationship Specialty Start Date End Date None Reported, Pcp PCP - General Family Medicine 10/15/24 documented as of this encounter
--- OUTSIDE RECORDS SUMMARY | 2024-10-15 06:55 | XMS_ITS | Encounter Summary ---
Author Organization [facility] Address [address] [place] [address] Care Team Providers Care Family Independence Case Manager Name Role Phone None Reported, Pcp Primary Care Provider Unavail able Encounter Details Date Type Department Care Team (Late st Contact Info) Description 10/15/2024 6:55 AM CDT Ancillary Procedure Department of Emergency Medicine Social History Tobacco Use Types Packs/Day Years Used Date Smoking Tobacco: Never Passive Smoke Exposure: Never Smokeless Tobacco: Never Alcohol Use Standard Drinks/Week Comments Yes 0 (1 standard drink = 0.6 oz pur e alcohol) few times a year [facility] Utilities Answer Date Recorded In the past 12 months has [employer] gas, oil, or water [employer] threatened to shut off services in your [...] CDT Office Visit Department of Dermatology in [place], [place] [address] [place] [address] Reece Ross M.D. 200 [place] [address] 11/30/2024 4:00 PM CDT Appointment Department of Laboratory Medicine in [address] [phone] Sacha Vidal M.D. 200 [place] [address] 11/30/2024 4:10 PM CDT Appointment Department of Laboratory Medicine in [address] [address] Sacha Vidal M.D. [address] [place] [phone] 01/04/2025 4:00 PM CDT Appointment Department of Laboratory Medicine in [address] [address] Sacha Vidal M.D. [address] [place] [phone] 01/04/2025 4:10 PM CDT Appointment Department of Laboratory Medicine in [address] [address] Sacha Vidal M.D. [address] [place] [phone] 02/01/2025 4:00 PM CDT Appointment Department of Laboratory Medicine in [address] [address] Sacha Vidal M.D. [address] [place] [phone] 02/01/2025 4:10 PM CDT Appointment Department of Laboratory Medicine in [address] [address] Sacha Vidal M.D. [address] [place] [phone] 03/01/2025 3:40 PM CDT Appointment Department of Laboratory Medicine in [address] [address] Sacha Vidal M.D. [address] [place] [phone] 03/01/2025 3:50 PM CDT Appointment Department of Laboratory Medicine in [address] [address] Sacha Vidal M.D. [address] [place] [phone] 04/05/2025 4:00 PM CDT Appointment Department of Laboratory Medicine in [address] [address] Sacha Vidal M.D. [address] [place] [phone] 04/05/2025 4:10 PM CDT Appointment Department of Laboratory Medicine in [address] [address] Sacha Vidal M.D. [address] [place] [phone] documented as of this encounter Procedures Procedure Name Priority Date/Time Associated Diagnosis Comments EMERGENCY MEDICINE IMAGE EXAM Routine 10/15/2024 6:51 AM CDT documented in this encounter Results * Foot-Emergency Medicine Image Exam (10/15/2024 6:51 AM CDT) 10/15/2024 6:48 AM CDT Narrative IIMS - 10/15/2024 6:51 AM CDT This order has been created and auto-finalized to support the import of images acquired without order. The clinical documentation to support these images can be found on the encounter that produced images. us Provider Not In System IMG NON RAD IMAGING PROCE DURES Final Result IIMS NA documented in this encounter Visit Diagnoses Not on filedocumented in this encounter Care Teams Family Independence Case Manager Relationship Specialty Start Date End Date None Reported, Pcp PCP - General Family Medicine 10/15/24 documented as of this encounter
--- OUTSIDE RECORDS SUMMARY | 2024-10-15 07:00 | XMS_ITS | Encounter Summary ---
Author Organization [facility] Address [address] [place] [address] Care Team Providers Care Cloth Beamer Name Role Phone None Reported, Pcp Primary Care Provider Unavail able Encounter Details Date Type Department Care Team (Late st Contact Info) Description 10/15/2024 7:00 AM CDT Ancillary Procedure Department of Emergency Medicine Social History Tobacco Use Types Packs/Day Years Used Date Smoking Tobacco: Never Passive Smoke Exposure: Never Smokeless Tobacco: Never Alcohol Use Standard Drinks/Week Comments Yes 0 (1 standard drink = 0.6 oz pur e alcohol) few times a year [facility] Utilities Answer Date Recorded In the past 12 months has [employer], gas, oil, or water [employer] threatened to shut off services in your [...] CDT Office Visit Department of Dermatology in [place], [place] [address] [place] [address] Reece Ross M.D. 200 [place] [address] 11/30/2024 4:00 PM CDT Appointment Department of Laboratory Medicine in [address] [phone] Sacha Vidal M.D. 200 [place] [address] 11/30/2024 4:10 PM CDT Appointment Department of Laboratory Medicine in [address] [address] Sacha Vidal M.D. [address] [place] [phone] 01/04/2025 4:00 PM CDT Appointment Department of Laboratory Medicine in [address] [address] Sacha Vidal M.D. [address] [place] [phone] 01/04/2025 4:10 PM CDT Appointment Department of Laboratory Medicine in [address] [address] Sacha Vidal M.D. [address] [place] [phone] 02/01/2025 4:00 PM CDT Appointment Department of Laboratory Medicine in [address] [address] Sacha Vidal M.D. [address] [place] [phone] 02/01/2025 4:10 PM CDT Appointment Department of Laboratory Medicine in [address] [address] Sacha Vidal M.D. [address] [place] [phone] 03/01/2025 3:40 PM CDT Appointment Department of Laboratory Medicine in [address] [address] Sacha Vidal M.D. [address] [place] [phone] 03/01/2025 3:50 PM CDT Appointment Department of Laboratory Medicine in [address] [address] Sacha Vidal M.D. [address] [place] [phone] 04/05/2025 4:00 PM CDT Appointment Department of Laboratory Medicine in [address] [address] Sacha Vidal M.D. [address] [place] [phone] 04/05/2025 4:10 PM CDT Appointment Department of Laboratory Medicine in [address] [address] Sacha Vidal M.D. [address] [place] [phone] documented as of this encounter Procedures Procedure Name Priority Date/Time Associated Diagnosis Comments EMERGENCY MEDICINE IMAGE EXAM Routine 10/15/2024 6:51 AM CDT documented in this encounter Results * Leg-Emergency Medicine Image Exam (10/15/2024 6:51 AM CDT) [...] on filedocumented in this encounter Care Teams Cloth Beamer Relationship Specialty Start Date End Date None Reported, Pcp PCP - General Family Medicine 10/15/24 documented as of this encounter
--- OUTSIDE RECORDS SUMMARY | 2024-10-15 07:05 | XMS_ITS | Encounter Summary ---
Author Organization [facility] Address [address] [place] [address] Care Team Providers Care Pipe Processor Name Role Phone None Reported, Pcp Primary Care Provider Unavail able Encounter Details Date Type Department Care Team (Late st Contact Info) Description 10/15/2024 7:05 AM CDT Ancillary Procedure Department of Emergency Medicine Social History Tobacco Use Types Packs/Day Years Used Date Smoking Tobacco: Never Passive Smoke Exposure: Never Smokeless Tobacco: Never Alcohol Use Standard Drinks/Week Comments Yes 0 (1 standard drink = 0.6 oz pur e alcohol) few times a year [facility] Utilities Answer Date Recorded In the past 12 months has [employer], gas, oil, or water [employer] threatened to shut off services in your [...] CDT Office Visit Department of Dermatology in [place], [place] [address] [place] [address] Reece Ross M.D. 200 [place] [address] 11/30/2024 4:00 PM CDT Appointment Department of Laboratory Medicine in [address] [phone] Sacha Vidal M.D. 200 [place] [address] 11/30/2024 4:10 PM CDT Appointment Department of Laboratory Medicine in [address] [address] Sacha Vidal M.D. [address] [place] [phone] 01/04/2025 4:00 PM CDT Appointment Department of Laboratory Medicine in [address] [address] Sacha Vidal M.D. [address] [place] [phone] 01/04/2025 4:10 PM CDT Appointment Department of Laboratory Medicine in [address] [address] Sacha Vidal M.D. [address] [place] [phone] 02/01/2025 4:00 PM CDT Appointment Department of Laboratory Medicine in [address] [address] Sacha Vidal M.D. [address] [place] [phone] 02/01/2025 4:10 PM CDT Appointment Department of Laboratory Medicine in [address] [address] Sacha Vidal M.D. [address] [place] [phone] 03/01/2025 3:40 PM CDT Appointment Department of Laboratory Medicine in [address] [address] Sacha Vidal M.D. [address] [place] [phone] 03/01/2025 3:50 PM CDT Appointment Department of Laboratory Medicine in [address] [address] Sacha Vidal M.D. [address] [place] [phone] 04/05/2025 4:00 PM CDT Appointment Department of Laboratory Medicine in [address] [address] Sacha Vidal M.D. [address] [place] [phone] 04/05/2025 4:10 PM CDT Appointment Department of Laboratory Medicine in [address] [address] Sacha Vidal M.D. [address] [place] [phone] documented as of this encounter Procedures Procedure Name Priority Date/Time Associated Diagnosis Comments EMERGENCY MEDICINE IMAGE EXAM Routine 10/15/2024 6:52 AM CDT documented in this encounter Results * Ehtzy-Xzd-Vmdzaames Medicine Image Exam (10/15/2024 6:52 AM CDT) 10/15/2024 6:50 AM CDT Narrative IIMS - 10/15/2024 6:52 AM CDT This order has been created and auto-finalized to support the import of images acquired without order. The clinical documentation to support these images can be found on the encounter that produced images. us Provider Not In System IMG NON RAD IMAGING PROCE DURES Final Result IIMS NA documented in this encounter Visit Diagnoses Not on filedocumented in this encounter Care Teams Pipe Processor Relationship Specialty Start Date End Date None Reported, Pcp PCP - General Family Medicine 10/15/24 documented as of this encounter
--- OUTSIDE RECORDS SUMMARY | 2024-10-15 08:50 | XMS_ITS | Encounter Summary ---
Author Organization [facility] Address [address] [place] [address] Care Team Providers Care Sweatband Cutting Machine Operator Name Role Phone None Reported, Pcp Primary Care Provider Unavail able Encounter Details Date Type Department Care Team (Late st Contact Info) Description 10/15/2024 8:50 AM CDT Ancillary Procedure Department of Radiology in [place], [place] [address] [place] [phone] Fabiano Taylor P.AJulien [address] [place] [phone] Social History Tobacco Use Types Packs/Day Years Used Date Smoking Tobacco: Never Passive Smoke Exposure: Never Smokeless Tobacco: Never Alcohol Use Standard Drinks/Week Comments Yes 0 (1 standard drink = 0.6 oz pur e alcohol) few times a year [facility] Utilities Answer Date Recorded In the past 12 months has e electric, gas, oil, or water company threatened to [...] CDT Office Visit Department of Dermatology in [place], [place] 200 [place] [address] Reece Ross M.D. 200 [place] [address] 11/30/2024 4:00 PM CDT Appointment Department of Laboratory Medicine in [place] [phone] Sacha Vidal M.D. [address] [place] [phone] 11/30/2024 4:10 PM CDT Appointment Department of Laboratory Medicine in [address] [address] Sacha Vidal M.D. [address] [place] [phone] 01/04/2025 4:00 PM CDT Appointment Department of Laboratory Medicine in [address] [address] Sacha Vidal M.D. [address] [place] [phone] 01/04/2025 4:10 PM CDT Appointment Department of Laboratory Medicine in [address] [address] Sacha Vidal M.D. [address] [place] [phone] 02/01/2025 4:00 PM CDT Appointment Department of Laboratory Medicine in [address] [address] Sacha Vidal M.D. [address] [place] [phone] 02/01/2025 4:10 PM CDT Appointment Department of Laboratory Medicine in [address] [address] Sacha Vidal M.D. [address] [place] [phone] 03/01/2025 3:40 PM CDT Appointment Department of Laboratory Medicine in [address] [address] Sacha Vidal M.D. [address] [place] [phone] 03/01/2025 3:50 PM CDT Appointment Department of Laboratory Medicine in [address] [address] Sacha Vidal M.D. [address] [place] [phone] 04/05/2025 4:00 PM CDT Appointment Department of Laboratory Medicine in [address] [address] Sacha Vidal M.D. [address] [place] [phone] 04/05/2025 4:10 PM CDT Appointment Department of Laboratory Medicine in [address] [address] Sacha Vidal M.D. [address] [place] [phone] documented as of this encounter Procedures Procedure Name Priority Date/Time Associated Diagnosis Comments INTERPRETATION OF OUTSIDE FL GI RAD - Semiurgent (Fast; most ED patients; some inpatients) 10/15/2024 8:53 AM CDT documented in this encounter Results * Interpretation of Outside FL GI (10/15/2024 [...] P.A.-C. IMG FLUOROSCOPY PROCEDUR ES Final Result documented in this encounter Visit Diagnoses Not on filedocumented in this encounter Care Teams Sweatband Cutting Machine Operator Relationship Specialty Start Date End Date None Reported, Pcp PCP - General Family Medicine 10/15/24 documented as of this encounter
--- OUTSIDE RECORDS SUMMARY | 2024-10-15 14:20 | XMS_ITS | Encounter Summary ---
Author Organization [facility] Address [address] [place] [address] Care Team Providers Care Sales And Merchandising Associate Name Role Phone None Reported, Pcp Primary Care Provider Unavail able Encounter Details Date Type Department Care Team (Late st Contact Info) Description 10/15/2024 2:20 PM CDT Ancillary Procedure Department of Dermatology Social History Tobacco Use Types Packs/Day Years Used Date Smoking Tobacco: Never Passive Smoke Exposure: Never Smokeless Tobacco: Never Alcohol Use Standard Drinks/Week Comments Yes 0 (1 standard drink = 0.6 oz pur e alcohol) few times a year [facility] Utilities Answer Date Recorded In the past 12 months has [employer], gas, oil, or water [employer] threatened to shut off services in your [...] CDT Office Visit Department of Dermatology in [place], [place] 200 [place] [address] Reece Ross M.D. 200 [place] [address] 11/30/2024 4:00 PM CDT Appointment Department of Laboratory Medicine in [address] [phone] Sacha Vidal M.D. 200 [place] [address] 11/30/2024 4:10 PM CDT Appointment Department of Laboratory Medicine in [address] [address] Sacha Vidal M.D. [address] [place] [phone] 01/04/2025 4:00 PM CDT Appointment Department of Laboratory Medicine in [address] [address] Sacha Vidal M.D. [address] [place] [phone] 01/04/2025 4:10 PM CDT Appointment Department of Laboratory Medicine in [address] [address] Sacha Vidal M.D. [address] [place] [phone] 02/01/2025 4:00 PM CDT Appointment Department of Laboratory Medicine in [address] [address] Sacha Vidal M.D. [address] [place] [phone] 02/01/2025 4:10 PM CDT Appointment Department of Laboratory Medicine in [address] [address] Sacha Vidal M.D. [address] [place] [phone] 03/01/2025 3:40 PM CDT Appointment Department of Laboratory Medicine in [address] [address] Sacha Vidal M.D. [address] [place] [phone] 03/01/2025 3:50 PM CDT Appointment Department of Laboratory Medicine in [address] [address] Sacha Vidal M.D. [address] [place] [phone] 04/05/2025 4:00 PM CDT Appointment Department of Laboratory Medicine in [address] [address] Sacha Vidal M.D. [address] [place] [phone] 04/05/2025 4:10 PM CDT Appointment Department of Laboratory Medicine in [address] [address] Sacha Vidal M.D. [address] [place] [phone] documented as of this encounter Procedures Procedure Name Priority Date/Time Associated Diagnosis Comments DERMATOLOGY IMAGE EXAM Routine 10/15/2024 2:19 PM CDT documented in this encounter Results * left Leg 528b-Dermatology Image Exam (10/15/2024 2:19 PM CDT) 10/15/2024 2:17 PM CDT Narrative IIMS - 10/15/2024 2:19 PM CDT This order has been created and auto-finalized to support the import of images acquired without order. The clinical documentation to support these images can be found on the encounter that produced images. us Provider Not In System IMG NON RAD IMAGING PROCE DURES Final Result IIMS NA documented in this encounter Visit Diagnoses Not on filedocumented in this encounter Care Teams Sales And Merchandising Associate Relationship Specialty Start Date End Date None Reported, Pcp PCP - General Family Medicine 10/15/24 documented as of this encounter
--- OUTSIDE RECORDS SUMMARY | 2024-10-15 14:25 | XMS_ITS | Encounter Summary ---
Author Organization [facility] Address [address] [place] [address] Care Team Providers Care Dredge Pipe Installer Name Role Phone None Reported, Pcp Primary Care Provider Unavail able Encounter Details Date Type Department Care Team (Late st Contact Info) Description 10/15/2024 2:25 PM CDT Ancillary Procedure Department of Dermatology Social History Tobacco Use Types Packs/Day Years Used Date Smoking Tobacco: Never Passive Smoke Exposure: Never Smokeless Tobacco: Never Alcohol Use Standard Drinks/Week Comments Yes 0 (1 standard drink = 0.6 oz pur e alcohol) few times a year [facility] Utilities Answer Date Recorded In the past 12 months has [employer], gas, oil, or water [employer] threatened to shut off services in your [...] CDT Office Visit Department of Dermatology in [place], [place] [address] [place] [address] Reece Ross M.D. 200 [place] [address] 11/30/2024 4:00 PM CDT Appointment Department of Laboratory Medicine in [address] [phone] Sacha Vidal M.D. 200 [place] [address] 11/30/2024 4:10 PM CDT Appointment Department of Laboratory Medicine in [address] [address] Sacha Vidal M.D. [address] [place] [phone] 01/04/2025 4:00 PM CDT Appointment Department of Laboratory Medicine in [address] [address] Sacha Vidal M.D. [address] [place] [phone] 01/04/2025 4:10 PM CDT Appointment Department of Laboratory Medicine in [address] [address] Sacha Vidal M.D. [address] [place] [phone] 02/01/2025 4:00 PM CDT Appointment Department of Laboratory Medicine in [address] [address] Sacha Vidal M.D. [address] [place] [phone] 02/01/2025 4:10 PM CDT Appointment Department of Laboratory Medicine in [address] [address] Sacha Vidal M.D. [address] [place] [phone] 03/01/2025 3:40 PM CDT Appointment Department of Laboratory Medicine in [address] [address] Sacha Vidal M.D. [address] [place] [phone] 03/01/2025 3:50 PM CDT Appointment Department of Laboratory Medicine in [address] [address] Sacha Vidal M.D. [address] [place] [phone] 04/05/2025 4:00 PM CDT Appointment Department of Laboratory Medicine in [address] [address] Sacha Vidal M.D. [address] [place] [phone] 04/05/2025 4:10 PM CDT Appointment Department of Laboratory Medicine in [address] [address] Sacha Vidal M.D. [address] [place] [phone] documented as of this encounter Procedures Procedure Name Priority Date/Time Associated Diagnosis Comments DERMATOLOGY IMAGE EXAM Routine 10/15/2024 2:20 PM CDT documented in this encounter Results * left Leg 528b-Dermatology Image Exam (10/15/2024 2:20 PM CDT) 10/15/2024 2:18 PM CDT Narrative IIMS - 10/15/2024 2:20 PM CDT This order has been created and auto-finalized to support the import of images acquired without order. The clinical documentation to support these images can be found on the encounter that produced images. us Provider Not In System IMG NON RAD IMAGING PROCE DURES Final Result IIMS NA documented in this encounter Visit Diagnoses Not on filedocumented in this encounter Care Teams Dredge Pipe Installer Relationship Specialty Start Date End Date None Reported, Pcp PCP - General Family Medicine 10/15/24 documented as of this encounter
--- OUTSIDE RECORDS SUMMARY | 2024-10-25 10:20 | XMS_ITS | Encounter Summary ---
Author Organization [facility] Address [address] [place] [address] Care Team Providers Care Market Research Interviewer Name Role Phone None Reported, Pcp Primary Care Provider Unavail able Encounter Details Date Type Department Care Team (Late st Contact Info) Description 10/25/2024 10:20 AM CDT Ancillary Procedure Department of Vascular Surgery Social History Tobacco Use Types Packs/Day Years Used Date Smoking Tobacco: Never Passive Smoke Exposure: Never Smokeless Tobacco: Never Alcohol Use Standard Drinks/Week Comments Yes 0 (1 standard drink = 0.6 oz pur e alcohol) few times a year [facility] Utilities Answer Date Recorded In the past 12 months has [employer], gas, oil, or water [employer] threatened to shut off services in your [...] CDT Office Visit Department of Dermatology in [place], [place] [address] [place] [address] Reece Ross M.D. 200 [place] [address] 11/30/2024 4:00 PM CDT Appointment Department of Laboratory Medicine in [address] [phone] Sacha Vidal M.D. 200 [place] [address] 11/30/2024 4:10 PM CDT Appointment Department of Laboratory Medicine in [address] [address] Sacha Vidal M.D. [address] [place] [phone] 01/04/2025 4:00 PM CDT Appointment Department of Laboratory Medicine in [address] [address] Sacha Vidal M.D. [address] [place] [phone] 01/04/2025 4:10 PM CDT Appointment Department of Laboratory Medicine in [address] [address] Sacha Vidal M.D. [address] [place] [phone] 02/01/2025 4:00 PM CDT Appointment Department of Laboratory Medicine in [address] [address] Sacha Vidal M.D. [address] [place] [phone] 02/01/2025 4:10 PM CDT Appointment Department of Laboratory Medicine in [address] [address] Sacha Vidal M.D. [address] [place] [phone] 03/01/2025 3:40 PM CDT Appointment Department of Laboratory Medicine in [address] [address] Sacha Vidal M.D. [address] [place] [phone] 03/01/2025 3:50 PM CDT Appointment Department of Laboratory Medicine in [address] [address] Sacha Vidal M.D. [address] [place] [phone] 04/05/2025 4:00 PM CDT Appointment Department of Laboratory Medicine in [address] [address] Sacha Vidal M.D. [address] [place] [phone] 04/05/2025 4:10 PM CDT Appointment Department of Laboratory Medicine in [address] [address] Sacha Vidal M.D. [address] [place] [phone] documented as of this encounter Procedures Procedure Name Priority Date/Time Associated Diagnosis Comments VASCULAR SURGERY IMAGE EXAM Routine 10/25/2024 10:20 AM CDT documented in this encounter Results * Unspecified-Vascular Surgery Image Exam (10/25/2024 10:20 AM CDT) 10/25/2024 10:2 0 AM CDT Narrative IIMS - 10/25/2024 10:22 AM CDT This order has been created and auto-finalized to support the import of images acquired without order. The clinical documentation to support these images can be found on the encounter that produced images. us Provider Not In System IMG NON RAD IMAGING PROCE DURES Final Result IIMS NA documented in this encounter Visit Diagnoses Not on filedocumented in this encounter Care Teams Market Research Interviewer Relationship Specialty Start Date End Date None Reported, Pcp PCP - General Family Medicine 10/15/24 documented as of this encounter
--- OUTSIDE RECORDS SUMMARY | 2024-10-29 09:15 | XMS_ITS | Encounter Summary ---
Author Organization [facility] Address [address] [place] [address] Care Team Providers Care Money Market Clerk Name Role Phone None Reported, Pcp Primary Care Provider Unavail able Reason for Visit * Reason Onset Date Comments Pre-visit Intake 10/29/2024 * Appointment Request (Routine) - Authorized Specialty Diagnoses / Procedures Referred By Contac t Referred To Contact Rheumatology Referral ID Status Reason Start Date Expiration Date V isits Requested Visits Authorized [id number] Authorized 10/18/2024 01/18/2026 1 1 Encounter Details Date Type Department Care Team (Latest Contact Info) Description 10/29/2024 9:15 AM CDT Clinical Communication Virtual Review in [place], [place] 200 [place] [address] Pre-visit Intake Social History Tobacco Use Types Packs/Day Years Used Date Smoking Tobacco: Never Passive Smoke Exposure: Never Smokeless Tobacco: Never Alcohol Use Standard Drinks/Week Comments Yes 0 (1 standard drink = 0.6 oz pur e alcohol) few times a year [facility] Utilities Answer Date Recorded In the past 12 months has th e electric, gas, oil, or water company [...] CDT Office Visit Department of Dermatology in [place], [place] 200 [place] [address] Reece Ross M.D. 200 [place] [address] 11/30/2024 4:00 PM CDT Appointment Department of Laboratory Medicine in [address] [address] Sacha Vidal M.D. [address] [place] [phone] 11/30/2024 4:10 PM CDT Appointment Department of Laboratory Medicine in [address] [address] Sacha Vidal M.D. [address] [place] [phone] 01/04/2025 4:00 PM CDT Appointment Department of Laboratory Medicine in [address] [address] Sacha Vidal M.D. [address] [place] [phone] 01/04/2025 4:10 PM CDT Appointment Department of Laboratory Medicine in [address] [address] Sacha Vidal M.D. [address] [place] [phone] 02/01/2025 4:00 PM CDT Appointment Department of Laboratory Medicine in [address] [address] Sacha Vidal M.D. [address] [place] [phone] 02/01/2025 4:10 PM CDT Appointment Department of Laboratory Medicine in [address] [address] Sacha Vidal M.D. [address] [place] [phone] 03/01/2025 3:40 PM CDT Appointment Department of Laboratory Medicine in [address] [address] Sacha Vidal M.D. [address] [place] [phone] 03/01/2025 3:50 PM CDT Appointment Department of Laboratory Medicine in [address] [address] Sacha Vidal M.D. [address] [place] [phone] 04/05/2025 4:00 PM CDT Appointment Department of Laboratory Medicine in [address] [address] Sacha Vidal M.D. [address] [place] [phone] 04/05/2025 4:10 PM CDT Appointment Department of Laboratory Medicine in [address] [address] Sacha Vidal M.D. [address] [place] [phone] documented as of this encounter Visit Diagnoses Not on filedocumented in this encounter Care Teams Money Market Clerk Relationship Specialty Start Date End Date None Reported, Pcp PCP - General Family Medicine 10/15/24 documented as of this encounter
--- OUTSIDE RECORDS SUMMARY | 2024-10-30 14:00 | XMS_ITS | Encounter Summary ---
Author Organization [facility] Address [address] [place] [address] Care Team Providers Care Cardiopulmonary Technologist Chief Name Role Phone None Reported, Pcp Primary Care Provider Unavail able Encounter Details Date Type Department Care Team (Latest Contact Info) Description 10/30/2024 2:00 PM CDT - 10/30/2024 2:09 PM CDT Hospital Encounter Department of Laboratory Medicine and Pathology, [facility] in [place], [place] [address] [place] [phone] Sacha Vidal M.D. [address] [place] [phone] Vasculitis Discharge Disposition: Home or Self Care Social History Tobacco Use Types Packs/Day Years Used Date Smoking Tobacco: Never Passive Smoke Exposure: Never Smokeless Tobacco: Never Alcohol Use Standard Drinks/Week Comments Not Currently 0 (1 standard drink = 0.6 oz pur e alcohol) few times a year [facility] Utilities Answer Date Recorded In [...] on file documented as of this encounter Medications at Time of Discharge [...] 103 tablet 10/18/2024 12:56 PM CDT 10/19/2024 11/28/2024 sulfamethoxazole- trimethoprim (Bactrim DS) 800-160 mg per tabletIndications :Prophylaxis, medical Take 1 tablet by mouth daily Indications: Prophylaxis, medical. 30 tablet 10/18/2024 12:56 PM CDT 10/18/2024 documented as of this encounter Plan of Treatment Upcoming Encounters Date Type Department Care Team (Late st Contact Info) Description 11/16/2024 11:00 AM CDT Office Visit Department of Dermatology in [place], [place] [address] [place] [phone] Reece Ross M.D. [address] [place] [phone] 11/30/2024 4:00 PM CDT Appointment Department of Laboratory Medicine in [address] [address] Sacha Vidal M.D. [address] [place] [phone] 11/30/2024 4:10 PM CDT Appointment Department of Laboratory Medicine in [address] [address] Sacha Vidal M.D. [address] [place] [phone] 01/04/2025 4:00 PM CDT Appointment Department of Laboratory Medicine in [address] [address] Sacha Vidal M.D. [address] [place] [phone] 01/04/2025 4:10 PM CDT Appointment Department of Laboratory Medicine in [address] [address] Sacha Vidal M.D. [address] [place] [phone] 02/01/2025 4:00 PM CDT Appointment Department of Laboratory Medicine in [address] [address] Sacha Vidal M.D. [address] [place] [phone] 02/01/2025 4:10 PM CDT Appointment Department of Laboratory Medicine in [address] [address] Sacha Vidal M.D. [address] [place] [phone] 03/01/2025 3:40 PM CDT Appointment Department of Laboratory Medicine in [address] [address] Sacha Vidal M.D. [address] [place] [phone] 03/01/2025 3:50 PM CDT Appointment Department of Laboratory Medicine in [address] [address] Sacha Vidal M.D. [address] [place] [phone] 04/05/2025 4:00 PM CDT Appointment Department of Laboratory Medicine in [address] [phone] Sacha Vidal M.D. [address] [place] [address] 04/05/2025 4:10 PM CDT Appointment Department of Laboratory Medicine in [address] [phone] Sacha Vidal M.D. [address] [place] [phone] documented as of this encounter Procedures Procedure Name Priority Date/Time Associated Diagnosis Comments DIPSTICK, U Routine 10/30/2024 2:22 PM CDT MICROSCOPIC AUTOMATED Routine 10/30/2024 2:22 PM CDT PH, U Routine 10/30/2024 2:22 PM CDT PROTEIN/CREATININE RATIO, RANDOM, URINE Routine 10/30/2024 2:22 PM CDT Vasculitis OSMOLALITY, U Routine 10/30/2024 2:22 PM CDT URINALYSIS WITH MICROSCOPIC Routine 10/30/2024 2:22 PM CDT Vasculitis documented in this encounter Results * pH, Urine (10/30/2024 2:22 PM CDT) pH, U 5.3 4.5 - 8.0 10/30/2024 3:2 3 PM CDT DTL Urine 10/30/2024 2:22 PM CDT 10/30/2024 2:37 PM CDT Sacha Mccarty M.D. LAB URINE ORDERABLES Fin al Result Performing Organization Address City/[facility]/ZIP Co de Phone Number [facility] 200 [place], [place] [phone] [place] [address] 200 [place] [address] * Osmolality, Urine (10/30/2024 2:22 PM CDT) Osmolality, U 748 150 - 1150 mOsm/kg 10/30/2024 3:23 PM CDT DTL Urine 10/30/2024 2:22 PM CDT 10/30/2024 2:37 PM CDT Sacha Mccarty M.D. LAB URINE ORDERABLES Fin al Result Performing Organization Address [facility] Co de Phone Number [facility] 200 [place] [address], [facility] 200 [place] [address] * Dipstick, Urine (10/30/2024 2:22 PM CDT) Hemoglobin, QL, U Negative Negative 10/30/2024 2:59 PM CDT DTL Leukocyte Esterase, U Negative Negative 10/30/2024 2:59 PM CDT DTL Nitrite, U Negative Negative 10/30/2024 2:59 PM CDT DTL Ketone, U Negative Negative mg/dL 10/30/2024 2:59 PM CDT DTL Glucose, U Negative Negative mg/dL 10/30/2024 2:59 PM CDT DTL Urine 10/30/2024 2:22 PM CDT 10/30/2024 2:37 PM CDT us Sacha Mccarty M.D. LAB URINE ORDERABLES Fin al Result Performing Organization Address City/[facility] Co de Phone Number [facility] 200 [place] [address], [facility] 200 [place] [address] * Microscopic Automated (10/30/2024 2:22 PM CDT) Microscopy Normal 10/30/2024 2:59 PM CDT DTL RBC None Seen <3 /hpf 10/30/2024 2:59 PM CDT DTL WBC None Seen /hpf 10/30/2024 2:59 PM CDT DTL Comment: ----REFERENCE VALUE---- <4 (Males) <11 (Females) Urine 10/30/2024 2:22 PM CDT 10/30/2024 2:37 PM CDT Sacha Mccarty M.D. LAB URINE ORDERABLES Fin al Result Performing Organization Address City/[facility] Co de Phone Number [facility] [address] [address] * Protein/Creatinine Ratio, Random, Urine (10/30/2024 2:22 PM CDT) Pathologist [facility] Protein, Total, Random, U 9 mg/dL 10/30/2024 3:29 PM CDT DTL Creatinine, Random, U 108 16 - 326 mg/dL 10/30/2024 3:29 PM CDT DTL Protein/Creatin ine Ratio 0.08 <0.18 mg/mg 10/30/2024 3:29 PM CDT DTL Urine (Urine, Midstream) 10/30/2024 2:22 PM CDT 10/30/2024 2:37 PM CDT Sacha Mccarty M.D. LAB URINE ORDERABLES Fin al Result Performing Organization Address City/[facility]/ZIP Co de Phone Number [facility] [address] [place] [address], [place] [address] * Urinalysis, with Microscopic: Urine, Midstream (10/30/2024 2:22 PM CDT) Source Urine, Urine, Midstream 10/30/2024 2:37 PM CDT DTL Color, U Yellow 10/30/2024 2:37 PM CDT DTL Clarity, U Clear 10/30/2024 2:37 PM CDT DTL Protein, U 9 <26 mg/dL 10/30/2024 3:29 PM CDT DTL Protein/Osmol ality 0.12 <0.42 ratio 10/30/2024 3:29 PM CDT DTL Predicted 24 HR Protein, U 125 <229 mg/24 h 10/30/2024 3:29 PM CDT DTL Predicted Range 40-394 mg/24 h 10/30/2024 3:29 PM CDT DTL Urine (Urine, Midstream) 10/30/2024 2:22 PM CDT 10/30/2024 2:37 PM CDT Sacha Mccarty M.D. LAB URINE ORDERABLES Fin al Result [facility] [address] [place] [address], [facility] DTL [facility] [address] [place] [address] documented in this encounter Visit Diagnoses Diagnosis Vasculitis documented in this encounter Care Teams Cardiopulmonary Technologist Chief Relationship Specialty Start Date End Date None Reported, Pcp PCP - General Family Medicine 10/15/24 documented as of this encounter
--- OUTSIDE RECORDS SUMMARY | 2024-10-30 14:10 | XMS_ITS | Encounter Summary ---
Author Organization 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 [address] [place] [phone] Vasculitis Discharge Disposition: Home or Self Care Social History Tobacco Use Types Packs/Day Years Used Date Smoking Tobacco: Never Passive Smoke Exposure: Never Smokeless Tobacco: Never Alcohol Use Standard Drinks/Week Comments Not Currently 0 (1 standard drink = 0.6 oz pur e alcohol) few times a year [facility] Utilities Answer Date Recorded In the past [...] CDT Office Visit Department of Dermatology in [place], [place] [address] [place] [phone] Reece Ross M.D. [address] [place] [phone] 11/30/2024 4:00 PM CDT Appointment Department of Laboratory Medicine in [address] [address] Sacha Vidal M.D. [address] [place] [phone] 11/30/2024 4:10 PM CDT Appointment Department of Laboratory Medicine in [address] [address] Sacha Vidal M.D. [address] [place] [phone] 01/04/2025 4:00 PM CDT Appointment Department of Laboratory Medicine in [address] [address] Sacha Vidal M.D. [address] [place] [phone] 01/04/2025 4:10 PM CDT Appointment Department of Laboratory Medicine in [address] [address] Sacha Vidal M.D. [address] [place] [phone] 02/01/2025 4:00 PM CDT Appointment Department of Laboratory Medicine in [address] [address] Sacha Vidal M.D. [address] [place] [phone] 02/01/2025 4:10 PM CDT Appointment Department of Laboratory Medicine in [address] [address] Sacha Vidal M.D. [address] [place] [phone] 03/01/2025 3:40 PM CDT Appointment Department of Laboratory Medicine in [address] [address] Sacha Vidal M.D. [address] [place] [phone] 03/01/2025 3:50 PM CDT Appointment Department of Laboratory Medicine in [address] [address] Sacha Vidal M.D. [address] [place] [phone] 04/05/2025 4:00 PM CDT Appointment Department of Laboratory Medicine in [address] [address] Sacha Vidal M.D. [address] [place] [address] 04/05/2025 4:10 PM CDT Appointment Department of Laboratory Medicine in [address] [place] [address] Sacha Vidal M.D. [address] [place] [phone] documented as of this encounter Procedures Procedure Name Priority Date/Time Associated Diagnosis Comments SEDIMENTATION RATE, B Routine 10/30/2024 2:17 PM CDT Vasculitis CBC WITH DIFFERENTIAL, B Routine 025 2:17 PM CDT Vasculitis IMMUNOGLOBULINS (IGG, IGA, AND IGM), S Routine 10/30/2024 2:17 PM CDT Vasculitis C-REACTIVE PROTEIN (CRP), S/P Routine 10/30/2024 2:17 PM CDT Vasculitis BUN (BLOOD UREA NITROGEN), S/P Routine 10/30/2024 2:17 PM CDT Vasculitis ALANINE AMINOTRANSFERASE (ALT), S/P Routine 10/30/2024 2:17 PM CDT Vasculitis ASPARTATE AMINOTRANSFERASE (AST), S/P Routine 10/30/2024 2:17 PM CDT Vasculitis SODIUM, S/P Routine 10/30/2024 2:17 PM CDT Vasculitis POTASSIUM, S/P Routine 10/30/2024 2:17 PM CDT Vasculitis CREATININE WITH EGFR, S/P Routine 10/30/2024 2:17 PM CDT Vasculitis documented in this encounter Results * (ABNORMAL) Immunoglobulins (IgG, IgA, and IgM) (10/30/2024 2:17 PM CDT) Immunoglobulin A (IgA), S 224 61 - 356 mg/dL 10/30/2024 7:33 PM CDT [facility] Immunoglobulin M (IgM), S 74 37 - 286 mg/dL 10/30/2024 7:34 PM CDT [facility] Immunoglobulin G (IgG), S 748(L) 767 - 1590 mg/dL 10/30/2024 7:34 PM CDT [facility] Blood (Blood, Venous) 10/30/2024 2:17 PM CDT 10/30/2024 5:56 PM CDT Sacha Mccarty M.D. LAB BLOOD ADD-ON Final R esult [facility] [address] [place] [address] [facility] [address] [place] [address] * Creatinine with Estimated GFR (10/30/2024 2:17 PM CDT) Creatinine 0.80 0.74 - 1.35 mg/dL 10/30/2024 3:21 PM CDT DTL Estimated GFR (eGFR) >90 >=60 mL/min/BSA 10/30/2024 3:21 PM CDT DTL Comment: Estimated GFR calculated using the 2020 CKD_EPI creatinine equation. Blood (Blood, Venous) 10/30/2024 2:17 PM CDT 10/30/2024 2:58 PM CDT us Sacha Mccarty M.D. LAB BLOOD ADD-ON Final R esult [facility] [address] [place] [address], [facility] 200 [place] [address] * BUN (Blood Urea Nitrogen) (10/30/2024 2:17 PM CDT) BUN (Blood Urea Nitrogen), S 12 8 - 24 mg/dL 10/30/2024 3:21 PM CDT DTL Blood (Blood, Venous) 10/30/2024 2:17 PM CDT 10/30/2024 2:58 PM CDT Sacha Mccarty M.D. LAB BLOOD ADD-ON Final R esult [facility] 200 [place] [address], [facility] 200 [place] [address] * Potassium (10/30/2024 2:17 PM CDT) Pathologist [facility] Potassium, S 4.2 3.6 - 5.2 mmol/L 10/30/2024 3:21 PM CDT DTL Blood (Blood, Venous) 10/30/2024 2:17 PM CDT 10/30/2024 2:58 PM CDT us Sacha Mccarty M.D. LAB BLOOD ADD-ON Final R esult [facility] [address] [place] [address], [facility] 200 [place] [address] * Sodium (10/30/2024 2:17 PM CDT) Sodium, S 139 135 - 145 mmol/L 10/30/2024 3:21 PM CDT DTL Blood (Blood, Venous) 10/30/2024 2:17 PM CDT 10/30/2024 2:58 PM CDT us Sacha Mccarty M.D. LAB BLOOD ADD-ON Final R esult Performing Organization Address City/[facility]/ZIP Co de Phone Number [facility] 200 [place] [address] * (ABNORMAL) ALT (Alanine Aminotransferase) (10/30/2024 2:17 PM CDT) Alanine Aminotransferase (ALT), S 79(H) 7 - 55 U/L 10/30/2024 3:21 PM CDT DTL Blood (Blood, Venous) 10/30/2024 2:17 PM CDT 10/30/2024 2:58 PM CDT Sacha Mccarty M.D. LAB BLOOD ADD-ON Final R esult Performing Organization Address City/[facility] Co de Phone Number [facility] [address] [place] [address] * AST (Aspartate Aminotransferase) (10/30/2024 2:17 PM CDT) Aspartate Aminotransferase (AST), S 21 8 - 48 U/L 10/30/2024 3:21 PM CDT DTL Blood (Blood, Venous) 10/30/2024 2:17 PM CDT 10/30/2024 2:58 PM CDT Sacha Mccarty M.D. LAB BLOOD ADD-ON Final R esult [facility] 200 [place] [address] * (ABNORMAL) Sedimentation Rate (10/30/2024 2:17 PM CDT) Sedimentation Rate, B 13(H) 2 - 12 mm/h 10/30/2024 3:27 PM CDT DTL Blood (Blood, Venous) 10/30/2024 2:17 PM CDT 10/30/2024 2:37 PM CDT Sacha Mccarty M.D. LAB BLOOD ADD-ON Final R esult Performing Organization Address City/[facility]/ZIP Co de Phone Number [facility] [address] [place] [address], [facility] 200 [place] [address] * (ABNORMAL) CRP (C-Reactive Protein) (10/30/2024 2:17 PM CDT) [facility] C-Reactive Protein (CRP), S 6.8(H) <5.0 mg/L 10/30/2024 3:21 PM CDT DTL Blood (Blood, Venous) 10/30/2024 2:17 PM CDT 10/30/2024 2:58 PM CDT Sacha Mccarty M.D. LAB BLOOD ADD-ON Final R esult Performing Organization Address City/[facility]/ZIP Co de Phone Number [facility] [address] [place] [address], [facility] [address] [place] [address] * (ABNORMAL) CBC with Differential, Blood (10/30/2024 2:17 PM CDT) [facility] Hemoglobin 12.8(L) 13.2 - 16.6 g/dL 10/30/2024 2:45 PM CDT DTL Hematocrit 39.4 38.3 - 48.6 % 10/30/2024 2:45 PM CDT DTL Erythrocytes 4.40 4.35 - 5.65 x10(12)/L 10/30/2024 2:45 PM CDT DTL MCV 89.5 78.2 - 97.9 fL 10/30/2024 2:45 PM CDT DTL RBC Distrib Width 13.3 11.8 - 14.5 % 10/30/2024 2:45 PM CDT DTL Platelet Count 433(H) 135 - 317 x10(9)/L 10/30/2024 2:45 PM CDT DTL Leukocytes 8.7 3.4 - 9.6 x10(9)/L 10/30/2024 2:45 PM CDT DTL Neutrophils 4.85 1.56 - 6.45 x10(9)/L 10/30/2024 2:45 PM CDT [facility] Lymphocytes 2.73 0.95 - 3.07 x10(9)/L 10/30/2024 2:45 PM CDT DTL Monocytes 1.00(H) 0.26 - 0.81 x10(9)/L 10/30/2024 2:45 PM CDT DTL Eosinophils 0.03 0.03 - 0.48 x10(9)/L 10/30/2024 2:45 PM CDT DTL Basophils 0.06 0.01 - 0.08 x10(9)/L 10/30/2024 2:45 PM CDT DTL Blood (Blood, Venous) 10/30/2024 2:17 PM CDT 10/30/2024 2:37 PM CDT Sacha Mccarty M.D. LAB BLOOD ADD-ON Final R esult [facility] [address] [place] [address], [facility] DTL [facility] [address] [place] [address] DHPM [facility] [address] [place] [address] documented in this encounter Visit Diagnoses Diagnosis Vasculitis documented in this encounter Care Teams Electroslag Welding Machine Operator Relationship Specialty Start Date End Date None Reported, Pcp PCP - General Family Medicine 10/15/24 documented as of this encounter
--- OUTSIDE RECORDS SUMMARY | 2024-10-30 16:00 | XMS_ITS | Encounter Summary ---
Author Organization [facility] Address [address] [place] [address] Care Team Providers Care Clinical Project Leader Name Role Phone None Reported, Pcp Primary Care Provider Unavail able Reason for Referral * Outpatient (Routine) - Authorized Specialty Diagnoses / Procedures Referred By Contac t Referred To Contact Rheumatology Diagnoses Vasculitis Sacha Vidal M.D. [address] [place] [phone] Phone: tel: fax: [facility] Referral ID Status Reason Start Date Expiration Date V isits Requested Visits Authorized [id number] Authorized 10/30/2024 05/01/2026 1 1 Reason for Visit * Appointment Request (Routine) - Closed Specialty Diagnoses / Procedures Referred By Marlys mendez Referred To Contact Rheumatology Sacha Vidal M.D. [address] [place] [phone] Phone: tel: fax: Referral ID Status Reason Start Date Expiration Date Visits Re quested Visits Authorized [id number] Closed 10/18/2024 01/18/2026 1 1 Encounter Details Date Type Department Care Team (Latest Contact Info) Description 10/30/2024 4:00 PM CDT Office Visit Division of Rheumatology in [place], [place] [address] [place] [address] Sacha Vidal M.D. [address] [place] [address] Vasculitis (Primary Dx) Social History Tobacco Use Types Packs/Day Years Used Date Smoking Tobacco: Never Passive Smoke Exposure: Never Smokeless Tobacco: Never Alcohol Use Standard Drinks/Week Comments Not Currently 0 (1 standard drink = 0.6 oz pur e alcohol) few times a year [facility] [employer] Answer Date Recorded In the past 12 months has e [employer], gas, oil, or water [employer] threatened to shut off services in your [...] on file documented as of this encounter Progress Notes * Sacha Vidal M.D. - 10/30/2024 4:00 PM CDT SUBJECTIVE CHIEF COMPLAINT / REASON FOR VISIT Gretel Alaniz is a 24 y.o. male presenting today as an established patient for follow up of IgA vasculitis. HISTORY OF PRESENT ILLNESS 24-year-old gentleman with a past medical history of pilonidal cyst was recently hospitalized for anew diagnosis of IgA vasculitis. Rheumatological history Epigastric pain started in the beginning of September that was refractory to opioids. This was followedby unintentional weight loss and subjective fevers. He presented to the ER on 10/15/2024 with bloodwork demonstrating thrombocytosis, leukocytosis with a left shift, sedimentation rate of 38, and CRP of 117.9. LFTs were mildly elevated. CT of the abdomen/pelvis demonstrated marked narrowing of theorigin of the celiac axis with some mild associated soft tissue thickening. Several peripheral regular hypodensities within the liver were also seen. At that time, purpuric rash was noted around the ankles. A punch biopsy demonstrated findings of IgA vasculitis. Our team was involved. We recommended IV Solu-Medrol 100 mg daily for 3 days followed by prednisone taper starting at 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 Vascular surgery evaluated the splenic infarcts and deemed them nonsurgical.. The abdominal pain improved with a glucocorticoid treatment. Today Mr. Alaniz reports near-complete resolution of the rash around his ankles. He denies joint pain, abdominal pain, melena, hematuria, or insomnia. He is currently on prednisone 30 mg daily, following a tapering schedule provided at hospital discharge. Previous Reports Reviewed:lab reports, office notes, and radiology reports The following portions of the patient's history were reviewed and updated as appropriate: allergies, current medications, family history, medical history, social history, surgical history, and problem list. REVIEW OF SYSTEMS Pertinent positives and negatives as documented in the above history of present illness. Constitutional: Positive for fatigue. - Negative for fever. Skin: Positive for skin rash. Eyes: - Negative for visual problems. Respiratory: - Negative for dry cough and shortness of breath. Cardiovascular: - Negative for chest pain, pressure or tightness. Gastrointestinal: - Negative for blood in stool. Genitourinary: - Negative for blood in urine. Neurological: - Negative for headaches. Psychiatric/Behavioral: - Negative for sleep disturbance. OBJECTIVE PHYSICAL EXAM Vitals and nursing note reviewed. HENT Mouth/Throat: Mouth: Mucous membranes are moist. Eyes Extraocular Movements: Extraocular movements intact. Conjunctiva/sclera: Conjunctivae normal. Pupils: Pupils are equal, round, and reactive to light. Cardiovascular Rate and Rhythm: Normal rate and regular rhythm. Pulses: Normal pulses. Heart sounds: Normal heart sounds. Pulmonary Effort: Pulmonary effort is normal. Breath sounds: Normal breath sounds. Abdominal General: Bowel sounds are normal. Palpations: Abdomen is soft. Musculoskeletal Cervical back: Normal range of motion. Comments: No synovitis of the DIP, PIP, MCPs, or wrists. Neurological General: No focal deficit present. Mental Status: He is alert. Psychiatric Mood and Affect: Mood normal. Lab: Hemoglobin 12.8 Platelet count 433 Leukocytes 8.7 Sedimentation rate 13 CRP 6.8 ALT 79 AST 21 Normal renal function tests Urine with no proteinuria Imaging: CT abdomen pelvis angiogram with IV contrast (10/16/2024): 1. Redemonstration of focal severe stenosis [...] 3. Evolving splenic infarct. ASSESSMENT / PLAN 24-year-old gentleman with a past medical history of pilonidal cyst was recently hospitalized for anew diagnosis of IgA vasculitis. # Biopsy-Proven IgA Vasculitis # Splenic infarct Mr. Alaniz was recently hospitalized for IgA vasculitis, which presented with abdominal pain. He wasstarted on IV glucocorticoids and discharged on a prednisone taper, with subsequent remission of symptoms. Plan: Continue prednisone taper: currently on 30 mg daily; reduce by 5 mg every 5 days. Continue Bactrim prophylaxis as long as prednisone dose exceeds 20 mg daily. Continue proton pump inhibitor (PPI). We discussed the long-term course of IgA vasculitis. He will complete monthly renal function tests, urinalysis, and urine kbmvelv-jb-jtoveyopge ratio for the first 6 months at [facility]. Thereafter, renal labs and urinalysis will be performed every 3 months. The symptoms of IgA vasculitis recurrence were discussed. If he has any of these symptoms, he will write to us via the portal and we will increase the dose of prednisone and initiate a steroid sparing agent. Return to rheumatology in 6 months. Splenic infarcts are being monitored for now. No immediate procedures as per vascular surgery. However, if he develops worsening abdominal pain, we might consider repeating abdominal imaging. I addressed his questions regarding alcohol intake, diet, and exercise in the context of IgA vasculitis. The case of Mr. Alaniz was discussed with Dr. Alfa Blanchard. Sacha Mccarty Rheumatology Fellow Cosigned by Alfa Blanchard M.D. at 10/31/2024 9:28 AM CDT Associated attestation - Alfa Blanchard M.D. - 10/31/2024 9:28 AM CDT I have seen and discussed Mr. Gretel Alaniz with the Fellow and reviewed the pertinent history , examination, laboratory parameters, imaging studies, assessment , and plan. I have reviewed theassessment and plan as documented by Dr. Sacha Mccarty and am in agreement. documented in this encounter Plan of Treatment Upcoming Encounters Date Type Department Care Team (Late st Contact Info) Description 11/16/2024 11:00 AM CDT Office Visit Department of Dermatology in [place], [place] [address] [place] [phone] Reece Ross M.D. [address] [place] [phone] 11/30/2024 4:00 PM CDT Appointment Department of Laboratory Medicine in [address] [phone] Sacha Vidal M.D. [address] [place] [phone] 11/30/2024 4:10 PM CDT Appointment Department of Laboratory Medicine in [address] [phone] Sacha Vidal M.D. [address] [place] [phone] 01/04/2025 4:00 PM CDT Appointment Department of Laboratory Medicine in [address] [phone] Sacha Vidal M.D. [address] [place] [phone] 01/04/2025 4:10 PM CDT Appointment Department of Laboratory Medicine in [address] [phone] Sacha Vidal M.D. [address] [place] [phone] 02/01/2025 4:00 PM CDT Appointment Department of Laboratory Medicine in [address] [phone] Sacha Vidal M.D. [address] [place] [phone] 02/01/2025 4:10 PM CDT Appointment Department of Laboratory Medicine in [address] [phone] Sacha Vidal M.D. [address] [place] [phone] 03/01/2025 3:40 PM CDT Appointment Department of Laboratory Medicine in [address] [phone] Sacha Vidal M.D. [address] [place] [phone] 03/01/2025 3:50 PM CDT Appointment Department of Laboratory Medicine in [address] [address] Sacha Vidal M.D. [address] [place] [phone] 04/05/2025 4:00 PM CDT Appointment Department of Laboratory Medicine in [address] [phone] Sacha Vidal M.D. [address] [place] [phone] 04/05/2025 4:10 PM CDT Appointment Department of Laboratory Medicine in [address] [phone] Sacha Vidal M.D. [address] [place] [phone] Scheduled Orders Name Type Priority Associated Diagnoses Orde r Schedule BUN (Blood Urea Nitrogen) Lab Routine Vasculitis Monthly for 5 Occurrences starting 10/30/2024 until 01/30/2026 Creatinine with Estimated GFR Lab Routine Vasculitis Monthly for 5 Occurrences starting 10/30/2024 until 01/30/2026 Urinalysis, with Microscopic: Urine, Midstream Lab Routine Vasculitis Monthly for 5 Occurrences starting 10/30/2024 until 01/30/2026 Protein/Creatinine Ratio, Random, Urine Lab Routine Vasculitis Monthly for 5 Occurrences starting 10/30/2024 until 01/30/2026 CBC with Differential, Blood Lab Routine Vasculitis Expected: 05/02/2025, Expires: 10/30/2025 Sedimentation Rate Lab Routine Vasculitis Expected: 05/02/2025 (Approximate), Expires: 10/30/2025 CRP (C-Reactive Protein) Lab Routine Vasculitis Expected: 05/02/2025 (Approximate), Expires: 10/30/2025 AST (Aspartate Aminotransferase) Lab Routine Vasculitis Expected: 05/02/2025 (Approximate), Expires: 10/30/2025 ALT (Alanine Aminotransferase) Lab Routine Vasculitis Expected: 05/02/2025 (Approximate), Expires: 10/30/2025 Sodium Lab Routine Vasculitis Expected: 05/02/2025 (Approximate), Expires: 10/30/2025 Potassium Lab Routine Vasculitis Expected: 05/02/2025 (Approximate), Expires: 10/30/2025 BUN (Blood Urea Nitrogen) Lab Routine Vasculitis Expected: 05/02/2025 (Approximate), Expires: 10/30/2025 Creatinine with Estimated GFR Lab Routine Vasculitis Expected: 05/02/2025 (Approximate), Expires: 10/30/2025 Urinalysis, with Microscopic: Urine, Voided Lab Routine Vasculitis Expected: 05/02/2025 (Approximate), Expires: 10/30/2025 Protein/Creatinine Ratio, Random, Urine Lab Routine Vasculitis Expected: 05/02/2025, Expires: 01/30/2026 Scheduled Referrals Name Type Priority Associated Diagnoses Order Schedule Rheumatology office visit (clinic) Outpatient Referral Routine Vasculitis Expected: 05/02/2025, Expires: 01/30/2026 documented as of this encounter Visit Diagnoses Diagnosis Vasculitis- Primary documented in this encounter Care Teams Clinical Project Leader Relationship Specialty Start Date End Date None Reported, Pcp PCP - General Family Medicine 10/15/24 documented as of this encounter
--- OUTSIDE RECORDS SUMMARY | 2024-11-14 18:01 | XMS_ITS | Encounter Summary ---
Author Organization [facility] Address [address] [place] [address] Care Team Providers Care Cardiovascular Sonographer Name Role Phone None Reported, Pcp Primary Care Provider Unavail able Reason for Visit * Reason Comments Rash Encounter Details Date Type Department Care Team (Late st Contact Info) Description 11/14/2024 6:01 PM CDT - 11/14/2024 8:22 PM CDT Emergency [facility] [place] [facility] Emergency Department [address] [place] [phone] Discharge Disposition: Left Against Medical Advice or Discontinued Care Social History Tobacco Use Types Packs/Day Years Used Date Smoking Tobacco: Never Passive Smoke Exposure: Never Smokeless Tobacco: Never Alcohol Use Standard Drinks/Week Comments Not Currently 0 (1 standard drink = 0.6 oz pur e alcohol) few times a year [facility] [employer] Answer Date Recorded In the past 12 months has [employer], gas, oil, or water company threatened to [...] Sign Reading Time Taken Comments Blood Pressure 128/70 11/14/2024 6:05 PM CDT Pulse - - Temperature 36.6 C (97.9 F) 11/14/2024 6:05 PM CDT Respiratory Rate 16 11/14/2024 6:05 PM CDT Oxygen Saturation 97% 11/14/2024 6:05 PM CDT Inhaled Oxygen Concentration - - Weight 74.1 kg (163 lb 5.8 oz) 11/14/2024 6:07 P M CDT Height 177.8 cm (5' 10) 11/14/2024 6:07 PM CDT Body Mass Index 23.44 11/14/2024 6:07 PM CDT documented in this encounter Medications at Time [...] CDT 10/18/2024 documented as of this encounter ED Notes * Carlos Pereira R.N. - 11/14/2024 6:05 PM CDT Over the past 1.5 weeks patient has developed a rash on chest back and arms. Patient told PCP who told him to come here. Last time it was vasculitis and is similar to previous episode. Denied any fever or chills. Carlos Pereira, RDemarco. 11/14/24 1808 documented in this encounter Plan of Treatment Upcoming Encounters Date Type Department Care Team (Late st Contact Info) Description 11/16/2024 11:00 AM CDT Office Visit Department of Dermatology in [place], [place] [address] [place] [address] Reece Ross M.D. [address] [place] [address] 11/30/2024 4:00 PM CDT Appointment Department of Laboratory Medicine in [address] [phone] Sacha Vidal M.D. [address] [place] [phone] 11/30/2024 4:10 PM CDT Appointment Department of Laboratory Medicine in [address] [phone] Sacha Vidal M.D. [address] [place] [phone] 01/04/2025 4:00 PM CDT Appointment Department of Laboratory Medicine in [address] [phone] Sacha Vidal M.D. [address] [place] [phone] 01/04/2025 4:10 PM CDT Appointment Department of Laboratory Medicine in [address] [address] Sacha Vidal M.D. [address] [place] [phone] 02/01/2025 4:00 PM CDT Appointment Department of Laboratory Medicine in [address] [phone] Sacha Vidal M.D. [address] [place] [phone] 02/01/2025 4:10 PM CDT Appointment Department of Laboratory Medicine in [place] [phone] Sacha Vidal M.D. [address] [place] [phone] 03/01/2025 3:40 PM CDT Appointment Department of Laboratory Medicine in [address] [phone] Sacha Vidal M.D. [address] [place] [phone] 03/01/2025 3:50 PM CDT Appointment Department of Laboratory Medicine in [address] [phone] Sacha Vidal M.D. [address] [place] [phone] 04/05/2025 4:00 PM CDT Appointment Department of Laboratory Medicine in [address] [phone] Sacha Vidal M.D. [address] [place] [phone] 04/05/2025 4:10 PM CDT Appointment Department of Laboratory Medicine in [address] [phone] Sacha Vidal M.D. [address] [place] [phone] Scheduled Orders Name Type Priority Associated Diagnoses Orde r Schedule Bacterial Culture, Aerobic + Susceptibility, Urine Microbiology STAT STAT for 1 Occur rences starting 11/14/2024 until 11/14/2024 documented as of this encounter Procedures Procedure Name Priority Date/Time Associated Diagnosis Comments HEPATIC FUNCTION PANEL, S STAT 11/14/2024 6:20 PM CDT CBC WITH DIFFERENTIAL, B STAT 11/14/2024 6:20 PM CDT C-REACTIVE PROTEIN (CRP), S/P STAT 11/14/2024 6:20 PM CDT BASIC METABOLIC PANEL, S/P STAT 11/14/2024 6:20 PM CDT documented in this encounter Results * (ABNORMAL) CRP (C-Reactive Protein) (11/14/2024 6:20 PM CDT) C-Reactive Protein (CRP), S 17.2(H) <5.0 mg/L 11/14/2024 7:17 PM CDT DTL Blood (Blood, Venous) 11/14/2024 6:20 PM CDT 11/14/2024 6:59 PM CDT Jamey Castellano P.A.-C. LAB BLOOD ADD-ON Final Re sult [address] [address], [facility] [address] [place] [address] * Hepatic Function Panel (11/14/2024 6:20 PM CDT) Bilirubin, Total, S 0.3 0.0 - 1.2 mg/dL 11/14/2024 7:17 PM CDT DTL Bilirubin, Direct, S <0.2 0.0 - 0.3 mg/dL 11/14/2024 7:17 PM CDT DTL Aspartate Aminotransferase (AST), S 22 8 - 48 U/L 11/14/2024 7:17 PM CDT DTL Alanine Aminotransferase (ALT), S 44 7 - 55 U/L 11/14/2024 7:17 PM CDT DTL Alkaline Phosphatase, S 106 40 - 129 U/L 11/14/2024 7:17 PM CDT DTL Albumin, S 4.4 3.5 - 5.0 g/dL 11/14/2024 7:17 PM CDT DTL Protein, Total, S 6.9 6.3 - 7.9 g/dL 11/14/2024 7:17 PM CDT DTL Blood (Blood, Venous) 11/14/2024 6:20 PM CDT 11/14/2024 6:59 PM CDT Jamey Castellano P.A.-C. LAB BLOOD ADD-ON Final Re sult [facility] [address] [place] [address], [facility] [address] [place] [address] * (ABNORMAL) Basic Metabolic Panel (11/14/2024 6:20 PM CDT) Potassium, P 3.8 3.6 - 5.2 mmol/L 11/14/2024 6:45 PM CDT [facility] Sodium, P 138 135 - 145 mmol/L 11/14/2024 6:45 PM CDT [facility] Chloride, P 101 98 - 107 mmol/L 11/14/2024 6:45 PM CDT [facility] Bicarbonate, P 25 22 - 29 mmol/L 11/14/2024 6:45 PM CDT [facility] Anion Gap, P 12 7 - 15 11/14/2024 6:45 PM CDT [facility] BUN (Blood Urea Nitrogen), P 17 8 - 24 mg/dL 11/14/2024 6:45 PM CDT [facility] Creatinine 0.72(L) 0.74 - 1.35 mg/dL 11/14/2024 6:45 PM CDT [facility] Estimated GFR (eGFR) >90 >=60 mL/min/BSA 11/14/2024 6:45 PM CDT [facility] Comment: Estimated GFR calculated using the 2020 CKD_EPI creatinine equation. Calcium, Total, P 9.8 8.6 - 10.0 mg/dL 11/14/2024 6:45 PM CDT [facility] Glucose, P 115 70 - 140 mg/dL 11/14/2024 6:45 PM CDT [facility] Blood (Blood, Venous) 11/14/2024 6:20 PM CDT 11/14/2024 6:25 PM CDT us Jamey Castellano P.A.-C. LAB BLOOD ADD-ON Final Re sult [facility] [address] [place] [address], [facility] [address] [place] [address] * (ABNORMAL) CBC with Differential, Blood (11/14/2024 6:20 PM CDT) Hemoglobin 13.9 13.2 - 16.6 g/dL 11/14/2024 6:29 PM CDT [facility] Hematocrit 41.9 38.3 - 48.6 % 11/14/2024 6:29 PM CDT [facility] Erythrocytes 4.71 4.35 - 5.65 x10(12)/L 11/14/2024 6:29 PM CDT [facility] MCV 89.0 78.2 - 97.9 fL 11/14/2024 6:29 PM CDT [facility] RBC Distrib Width 13.3 11.8 - 14.5 % 11/14/2024 6:29 PM CDT [facility] Platelet Count 357(H) 135 - 317 x10(9)/L 11/14/2024 6:29 PM CDT [facility] Leukocytes 8.2 3.4 - 9.6 x10(9)/L 11/14/2024 6:29 PM CDT [facility] Neutrophils 5.64 1.56 - 6.45 x10(9)/L 11/14/2024 6:29 PM CDT [facility] Lymphocytes 1.82 0.95 - 3.07 x10(9)/L 11/14/2024 6:29 PM CDT [facility] Monocytes 0.67 0.26 - 0.81 x10(9)/L 11/14/2024 6:29 PM CDT [facility] Eosinophils <0.03 0.03 - 0.48 x10(9)/L 11/14/2024 6:29 PM CDT [facility] Basophils 0.03 0.01 - 0.08 x10(9)/L 11/14/2024 6:29 PM CDT [facility] Blood (Blood, Venous) 11/14/2024 6:20 PM CDT 11/14/2024 6:25 PM CDT Jamey Castellano P.A.-C. LAB BLOOD ADD-ON Final Re sult [facility] [address] [place] [address], [facility] ST[facility] [address] [place] [address] DHPM [facility] [address] [place] [address] documented in this encounter Visit Diagnoses Not on filedocumented in this encounter Care Teams Cardiovascular Sonographer Relationship Specialty Start Date End Date None Reported, Pcp PCP - General Family Medicine 10/15/24 documented as of this encounter
--- OUTSIDE RECORDS SUMMARY | 2024-11-15 06:49 | XMS_ITS | Encounter Summary ---
Author Organization [facility] Address [address] [place] [address] Care Team Providers Care Fabric Designer Name Role Phone None Reported, Pcp Primary Care Provider Unavail able Encounter Details Date Type Department Care Team (Late st Contact Info) Description 10/17/2024 Orders Only Division of Rheumatology in [place], [place] [address] [place] [phone] Sacha Vidal M.D. [address] [place] [address] Vasculitis (Primary Dx) Social History Tobacco Use Types Packs/Day Years Used Date Smoking Tobacco: Never Passive Smoke Exposure: Never Smokeless Tobacco: Never Alcohol Use Standard Drinks/Week Comments Yes 0 (1 standard drink = 0.6 oz pur e alcohol) few times a year [facility] Utilities Answer Date Recorded In the [...] CDT Office Visit Department of Dermatology in [place], [place] 200 [place] [address] Reece Ross M.D. 200 [place] [address] 11/30/2024 4:00 PM CDT Appointment Department of Laboratory Medicine in [address] [place] [address] Sacha Vidal M.D. [address] [place] [phone] 11/30/2024 4:10 PM CDT Appointment Department of Laboratory Medicine in [address] [address] Sacha Vidal M.D. [address] [place] [phone] 01/04/2025 4:00 PM CDT Appointment Department of Laboratory Medicine in [address] [address] Sacha Vidal M.D. [address] [place] [phone] 01/04/2025 4:10 PM CDT Appointment Department of Laboratory Medicine in [address] [address] Sacha Vidal M.D. [address] [place] [phone] 02/01/2025 4:00 PM CDT Appointment Department of Laboratory Medicine in [address] [address] Sacha Vidal M.D. [address] [place] [phone] 02/01/2025 4:10 PM CDT Appointment Department of Laboratory Medicine in [address] [address] Sacha Vidal M.D. [address] [place] [phone] 03/01/2025 3:40 PM CDT Appointment Department of Laboratory Medicine in [address] [address] Sacha Vidal M.D. [address] [place] [phone] 03/01/2025 3:50 PM CDT Appointment Department of Laboratory Medicine in [address] [address] Sacha Vidal M.D. [address] [place] [phone] 04/05/2025 4:00 PM CDT Appointment Department of Laboratory Medicine in [address] [address] Sacha Vidal M.D. [address] [place] [phone] 04/05/2025 4:10 PM CDT Appointment Department of Laboratory Medicine in [address] [address] Sacha Vidal M.D. [address] [place] [phone] documented as of this encounter Results * Protein/Creatinine Ratio, Random, Urine (10/30/2024 2:22 PM CDT) Protein, Total, Random, U 9 mg/dL 10/30/2024 3:29 PM CDT DTL Creatinine, Random, U 108 16 - 326 mg/dL 10/30/2024 3:29 PM CDT DTL Protein/Creatin ine Ratio 0.08 <0.18 mg/mg 10/30/2024 3:29 PM CDT DTL Urine (Urine, Midstream) 10/30/2024 2:22 PM CDT 10/30/2024 2:37 PM CDT Sacha Mccarty M.D. LAB URINE ORDERABLES Fin al Result Performing Organization Address [facility] Co de Phone Number [facility] [address] [place] [address], [facility] 200 [place] [address] * Urinalysis, with Microscopic: Urine, Midstream (10/30/2024 [...] ORDERABLES Fin al Result Performing Organization Address City/[facility]/ZIP Co de Phone Number [facility] [address] [place] [address], [facility] 200 [place] [address] * (ABNORMAL) Immunoglobulins (IgG, IgA, and IgM) (10/30/2024 2:17 PM CDT) Immunoglobulin A (IgA), S 224 61 - 356 mg/dL 10/30/2024 7:33 PM CDT [facility] Immunoglobulin M (IgM), S 74 37 - 286 mg/dL 10/30/2024 7:34 PM CDT [facility] Immunoglobulin G (IgG), S 748(L) 767 - 1590 mg/dL 10/30/2024 7:34 PM CDT [facility] Blood (Blood, Venous) 10/30/2024 2:17 PM CDT 10/30/2024 5:56 PM CDT Sacha Mccarty M.D. LAB BLOOD ADD-ON Final R esult [facility] [address] [place] [address] [facility] [address] [place] [address] * Creatinine with Estimated GFR (10/30/2024 2:17 PM CDT) Creatinine 0.80 0.74 - 1.35 mg/dL 10/30/2024 3:21 PM CDT DTL Estimated GFR (eGFR) >90 >=60 mL/min/BSA 10/30/2024 3:21 PM CDT DTL Comment: Estimated GFR calculated using the 2020 CKD_EPI creatinine equation. Blood (Blood, Venous) 10/30/2024 2:17 PM CDT 10/30/2024 2:58 PM CDT Sacha Mccarty M.D. LAB BLOOD ADD-ON Final R esult [facility] [address] [place] [address], [place] DTL [facility] [address] [place] [address] * BUN (Blood Urea Nitrogen) (10/30/2024 2:17 PM CDT) BUN (Blood Urea Nitrogen), S 12 8 - 24 mg/dL 10/30/2024 3:21 PM CDT DTL Blood (Blood, Venous) 10/30/2024 2:17 PM CDT 10/30/2024 2:58 PM CDT us Sacha Mccarty M.D. LAB BLOOD ADD-ON Final R esult Performing Organization Address City/[facility]/ZIP Co de Phone Number [facility] [address] [place] [address], [facility] [address] [place] [address] * Potassium (10/30/2024 2:17 PM CDT) Potassium, S 4.2 3.6 - 5.2 mmol/L 10/30/2024 3:21 PM CDT DTL Blood (Blood, Venous) 10/30/2024 2:17 PM CDT 10/30/2024 2:58 PM CDT Sacha Mccarty M.D. LAB BLOOD ADD-ON Final R esult Performing Organization Address [facility]/ZIP Co de Phone Number [facility] [address] [place] [address], [facility] [address] [place] [address] * Sodium (10/30/2024 2:17 PM CDT) Sodium, S 139 135 - 145 mmol/L 10/30/2024 3:21 PM CDT DTL Blood (Blood, Venous) 10/30/2024 2:17 PM CDT 10/30/2024 2:58 PM CDT us Sacha Mccarty M.D. LAB BLOOD ADD-ON Final R esult [facility] [address] [place] [address], [facility] [address] [place] [address] * (ABNORMAL) ALT (Alanine Aminotransferase) (10/30/2024 2:17 PM CDT) Alanine Aminotransferase (ALT), S 79(H) 7 - 55 U/L 10/30/2024 3:21 PM CDT DTL Blood (Blood, Venous) 10/30/2024 2:17 PM CDT 10/30/2024 2:58 PM CDT Sacha Mccarty M.D. LAB BLOOD ADD-ON Final R esult Performing Organization Address City/[facility] Co de Phone Number [facility] 200 [place] [address], [facility] 200 [place] [address] * AST (Aspartate Aminotransferase) (10/30/2024 2:17 PM CDT) Aspartate Aminotransferase (AST), S 21 8 - 48 U/L 10/30/2024 3:21 PM CDT DTL Blood (Blood, Venous) 10/30/2024 2:17 PM CDT 10/30/2024 2:58 PM CDT Result Alin Sacha Mccarty M.D. LAB BLOOD ADD-ON Final R esult Performing Organization Address [facility] Co de Phone Number [facility] [address] [place] [address], [facility] 200 [place] [address] * (ABNORMAL) Sedimentation Rate (10/30/2024 2:17 PM CDT) Sedimentation Rate, B 13(H) 2 - 12 mm/h 10/30/2024 3:27 PM CDT DTL Blood (Blood, Venous) 10/30/2024 2:17 PM CDT 10/30/2024 2:37 PM CDT us Sacha Mccarty M.D. LAB BLOOD ADD-ON Final R esult [facility] 200 [place], [place] [address] [place] [address] * (ABNORMAL) CRP (C-Reactive Protein) (10/30/2024 2:17 PM CDT) [facility] C-Reactive Protein (CRP), S 6.8(H) <5.0 mg/L 10/30/2024 3:21 PM CDT DTL Blood (Blood, Venous) 10/30/2024 2:17 PM CDT 10/30/2024 2:58 PM CDT us Sacha Mccarty M.D. LAB BLOOD ADD-ON Final R esult Performing Organization Address [facility] Co de Phone Number [facility] [address] [place], [place] [address] [place] [address] * (ABNORMAL) CBC with Differential, Blood (10/30/2024 2:17 PM CDT) [facility] Hemoglobin 12.8(L) 13.2 - 16.6 g/dL 10/30/2024 [...] M.D. LAB BLOOD ADD-ON Final R esult [facility] [address] [place] [address], [facility] DTL [facility] [address] [place] [address] [facility] [address] [place] [address] documented in this encounter Visit Diagnoses Diagnosis Vasculitis- Primary documented in this encounter Care Teams Fabric Designer Relationship Specialty Start Date End Date None Reported, Pcp PCP - General Family Medicine 10/15/24 documented as of this encounter
--- OUTSIDE RECORDS SUMMARY | 2024-11-15 06:49 | XMS_ITS | Encounter Summary ---
Author Organization [facility] Address [address] [place] [address] Care Team Providers Care Last Model Maker Name Role Phone None Reported, Pcp Primary Care Provider Unavail able Encounter Details Date Type Department Care Team (Late st Contact Info) Description 10/25/2024 Clinical Communication Division of Vascular and Endovascular Surgery in [place], [place] [address] [place] [address] Provider, Unknown Social History Tobacco Use Types Packs/Day Years Used Date Smoking Tobacco: Never Passive Smoke Exposure: Never Smokeless Tobacco: Never Alcohol Use Standard Drinks/Week Comments Yes 0 (1 standard drink = 0.6 oz pur e alcohol) few times a year [facility] Utilities Answer Date Recorded In the past 12 months has [employer] gas, oil, or water [employer] threatened to shut off services in your [...] CDT Office Visit Department of Dermatology in [place], [place] 200 [place] [address] Reece Ross M.D. 200 [place] [address] 11/30/2024 4:00 PM CDT Appointment Department of Laboratory Medicine in [address] [address] Sacha Vidal M.D. 200 [place] [address] 11/30/2024 4:10 PM CDT Appointment Department of Laboratory Medicine in [address] [address] Sacha Vidal M.D. [address] [place] [phone] 01/04/2025 4:00 PM CDT Appointment Department of Laboratory Medicine in [address] [address] Sacha Vidal M.D. [address] [place] [phone] 01/04/2025 4:10 PM CDT Appointment Department of Laboratory Medicine in [address] [address] Sacha Vidal M.D. [address] [place] [phone] 02/01/2025 4:00 PM CDT Appointment Department of Laboratory Medicine in [address] [address] Sacha Vidal M.D. [address] [place] [phone] 02/01/2025 4:10 PM CDT Appointment Department of Laboratory Medicine in [address] [address] Sacha Vidal M.D. [address] [place] [phone] 03/01/2025 3:40 PM CDT Appointment Department of Laboratory Medicine in [address] [address] Sacha Vidal M.D. [address] [place] [phone] 03/01/2025 3:50 PM CDT Appointment Department of Laboratory Medicine in [address] [address] Sacha Vidal M.D. [address] [place] [phone] 04/05/2025 4:00 PM CDT Appointment Department of Laboratory Medicine in [address] [address] Sacha Vidal M.D. [address] [place] [phone] 04/05/2025 4:10 PM CDT Appointment Department of Laboratory Medicine in [address] [address] Sacha Vidal M.D. [address] [place] [phone] documented as of this encounter Visit Diagnoses Not on filedocumented in this encounter Care Teams Last Model Maker Relationship Specialty Start Date End Date None Reported, Pcp PCP - General Family Medicine 10/15/24 documented as of this encounter
--- OUTSIDE RECORDS SUMMARY | 2024-11-15 06:49 | XMS_ITS | Encounter Summary ---
Author Organization [facility] Address [address] [place] [address] Care Team Providers Care Rivet Sticker Name Role Phone None Reported, Pcp Primary Care Provider Unavail able Encounter Details Date Type Department Care Team (Late st Contact Info) Description 10/19/2024 Clinical Communication Department of Hospital Internal Medicine in [place], [place] [address] [place] [phone] Susan Camejo M.D. [address] [place] [phone] Social History Tobacco Use Types Packs/Day Years Used Date Smoking Tobacco: Never Passive Smoke Exposure: Never Smokeless Tobacco: Never Alcohol Use Standard Drinks/Week Comments Yes 0 (1 standard drink = 0.6 oz pur e alcohol) few times a year [facility] Utilities Answer Date Recorded In the [...] on file documented as of this encounter Miscellaneous Notes * Telephone Encounter - Venita Garcia - 10/19/2024 11:17 AM CDT MED 1 team: Please return a call to Gretel Alaniz at [phone] [facility]. Patient called stating he isexperiencing abdominal pain which has become progressively worse over the morning. Also reports diarrhea. States he was advised to call if he experienced abdominal pain. documented in this encounter Plan of Treatment Upcoming Encounters Date Type Department Care Team (Late st Contact Info) Description 11/16/2024 11:00 AM CDT Office Visit Department of Dermatology in [place], [place] [address] [place] [address] Reece Ross M.D. [address] [place] [phone] 11/30/2024 4:00 PM CDT Appointment Department of Laboratory Medicine in [address] [address] Sacha Vidal M.D. [address] [place] [phone] 11/30/2024 4:10 PM CDT Appointment Department of Laboratory Medicine in [address] [address] Sacha Vidal M.D. [address] [place] [phone] 01/04/2025 4:00 PM CDT Appointment Department of Laboratory Medicine in [address] [address] Sacha Vidal M.D. [address] [place] [phone] 01/04/2025 4:10 PM CDT Appointment Department of Laboratory Medicine in [address] [address] Sacha Vidal M.D. [address] [place] [phone] 02/01/2025 4:00 PM CDT Appointment Department of Laboratory Medicine in [address] [address] Sacha Vidal M.D. [address] [place] [phone] 02/01/2025 4:10 PM CDT Appointment Department of Laboratory Medicine in [address] [address] Sacha Vidal M.D. [address] [place] [phone] 03/01/2025 3:40 PM CDT Appointment Department of Laboratory Medicine in [address] [address] Sacha Vidal M.D. [address] [place] [phone] 03/01/2025 3:50 PM CDT Appointment Department of Laboratory Medicine in [address] [address] Sacha Vidal M.D. [address] [place] [phone] 04/05/2025 4:00 PM CDT Appointment Department of Laboratory Medicine in [address] [address] Sacha Vidal M.D. [address] [place] [phone] 04/05/2025 4:10 PM CDT Appointment Department of Laboratory Medicine in [address] [address] Sacha Vidal M.D. [address] [place] [phone] documented as of this encounter Visit Diagnoses Not on filedocumented in this encounter Care Teams Rivet Sticker Relationship Specialty Start Date End Date None Reported, Pcp PCP - General Family Medicine 10/15/24 documented as of this encounter
--- OUTSIDE RECORDS SUMMARY | 2024-11-15 06:49 | XMS_ITS | Encounter Summary ---
Author Organization [facility] Address [address] [place] [address] Care Team Providers Care Applications Support Analyst Name Role Phone None Reported, Pcp Primary Care Provider Unavail able Reason for Referral * Outpatient (Routine) - Authorized Specialty Diagnoses / Procedures Referred By Marlys mendez Referred To Contact Vascular Surgery Diagnoses Pain Epigastric Celiac Artery Compression Syndrome Allergic Purpura Grayson Bee M.D. [address] [place] [phone] Phone: tel: fax: [facility] Referral ID Status Reason Start Date Expiration Date V isits Requested Visits Authorized [id number] Authorized 10/25/2024 04/26/2026 1 1 Encounter Details Date Type Department Care Team (Late st Contact Info) Description 10/25/2024 [facility] [address] [place] [address] Grayson Bee M.D. [address] [place] [phone] Pain Epigastric (Primary Dx); Celiac Artery Compression Syndrome; Allergic Purpura Social History Tobacco Use Types Packs/Day Years Used Date Smoking Tobacco: Never Passive Smoke Exposure: Never Smokeless Tobacco: Never Alcohol Use Standard Drinks/Week Comments Yes 0 (1 standard drink = 0.6 oz pur e alcohol) few times a year [facility] Utilities Answer Date Recorded In the past 12 months has th e [employer], gas, oil, or water [employer] threatened to shut off services in your [...] Date Type Department Care Team (Late st [facility] Info) Description 11/16/2024 11:00 AM CDT Office Visit Department of Dermatology in [place], [place] [address] [place] [phone] Reece Ross M.D. [address] [place] [phone] 11/30/2024 4:00 PM CDT Appointment Department of Laboratory Medicine in [address] [address] Sacha Vidal M.D. [address] [place] [phone] 11/30/2024 4:10 PM CDT Appointment Department of Laboratory Medicine in [address] [phone] Sacha Vidal M.D. [address] [place] [phone] 01/04/2025 4:00 PM CDT Appointment Department of Laboratory Medicine in [address] [address] Sacha Vidal M.D. [address] [place] [phone] 01/04/2025 4:10 PM CDT Appointment Department of Laboratory Medicine in [address] [address] Sacha Vidal M.D. [address] [place] [phone] 02/01/2025 4:00 PM CDT Appointment Department of Laboratory Medicine in [address] [address] Sacha Vidal M.D. [address] [place] [phone] 02/01/2025 4:10 PM CDT Appointment Department of Laboratory Medicine in [address] [address] Sacha Vidal M.D. [address] [place] [phone] 03/01/2025 3:40 PM CDT Appointment Department of Laboratory Medicine in [address] [address] Sacha Vidal M.D. [address] [place] [phone] 03/01/2025 3:50 PM CDT Appointment Department of Laboratory Medicine in [address] [address] Sacha Vidal M.D. [address] [place] [phone] 04/05/2025 4:00 PM CDT Appointment Department of Laboratory Medicine in [address] [address] Sacha Vidal M.D. [address] [place] [phone] 04/05/2025 4:10 PM CDT Appointment Department of Laboratory Medicine in [address] [address] Sacha Vidal M.D. [address] [place] [address] Scheduled Referrals Name Type Priority Associated Diagnoses Orde r Schedule Vascular Surgery Referral Outpatient Referral Routine Pain Epigastric Celiac Artery Compression Syndrome Allergic Purpura Expected: 10/25/2024 (Approximate), Expires: 01/25/2026 documented as of this encounter Visit Diagnoses Diagnosis Pain Epigastric- Primary Celiac Artery Compression Syndrome Allergic Purpura documented in this encounter Care Teams Applications Support Analyst Relationship Specialty Start Date End Date None Reported, Pcp PCP - General Family Medicine 10/15/24 documented as of this encounter
--- OUTSIDE RECORDS SUMMARY | 2024-11-15 06:50 | XMS_ITS | Encounter Summary ---
Author Organization [facility] Address [address] [place] [address] Care Team Providers [employer] Pilot Name Role Phone None Reported, Pcp Primary Care Provider Unavail able Reason for Visit * Reason Onset Date Comments Appt Request 10/15/2024 Encounter Details Date Type Department Care Team (Late st Contact Info) Description 10/15/2024 Clinical Communication [facility] [address] [place] [phone] Radha Aviles M.D., M.H.A. [address] [place] [phone] Appt Request Social History Tobacco Use Types Packs/Day Years Used Date Smoking Tobacco: Never Passive Smoke Exposure: Never Smokeless Tobacco: Never Alcohol Use Standard Drinks/Week Comments Yes 0 (1 standard drink = 0.6 oz pur e alcohol) few times a year [facility] Utilities Answer Date Recorded In the past [...] CDT Office Visit Department of Dermatology in [place], [place] 200 [place] [address] Reece Ross M.D. 200 [place] [address] 11/30/2024 4:00 PM CDT Appointment Department of Laboratory Medicine in [address] [address] Sacha Vidal M.D. [address] [place] [phone] 11/30/2024 4:10 PM CDT Appointment Department of Laboratory Medicine in [address] [address] Sacha Vidal M.D. [address] [place] [phone] 01/04/2025 4:00 PM CDT Appointment Department of Laboratory Medicine in [address] [address] Sacha Vidal M.D. [address] [place] [phone] 01/04/2025 4:10 PM CDT Appointment Department of Laboratory Medicine in [address] [address] Sacha Vidal M.D. [address] [place] [phone] 02/01/2025 4:00 PM CDT Appointment Department of Laboratory Medicine in [address] [address] Sacha Vidal M.D. [address] [place] [phone] 02/01/2025 4:10 PM CDT Appointment Department of Laboratory Medicine in [address] [address] Sacha Vidal M.D. [address] [place] [phone] 03/01/2025 3:40 PM CDT Appointment Department of Laboratory Medicine in [address] [address] Sacha Vidal M.D. [address] [place] [phone] 03/01/2025 3:50 PM CDT Appointment Department of Laboratory Medicine in [address] [address] Sacha Vidal M.D. [address] [place] [phone] 04/05/2025 4:00 PM CDT Appointment Department of Laboratory Medicine in [address] [address] Sacha Vidal M.D. [address] [place] [phone] 04/05/2025 4:10 PM CDT Appointment Department of Laboratory Medicine in [address] [address] Sacha Vidal M.D. [address] [place] [phone] documented as of this encounter Visit Diagnoses Not on filedocumented in this encounter Care Teams Corporation Pilot Relationship Specialty Start Date End Date None Reported, Pcp PCP - General Family Medicine 10/15/24 documented as of this encounter
--- OUTSIDE RECORDS SUMMARY | 2024-11-15 06:50 | XMS_ITS | Clinical Summary ---
Author Organization [facility] Address [address] [place] [address] Care Team Providers Care Pallet Rectifier Name Role Phone Pcp, No Primary Care [...] 14 days. 28 Tablet 5 10/17/19 25 amoxicillin 500 mg tabletIndication s:H. pylori infection Take 2 Tablets (1,000 mg) by mouth two times daily for 14 days. 56 Tablet 5 10/17/19 25 Active Problems No known active problems Encounters Date Type Department Care Team Description 10/04/2024 Telephone [facility] [place] [address] [place] [address] Aye Browning NP Results 10/03/2024 1:30 PM CDT Orders Only [facility] [address] [place] [address] Lab, Farm Lab 10/02/2024 7:30 PM CDT Office Visit [facility] [place] [address] [place] [phone] Jessica Connors MD Abdominal Pain 10/02/2024 Travel [...] Hepatitis C screening for age 18-79 2020 Hepatitis B series for 19+ (1 of 3 - 19+ 3-dose series) 2021 Tetanus booster 2022 COVID-19 vaccine series ( season) 2024 05/19/2022, 06/25/2021, 10/28/2020, Additional [...] HELICO[employer]YL[employer], EIA, STOOL SEE NOTE [email or web address] Comment: HELICO[employer] PYL[employer]I [employer], EIA, STOOL Micro Number: [id number] Test Status: Final Specimen Source: Stool/feces Specimen [...] 1:47 PM CDT 10/03/2024 1:48 PM CDT Jessica Connors MD MICROBIOLOGY Final Result [facility] [address] [place] [address], [place] [phone] [facility] [address] [place] [address] from Last 3 Months Insurance [facility] Care Teams Pallet Rectifier Relationship Specialty Start Date End Date Pcp, No . PCP - General 04/08/23
--- OUTSIDE RECORDS SUMMARY | 2024-11-15 06:50 | XMS_ITS | Encounter Summary ---
Author Organization [place] Address [address] [place] [address] Care Team Providers Care Lodge Sales Associate Name Role Phone No Ref-Primary, Physician Primary Care Provider Marlene Foster PA-C Unavailable Shima Valdivia APRN ELECTRICAL MECHANIC Unavailable [phone] Reason for Visit * Reason Onset Date Comments Previsit 11/07/2024 Encounter Details Date Type Department Care Team (Late st Contact Info) Description 11/07/2024 PRE VISIT [facility] [place] [address] [facility] 4th [place] [address] Marlene Foster PA-C [address] [place] [address] Previsit Social History Tobacco Use Types Packs/Day Years [...] on file 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 Connors HOSPITAL DISCHARGE SUMMARY/ ED VISITS [facility] 09/13/23-Exam under anesthesia in the open a pilonidal tract -lay open cleft infection MEDICATION LIST Internal PROCEDURES STOOL TESTING H. [facility] Care Everywhere 10/03/24 LABS PERTINENT LABS Internal IMAGES CT Internal 10/06/24-CT abd pel ULTRASOUND Internal 10/04/24-US abdomen documented in this encounter Plan of Treatment Not on file documented as of this encounter Visit Diagnoses Not on filedocumented in this encounter Care Teams Lodge Sales Associate Relationship Specialty Start Date End Date No Ref-Primary, Physician PCP - General 10/04/24 Marlene Foster PA-C [address] [place], [place] [address] Physician Ambulance Mechanic Physician Ambulance Mechanic - Medical 10/08/24 Shima Valdivia APRN ELECTRICAL MECHANIC [address] [facility] [address] [place] [address] Assigned PCP 10/17/24 documented as of this encounter
--- OUTSIDE RECORDS SUMMARY | 2024-11-15 06:50 | XMS_ITS | Encounter Summary ---
Author Organization [facility] Address [address] [place] [address]. 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
--- OUTSIDE RECORDS SUMMARY | 2024-11-15 06:50 | XMS_ITS | Clinical Summary ---
Author Organization [facility] Address [address] [place] [address] Care Team Providers Care Tank Officer Name Role Phone No Ref-Primary, Physician Primary Care Provider Marlene Foster PA-C Unavailable Shima Valdivia CONSUMER LOAN OFFICER LOPPER Unavailable [phone] Allergies No known active allergies Medications amphetamine-dex [...] days. 56 tablet 5 10/19/19 25 Active Problems No known active problems Encounters Date Type Department Care Team Description 11/07/[address] [facility] Gastroenterology Clinic [address] 4[address] [place] [address] Marlene Foster PA-C Previsit 10/06/2024 3:24 PM CDT - 10/06/2024 6:22 PM CDT Emergency [facility] Emergency Dept [address] [place] [address] Piper Alvarez MD Acute gastritis without hemorrhage, unspecified gastritis type; Abdominal pain, epigastric Discharge Disposition: Home or Self Care 10/06/2024 Travel 10/04/2024 3:32 PM CDT - 10/04/2024 5:37 PM CDT Emergency [facility] Emergency Dept [address] [place] [address] Jony Melo MD Epigastric pain; Hepatomegaly Discharge Disposition: Home or Self Care 10/04/2024 3:00 PM CDT Office Visit [facility] [address] [place] [address] Shima Valdivia APRN CNP Epigastric pain (Primary [...] on file 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 Gender Identity Not on file Sexual Orientation Not on file Last Filed Vital Signs Vital Sign Reading [...] 10/06/2024 3:20 PM CDT Plan of Treatment Health Maintenance Due Date Last Done Comments ADVANCE CARE PLANNING 2002 ANNUAL REVIEW OF HM ORDERS 2002 YEARLY PREVENTIVE VISIT 2005 HIV SCREENING 2017 HEPATITIS C SCREENING 2020 COVID-19 Vaccine ( season) 2024 05/19/2022, 06/25/2021, 10/28/2020, Additional history exists DTAP/TDAP/TD IMMUNIZATION (7 - Td or Tdap) 09/13/2024 09/13/2014, 09/21/2007, 12/23/2003, Additional history exists INFLUENZA VACCINE (Season Ended) 2025 04/12/2023, 05/18/2022, 07/01/2021, Additional history exists ZOSTER IMMUNIZATION (1 of [...] 10/06/2024 6:15 PM CDT [facility] Specific [place] Urine 1.010 1.003 - 1.035 BOB 10/06/2024 6:15 PM CDT [facility] Blood Urine Negative Negative 10/06/2024 6:15 PM CDT LABORATORY pH Urine 6.5 5.0 - 7.0 10/06/2024 6:15 PM CDT [facility] Protein Albumin Urine 20(A) Negative mg/dL 10/06/2024 6:15 PM CDT LABORATORY Urobilinogen Urine Normal Normal mg/dL 10/06/2024 6:15 PM CDT LABORATORY Nitrite Urine Negative Negative 10/06/2024 6:15 PM CDT LABORATORY Leukocyte Esterase Urine Negative Negative 10/06/2024 6:15 PM CDT LABORATORY Mucus Urine Present(A) None Seen /LPF 10/06/2024 6:15 PM CDT LABORATORY RBC Urine 2 <=2 /HPF 10/06/2024 6:15 PM CDT LABORATORY WBC Urine 1 <=5 /HPF 10/06/2024 6:15 PM CDT LABORATORY Squamous Epithelials Urine <1 <=1 /HPF 10/06/2024 6:15 PM CDT LABORATORY Urine MID-STREAM URINE SPECIMEN / Unknown Non-blood Collection / Unknown 10/06/2024 5:24 PM CDT 10/06/2024 5:33 PM CDT Narrative [facility] - 10/06/2024 6:15 PM CDT Urine Culture not indicated us Piper Alvarez MD LAB - URINE ORDERABLES Final Res ult LABORATORY [facility] [address] Lab (1st floor, no room number) [place] [address] * CT Abdomen Pelvis w Contrast [...] EXAM: CT ABDOMEN PELVIS W CONTRAST LOCATION: [facility] DATE: 10/06/2024 INDICATION: severe abd pain COMPARISON: [...] EXAM: CT ABDOMEN PELVIS W CONTRAST LOCATION: [facility] DATE: 10/06/2024 INDICATION: severe abd pain COMPARISON: [...] the time period is included. Hold Specimen [facility] 10/06/2024 5:01 PM CDT LABORATORY Blood VENOUS LINE / Unknown Venipuncture / Unknown 10/06/2024 3:44 PM CDT 10/06/2024 3:52 PM CDT Piper Alvarez MD LAB - BLOOD ORDERABLES Final Res ult LABORATORY [facility] [address] Lab (1st floor, no room number) [place] [address], [facility] * Extra Blue Top Tube (10/06/2024 3:44 PM CDT) Only the most recent of2 resultswithin the time period is included. Hold Specimen [facility] 10/06/2024 5:01 PM CDT LABORATORY Blood VENOUS LINE / Unknown Venipuncture / Unknown 10/06/2024 3:44 PM CDT 10/06/2024 3:53 PM CDT us Piper Alvarez MD LAB - BLOOD ORDERABLES Final Res ult [facility] [address] Lab (1st floor, no room number) [place] [address], [facility] * CBC with platelets and [...] LAB - BLOOD ORDERABLES Final Res ult [facility] [address] Lab (1st floor, no room number) [place] [address] * Lipase (10/06/2024 3:44 PM CDT) Only the most recent of2 resultswithin the time period is included. Lipase 26 13 - 60 U/L 10/06/2024 4:22 PM CDT LABORATORY Blood BLOOD SPECIMEN / Unknown Venipuncture / Unknown 10/06/2024 3:44 PM CDT 10/06/2024 3:53 PM CDT Piper Alvarez MD LAB - BLOOD ORDERABLES Final Res ult [facility] [address] Lab (1st floor, no room number) [place] [address], [facility] * (ABNORMAL) Comprehensive metabolic panel (10/06/2024 3:44 [...] 10/06/2024 4:22 PM CDT LABORATORY Comment:eGFR calculated 2020 CKD-EPI equation. Calcium 9.3 8.8 - [...] - BLOOD ORDERABLES Final Res ult LABORATORY [facility] [address] Lab (1st floor, no room number) [place] [address] * US Abdomen Limited (10/04/2024 4:33 PM CDT) Anatomical Region Laterality Modality Abdomen/Pelvis Ultrasound 10/04/2024 4:33 PM CDT Impressions 10/04/2024 4:49 PM CDT IMPRESSION: 1. Mild hepatomegaly. Narrative 10/04/2024 4:49 PM CDT EXAM: US ABDOMEN LIMITED LOCATION: [facility] DATE: 10/04/2024 INDICATION: upper abdominal pain COMPARISON: [...] - 10/04/2024 EXAM: US ABDOMEN LIMITED LOCATION: [facility] DATE: 10/04/2024 INDICATION: upper abdominal pain COMPARISON: [...] IMPRESSION: 1. Mild hepatomegaly. Jony Melo MD [facility] US ORDERABLES Final Resul t from Last 3 Months Insurance [employer] Care Teams Tank Officer Relationship Specialty Start Date End Date No Ref-Primary, Physician PCP - General 10/04/24 Marlene Foster PA-C [address] [place] [address] Physician Low Pressure Firer Physician Low Pressure Firer - Medical 10/08/24 Shima Valdivia APRN LOPPER [address] [facility] [address] [place] [address] Assigned PCP 10/17/24
--- OUTSIDE RECORDS SUMMARY | 2024-11-15 06:50 | XMS_ITS | Encounter Summary ---
Author Organization [place] Address [address] [place] [address]. 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
--- OUTSIDE RECORDS SUMMARY | 2024-11-15 06:50 | XMS_ITS | Encounter Summary ---
Author Organization [facility] Address [address] [place] [address] Care Team Providers Care Frozen Meat Cutter Name Role Phone None Reported, Pcp Primary Care Provider Unavail able Reason for Referral * Outpatient (Routine) - Authorized Specialty Diagnoses / Procedures Referred By Marlys mendez Referred To Contact Dermatology Dior Sanchez M.D. [address] [place] [phone] Phone: tel: fax: [facility] Referral ID Status Reason Start Date Expiration Date V isits Requested Visits Authorized [id number] Authorized 10/17/2024 04/18/2026 1 1 Scheduling Instructions Post [facility] follow up. With Giuseppe if possible. If not, with Dr. Shipman or other MD. Encounter Details Date Type Department Care Team ([facility] st Contact Info) Description 10/17/2024 Orders Only Department of Dermatology in [place], [place] [address] [place] [phone] Toña Chin M.D. [address] [place] [phone] Social History Tobacco Use Types Packs/Day Years Used Date Smoking Tobacco: Never Passive Smoke Exposure: Never Smokeless Tobacco: Never Alcohol Use Standard Drinks/Week Comments Yes 0 (1 standard drink = 0.6 oz pur e alcohol) few times a year [facility] Utilities Answer Date Recorded In the past 12 months has th e [employer], gas, oil, or water [employer] threatened to shut off services in your [...] Date Type Department Care Team (Late st [facility] Info) Description 11/16/2024 11:00 AM CDT Office Visit Department of Dermatology in [place], [place] [address] [place] [phone] Reece Ross M.D. [address] [place] [phone] 11/30/2024 4:00 PM CDT Appointment Department of Laboratory Medicine in [address] [phone] Sacha Vidal M.D. [address] [place] [phone] 11/30/2024 4:10 PM CDT Appointment Department of Laboratory Medicine in [address] [phone] Sacha Vidal M.D. [address] [place] [phone] 01/04/2025 4:00 PM CDT Appointment Department of Laboratory Medicine in [address] [phone] Sacha Vidal M.D. [address] [place] [phone] 01/04/2025 4:10 PM CDT Appointment Department of Laboratory Medicine in [address] [address] Sacha Vidal M.D. [address] [place] [phone] 02/01/2025 4:00 PM CDT Appointment Department of Laboratory Medicine in [address] [address] Sacha Vidal M.D. [address] [place] [phone] 02/01/2025 4:10 PM CDT Appointment Department of Laboratory Medicine in [address] [phone] Sacha Vidal M.D. [address] [place] [phone] 03/01/2025 3:40 PM CDT Appointment Department of Laboratory Medicine in [address] [address] Sacha Vidal M.D. [address] [place] [phone] 03/01/2025 3:50 PM CDT Appointment Department of Laboratory Medicine in [address] [address] Sacha Vidal M.D. [address] [place] [phone] 04/05/2025 4:00 PM CDT Appointment Department of Laboratory Medicine in [address] [address] Sacha Vidal M.D. [address] [place] [phone] 04/05/2025 4:10 PM CDT Appointment Department of Laboratory Medicine in [address] [address] Sacha Vidal M.D. [address] [place] [address] Scheduled Referrals Name Type Priority Associated Diagnoses Order Schedule Dermatology office visit (clinic) Outpatient Referral Routine Expected: 10/17/2024, Expires: 01/16/2026 documented as of this encounter Visit Diagnoses Not on filedocumented in this encounter Care Teams Frozen Meat Cutter Relationship Specialty Start Date End Date None Reported, Pcp PCP - General Family Medicine 10/15/24 documented as of this encounter
--- OUTSIDE RECORDS SUMMARY | 2024-11-15 06:51 | XMS_ITS | Encounter Summary ---
Author Organization [facility] Address [address] [place] [address] Care Team Providers Care Aerospace Stress Engineer Name Role Phone None Reported, Pcp Primary Care Provider Unavail able Reason for Visit * Reason Onset Date Comments Flare Up 11/09/2024 Encounter Details Date Type Department Care Team (Late st Contact Info) Description 11/09/2024 Clinical Communication Division of Rheumatology in [place], [place] [address] [place] [phone] Sacha Vidal M.D. [address] [place] [phone] Flare Up Social History Tobacco Use Types Packs/Day Years Used Date Smoking Tobacco: Never Passive Smoke Exposure: Never Smokeless Tobacco: Never Alcohol Use Standard Drinks/Week Comments Not Currently 0 (1 standard drink = 0.6 oz pur e alcohol) few times a year [facility] Utilities Answer Date Recorded In the past 12 months has e [employer], gas, oil, or water [employer] threatened to shut off services in your [...] encounter Miscellaneous Notes * Telephone Encounter - Freddy Lock Jr., R.N. - 11/14/2024 4:24 PM CDT SUBJECTIVE CHIEF COMPLAINT / REASON FOR CALL Flare Up ASSESSMENT Patient reported skin rash on legs has spread to trunk. He states his calf muscles are extremely tight. He says his left ankle is very painful. He has a history of recently diagnosed vasculitis. PLAN Recommend he go to Emergency Room as soon as possible to be evaluated. I will message his Staff Assistant Dr. Hammad Mccarty for further recommendations. Disposition/Recommendation: emergency room as soon as possible. Information/Education: patient/caller able to teach back. Caller agreeable to plan of care: yes. The following references were used: nursing clinical judgement. documented in this encounter Plan of Treatment Upcoming Encounters Date Type Department Care Team (Late st Contact Info) Description 11/16/2024 11:00 AM CDT Office Visit Department of Dermatology in [place], [place] [address] [place] [phone] Reece Ross M.D. [address] [place] [phone] 11/30/2024 4:00 PM CDT Appointment Department of Laboratory Medicine in [address] [phone] Sacha Vidal M.D. [address] [place] [phone] 11/30/2024 4:10 PM CDT Appointment Department of Laboratory Medicine in [address] [phone] Sacha Vidal M.D. [address] [place] [phone] 01/04/2025 4:00 PM CDT Appointment Department of Laboratory Medicine in [address] [phone] Sacha Vidal M.D. [address] [place] [phone] 01/04/2025 4:10 PM CDT Appointment Department of Laboratory Medicine in [address] [address] Sacha Vidal M.D. [address] [place] [phone] 02/01/2025 4:00 PM CDT Appointment Department of Laboratory Medicine in [address] [phone] Sacha Vidal M.D. [address] [place] [phone] 02/01/2025 4:10 PM CDT Appointment Department of Laboratory Medicine in [address] [place] [address] Sacha Vidal M.D. [address] [place] [phone] 03/01/2025 3:40 PM CDT Appointment Department of Laboratory Medicine in [address] [address] Sacha Vidal M.D. [address] [place] [phone] 03/01/2025 3:50 PM CDT Appointment Department of Laboratory Medicine in [address] [place] [address] Sacha Vidal M.D. [address] [place] [phone] 04/05/2025 4:00 PM CDT Appointment Department of Laboratory Medicine in [address] [place] [address] Sacha Vidal M.D. [address] [place] [phone] 04/05/2025 4:10 PM CDT Appointment Department of Laboratory Medicine in [address] [phone] Sacha Vidal M.D. [address] [place] [address] documented as of this encounter Visit Diagnoses Not on filedocumented in this encounter Care Teams Aerospace Stress Engineer Relationship Specialty Start Date End Date None Reported, Pcp PCP - General Family Medicine 10/15/24 documented as of this encounter
--- OUTSIDE RECORDS SUMMARY | 2024-11-15 06:51 | XMS_ITS | Clinical Summary ---
Author Organization [facility] Address [address] [place] [address] Care Team Providers Care Chicken Sexer Name Role Phone None Reported, Pcp Primary Care Provider Unavail able Source Comments Patient records contain information from all sites at [facility]. For routine questions regarding patient records, call [phone] during business hours, M-F 8:00 AM - 5:00 PM Central Time. Record requests for emergency care only can be directed to [phone] at any time.[facility] Allergies No known active allergies Medications pantoprazole (Protonix) 40 mg EC tablet Take 1 tablet (40 mg total) by mouth daily before morning meal. 30 tablet 5 12:56 PM CDT 10/19/19 25 Active sulfamethoxazole- trimethoprim (Bactrim DS) 800-160 mg per tabletIndications :Prophylaxis, medical Take 1 tablet by mouth daily Indications : Prophylaxis , medical. 30 tablet 5 12:56 PM CDT 10/19/19 25 Active predniSONE (Deltasone) 10 mg tablet Take 6 [...] mg) daily for 5 days. 103 tablet 12:56 PM CDT 10/20/19 25 025 Active omeprazole (PriLOSEC OTC) 20 mg EC tablet Take 20 mg by mouth 2 (two) times a day before morning and evening meals. 10/03/19 025 Discontinued(S top Taking at Discharge) sucralfate (Carafate) 100 mg/mL suspension Take 1 g by mouth 3 (three) times a day before meals. 10/10/19 025 Discontinued(S top Taking at Discharge) ondansetron ODT (Zofran-ODT) 4 mg disintegrating tablet Dissolve 4 mg in the mouth every 8 (eight) hours as needed for nausea or vomiting. 025 Discontinued(T herapy completed) oxyCODONE (Roxicodone) 5 mg immediate release tablet Take 5 mg by mouth every 6 (six) hours as needed for pain. 10/12/19 025 Discontinued(S top Taking at Discharge) acetaminophen (TylenoL) 325 mg tablet Take 2 tablets (650 mg total) by mouth every 6 (six) hours. 240 tablet 10/19/19 025 Discontinued acetaminophen (TylenoL) 325 mg tablet Take 2 tablets (650 mg total) by mouth 4 (four) times a day as needed for pain. 60 tablet 10/19/19 025 Discontinued(T herapy completed) Active Problems Problem Noted Date Diagnosed Date Vasculitis 10/18/2024 Abdominal Pain 10/15/2024 Encounters Date Type Department Care Team Description 11/14/2024 6:01 PM CDT - 11/14/2024 8:22 PM CDT Emergency Emergency Department [address] [place] [address] Discharge Disposition: Left Against Medical Advice or Discontinued Care 11/09/2024 Clinical Communication Division of Rheumatology in [place], [place] [address] [place] [address] Sacha Vidal M.D. Flare Up 10/30/2024 4:00 PM CDT Office Visit Division of Rheumatology in [place], [place] [address] [place] [phone] Sacha Vidal M.D. Vasculitis (Primary Dx) 10/30/2024 2:10 PM CDT - 10/30/2024 11:59 PM CDT Hospital Encounter Department of Laboratory Medicine and Pathology, [place], [place] [address] [place] [phone] Sacha Vidal M.D. Vasculitis Discharge Disposition: Home or Self Care 10/30/2024 2:00 PM CDT - 10/30/2024 2:09 PM CDT Hospital Encounter Department of Laboratory Medicine and Pathology, [place], [place] [address] [place] [phone] Sacha Vidal M.D. Vasculitis Discharge Disposition: Home or Self Care 10/29/2024 9:15 AM CDT Clinical Communication Virtual Review in [place], [place] 200 [place] [address] Pre-visit Intake 10/25/2024 10:20 AM CDT Ancillary Procedure Department of Vascular Surgery 10/25/2024 Clinical Communication Division of Vascular and Endovascular Surgery in [place], [place] [address] [place] [phone] Provider, Unknown 10/25/2024 [facility] AND [address] [address] Grayson Bee M.D. Pain Epigastric (Primary Dx); Celiac Artery Compression Syndrome; Allergic Purpura 10/19/2024 Clinical Communication Department of Hospital Internal Medicine in [place], [place] [address] [place] [phone] Susan Camejo M.D. 10/17/2024 Orders Only Division of Rheumatology in [place], [place] [address] [place] [phone] Sacha Vidal M.D. Vasculitis (Primary Dx) 10/17/2024 Orders Only Department of Dermatology in [place], [place] [address] [place] [phone] Toña Chin M.D. 10/15/2024 2:25 PM CDT Ancillary Procedure Department of Dermatology 10/15/2024 2:20 PM CDT Ancillary Procedure Department of Dermatology 10/15/2024 8:50 AM CDT Ancillary Procedure Department of Radiology in [place], [place] [address] [place] [address] Fabiano Taylor P.A.-C. 10/15/2024 7:05 AM CDT Ancillary Procedure Department of Emergency Medicine 10/15/2024 7:00 AM CDT Ancillary Procedure Department of Emergency Medicine 10/15/2024 6:55 AM CDT Ancillary Procedure Department of Emergency Medicine 10/15/2024 6:50 AM CDT Ancillary Procedure Department of Emergency Medicine 10/15/2024 5:42 AM CDT - 10/18/2024 1:16 PM CDT Hospital Encounter [facility], [facility], Third Floor [address] [place] [phone] Fabiano Taylor P.A.-C. Bundrick, John B, M.D. Abdominal Pain (Primary Dx); Leukocytosis; Abnormal C Reactive Protein; Elevated Sedimentation Rate; Abnormal Liver Function Test; Abnormal Pancreatic Enzyme; Thrombocytosis Unspecified; Rash Leg; Myalgia; Arthralgia; Loss Weight Abnormal; Anorexia; Vasculitis Discharge Disposition: Home or Self Care 10/15/2024 Clinical Communication [facility] [address] [place] [phone] Radha Aviles M.D., M.H.A. Appt Request from Last 3 Months Social History Tobacco Use Types Packs/Day Years Used Date Smoking Tobacco: Never Passive Smoke Exposure: Never Smokeless Tobacco: Never Alcohol Use Standard Drinks/Week Comments Not Currently 0 (1 standard drink = 0.6 oz pur e alcohol) few times a year [facility] Utilities Answer Date Recorded In the [...] file Not on file Not on file Last Filed Vital Signs Vital Sign Reading Time Taken Comments Blood Pressure 128/70 11/14/2024 6:05 PM CDT Pulse 57 10/18/2024 7:50 AM CDT Temperature 36.6 C (97.9 F) 11/14/2024 6:05 PM CDT Respiratory Rate 16 11/14/2024 6:05 PM CDT Oxygen Saturation 97% 11/14/2024 6:05 PM CDT Inhaled Oxygen Concentration - - Weight 74.1 kg (163 lb 5.8 oz) 11/14/2024 6:07 P M CDT Height 177.8 cm (5' 10) 11/14/2024 6:07 PM CDT Body Mass Index 23.44 11/14/2024 6:07 PM CDT Plan of Treatment Upcoming Encounters Date Type Department Care Team (Late st Contact Info) Description 11/16/2024 11:00 AM CDT Office Visit Department of Dermatology in [place], [place] [address] [place] [phone] Reece Ross M.D. [address] [place] [phone] 11/30/2024 4:00 PM CDT Appointment Department of Laboratory Medicine in [address] [phone] Sacha Vidal M.D. [address] [place] [phone] 11/30/2024 4:10 PM CDT Appointment Department of Laboratory Medicine in [address] [phone] Sacha Vidal M.D. [address] [place] [phone] 01/04/2025 4:00 PM CDT Appointment Department of Laboratory Medicine in [address] [phone] Sacha Vidal M.D. [address] [place] [phone] 01/04/2025 4:10 PM CDT Appointment Department of Laboratory Medicine in [address] [phone] Sacha Vidal M.D. [address] [place] [phone] 02/01/2025 4:00 PM CDT Appointment Department of Laboratory Medicine in [address] [phone] Sacha Vidal M.D. [address] [place] [phone] 02/01/2025 4:10 PM CDT Appointment Department of Laboratory Medicine in [address] [phone] Sacha Vidal M.D. [address] [place] [phone] 03/01/2025 3:40 PM CDT Appointment Department of Laboratory Medicine in [address] [phone] Sacha Vidal M.D. [address] [place] [phone] 03/01/2025 3:50 PM CDT Appointment Department of Laboratory Medicine in [address] [phone] Sacha Vidal M.D. [address] [place] [phone] 04/05/2025 4:00 PM CDT Appointment Department of Laboratory Medicine in [address] [phone] Sacha Vidal M.D. [address] [place] [phone] 04/05/2025 4:10 PM CDT Appointment Department of Laboratory Medicine in [address] [phone] Sacha Vidal M.D. [address] [place] [phone] Health Maintenance Due Date Last Done Comments COVID-19 Vaccine ( season) 2024 05/19/2022, 06/25/2021, 10/28/2020, Additional history exists Influenza Vaccine (#1) 2024 , 05/18/2022, 07/01/2021, Additional history exists Depression Screening (Annual PHQ-2) 06/27/2024 DTaP,Tdap,and Td Vaccines (7 - Td or Tdap) 09/13/2024 09/13/2014, 09/21/2007, 12/23/2003, Additional history exists Pneumococcal vaccine (0-49 years) Aged Out 03/25/2003, 01/22/2003, 2002 No longer eligible based on patient's age to complete this topic Hepatitis B Vaccines Completed 06/21/2003, 01/22/2003, 2002 IPV Vaccines Completed 09/21/2007, 05/28, 01/22/2003, Additional history exists Meningococcal Vaccine Completed 02/02/2019, 015 HPV Vaccines Completed 07/01/2021, 08/0 02/2019, 01/20/2018 HIV Screening Completed 10/15/2024 Procedures Procedure Name Priority Date/Time Associated Diagnosis Comments C-REACTIVE PROTEIN (CRP), S/P STAT 11/14/2024 6:20 PM CDT HEPATIC FUNCTION PANEL, S STAT 11/14/2024 6:20 PM CDT BASIC METABOLIC PANEL, S/P STAT 11/14/2024 6:20 PM CDT CBC WITH DIFFERENTIAL, B STAT 11/14/2024 6:20 PM CDT PH, U Routine 10/30/2024 2:22 PM CDT OSMOLALITY, U Routine 10/30/2024 2:22 PM CDT DIPSTICK, U Routine 10/30/2024 2:22 PM CDT MICROSCOPIC AUTOMATED Routine 10/30/2024 2:22 PM CDT PROTEIN/CREATININE RATIO, RANDOM, URINE Routine 10/30/2024 2:22 PM CDT Vasculitis URINALYSIS WITH MICROSCOPIC Routine 10/30/2024 2:22 PM CDT Vasculitis IMMUNOGLOBULINS (IGG, IGA, AND IGM), S Routine 10/30/2024 2:17 PM CDT Vasculitis CREATININE WITH EGFR, S/P Routine 10/30/2024 2:17 PM CDT Vasculitis BUN (BLOOD UREA NITROGEN), S/P Routine 10/30/2024 2:17 PM CDT Vasculitis POTASSIUM, S/P Routine 10/30/2024 2:17 PM CDT Vasculitis SODIUM, S/P Routine 10/30/2024 2:17 PM CDT Vasculitis ALANINE AMINOTRANSFERASE (ALT), S/P Routine 10/30/2024 2:17 PM CDT Vasculitis ASPARTATE AMINOTRANSFERASE (AST), S/P Routine 10/30/2024 2:17 PM CDT Vasculitis SEDIMENTATION RATE, B Routine 10/30/2024 2:17 PM CDT Vasculitis C-REACTIVE PROTEIN (CRP), S/P Routine 10/30/2024 2:17 PM CDT Vasculitis CBC WITH DIFFERENTIAL, B Routine 10/30/2024 2:17 PM CDT Vasculitis VASCULAR SURGERY IMAGE EXAM Routine 10/25/2024 10:20 AM CDT BASIC METABOLIC PANEL, S/P Routine 10/18/2024 7:41 AM CDT CBC WITHOUT DIFFERENTIAL, B Routine 10/18/2024 7:41 AM CDT COMPREHENSIVE METABOLIC PANEL, S/P Routine 10/17/2024 9:27 AM CDT CBC WITHOUT DIFFERENTIAL, B Routine 10/17/2024 9:[address] ABDOMEN PELVIS ANGIOGRAM WITH IV CONTRAST RAD - Routine (most inpatients and all outpatients) 10/16/2024 6:07 PM CDT MAGNESIUM, S Routine 10/16/2024 5:09 AM CDT COMPREHENSIVE METABOLIC PANEL, S/P Routine 10/16/2024 5:09 AM CDT CBC WITH DIFFERENTIAL, B Routine 10/16/2024 5:09 AM CDT ANTISTREP-O TITER, S STAT 10/16/2024 5:09 AM CDT ECG Routine 10/15/2024 4:50 PM CDT CYCLIC CITRULLINATED PEPTIDE ABS, IGG, S Timed 10/15/2024 3:53 PM CDT RHEUMATOID FACTOR, S/P Timed 3:53 PM CDT AB TO EXTRACTABLE NUCLEAR AG EVAL, S Timed 10/15/2024 3:53 PM CDT COMPLEMENT C4, S Timed 10/15/2024 3:53 PM CDT COMPL C3, S Timed 10/15/2024 3:53 PM CDT PROTEINASE 3 ABS, IGG, S Timed 10/15/2024 3:53 PM CDT CYTOPLASMIC NEUTROPHIL ABS, S Timed 10/15/2024 3:53 PM CDT ANTINUCLEAR AB, HEP-2, SUBSTRATE, S Timed 10/15/2024 3:53 PM CDT BETA-2 GLYCOPROTEIN 1 ABS, IGG AND IGM, S Timed 10/15/2024 3:53 PM CDT LUPUS ANTICOAGULANT PROFILE Timed 10/15/2024 3:53 PM CDT PHOSPHOLIPID (CARDIOLIPIN) ABS, IGG AND IGM, S Timed 10/15/2024 3:53 PM CDT CRYOGLOBULIN, S Timed 10/15/2024 3:53 PM CDT SYPHILIS IGG W/ REFLEX, EIA, S Timed 10/15/2024 3:53 PM CDT HIV-1/-2 AG AND AB SCREEN, PLASMA Timed 10/15/2024 3:53 PM CDT HEPATITIS A IGM AB Timed 10/15/2024 3: 53 PM CDT HEP B CORE AB, IGM Timed 10/15/2024 3: 53 PM CDT HBS ANTIGEN SCRN, S Timed 10/15/2024 3 :53 PM CDT HCV AB W/REFLEX TO HCV PCR, S Timed 10/15/2024 3:53 PM CDT HBC TOTAL AB, SERUM Timed 10/15/2024 3 :53 PM CDT HBS ANTIBODY, SERUM Timed 10/15/2024 3 :53 PM CDT DERMATOLOGY IMAGE EXAM Routine 2:20 PM CDT DERMATOLOGY IMAGE EXAM Routine 2:19 PM CDT CUTANEOUS DIRECT IFA, BIOPSY Routine 10/15/2024 1:56 PM CDT DERMATOPATHOLOGY Routine 10/15/2024 1:56 PM CDT BACTERIA / MARYLOU CULTURE, BLOOD STAT 10/15/2024 9:34 AM CDT TROPONIN T, 5TH GEN, P Routine 9:24 AM CDT ACTIVATED PARTIAL THROMBOPLASTIN TIME (APTT), P STAT 10/15/2024 9:24 AM CDT PROTHROMBIN TIME (PT), P STAT 10/15/2024 9:24 AM CDT LACTATE DEHYDROGENASE (LD), S STAT 10/15/2024 9:24 AM CDT EBV AB PROFILE STAT 10/15/2024 9:24 AM CDT INFECTIOUS MONONUCLEOSIS, RAPID TEST, S/B STAT 10/15/2024 9:24 AM CDT BACTERIA / MARYLOU CULTURE, BLOOD STAT 10/15/2024 9:24 AM CDT MICROSCOPIC MANUAL STAT 10/15/2024 9: 08 AM CDT PH, U STAT 10/15/2024 9:08 AM CDT DIPSTICK, U STAT 10/15/2024 9:08 AM CDT OSMOLALITY, U STAT 10/15/2024 9:08 AM CDT PROTEIN/CREATININE RATIO, RANDOM, URINE STAT 10/15/2024 9:08 AM CDT URINALYSIS WITH MICROSCOPIC STAT 10/15/2024 9:08 AM CDT BACTERIAL CULTURE, AEROBIC + SUSC, URINE STAT 10/15/2024 9:08 AM CDT INTERPRETATION OF OUTSIDE FL GI RAD - Semiurgent (Fast; most ED patients; some inpatients) 10/15/2024 8:[address] ABDOMEN PELVIS WITH IV CONTRAST RAD - Semiurgent (Fast; most ED patients; some inpatients) 10/15/2024 8:01 AM CDT EMERGENCY MEDICINE IMAGE EXAM Routine 10/15/2024 6:52 AM CDT EMERGENCY MEDICINE IMAGE EXAM Routine 10/15/2024 6:51 AM CDT EMERGENCY MEDICINE IMAGE EXAM Routine 10/15/2024 6:51 AM CDT EMERGENCY MEDICINE IMAGE EXAM Routine 10/15/2024 6:50 AM CDT C-REACTIVE PROTEIN (CRP), S/P STAT 10/15/2024 6:03 AM CDT LACTATE, B STAT 10/15/2024 6:03 AM CDT LIPASE, S/P STAT 10/15/2024 6:03 AM CDT HEPATIC FUNCTION PANEL, S STAT 10/15/2024 6:03 AM CDT BASIC METABOLIC PANEL, S/P STAT 10/15/2024 6:03 AM CDT CBC WITH DIFFERENTIAL, B STAT 10/15/2024 6:03 AM CDT SEDIMENTATION RATE, B STAT 10/15/2024 6:02 AM CDT OUTSIDE FL GI Routine 10/10/2024 12:[address] BODY Routine 10/08/2024 4:15 PM CDT from Last 3 Months Results * Hepatic Function Panel (11/14/2024 6:20 PM CDT) Only the most recent of2 resultswithin the time period is included. Bilirubin, Total, S 0.3 0.0 - 1.2 [...] P.A.-C. LAB BLOOD ADD-ON Final Re sult [facility] [address] [place] [address], [facility] DTL [facility] [address] [place] [address] * (ABNORMAL) CBC with Differential, Blood (11/14/2024 6:20 PM CDT) Only the most recent of4 resultswithin the time period is included. Pathologist [facility] Hemoglobin 13.9 13.2 - 16.6 g/dL 11/14/2024 [...] P.A.-C. LAB BLOOD ADD-ON Final Re sult [facility] [address] [place] [address], [facility] STMA [facility] [address] [place] [address] DHPM [facility] [address] * (ABNORMAL) CRP (C-Reactive Protein) (11/14/2024 6:20 PM CDT) Only the most recent of3 resultswithin the time period is included. Pathologist [facility] C-Reactive Protein (CRP), S 17.2(H) <5.0 mg/L 11/14/2024 7:17 PM CDT DTL Blood (Blood, Venous) 11/14/2024 6:20 PM CDT 11/14/2024 6:59 PM CDT Jamey Castellano P.A.-C. LAB BLOOD ADD-ON Final Re sult [address] [address], [facility] [address] [address] * (ABNORMAL) Basic Metabolic Panel (11/14/2024 6:20 PM CDT) Only the most recent of3 resultswithin the time period is included. Pathologist [facility] Potassium, P 3.8 3.6 - 5.2 mmol/L [...] P.A.-C. LAB BLOOD ADD-ON Final Re sult [facility] [address] [place], [place] [id number] [place] [address] [place] [address] * Dipstick, Urine (10/30/2024 2:22 PM CDT) Only the most recent of2 resultswithin the time period is included. Hemoglobin, QL, U Negative Negative 10/30/2024 2:59 [...] ORDERABLES Fin al Result Performing Organization Address City/[facility]/ZIP Co de Phone Number [facility] [address] [place] [address], [facility] DTL [facility] [address] [place] [address] * Microscopic Automated (10/30/2024 2:22 PM CDT) Microscopy Normal 10/30/2024 2:59 PM CDT DTL RBC None Seen <3 /hpf 10/30/2024 2:59 PM CDT DTL WBC None Seen /hpf 10/30/2024 2:59 PM CDT DTL Comment: ----REFERENCE VALUE---- <4 (Males) <11 (Females) Urine 10/30/2024 2:22 PM CDT 10/30/2024 2:37 PM CDT Sacha Mccarty M.D. LAB URINE ORDERABLES Fin al Result Performing Organization Address City/[facility] Co de Phone Number [facility] [address] [place] [address] * pH, Urine (10/30/2024 2:22 PM CDT) Only the most recent of2 resultswithin the time period is included. pH, U 5.3 4.5 - 8.0 10/30/2024 3:2 3 PM CDT DTL Urine 10/30/2024 2:22 PM CDT 10/30/2024 2:37 PM CDT us Sacha Mccarty M.D. LAB URINE ORDERABLES Fin al Result Performing Organization Address [facility] Co de Phone Number [facility] [address] [place] [address] * Protein/Creatinine Ratio, Random, Urine (10/30/2024 2:22 PM CDT) Only the most recent of2 resultswithin the time period is included. Protein, Total, Random, U 9 mg/dL 10/30/2024 3:29 PM CDT DTL Creatinine, Random, U 108 16 - 326 mg/dL 10/30/2024 3:29 PM CDT DTL Protein/Creatin ine Ratio 0.08 <0.18 mg/mg 10/30/2024 3:29 PM CDT DTL Urine (Urine, Midstream) 10/30/2024 2:22 PM CDT 10/30/2024 2:37 PM CDT Sacha Mccarty M.D. LAB URINE ORDERABLES Fin al Result Performing Organization Address City/[facility] Co de Phone Number [facility] [address] [place] [address] * Osmolality, Urine (10/30/2024 2:22 PM CDT) Only the most recent of2 resultswithin the time period is included. Osmolality, U 748 150 - 1150 mOsm/kg 10/30/2024 3:23 PM CDT DTL Urine 10/30/2024 2:22 PM CDT 10/30/2024 2:37 PM CDT Sacha Mccarty M.D. LAB URINE ORDERABLES Fin al Result Performing Organization Address [facility] Co de Phone Number [facility] [address] [place] [address] * Urinalysis, with Microscopic: Urine, Midstream (10/30/2024 2:22 PM CDT) Only the most recent of2 resultswithin the time period is included. Source Urine, Urine, Midstream 10/30/2024 2:37 PM [...] ORDERABLES Fin al Result Performing Organization Address [facility] Co de Phone Number [facility] [address] [place] [address], [facility] [address] [place] [address] * (ABNORMAL) Sedimentation Rate (10/30/2024 2:17 PM CDT) Only the most recent of2 resultswithin the time period is included. Sedimentation Rate, B 13(H) 2 - 12 mm/h 10/30/2024 3:27 PM CDT DTL Blood (Blood, Venous) 10/30/2024 2:17 PM CDT 10/30/2024 2:37 PM CDT us Sacha Mccarty M.D. LAB BLOOD ADD-ON Final R esult Performing Organization Address City/[facility] Co de Phone Number [facility] [address] [place] [address], [facility] [address] [place] [address] * (ABNORMAL) Immunoglobulins (IgG, IgA, and IgM) [...] 2:17 PM CDT 10/30/2024 5:56 PM CDT us Sacha Mccarty M.D. LAB BLOOD ADD-ON Final R esult [facility] [address] [place] [address] [facility] [address] [place] [address] * BUN (Blood Urea Nitrogen) (10/30/2024 2:17 PM CDT) BUN (Blood Urea Nitrogen), S 12 8 - 24 mg/dL 10/30/2024 3:21 PM CDT DTL Blood (Blood, Venous) 10/30/2024 2:17 PM CDT 10/30/2024 2:58 PM CDT us Sacha Mccarty M.D. LAB BLOOD ADD-ON Final R esult [facility] [address] [place], [place] [id number] [place] [address] [place] [address] * (ABNORMAL) ALT (Alanine Aminotransferase) (10/30/2024 2:17 PM CDT) Alanine Aminotransferase (ALT), S 79(H) 7 - 55 U/L 10/30/2024 3:21 PM CDT DTL Blood (Blood, Venous) 10/30/2024 2:17 PM CDT 10/30/2024 2:58 PM CDT us Sacha Mccarty M.D. LAB BLOOD ADD-ON Final R esult [facility] [address] [place] [address], [facility] [address] [place] [address] * AST (Aspartate Aminotransferase) (10/30/2024 2:17 PM CDT) Aspartate Aminotransferase (AST), S 21 8 - 48 U/L 10/30/2024 3:21 PM CDT DTL Blood (Blood, Venous) 10/30/2024 2:17 PM CDT 10/30/2024 2:58 PM CDT us Sacha Mccarty M.D. LAB BLOOD ADD-ON Final R esult [facility] [address] [place] [address] * Sodium (10/30/2024 2:17 PM CDT) Sodium, S 139 135 - 145 mmol/L 10/30/2024 3:21 PM CDT DTL Blood (Blood, Venous) 10/30/2024 2:17 PM CDT 10/30/2024 2:58 PM CDT Result Alin Mccarty M.D. LAB BLOOD ADD-ON Final R esult Performing Organization Address City/[facility]/ZIP Co de Phone Number [facility] [address] [place] [address], [facility] [address] [place] [address] * Potassium (10/30/2024 2:17 PM CDT) Potassium, S 4.2 3.6 - 5.2 mmol/L 10/30/2024 3:21 PM CDT DTL Blood (Blood, Venous) 10/30/2024 2:17 PM CDT 10/30/2024 2:58 PM CDT us Sacha Mccarty M.D. LAB BLOOD ADD-ON Final R esult [facility] [address] [place] [address] * Creatinine with Estimated GFR (10/30/2024 2:17 PM CDT) Creatinine 0.80 0.74 - 1.35 mg/dL 10/30/2024 3:21 PM CDT DTL Estimated GFR (eGFR) >90 >=60 mL/min/BSA 10/30/2024 3:21 PM CDT DTL Comment: Estimated GFR calculated using the 2020 CKD_EPI creatinine equation. Blood (Blood, Venous) 10/30/2024 2:17 PM CDT 10/30/2024 2:58 PM CDT Sacha Mccarty M.D. LAB BLOOD [place] [address] * Unspecified-Vascular Surgery Image Exam (10/25/2024 10:20 [...] IMAGING PROCE DURES Final Result IIMS NA * (ABNORMAL) CBC without Differential (10/18/2024 7:41 AM CDT) Only the most recent of2 resultswithin the time period is included. Hemoglobin 13.2 13.2 - 16.6 g/dL 10/18/2024 [...] 7:41 AM CDT 10/18/2024 8:07 AM CDT us Susan Camejo M.D. LAB [place]LOOD [place] [address], [facility] [address] [place] [address] * (ABNORMAL) Comprehensive Metabolic Panel (10/17/2024 9:27 AM CDT) Only the most recent of2 resultswithin the time period is included. Pathologist [facility] Potassium, S 4.6 3.6 - 5.2 mmol/L [...] 9:27 AM CDT 10/17/2024 10:26 AM CDT Susan Camejo M.D. LAB BLOOD ADD-ON Final Result [facility] [address] [place] [address], [facility] DTL [facility] [address] [place] [address] * CT Abdomen Pelvis Angiogram with IV [...] M.D. IMG CT PROCEDURES Final Result * Antistrep-O Titer (10/16/2024 5:09 AM CDT) [facility] Antistrep-O Titer, S 47 0 - 530 IU/mL 10/16/2024 10:33 AM CDT [facility] Blood (Blood, Venous) 10/16/2024 5:09 AM CDT 10/16/2024 9:08 AM CDT Fabiano Taylor P.A.-C. LAB BLOOD ADD-ON Final R esult [facility] [address] [place] [address] [facility] [address] [place] [address] * Magnesium (10/16/2024 5:09 AM CDT) [facility] Magnesium, S 1.9 1.7 - 2.3 mg/dL 10/16/2024 6:48 AM CDT [facility] Blood (Blood, Venous) 10/16/2024 5:09 AM CDT 10/16/2024 5:47 AM CDT Sia Saucedo M.D. LAB BLOOD ADD-ON Hilda l Result Performing Organization Address [facility] Co de Phone [facility] [address] [place] [address], [place] DTL [facility] [facility] [address] [place] [address] * ECG 12 Lead (10/15/2024 4:50 PM CDT) Ventricular Rate ECG/Min 71 BPM MUSE LA Interval 168 ms MUSE QRSD Interval 100 ms MUSE QT Interval 392 ms MUSE QTC Interval 425 ms MUSE P [place] 56 degrees MUSE R [place] 57 degrees MUSE T Wave [place] 22 degrees MUSE 10/15/2024 4:50 PM CDT 10/15/2024 4:55 PM CDT Impressions MUSE - 10/15/2024 4:55 PM CDT Normal sinus rhythm Normal ECG No previous ECGs available Reviewed by CIARA Nicholson Narrative Procedure Note Dorian Nolen M.D. - 10/15/2024 IMPRESSION: Normal sinus rhythm Normal ECG No previous ECGs available Reviewed by CIARA Nicholson Susan Camejo M.D. ECG ORDERABLES Final Result Performing Organization Address City/[facility]/ZIP Co de Phone Number MUSE NA * Syphilis IgG w/ Reflex, EIA, S (RST/FLA) (10/15/2024 3:53 PM CDT) Syphilis IgG w/ Reflex, EIA, S Nonreactive Nonreactive 10/16/2024 6:48 PM CDT [facility] Comment: No serologic evidence of infection with T. pallidum (syphilis). Repeat testing may be considered in patients with suspected acute or primary syphilis in 2-4 weeks. For additional information on interpretation of the syphilis reverse algorithm and results, see: [email or web address] Blood (Blood, Venous) 10/15/2024 3:53 PM CDT 10/15/2024 7:56 PM CDT Susan Camejo M.D. LAB MICROBIOLOGY - BLOOD ORDERA BLES Final Result Performing Organization Address City/[facility]/ZIP Co de Phone Number [facility] [address] [place], [place] [id number] [place] [address] [place] [place] [address] * HBs Antigen Scrn, Serum (10/15/2024 3:53 PM CDT) Pathologist [facility] HBs Antigen Scrn, S Negative Negative 10/16/2024 9:03 AM CDT [facility] Blood (Blood, Peripheral Draw) 10/15/2024 3:53 PM CDT 10/16/2024 7:26 AM CDT Susan Camejo M.D. LAB MICROBIOLOGY - BLOOD ORDERA BLES Final Result Performing Organization Address [facility] Co de Phone Number [place] [phone] [place] [address] [place] [phone] [place] [place] [address] * HIV-1/-2 Ag and Ab Screen, Plasma (10/15/2024 3:53 PM CDT) Pathologist [facility] HIV-1/-2 Ag and Ab Screen, P Negative Negative 10/16/2024 8:44 AM CDT [facility] Comment: Negative result does not rule out HIV infection. If exposure to HIV infection occurred <14 days ago, contact the laboratory to request addition of HIV-1/HIV-2 RNA detection, Plasma (HIP12). Blood (Blood, Venous) 10/15/2024 3:53 PM CDT 10/16/2024 7:26 AM CDT Susan Camejo M.D. LAB MICROBIOLOGY - BLOOD ORDERA BLES Final Result Performing Organization Address City/[facility]/ZIP Co de Phone Number [facility] [address] [address] [facility] [address] [place] [address] * Antinuclear Antibodies, HEp-2 Substrate, IgG, Serum (10/15/2024 3:53 PM CDT) Antinuclear Ab, HEp-2 Substrate, S <1:80 (Negative ) <1:80 (Negativ e) 10/15/2024 8:53 PM CDT [facility] Comment: ----ADDITIONAL INFORMATION---- Method: Immunofluorescence using HEp-2 cellular substrate. Blood (Blood, Venous) 10/15/2024 3:53 PM CDT 10/15/2024 6:00 PM CDT Susan Camejo M.D. LAB BLOOD ADD-ON Final Result Performing Organization Address City/[facility]/ZIP Co de Phone Number [facility] [address] [place] [address] [facility] [address] [place] [address] * Proteinase 3 Antibodies, IgG (10/15/2024 3:53 PM CDT) Proteinase 3 Ab (PR3), S <0.2 <0.4 (Negative) U 10/16/2024 11:25 AM CDT [facility] Blood (Blood, Venous) 10/15/2024 3:53 PM CDT 10/16/2024 6:51 AM CDT Susan Camejo M.D. LAB BLOOD ADD-ON Final Result Performing Organization Address City/[facility]/ZIP Co de Phone Number [facility] [address] [place] [address] [facility] [address] [place] [address] * Beta-2 Glycoprotein 1 Antibodies, IgG and IgM (10/15/2024 3:53 PM CDT) Beta 2 GP1 Ab IgG, S <9.4 <15.0 (Negative) SGU 10/16/2024 9:08 PM CDT [facility] Beta 2 GP1 Ab IgM, S <9.4 <15.0 (Negative) SMU 10/16/2024 9:08 PM CDT [facility] Blood (Blood, Venous) 10/15/2024 3:53 PM CDT 10/16/2024 6:49 AM CDT Susan Camejo M.D. LAB BLOOD ADD-ON Final Result [facility] [address] [place] [address] [facility] [address] [place] [address] * Antibody to Extractable Nuclear Antigen Evaluation (10/15/2024 3:53 PM CDT) SS-A/Ro Ab, IgG, S <0.2 <1.0 (Negative) U 10/16/2024 11:25 AM CDT [facility] SS-B/La Ab, IgG, S <0.2 <1.0 (Negative) U 10/16/2024 11:25 AM CDT [facility] Sm Ab, IgG, S <0.2 <1.0 (Negative) U 10/16/2024 11:25 AM CDT [facility] CLOTH FRAMER Ab, IgG, S <0.2 <1.0 (Negative) U 10/16/2024 11:25 AM CDT [facility] Scl 70 Ab, IgG, S <0.2 <1.0 (Negative) U 10/16/2024 11:25 AM CDT [facility] Jessa 1 Ab, IgG, S <0.2 <1.0 (Negative) U 10/16/2024 11:25 AM CDT [facility] Blood (Blood, Venous) 10/15/2024 3:53 PM CDT 10/16/2024 6:51 AM CDT us Susan Camejo M.D. LAB BLOOD ADD-ON Final Result Performing Organization Address City/[facility] Co de Phone Number [facility] [address] [place] [address] [facility] [address] [address] * HCV Ab w/Reflex to HCV PCR, Serum (10/15/2024 3:53 PM CDT) Pathologist [facility] HCV Ab, S Negative Negative 10/16/2024 8:48 AM CDT [facility] Comment: Consumption of high-dose biotin supplement within 12 hours of blood collection for this test can cause false-negative results. Blood (Blood, Peripheral Draw) 10/15/2024 3:53 PM CDT 10/16/2024 7:26 AM CDT Susan Camejo M.D. LAB MICROBIOLOGY - BLOOD ORDERA BLES Final Result Performing Organization Address [facility] de Phone Number [facility] [address] [place] [address] [facility] [address] [place] [address] * Cyclic Citrullinated Peptide Antibodies, IgG (10/15/2024 3:53 PM CDT) [facility] Cyclic Citrullinated Peptide Ab, S <15.6 <20.0 (Negative) U 10/16/2024 1:46 PM CDT [facility] Comment: Interpretation: Antibodies to CCP not detected. [...] BLOOD ADD-ON Final Result Performing Organization Address City/[facility]/ZIP Co de Phone Number [facility] [address] [place] [address] [facility] [address] [place] [address] * Hepatitis A IgM Ab, Serum (10/15/2024 3:53 PM CDT) [facility] Hepatitis A IgM Ab, S Negative Negative 10/16/2024 9:03 AM CDT [facility] Comment: This result does not exclude the [...] ORDERA BLES Final Result Performing Organization Address [facility]/ZIP Co de Phone Number [facility] [address] [place] [address] [facility] [address] [place] [address] * Cryoglobulin (10/15/2024 3:53 PM CDT) [facility] Cryoglobulin , S Negative. This test is negative at 24 hours. All samples are held and reviewed again at 7 days. If delayed precipitation occurs after 7 days, Immunofixation will be performed and an additional report will follow. Negative %ppt 10/17/2024 2:01 PM CDT [facility] Blood (Blood, Venous) 10/15/2024 3:53 PM CDT 10/16/2024 7:10 AM CDT Susan Camejo M.D. LAB BLOOD NON ADD-ON Final Resu lt Performing Organization Address City/[facility]/ZIP Co de Phone Number [facility] [address] [place] [address] [facility] [address] [place] [address] [address] * Hepatitis B Core IgM Ab (10/15/2024 3:53 PM CDT) [facility] HBc IgM Ab, S Negative Negative 10/16/2024 9:03 AM CDT [facility] Comment: Consumption of high-dose biotin supplement within 12 hours of blood collection for this test can cause false-negative results. Blood (Blood, Peripheral Draw) 10/15/2024 3:53 PM CDT 10/16/2024 7:26 AM CDT Susan Camejo M.D. LAB MICROBIOLOGY - BLOOD ORDERA BLES Final Result Performing Organization Address City/[facility]/ZIP Co de Phone Number [facility] [address] [place] [address] [facility] [address] [place] [address] * HBc Total Ab, Serum (10/15/2024 3:53 PM CDT) [facility] HBc Total Ab, S Negative Negative 10/16/2024 9:03 AM CDT [facility] Blood (Blood, Peripheral Draw) 10/15/2024 3:53 PM CDT 10/16/2024 7:26 AM CDT Susan Camejo M.D. LAB MICROBIOLOGY - BLOOD ORDERA BLES Final Result Performing Organization Address [facility] Co de Phone Number [facility] [address] [place] [address] [facility] [address] [place] [address] * (ABNORMAL) Lupus Anticoag Prof (10/15/2024 3:53 PM CDT) [facility] Lupus Anticoagulant Tech Interp SEE COMMENT 10/16/2024 [...] PM CDT 10/16/2024 7:19 AM CDT Narrative [facility] - 10/16/2024 10:31 AM CDT Specimen Information: Specimen ID: [id number] Specimen Type: Blood Specimen Collection Start Date: 10/15/2024 3:53 PM Specimen Received Date: 10/16/2024 7:19 AM Specimen ID: [id number] Specimen Type: Blood Specimen Collection Start Date: 10/15/2024 3:53 PM Specimen Received Date: 10/16/2024 7:19 AM Specimen ID: [id number] Specimen Type: Blood Specimen Collection Start Date: 10/15/2024 3:53 PM Specimen Received Date: 10/16/2024 7:19 AM Specimen ID: [id number] Specimen Type: Blood Specimen Collection Start Date: 10/15/2024 3:53 PM Specimen Received Date: 10/16/2024 7:19 AM Susan Camejo M.D. LAB BLOOD NON ADD-ON Final Resu lt [facility] [address] [place] [address], [facility] [address] [place] [address] * HBs Antibody, Serum (10/15/2024 3:53 PM CDT) [facility] HBs Antibody, S Negative 8:48 AM CDT [facility] Comment: Patient is NOT immune to HBV infection. Consumption of high-dose biotin supplement within 12 hours of blood collection for this test can cause false-negative results. ----REFERENCE VALUE---- Unvaccinated: Negative Vaccinated: Positive HBs Antibody, Quantitative, S <3.5 mIU/mL 10/16/2024 8:48 AM CDT [facility] Comment: ----REFERENCE VALUE---- Unvaccinated: <8.5 mIU/mL Vaccinated: >=11.5 mIU/mL Blood (Blood, Peripheral Draw) 10/15/2024 3:53 PM CDT 10/16/2024 7:26 AM CDT Susan Camejo M.D. LAB MICROBIOLOGY - BLOOD ORDERA BLES Final Result Performing Organization Address City/[facility]/ZIP Co de Phone Number [facility] [address] [place] [address] [facility] [address] [place] [address] * Phospholipid (Cardiolipin) Antibodies, IgG and IgM (10/15/2024 3:53 PM CDT) [facility] Phospholipid Ab IgM, S <9.4 <15.0 (Negative) MPL 10/16/2024 12:15 PM CDT [facility] Phospholipid Ab IgG, S <9.4 <15.0 (Negative) GPL 10/16/2024 3:53 PM CDT [facility] Blood (Blood, Venous) 10/15/2024 3:53 PM CDT 10/16/2024 6:49 AM CDT Susan Camejo M.D. LAB BLOOD ADD-ON Final Result Performing Organization Address City/[facility]/ZIP Co de Phone Number [facility] [address] [place] [address] [facility] [address] [place] [address] * Cytoplasmic Neutrophil Antibodies (10/15/2024 3:53 PM CDT) [facility] c-ANCA Negative Negative 10/16/2024 9:57 AM CDT SDS Perinuclear (P-ANCA) Negative Negative 10/16/2024 9:57 AM CDT [facility] Comment: Negative for cANCA and pANCA patterns by immunofluorescence. ----ADDITIONAL INFORMATION---- This test was developed and its performance characteristics determined by [facility] in a manner consistent with CLIA requirements. This test has not been cleared or approved by the U.S. Food and Drug Administration. Blood (Blood, Venous) 10/15/2024 3:53 PM CDT 10/16/2024 6:51 AM CDT Susan Camejo M.D. LAB BLOOD ADD-ON Final Result Performing Organization Address City/[facility]/ZIP Co de Phone Number [facility] [address] [place] [address] [address] [place] [address] [place] [address] * Rheumatoid Factor (10/15/2024 3:53 PM CDT) Rheumatoid Factor, S <15 <15 IU/mL 10/15/2024 8:04 PM CDT [facility] Blood (Blood, Venous) 10/15/2024 3:53 PM CDT 10/15/2024 7:33 PM CDT Susan Camejo M.D. LAB BLOOD ADD-ON Final Result Performing Organization Address [facility] Co de Phone Number [facility] [address] [place] [address] [facility] [address] [place] [address] * Complement C3 (10/15/2024 3:53 PM CDT) Complement C3, S 152 75 - 175 mg/dL 10/16/2024 1:56 PM CDT [facility] Blood (Blood, Venous) 10/15/2024 3:53 PM CDT 10/16/2024 6:29 AM CDT us Ssuan Camejo M.D. LAB BLOOD ADD-ON Final Result Performing Organization Address City/[facility]/ZIP Co de Phone Number [facility] [address] [place] [address] [facility] [address] [place] [address] * Complement C4 (10/15/2024 3:53 PM CDT) Complement C4, S 40 14 - 40 mg/dL 10/16/2024 1:56 PM CDT [facility] Blood (Blood, Venous) 10/15/2024 3:53 PM CDT 10/16/2024 6:29 AM CDT Susan Camejo M.D. LAB BLOOD ADD-ON Final Result Performing Organization Address City/[facility]/ZIP Co de Phone Number [facility] [address] [place] [address] [facility] [address] [place] [address] * left Leg 528b-Dermatology Image Exam (10/15/2024 2:20 PM CDT) Only the most recent of2 resultswithin the time period is included. 10/15/2024 2:18 PM CDT Narrative [facility] - 10/15/2024 2:20 PM CDT This order has been created and auto-finalized to support the import of images acquired without order. The clinical documentation to support these images can be found on the encounter that produced images. us Provider Not In System IMG NON RAD IMAGING PROCE DURES Final Result Performing Organization Address City/[facility]/ZIP Co de Phone Number [facility] NA * Cutaneous Direct IFA, Biopsy (10/15/2024 1:56 PM CDT) Report electronically signed by Frandy Salcedo M.D. [...] seen in leukocytoclastic vasculitis associated with Henoch [id number] purpura, inflammatory bowel disease, autoimmune connective tissue disorders ([id number] syndrome, rheumatoid arthritis, lupus erythematosus and spondyloarthropathie [...] reagent. Its performance characteristics were determined by [facility] in a manner consistent with CLIA requirements. This test has not been cleared or approved by the U.S. Food and Drug Administration. Skin 10/15/2024 1:56 PM CDT 10/15/2024 3:31 PM CDT us Toña Chin M.D. LAB PATH DERM ORDERABLES Fi nal Result [facility] [address] [place] [address], [facility] [address] [facility] [address] [place] [address] * Dermatopathology (10/15/2024 1:56 PM CDT) 10/16/2024 [...] 1:56 PM CDT 10/15/2024 3:40 PM CDT us Toña Chin M.D. LAB PATH DERM ORDERABLES Fi nal Result Performing Organization Address City/[facility]/ZIP Co de Phone Number [facility] [address] [place] [address], [facility] [address] [place] [address] 200 [place] [address] * Bacteria / Marylou Culture, Blood # 2 (10/15/2024 9:34 AM CDT) Only the most recent of2 resultswithin the time period is included. Bacteria/Tiki da Culture, Blood No growth after 5 days of incubation. 10/20/2024 11:02 AM CDT DTL Blood (Blood, Peripheral Draw) 10/15/2024 9:34 AM CDT 10/15/2024 10:31 AM CDT Comment:Specimen Source Site : Blood us Fabiano Taylor P.A.-C. LAB MICROBIOLOGY - GENER AL ORDERABLES Final Result Performing Organization Address City/[facility]/ZIP Co de Phone Number [facility] [address] [place] [address], [facility] DTL [facility] [address] [place] [address] * (ABNORMAL) EBV Ab Profile (10/15/2024 9:24 AM CDT) Pathologist [facility] EBV VCA IgM, S Negative Negative 10/16/2024 12:54 PM CDT SDS EBV VCA IgG, S Positive(A) Negative 12:31 PM CDT [facility] EBV NA IgG, S Negative Negative 10/16/2024 12:31 PM CDT [facility] Interpretation SEE COMMENT 12:54 PM CDT [facility] Comment: Results suggest recent EBV infection. The [...] LAB MICROBIOLOGY - BLOOD ORDERABLES Final Result [facility] [address] [place] [address] [facility] [address] [place] [address] * Infectious Mononucleosis, Rapid Test (10/15/2024 9:24 AM CDT) [facility] Infectious [place] Test, S Negative Negative 10/15/2024 3:28 PM CDT [facility] Blood (Blood, Venous) 10/15/2024 9:24 AM CDT 10/15/2024 12:02 PM CDT Fabiano Taylor P.A.-C. LAB MICROBIOLOGY - BLOOD ORDERABLES Final Result Performing Organization Address City/[facility] Co de Phone Number [facility] [address] [place] [address] [facility] [address] [place] [address] * APTT (Activated Partial Thromboplastin Time) (10/15/2024 9:24 AM CDT) Activated Partial Thrombopl Time, P 30 25 - 37 sec 10/15/2024 9:54 AM CDT [facility] Blood (Blood, Venous) 10/15/2024 9:24 AM CDT 10/15/2024 9:44 AM CDT Fabiano Taylor P.A.-C. LAB BLOOD ADD-ON Final R esult Performing Organization Address [facility] Co de Phone Number [facility] [address] [place] [address], [facility] [address] [place] [address] * (ABNORMAL) Prothrombin Time (PT) (10/15/2024 9:24 AM CDT) Prothrombin Time, P 13.5(H) 9.4 - 12.5 sec 10/15/2024 9:51 AM CDT [facility]2 0.9 - 1.1 10/15/2024 9:51 AM CDT [facility] Comment: ----ADDITIONAL INFORMATION---- Standard intensity warfarin therapeutic range: 2.0 to 3.0 High intensity warfarin therapeutic range: 2.5 to 3.5 Blood (Blood, Venous) 10/15/2024 9:24 AM CDT 10/15/2024 9:44 AM CDT Fabiano Taylor P.A.-C. LAB BLOOD ADD-ON Final R esult Performing Organization Address City/[facility] Co de Phone Number [facility] [address] STMA [facility] 200 [place] [address] * Troponin T, 5th Generation (10/15/2024 9:24 AM CDT) [facility] Troponin T, 5th gen <6 <=15 ng/L 10/15/2024 5:20 PM CDT DTL Blood (Blood, Venous) 10/15/2024 9:24 AM CDT 10/15/2024 4:19 PM CDT Susan Camejo M.D. LAB BLOOD ADD-ON Final Result [facility] [address] [place] [address] * LD (Lactate Dehydrogenase) (10/15/2024 9:24 AM CDT) [facility] LD 148 122 - 222 U/L 10/15/2024 10:52 AM CDT DTL Blood (Blood, Venous) 10/15/2024 9:24 AM CDT 10/15/2024 10:24 AM CDT us Fabiano Taylor P.A.-C. LAB BLOOD NON ADD-ON Fin al Result [facility] [address] [place] [address] * Microscopic Manual (10/15/2024 9:08 AM CDT) [facility] Microscopy Normal 10/15/2024 10:28 AM CDT DTL RBC <3 <3 /hpf 10/15/2024 10:28 AM CDT DTL WBC None Seen /hpf 10/15/2024 10:28 AM CDT DTL Comment: ----REFERENCE VALUE---- <4 (Males) <11 (Females) Urine 10/15/2024 9:08 AM CDT 10/15/2024 9:45 AM CDT Fabiano Taylor P.A.-C. LAB URINE ORDERABLES Fin al Result Performing Organization Address [facility] Co de Phone Number [facility] [address] [place] [address] * Bacterial Culture, Aerobic + Susceptibility, Urine (10/15/2024 9:08 AM CDT) Urine Culture Organism present <10,000 cfu/mL, susceptibilities not performed per laboratory criteria. 10/16/2024 4:31 AM CDT DTL Urine (Urine, Midstream) 10/15/2024 9:08 AM CDT 10/15/2024 10:13 AM CDT Comment:Specimen Source Site : Urine us Fabiano Taylor P.A.-C. LAB MICROBIOLOGY - GENER AL ORDERABLES Final Result Performing Organization Address [facility] de Phone Number [facility] [address] [place] [address] * Interpretation of Outside [place] GI (10/15/2024 [...] P.A.-C. IMG CT PROCEDURES Final Result * Qnhwh-Teq-Dtdgdbnvd Medicine Image Exam (10/15/2024 6:52 AM CDT) Only the most recent of4 resultswithin the time period is included. 10/15/2024 6:50 AM CDT Narrative [facility] - 10/15/2024 6:52 AM CDT This order has been created and auto-finalized to support the import of images acquired without order. The clinical documentation to support these images can be found on the encounter that produced images. us Provider Not In System IMG NON RAD IMAGING PROCE DURES Final Result [facility] NA * Lactate, B (10/15/2024 6:03 AM CDT) Lactate, B 0.9 0.5 - 2.2 mmol/L 10/15/2024 6:23 AM CDT [facility] Blood (Blood, Venous) 10/15/2024 6:03 AM CDT 10/15/2024 6:21 AM CDT Martir Deleon APRN, C.N.P. LAB BLOOD NON ADD -ON Final Result Performing Organization Address [facility] Co de Phone Number [facility] [address] STMA [facility] 200 [place] [address] * (ABNORMAL) Lipase (10/15/2024 6:03 AM CDT) Lipase, S 88(H) 13 - 60 U/L 10/15/2024 7: 08 AM CDT DT Blood (Blood, Venous) 10/15/2024 6:03 AM CDT 10/15/2024 6:50 AM CDT Martir Deleon APRN, C.N.P. LAB BLOOD ADD-ON Final Result Performing Organization Address [facility] de Phone Number [facility] [address] DTL [facility] 200 [place] [address] * FL upper GI small bowel w air-Outside RF GI (10/10/2024 12:45 PM CDT) Narrative [facility] - 10/15/2024 6:49 AM CDT This order has been created and auto-finalized to support the import of outside images. If available, original interpretation can be found on the Media Tab in Chart Review, in Document Viewer, as an image in InfinityView or as an Addendum. If a re-interpretation or overread is required please follow defined workflow. us Provider Not In System IMG FLUOROSCOPY PROCEDURE S Final Result Performing Organization Address City/[facility] Co de Phone Number [facility] NA * CT ABDOMEN PELVIS W CON-Outside CT Body (10/08/2024 4:15 PM CDT) Narrative NORBERT - 10/15/2024 8:33 AM CDT This order has been created and auto-finalized to support the import of outside images. If available, original interpretation can be found on the Media Tab in Chart Review, in Document Viewer, as an image in InfinityView or as an Addendum. If a re-interpretation or overread is required please follow defined workflow. us Provider Not In System IMG CT PROCEDURES Final R esult [facility] NA from Last 3 Months Insurance [facility] Advance Directives For more information, please contact: [phone] * Full Code (Latest Code Status on File) Date Activated Date Inactivated Comments 10/15/2024 3:05 PM 10/18/2024 3:26 PM Question Answer Comments Full Code: Discussed Care Teams Chicken Sexer Relationship Specialty Start Date End Date None Reported, Pcp PCP - General Family Medicine 10/15/24
[2024-11-15 06:56] VITALS: BP 122/76; PULSE 76; RESP 16; TEMP 36.8; O2SAT 97; BMI 21.5
--- NOTE | 2024-11-15 07:09 | ED_ITS ---
HPI - General Adult General Time Seen by Provider: 07:10 <Cleveland Altman MD - Last Filed: 11/19/24 01:38> Date Seen: 11/28/24 <Cleveland Altman MD - Last Filed: 11/19/24 01:38> Chief complaint: Unspecified Complaint, Adult <Cleveland Altman MD - Last Filed: 11/19/24 01:38> Stated complaint: Rash on back, pain down legs, left ankle pain <Cleveland Altman MD - Last Filed: 11/19/24 01:38> Time Seen by Provider: 11/15/24 07:08 <Cleveland Altman MD - Last Filed: 11/19/24 01:38> Source: patient <Cleveland Altman MD - Last Filed: 11/19/24 01:38> Mode of arrival: ambulatory <Cleveland Altman MD - Last Filed: 11/19/24 01:38> Limitations: no limitations <Cleveland Altman MD - Last Filed: 11/19/24 01:38> History of Present Illness HPI narrative: 24-year-old male who comes in today with joint pain and a rash. Patient has a history of HSP/IgA vasculitis, says he was recently admitted at [facility] for same. Says he noticed a rash in his back about a week and half ago, also leg pain and ankle pain with some swelling in the left leg. Denies chest pain, shortness of breath, urinary symptoms. Reports he has on prednisone and ?some other medication? he does not remember. <Cleveland Altman MD - Last Filed: 11/19/24 01:38> Related Data Home medications: Home Medications ?Medication ?Instructions ?Recorded ?Confirmed dextroamphetamine-amphetamine 20 1 tab PO BID 10/24/24 10/24/24 mg tablet dextroamphetamine-amphetamine 5 mg 1 tab PO BID 10/24/24 tablet pantoprazole 40 mg tablet,delayed 40 mg PO DAILY 10/2410/24/24 release prednisone 10 mg tablet 50 mg PO QDAY 10/24/2410/24 sulfamethoxazole 800 1 tab PO DAILY 10/24/2409/2725 mg-trimethoprim 160 mg tablet Previous Rx's ?Medication ?Instructions ?Recorded dextroamphetamine-amphetamine 20 20 mg PO BID #60 tabs 10/24/24 mg tablet (Adderall) dextroamphetamine-amphetamine 5 mg 5 mg PO BID #60 tab s 10/24/24 tablet (Adderall) prednisone 10 mg tablet 30 mg (3 x 10 mg) PO DAILY # 21 tabs 11/15/24 <Cleveland Altman MD - Last Filed: 11/19/24 01:38> Allergies/adverse reactions: Allergies Allergy/AdvReac Type Severity Reaction Status Date / Time pollen extracts Allergy Mild sinus Verified 11/15/24 07:02 congestion <Cleveland Altman MD - Last Filed: 11/19/24 01:38> [facility] Medical History: Medical History Asthma ?J45.909 - Unspecified asthma, uncomplicated (ICD-10) <Cleveland Altman MD - Last Filed: 11/19/24 01:38> Surgical History: Surgical History Pilonidal cyst ?L05.91 - Pilonidal cyst without abscess (ICD-10) <Cleveland Altman MD - Last Filed: 11/19/24 01:38> Family History: Family History Mother Asthma Thyroid disease Maternal Grandmother Diabetes Heart disease High blood pressure High cholesterol Paternal Grandfather Heart disease Maternal Grandfather High blood pressure High cholesterol <Cleveland Altman MD - Last Filed: 11/19/24 01:38> Social History: Social History What is your current living situation?: I presently have a place to live Problems where you live: no known problems In the past 12 months, utilities in danger of being shut off: no In past 12 months, lack of transportation kept you from medical appts, meetings, work, or getting things needed for daily living: no In the past 12 mos, have been you worried that your food would run out before you had money to buy more?: never true In the past 12 mos, the food you bought just didn't last and you didn't have money to buy more?: never true Smoking Status: Never smoker Do you use any of these nicotine containing products: Vaping Products How often do you have a drink containing alcohol: never AUDIT-C Alcohol total score: 0 Non-prescribed substance use: denies use How often does anyone, including family, friends and others, physically hurt you : never How often does anyone, including family, friends and others, insult or talk down to you: never How often does anyone, including family, friends and others, threaten you with harm: never How often does anyone, including family, friends and others, scream or curse at you: never <Cleveland Altman MD - Last Filed: 11/19/24 01:38> Exam Narrative: Exam Narrative: General: Well-developed and well-nourished, no acute distress Head: Atraumatic and normocephalic Eyes: Pupils are equal reactive, extraocular motions intact, conjunctiva clear ENT: External nose and ears are normal, posterior pharynx without erythema or exudate Neck: No midline cervical tenderness, full spontaneous range of motion the neck, trachea midline, no adenopathy Heart: Regular rate and rhythm no murmurs or thrills Lungs: Clear to auscultation bilaterally without wheezes or crackles Abdomen: Soft, nontender, nondistended with active bowel sounds Musculoskeletal: No tenderness, deformity, or edema Neurologic: Awake, alert, and oriented x3, no gross focal neurologic deficits, cranial nerves intact as tested Psych: Mood and affect are appropriate Skin: 2 mm erythematous papules on the back and shoulders, a little bit on the chest <Cleveland Altman MD - Last Filed: 11/19/24 01:38> Const: Vital Signs, click to edit/add: Vital Signs - 24 hr 11/15/24 06:56 11/15/24 08:45 Temperature 98.2 F Pulse Rate [Right Pulse Oximeter] 76 75 Respiratory Rate 16 16 Blood Pressure [Ri ght Upper Arm] 122/76 111/70 Pulse Oximetry 97 97 Oxygen Delivery Me thod Room Air Room Air <Cleveland Altman MD - Last Filed: 11/19/24 01:38> Vital Signs, click to edit/add: Vital Signs - 24 hr 11/15/24 06:56 11/15/24 08:45 Temperature 98.2 F Pulse Rate [Right Pulse Oximeter] 76 75 Respiratory Rate 16 16 Blood Pressure [Ri ght Upper Arm] 122/76 111/70 Pulse Oximetry 97 97 Oxygen Delivery Me thod Room Air Room Air <Harsha Sánchez MD - Last Filed: 11/15/24 11:31> Course Course ED Course: Reviewed recent endoscopy from October 09 which was for epigastric pain, patient found to have inflammatory gastritis suck be related to medication use. Patient presents today with about today with leg pain, rash on the back shoulders, and left ankle pain. Says he has a history of IgA vasculitis and this feels similar. Says he was recently at [facility] with ?organ failure of my kidneys, liver, and spleen. On exam here, vital is stable, bilateral calf tenderness but compartments are soft, no abdominal tenderness. Labs ordered along with fluids and will continue to monitor. <Cleveland Altman MD - Last Filed: 11/19/24 01:38> Reevaluation(s) Reevaluation #1: Patient signed out Dr. Sánchez at shift change-8:00 a.m. on 11/15/2024 24-year-old male who was recently diagnosed with HSP (IgA vasculitis) and apparently follows with [facility] for that. On prednisone and some other med (possibly another immunosuppressive? ) Presenting to the ER this morning here in [place] because he developed a new rash on his back also bilateral leg pain and calf pain. Seen initially by Dr. Altman and signed out to me pending results of his bilateral lower extremity DVT ultrasound and his lab workup. Plan proposed by Dr. Altman is after getting some more data, contact [facility] discussed the new worsening rash, find out what meds he is on, and get recommendations for further management. Overall patient looks well and Dr. Altman anticipates potentially will be able to discharge home. In review of the medical record in [facility] care link it looks like he had called the [facility] triage line yesterday at 4:24 p.m. and was told to come to the ER [facility]. Apparently the triage line was go also going to notify his bench worker binding, Dr. Hammad Mccarty. He had a visit with [facility] gastroenterology on 11/07 for epigastric pain 10/30 [facility] visit CHIEF COMPLAINT / REASON FOR VISIT Gretel Alaniz is a 24 y.o. male presenting today as an established patient for follow up of IgA vasculitis. HISTORY OF PRESENT ILLNESS 24-year-old gentleman with a past medical history of pilonidal cyst was recently hospitalized for a new diagnosis of IgA vasculitis. Rheumatological history Epigastric pain started in the beginning of September that was refractory to opioids. This was followed by unintentional weight loss and subjective fevers. He presented to the ER on 10/15/2024 with blood work demonstrating thrombocytosis, leukocytosis with a left shift, sedimentation rate of 38, and CRP of 117.9. LFTs were mildly elevated. CT of the abdomen/pelvis demonstrated marked narrowing of the origin of the celiac axis with some mild associated soft tissue thickening. Several peripheral regular hypodensities within the liver were also seen. At that time, purpuric rash was noted around the ankles. A punch biopsy demonstrated findings of IgA vasculitis. Our team was involved. We recommended IV Solu-Medrol 100 mg daily for 3 days followed by prednisone taper starting at 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 Vascular surgery evaluated the splenic infarcts and deemed them nonsurgical.. The abdominal pain improved with a glucocorticoid treatment. Today Mr. Alaniz reports near-complete resolution of the rash around his ankles. He denies joint pain, abdominal pain, melena, hematuria, or insomnia. He is currently on prednisone 30 mg daily, following a tapering schedule provided at hospital discharge. Lab: Hemoglobin 12.8 Platelet count 433 Leukocytes 8.7 Sedimentation rate 13 CRP 6.8 ALT 79 AST 21 Normal renal function tests Urine with no proteinuria Imaging: CT abdomen pelvis angiogram with IV contrast (10/16/2024): 1. 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 No mural thickening or enhancement. 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 2. No arterial stenosis or wall thickening in the abdomen and pelvis. 3. Evolving splenic infarct. ASSESSMENT / PLAN 24-year-old gentleman with a past medical history of pilonidal cyst was recently hospitalized for a new diagnosis of IgA vasculitis. # Biopsy-Proven IgA Vasculitis # Splenic infarct Mr. Alaniz was recently hospitalized for IgA vasculitis, which presented with abdominal pain. He was started on IV glucocorticoids and discharged on a prednisone taper, with subsequent remission of symptoms. Plan: Continue prednisone taper: currently on 30 mg daily; reduce by 5 mg every 5 days. Continue Bactrim prophylaxis as long as prednisone dose exceeds 20 mg daily. Continue proton pump inhibitor (PPI). We discussed the long-term course of IgA vasculitis. He will complete monthly renal function tests, urinalysis, and urine [id number] ratio for the first 6 months at [place]. Thereafter, renal labs and urinalysis will be performed every 3 months. The symptoms of IgA vasculitis recurrence were discussed. If he has any of these symptoms, he will write to us via the portal and we will increase the dose of prednisone and initiate a steroid sparing agent. Return to rheumatology in 6 months. Splenic infarcts are being monitored for now. No immediate procedures as per vascular surgery. However, if he develops worsening abdominal pain, we might consider repeating abdominal imaging. I addressed his questions regarding alcohol intake, diet, and exercise in the context of IgA vasculitis. Labs this morning 11/15 show: WBC 6.7, hemoglobin 13.5, platelet count 321. Neutrophils 54%, lymphocytes 33%. Monocytes 10%. CRP 1.5. Sodium 139, potassium 3.8, chloride 104, bicarb 28, anion gap 7, BUN 13, creatinine 0.7, glucose 92. Calcium 9.3, magnesium 2.1. Total bili 0.6. Direct bili 0.3. AST 30, ALT 49, alk-phos 71. Urinalysis shows trace protein, negative glucose, negative ketones, trace blood, negative nitrite, negative bilirubin, negative leukocyte esterase. 0-2 RBC and WBC. Bilateral LE venous Ultrasound IMPRESSION: Normal bilateral lower extremity venous ultrasound, no sign of deep venous thrombosis. After normal labs and ultrasound we did make contact by phone with rheumatology from [facility]. Dr. Sánchez discussed by phone with Dr. Omalley. She recommends that we temporarily increase the patient back up to prednisone 30 mg per day and likely have to do a more slow taper, perhaps decreasing by 5 mg every 7 days[address] I discussed with Dr. Omalley that we will increase the dose of prednisone back up to 30 mg per day and send a 7 day supply. We will not order a tapering dose of prednisone through the ER today for this. Given the complexity of the situation, it is clear that he needs close input from his bench worker binding. The rheumatology department for [facility] will be in charge o f the taper. They will contact the patient by phone to arrange follow-up visit and to determine the appropriate prednisone dosing for the taper. Also consider possible drug eruption from the Bactrim. He actually had stop that at least 5-7 days ago, which is around the time that the rash started but the rash is not improved at all since stopping the Bactrim. At this point it is not clear that this is a drug eruption. Patient will continue to stay off Bactrim just in case. Discussed the plan of care in detail with the patient. We will send in a new prescription for prednisone 30 mg p.o. once per day for 7 days to his pharmacy. He understands that he will begin a phone call from the [facility] Rheumatology Department to arrange follow-up and prednisone taper. He also understands the need for follow-up with [facility]ology as. Discussed the potential for worsening rash or other worsening condition and he will come back to the ER if any concerns develop. <Harsha Sánchez MD - Last Filed: 11/15/24 11:31> Vital Signs Vital signs: Initial Vital Signs Temperature 98.2 F 11/15/24 06:56 Temperature Source Temporal Artery Scan 11/15/24 06:56 Pulse Rate 76 11/15/24 06:56 Pulse Rhythm Regular 11/15/24 06:56 Respiratory Rate 16 11/15/24 06:56 Blood Pressure 122/76 11/15/24 06:56 Blood Pressure Mean 91 11/15/24 06:56 Blood Pressure Position Sitting 11/15/24 06:56 Pulse Oximetry 97 11/15/24 06:56 Oxygen Delivery Method Room Air 11/15/24 06:56 Vital Signs Temperature 98.2 F 11/15/24 06:56 Pulse Rate 76 11/15/24 06:56 Respiratory Rate 16 11/15/24 06:56 Blood Pressure 122/76 11/15/24 06:56 Pulse Oximetry 97 11/15/24 06:56 Oxygen Delivery Method Room Air 11/15/24 06:56 Temperature 98.2 F 11/15/24 06:56 Pulse Rate 75 11/15/24 08:45 Respiratory Rate 16 11/15/24 08:45 Blood Pressure 111/70 11/15/24 08:45 Pulse Oximetry 97 11/15/24 08:45 Oxygen Delivery Method Room Air 11/15/24 08:45 <Celveland Altman MD - Last Filed: 11/19/24 01:38> Initial Vital Signs Temperature 98.2 F 11/15/24 06:56 Temperature Source Temporal Artery Scan 11/15/24 06:56 Pulse Rate 76 11/15/24 06:56 Pulse Rhythm Regular 11/15/24 06:56 Respiratory Rate 16 11/15/24 06:56 Blood Pressure 122/76 11/15/24 06:56 Blood Pressure Mean 91 11/15/24 06:56 Blood Pressure Position Sitting 11/15/24 06:56 Pulse Oximetry 97 11/15/24 06:56 Oxygen Delivery Method Room Air 11/15/24 06:56 Vital Signs Temperature 98.2 F 11/15/24 06:56 Pulse Rate 76 11/15/24 06:56 Respiratory Rate 16 11/15/24 06:56 Blood Pressure 122/76 11/15/24 06:56 Pulse Oximetry 97 11/15/24 06:56 Oxygen Delivery Method Room Air 11/15/24 06:56 Temperature 98.2 F 11/15/24 06:56 Pulse Rate 75 11/15/24 08:45 Respiratory Rate 16 11/15/24 08:45 Blood Pressure 111/70 11/15/24 08:45 Pulse Oximetry 97 11/15/24 08:45 Oxygen Delivery Method Room Air 11/15/24 08:45 <Harsha Sánchez MD - Last Filed: 11/15/24 11:31> Medical Decision Making Lab Data Labs: Lab Results 11/15/24 11/15/24 Range/Units 07:25 07:44 WBC 6.72 (4.50-11.00) K/uL RBC 4.60 (4.30-5.90) m/uL Hgb 13.5 (13.5-17.5) gm/dL Hct 41.2 (37.0-53.0) % MCV 90 (80-100) fL MCH 29 (26-34) pg MCHC 33 (32-36) gm/dL RDW Coeff of Mallory 13.2 (11.5-15.5) % Plt Count 321 (140-440) K/uL Neut % (Auto) 54.9 (42.0-72.0) % Lymph % (Auto) 33.2 (20-44) % Cameron % (Auto) 10.6 (0.0-11.0) % Eos % (Auto) 0.6 (0.0-7.0) % Baso % (Auto) 0.6 (0.0-3.0) % Neut # (Auto) 3.69 (1.7-7.0) K/uL Lymph # (Auto) 2.23 (0.90-2.90) K/uL Cameron # (Auto) 0.70 (0.00-0.90) K/UL Eos # (Auto) 0.04 (0.00-0.50) K/uL Baso # (Auto) 0.04 (0.00-0.30) K/uL Abs Immat Gran (auto) 0.01 (0.00-0.30) K/uL Imm/Tot Granulo (auto) 0.1 % Sodium 139 (135-149) mmol/L Potassium 3.8 (3.6-5.1) mmol/L Chloride 104 (96-114) mmol/L Carbon Dioxide 28 (20-32) mmol/L Anion Gap 7 (7-15) mEq/L BUN 13 (5-24) mg/dL Creatinine 0.7 (0.5-1.5) mg/dL Estimated Creat Clear 159.30 Estimated GFR 134 ml/min Glucose 92 (60-115) mg/dL Calcium 9.3 (8.4-10.6) mg/dL Magnesium 2.1 (1.5-2.6) mg/dL Total Bilirubin 0.6 (0.1-1.5) mg/dL Direct Bilirubin 0.3 (0.0-0.5) mg/dL AST 30 (12-35) U/L ALT 49 (4-50) U/L Alkaline Phosphatase 71 (40-150) U/L Total Creatine Kinase 30 L (54-186) U/L C-Reactive Protein 1.5 H (0.5-1.0) mg/dL Total Protein 6.9 (6.0-8.3) g/dL Albumin 4.2 (3.3-5.0) g/dL Urine Color Yellow (Yellow) Urine Appearance Cloudy A (Clear) Urine pH 7.0 (5.0-8.5) Ur Specific [place] 1.020 (1.000-1.030) Urine Protein Trace A (Negative) Urine Glucose (UA) Negative (Negative) Urine Ketones Negative (Negative) Urine Blood Trace-intact A (Negative) Urine Nitrite Negative (Negative) Urine Bilirubin Negative (Negative) Urine Urobilinogen 0.2 (0.2-1.0) Ur Leukocyte Esterase Negative (Negative) Urine RBC 0-2 (0-2) Urine WBC 0-2 (0-5) Ur Squamous Epith Cells Few (None-Few) Amorphous Sediment Moderate A (None) Urine Bacteria None (None) Urine Mucus Few A (None) <Cleveland Altman MD - Last Filed: 11/19/24 01:38> Lab Results 11/15/24 11/15/24 Range/Units 07:25 07:44 WBC 6.72 (4.50-11.00) K/uL RBC 4.60 (4.30-5.90) m/uL Hgb 13.5 (13.5-17.5) gm/dL Hct 41.2 (37.0-53.0) % MCV 90 (80-100) fL MCH 29 (26-34) pg MCHC 33 (32-36) gm/dL RDW Coeff of Mallory 13.2 (11.5-15.5) % Plt Count 321 (140-440) K/uL Neut % (Auto) 54.9 (42.0-72.0) % Lymph % (Auto) 33.2 (20-44) % Cameron % (Auto) 10.6 (0.0-11.0) % Eos % (Auto) 0.6 (0.0-7.0) % Baso % (Auto) 0.6 (0.0-3.0) % Neut # (Auto) 3.69 (1.7-7.0) K/uL Lymph # (Auto) 2.23 (0.90-2.90) K/uL Cameron # (Auto) 0.70 (0.00-0.90) K/UL Eos # (Auto) 0.04 (0.00-0.50) K/uL Baso # (Auto) 0.04 (0.00-0.30) K/uL Abs Immat Gran (auto) 0.01 (0.00-0.30) K/uL Imm/Tot Granulo (auto) 0.1 % Sodium 139 (135-149) mmol/L Potassium 3.8 (3.6-5.1) mmol/L Chloride 104 (96-114) mmol/L Carbon Dioxide 28 (20-32) mmol/L Anion Gap 7 (7-15) mEq/L BUN 13 (5-24) mg/dL Creatinine 0.7 (0.5-1.5) mg/dL Estimated Creat Clear 159.30 Estimated GFR 134 ml/min Glucose 92 (60-115) mg/dL Calcium 9.3 (8.4-10.6) mg/dL Magnesium 2.1 (1.5-2.6) mg/dL Total Bilirubin 0.6 (0.1-1.5) mg/dL Direct Bilirubin 0.3 (0.0-0.5) mg/dL AST 30 (12-35) U/L ALT 49 (4-50) U/L Alkaline Phosphatase 71 (40-150) U/L Total Creatine Kinase 30 L (54-186) U/L C-Reactive Protein 1.5 H (0.5-1.0) mg/dL Total Protein 6.9 (6.0-8.3) g/dL Albumin 4.2 (3.3-5.0) g/dL Urine Color Yellow (Yellow) Urine Appearance Cloudy A (Clear) Urine pH 7.0 (5.0-8.5) Ur Specific [place] 1.020 (1.000-1.030) Urine Protein Trace A (Negative) Urine Glucose (UA) Negative (Negative) Urine Ketones Negative (Negative) Urine Blood Trace-intact A (Negative) Urine Nitrite Negative (Negative) Urine Bilirubin Negative (Negative) Urine Urobilinogen 0.2 (0.2-1.0) Ur Leukocyte Esterase Negative (Negative) Urine RBC 0-2 (0-2) Urine WBC 0-2 (0-5) Ur Squamous Epith Cells Few (None-Few) Amorphous Sediment Moderate A (None) Urine Bacteria None (None) Urine Mucus Few A (None) <Harsha Sánchez MD - Last Filed: 11/15/24 11:31> Discharge Plan 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 I have spoken to your bench worker binding from [facility]. They want you to increase her dose of prednisone back up to 30 mg per day for the next 7 days. You will have to taper down on the prednisone again after that. Your bench worker binding will contact you within the next couple of days to check in on how your rash is doing and help guide you for tapering your prednisone. If you have any worsening problems or worsening in your condition, please come back to the ER or see your bench worker binding immediately. <Cleveland Altman MD - Last Filed: 11/19/24 01:38> Prescriptions: New prednisone 10 mg tablet 30 mg PO DAILY Qty: 21 0RF No Action pantoprazole 40 mg tablet,delayed release (DR/EC) 40 mg PO DAILY prednisone 10 mg tablet 50 mg PO QDAY dextroamphetamine-amphetamine 20 mg tablet 1 tab PO BID dextroamphetamine-amphetamine 5 mg tablet 1 tab PO BID sulfamethoxazole-trimethoprim 800-160 mg tablet 1 tab PO DAILY dextroamphetamine-amphetamine [Adderall] 20 mg tablet 20 mg PO BID Qty: 60 0RF Rx Instructions: Take with 5mg for dose of 25mg twice per day dextroamphetamine-amphetamine [Adderall] 5 mg tablet 5 mg PO BID Qty: 60 0RF Rx Instructions: take with 20 mg tab for dose of 25mg twice per day <Cleveland Altman MD - Last Filed: 11/19/24 01:38> Follow Up/Referrals: Grayson Bee MD [Primary Care Provider, Family Practice] <Cleveland Altman MD - Last Filed: 11/19/24 01:38> Stand Alone Forms: MyHealth Info Instructions <Cleveland Altman MD - Last Filed: 11/19/24 01:38>
--- NOTE | 2024-11-15 07:24 | CRLHL7_ITS ---
For Patients: As a result of the Century Cures Act, medical imaging exams and procedure reports are released immediately into your electronic medical record. You may view this report before your referring provider. If you have questions, please contact your health care provider. INDICATION: Calf pain, history of vasculitis TECHNIQUE: Ultrasound venous duplex lower extremity bilateral. Compression venous exam was performed using santo-scale, color Doppler, and spectral Doppler imaging. COMPARISON: None. FINDINGS: Sonographic imaging demonstrates the common femoral, deep femoral, superficial femoral, popliteal, posterior tibial and greater saphenous veins to be fully compressible with normal color Doppler blood flow in both lower extremities. IMPRESSION: Normal bilateral lower extremity venous ultrasound, no sign of deep venous thrombosis. Dictated by Fawad Cotton MD @ 11/15/2024 8:53:39 AM (Electronically Signed)
[2024-11-15 07:54] LABS: Basophils Absolute Auto 0.04 K/uL (0.00-0.30); Basophils Percent Auto 0.6 % (0.0-3.0); Eosinophils Absolute Auto 0.04 K/uL (0.00-0.50); Eosinophils Percent Auto 0.6 % (0.0-7.0); Hematocrit 41.2 % (37.0-53.0); Hemoglobin* 13.5 gm/dL (13.5-17.5); Immature Granulocytes Abs Auto 0.01 K/uL (0.00-0.30); Immature Granulocytes Pct Auto 0.1 %; Lymphocytes Absolute Auto 2.23 K/uL (0.90-2.90); Lymphocytes Percent Auto 33.2 % (20-44); Mean Corpuscular HGB Conc 33 gm/dL (32-36); Mean Corpuscular Hemoglobin 29 pg (26-34); Mean Corpuscular Volume 90 fL (80-100); Monocytes Percent Auto 10.6 % (0.0-11.0); Neutrophils Absolute Auto 3.69 K/uL (1.7-7.0); Neutrophils Percent Auto 54.9 % (42.0-72.0); Platelet Count* 321 K/uL (140-440); RDW Coefficient of Variation % 13.2 % (11.5-15.5); White Blood Count* 6.72 K/uL (4.50-11.00)
[2024-11-15 07:56] LABS: Slide Review Reflex No
[2024-11-15 08:00] LABS: Appearance Urine Cloudy (Clear); Bilirubin Urine Negative (Negative); Blood Urine Trace-intact (Negative); Color Urine Yellow (Yellow); Glucose Urine Negative (Negative); Ketones Urine Negative (Negative); Leukocyte Esterase Urine Negative (Negative); Nitrite Urine Negative (Negative); Protein Urine Trace (Negative); Urobilinogen Urine 0.2 (0.2-1.0)
[2024-11-15 08:07] LABS: Albumin* 4.2 g/dL (3.3-5.0); Chloride* 104 mmol/L (96-114); Sodium* 139 mmol/L (135-149)
[2024-11-15 08:08] LABS: Potassium* 3.8 mmol/L (3.6-5.1)
[2024-11-15 08:10] LABS: Blood Urea Nitrogen* 13 mg/dL (5-24); Creatinine* 0.7 mg/dL (0.5-1.5); Estimated Glomerular Filt Rate 134 ml/min
[2024-11-15 08:11] LABS: Alanine Aminotransferase* 49 U/L (4-50); Alkaline Phosphatase* 71 U/L (40-150); Anion Gap 7 mEq/L (7-15); Aspartate Amino Transferase* 30 U/L (12-35); Bilirubin Direct* 0.3 mg/dL (0.0-0.5); Bilirubin Total* 0.6 mg/dL (0.1-1.5); Calcium* 9.3 mg/dL (8.4-10.6); Carbon Dioxide* 28 mmol/L (20-32); Creatine Kinase* 30 U/L (54-186); Glucose* 92 mg/dL (60-115); Magnesium* 2.1 mg/dL (1.5-2.6); Total Protein* 6.9 g/dL (6.0-8.3)
[2024-11-15 08:14] LABS: C Reactive Protein* 1.5 mg/dL (0.5-1.0)
[2024-11-15 08:16] LABS: Amorphous Sediment Urine Moderate; RBC Urine 0-2 (0-2); Squamous Epithelial Cell Urine Few (None-Few); WBC Urine 0-2 (0-5)
[2024-11-15 08:17] LABS: Mucus Urine Few
[2024-11-15 08:45] VITALS: BP 111/70; PULSE 75; RESP 16; O2SAT 97
== END 2024-11-15 10:48 | disposition home or self-care (01) ==
PROVIDERS: Family Medicine; Emergency Provider Emergency Medicine; PCP Family Medicine
DX: D69.0 Allergic purpura (principal); R21 Rash and other nonspecific skin eruption; M79.605 Pain in left leg; R22.42 Localized swelling, mass and lump, left lower limb; Z79.52 Long term (current) use of systemic steroids
CPT/HCPCS: 36415; 80048; 80076; 81001; 82550; 83735; 85025; 86140; 93970; 99284; 99285